=== PATIENT | male | born 1980 | race Two or more races ===

== ENCOUNTER 2016-09-28 08:40 | Inpatient (IN) | payer OTHER ==
[2016-09-28 10:42] VITALS: BMI 38.5
--- NOTE | 2016-09-28 11:55 | HP ---
COWS - Scale Resting Pulse: 2= [place] 101-120 Sweatin=Flushed/Facial Moisture Restless Observation: 3= Extraneous Movement Pupil Size: 2= Moderately Dilated Bone or Joint Aches: 2= Severe Diffuse Aches Runny Nose/ Eye Tearin= Runny Nose/Eyes GI Upset > 30mins: 3= Vomiting/Diarrhea Tremor Observation: 2= Slight Tremor Visible Yawning Observation: 2= >3x During Session Anxiety or Irritability: 2=Irritable/Anxious Goose Flesh Skin: 0=Smooth Skin COWS Score: 22 CIWA Score - CIWA Score Nausea/Vomitin Muscle Tremors: 3 Anxiety: 3 Agitation: 3 Paroxysmal Sweats: 2 Orientation: 0-Oriented Tacttile Disturbances: 2-Mild Itch/Numbness/Burn Auditory Disturbances: 2-Mild Harshness/Frighten Visual Disturbances: 2-Mild Sensitivity Headache: 2-Mild CIWA-Ar Total Score: 22 Admission ROS [facility]HS - HPI Chief Complaint: i need help to stop using heroin,alcohol,klonopin Allergies/Adverse Reactions: Allergies Allergy/AdvReac Type Severity Reaction Status Date / Time buspirone Allergy Severe Difficulty Verified 09/28/16 11:06 Breathing History of Present Illness: this 35 years old male with heroin,alcohol and klonopin dependence,seeking detox ,last detox 12/16/15 12/20/15 [facility] nicotine dependence adhd depression longest period of sobriety 9 months Exam Limitations: No Limitations - Ebola screening Have you traveled outside of the country in the last 21 days: No Have you been sick,other than usual withdrawal symptoms: No - Review of Systems Constitutional: Chills, Diaphoresis, Loss of Appetite, Malaise, Night Sweats, Changes in sleep, Other EENT: reports: Tearing, Nose Congestion Respiratory: reports: No Symptoms reported Cardiac: reports: Palpitations GI: reports: Diarrhea, Nausea, Vomiting, Abdominal cramping : reports: No Symptoms Reported Musculoskeletal: reports: Back Pain, Joint Pain, Muscle Pain, Joint Stiffness Integumentary: reports: Dryness Neuro: reports: Headache, Tremors Endocrine: reports: No Symptoms Reported Hematology: reports: No Symptoms Reported Psychiatric: reports: other (adhd,depresion) Patient History - Patient Medical History Hx Anemia: No Hx Asthma: No Hx Chronic Obstructive Pulmonary Disease (COPD): No Hx Cancer: No Hx Cardiac Disorders: No Hx Congestive Heart Failure: No Hx Hypertension: Yes (pt is on meds.) Hx Hypercholesterolemia: No Hx Pacemaker: No HX Cerebrovascular Accident: No Hx Seizures: No Hx Diabetes: No Hx Gastrointestinal Disorders: No Hx Liver Disease: No Hx Genitourinary Disorders: No Hx Sexually Transmitted Disorders: No Hx Renal Disease (ESRD): No Hx Thyroid Disease: No Hx Human Immunodeficiency Virus (HIV): No (last 2015 negative) Hx Hepatitis C: No Hx Depression: Yes Hx Suicide Attempt: No Hx Bipolar Disorder: No Hx Schizophrenia: No Other Medical History: adhd,no suicidal,no homicidal - Patient Surgical History Past Surgical History: No Hx Neurologic Surgery: No Hx Cataract Extraction: No Hx Cardiac Surgery: No Hx Lung Surgery: No Hx Breast Surgery: No Hx Breast Biopsy: No Hx Abdominal Surgery: No Hx Appendectomy: No Hx Cholecystectomy: No Hx Genitourinary Surgery: No Hx Section: No Hx Orthopedic Surgery: No Anesthesia Reaction: No - PPD History Previous Implant?: Yes Documented Results: Negative w/proof Implanted On Prior [facility] Admission?: Yes Date: 12/18/15 Results: 0 MM PPD to be Administered?: No - Smoking Cessation Smoking history: Current every day smoker Have you smoked in the past 12 months: Yes Aproximately how many cigarettes per day: 20 Hx Chewing Tobacco Use: No Initiated information on smoking cessation: Yes 'Breaking Loose' booklet given: 09/28/16 - Substance & Tx. History Hx Alcohol Use: Yes Hx Substance Use: Yes Substance Use Type: Alcohol, Heroin, Tranquilizers Hx Substance Use Treatment: Yes ([facility] 12/16/15 to 12/20/15) - Substances Abused Heroin Route: Injection Frequency: Daily Amount used: 6 BAGS Age of first use: 31 Date of Last Use: 09/28/16 Alcohol Route: Oral Frequency: Daily Amount used: 4 FOUR LOCO Age of first use: 33 Date of Last Use: 09/28/16 Benzodiazepine (Klonopin) Route: Oral Frequency: Daily Amount used: 3-5MG Age of first use: 30 Date of Last Use: 09/27/16 Marijuana/Hashish Route: Smoking Frequency: Daily Amount used: $40 Age of first use: 22 Date of Last Use: 09/28/16 Family Disease History - Family Disease History Family Disease History: Other: Father (KILLED) Admission Physical Exam [facility] - Vital Signs Vital Signs: Vital Signs - 24 hr 09/28/16 10:40 Temperature 97.1 F L Pulse Rate 110 H Respiratory 20 Rate Blood Pressure 139/89 - Physical General Appearance: Yes: Moderate Distress, Tremorous, Irritable, Sweating, Anxious HEENTM: Yes: Hearing grossly Normal, Normal ENT Inspection, ERNIE Respiratory: Yes: Lungs Clear, Normal Breath Sounds, No Respiratory Distress Neck: Yes: Within Normal Limits Breast: Yes: Within Normal Limits Cardiology: Yes: Tachycardia Abdominal: Yes: Within Normal Limits, Normal Bowel Sounds, Non Tender, Flat, Soft Genitourinary: Yes: Within Normal Limits Back: Yes: Normal Inspection, Muscle Spasm Musculoskeletal: Yes: full range of Motion, Back pain, Joint Stiffness, Muscle Pain Extremities: Yes: Normal Range of Motion, Tremors Neurological: Yes: infection control nurse II-XII NML intact, Fully Oriented, Alert, Motor Strength 5/5 Integumentary: Yes: Dry Lymphatic: Yes: Within Normal Limits - Diagnostic (1) Opioid dependence with withdrawal Current Visit: No Status: Acute (2) Alcohol dependence with uncomplicated withdrawal Current Visit: Yes Status: Acute (3) Uncomplicated sedative, hypnotic or anxiolytic withdrawal Current Visit: Yes Status: Acute (4) Marijuana dependence Current Visit: No Status: Acute (5) Nicotine dependence Current Visit: No Status: Acute Qualifiers: Nicotine product type: cigarettes Substance use status: uncomplicated Qualified Code(s): F17.210 - Nicotine dependence, cigarettes, uncomplicated (6) Depressive disorder Current Visit: No Status: Chronic (7) Hypertension Current Visit: No Status: Chronic Qualifiers: Hypertension type: essential hypertension Qualified Code(s): I10 - Essential (primary) hypertension Comment: PATIENT IS TAKING CLONIDIN 0.2 MG AT HOME FOR HYPERTENSION DUE TO DIETARY CONTROL LOW SALT WITH METHADONE DETOX REGIMEN BEGIN 0.1 MG BID Cleared for Admission [facility] - Detox or Rehab [facility] Level of Care: Medically Managed Detox Regimen/Protocol: Methadone/Valium [facility] Breath Alcohol Content Breath Alcohol Content: 0 Urine Drug Screen - Results Drug Screen Negative: No Urine Drug Screen Results: THC-Marijuana, OPI-Opiates, AMP-Amphetamines
[2016-09-28] MEDS ORDERED: MAGNESIUM HYDROX 2400MG/30ML ORAL SUSPENSION 30 ML CUP PO PRN (12:10)
[2016-09-28] MEDS ORDERED: hydrOXYzine PAMOATE 50 MG CAPSULE (FP) PO PRN (12:10)
[2016-09-28] MEDS ORDERED: guaiFENesin/D-METHORPHAN HB 10 ML UNIT-DOSE CUPS PO PRN (12:10)
[2016-09-28] MEDS ORDERED: MAGNESIUM CITRATE 300 ML BOTTLE PO PRN (12:10)
[2016-09-28] MEDS ORDERED: LOPERAMIDE HCL 2 MG CAPSULE PO PRN (12:10)
[2016-09-28] MEDS ORDERED: MENTHOL/PHENOL 1 EACH UD MM PRN (12:10)
[2016-09-28] MEDS ORDERED: diazePAM 5 MG TABLET PO ONE (12:10)
[2016-09-28] MEDS ORDERED: IBUPROFEN 400 MG TABLET (FP) PO PRN (12:10)
[2016-09-28] MEDS ORDERED: MAG HYDROX/AL HYDROX/SIMETH 30 ML UNIT-DOSE CUP PO PRN (12:10)
[2016-09-28] MEDS ORDERED: P-EPHED 60MG/TRIPROLIDI 2.5MG TABLET PO PRN (12:10)
[2016-09-28] MEDS ORDERED: ACETAMINOPHEN 325 MG TABLET (FP) PO PRN (12:10)
[2016-09-28] MEDS ORDERED: METHADONE HCL 10 MG TABLET (FOR DETOX USE ONLY) PO ONE ×2 (12:17→23:00)
[2016-09-28] MEDS: cloNIDine HCL 0.1 MG TABLET PO SCH ×2 (13:07→22:03)
[2016-09-28] MEDS: NICOTINE 21 MG/24 HOURS TOPICAL PATCH TD SCH (13:10)
[2016-09-28] MEDS: GABAPENTIN 300 MG CAPSULE (FP) PO SCH ×2 (13:17→22:04)
[2016-09-28] MEDS: diazePAM 5 MG TABLET PO SCH ×2 (14:22→22:04)
[2016-09-28 18:03] LABS: URINE APPEARANCE CLEAR; URINE BILIRUBIN NEGATIVE (NEGATIVE); URINE COLOR YELLOW; URINE GLUCOSE (UA) NEGATIVE (NEGATIVE); URINE KETONE NEGATIVE (NEGATIVE); URINE LEUK ESTERASE NEGATIVE (NEGATIVE); URINE NITRITE NEGATIVE (NEGATIVE); URINE PROTEIN NEGATIVE (NEGATIVE); URINE UROBILINOGEN NEGATIVE E.U./dl (0.2-1.0)
[2016-09-28] MEDS: diazePAM 5 MG TABLET PO PRN (18:04)
[2016-09-28 18:48] LABS: URINE BLOOD 1+ (NEGATIVE)
[2016-09-28 19:01] LABS: URINE MUCUS RARE; URINE RBC 1 /hpf (0-3); URINE WBC 2 /hpf (3-5)
[2016-09-28] MEDS: THIAMINE HCL 100 MG TABLET (FP) PO SCH (22:04)
[2016-09-29] MEDS: cloNIDine HCL 0.1 MG TABLET PO SCH ×3 (05:56→22:12)
[2016-09-29] MEDS: GABAPENTIN 300 MG CAPSULE (FP) PO SCH ×3 (06:58→22:12)
[2016-09-29] MEDS: diazePAM 5 MG TABLET PO SCH ×3 (06:58→22:13)
[2016-09-29 09:40] LABS: MCH 30.9 pg (25.7-33.7); MCHC 33.2 g/dl (32.0-35.9); MEAN CELL VOLUME 93.2 fl (80-96); MEAN PLT VOLUME 8.7 fl (7.5-11.1); PLATELET COUNT 212 K/MM3 (134-434); RDW 12.7 % (11.9-15.9); WHITE BLOOD COUNT 8.7 K/mm3 (4.0-10.0)
[2016-09-29] MEDS ORDERED: METHADONE HCL 10 MG TABLET (FOR DETOX USE ONLY) PO SCH (10:00)
[2016-09-29] MEDS: PRENATAL VITAMINS W/ FOLIC ACID TABLET (FP) PO SCH (10:20)
[2016-09-29] MEDS: diazePAM 5 MG TABLET PO PRN ×2 (10:20→18:11)
--- NOTE | 2016-09-29 10:42 | CONSULT ---
[facility] Psychiatric Consult - Data Date of interview: 09/29/16 Admission source: [facility] Identifying data: This is 35 years old male with no psychiatric hospitalization history ointoxicated with: Alcohol, Xanax, Heroin, Cannabis, Opioids and Nicotine Substance Abuse History: - Smoking Cessation. Smoking history: Current every day smoker. Have you smoked in the past 12 months: Yes. Aproximately how many cigarettes per day: 20. Hx Chewing Tobacco Use: No. Initiated information on smoking cessation: Yes. 'Breaking Loose' booklet given: 09/28/16. - Substance & Tx. History. Hx Alcohol Use: Yes. Hx Substance Use: Yes. Substance Use Type : Alcohol, Heroin, Tranquilizers. Hx Substance Use Treatment: Yes ([facility] to 12/20/15). - Substances Abused. Heroin. Route: Injection. Frequency : Daily. Amount used: 6 BAGS. Age of first use: 31. Date of Last Use: . Alcohol. Route: Oral. Frequency: Daily. Amount used: 4 FOUR LOCO. Age of first use: 33. Date of Last Use: 09/28/16. Benzodiazepine (Klonopin) . Route: Oral. Frequency: Daily. Amount used: 3-5MG. Age of first use: 30. Date of Last Use: 09/27/16. Marijuana/Hashish. Route: Smoking. Frequency: Daily. Amount used: $40. Age of first use: 22. Date of Last Use: 09/28/16 Medical History: HTN Psychiatric History: Patient reports ADHD history Physical/Sexual Abuse/Trauma History: Denies Additional Comment: Observation. Detox Unit Care protocol Mental Status Exam - Mental Status Exam Alert and Oriented to: Person Cognitive Function: Fair Patient Appearance: Unkempt Affect: Flat Patient Behavior: Sedated Speech Pattern: Delayed Voice Loudness: Mildly Soft/Quiet Thought Process: Circumstantial Thought Disorder: Being Controlled Hallucinations: Denies Suicidal Ideation: Denies Homicidal Ideation: Denies Insight/Judgement: Fair Sleep: Difficulty falling asleep Appetite: Weight loss Muscle strength/Tone: Moderate Hypotonicity Gait/Station: Normal Additional Comments: Observation. Detox Unit Care protocol Psychiatric Findings - Problem List ([place] 1, 2,3) (1) Alcohol dependence with uncomplicated withdrawal Current Visit: Yes Status: Acute (2) Uncomplicated sedative, hypnotic or anxiolytic withdrawal Current Visit: Yes Status: Acute (3) Heroin dependence Current Visit: No Status: Acute (4) Marijuana dependence Current Visit: No Status: Acute (5) Nicotine dependence Current Visit: No Status: Acute Qualifiers: Nicotine product type: cigarettes Substance use status: uncomplicated Qualified Code(s): F17.210 - Nicotine dependence, cigarettes, uncomplicated (6) Opioid dependence with withdrawal Current Visit: No Status: Acute (7) Substance induced mood disorder Current Visit: No Status: Acute (8) Substance-induced anxiety disorder Current Visit: No Status: Chronic (9) Drug-induced mood disorder Current Visit: Yes Status: Acute - Initial Treatment Plan Initial Treatment Plan: Observation. Detox Unit Care protocol
[2016-09-29 11:00] LABS: ALBUMIN 3.8 g/dl (3.4-5.0); ALK PHOS 103 U/L (45-117); ANION GAP 11 (8-16); BILIRUBIN,TOTAL 0.6 mg/dL (0.2-1.0); CO2 30 mmol/L (21-32); CREATININE 0.9 mg/dL (0.7-1.3); GLUCOSE,RANDOM 104 mg/dL (74-106); SGOT/AST 28 U/L (15-37); SGPT/ALT 30 U/L (12-78)
--- NOTE | 2016-09-29 11:04 | EKG ---
Test Reason : Blood Pressure : / mmHG Vent. Rate : 079 BPM Atrial Rate : 079 BPM P-R Int : 184 ms QRS Dur : 096 ms QT Int : 358 ms P-R-T Axes : 043 028 017 degrees QTc Int : 410 ms NORMAL SINUS RHYTHM NORMAL ECG NO PREVIOUS ECGS AVAILABLE Confirmed by HENRI FERRELL MD ([id number]) on 09/29/2016 11:04:39 AM Referred By: Nela Greene Confirmed By:HENRI FERRELL MD
--- NOTE | 2016-09-29 12:24 | PN ---
S CIWA - CIWA Score Nausea/Vomitin Muscle Tremors: 2 Anxiety: 3 Agitation: 2 Paroxysmal Sweats: 3 Orientation: 0-Oriented Tacttile Disturbances: 1-Very Mild Itch/Numbness Auditory Disturbances: 0-None Visual Disturbances: 0-None Headache: 0-None Present CIWA-Ar Total Score: 13 S COWS - Scale Resting Pulse: 0= [place] 80 or Below Sweatin=Flushed/Facial Moisture Restless Observation: 1= Difficult to Sit Still Pupil Size: 1= Pupils >than Normal Bone or Joint Aches: 1= Mild Discomfort Runny Nose/ Eye Tearin= Nasal Congestion GI Upset > 30mins: 1= Stomach Cramp Tremor Observation of Outstretched Hands: 1= Tremor [place], Not Seen Yawning Observation: 0= None Anxiety or Irritability: 2=Irritable/Anxious Goose Flesh Skin: 0=Smooth Skin COWS Score: 10 S Progress Note (SOAP) Subjective: interrupted sleep, sweats, anxious Objective: 09/29/16 12:22 Vital Signs Temperature 97.8 F 09/29/16 09:44 Pulse Rate 75 09/29/16 09:44 Respiratory Rate 16 09/29/16 09:44 Blood Pressure 129/69 09/29/16 09:44 O2 Sat by Pulse Oximetry (%) Laboratory Tests 09/28/16 09/29/16 09/29/16 15:00 06:00 06:00 WBC 8.7 RBC 5.08 Hgb 15.7 D Hct 47.3 D MCV 93.2 MCHC 33.2 RDW 12.7 Plt Count 212 D MPV 8.7 Sodium 142 Potassium 4.0 Chloride 101 Carbon Dioxide 30 Anion Gap 11 BUN 12 Creatinine 0.9 Creat Clearance w eGFR > 60 Random Glucose 104 Calcium 9.0 Total Bilirubin 0.6 D AST 28 D ALT 30 D Alkaline Phosphatase 103 D Total Protein 7.0 Albumin 3.8 Urine Color Yellow Urine Appearance Clear Urine pH 5.0 Ur Specific [place] 1.025 Urine Protein Negative Urine Glucose (UA) Negative Urine Ketones Negative Urine Blood 1+ H Urine Nitrite Negative Urine Bilirubin Negative Urine Urobilinogen Negative Ur Leukocyte Esterase Negative Urine RBC 1 Urine WBC 2 Ur Epithelial Cells Rare Urine Mucus Rare RPR Titer 09/29/16 06:00 WBC RBC Hgb Hct MCV MCHC RDW Plt Count MPV Sodium Potassium Chloride Carbon Dioxide Anion Gap BUN Creatinine Creat Clearance w eGFR Random Glucose Calcium Total Bilirubin AST ALT Alkaline Phosphatase Total Protein Albumin Urine Color Urine Appearance Urine pH Ur Specific [place] Urine Protein Urine Glucose (UA) Urine Ketones Urine Blood Urine Nitrite Urine Bilirubin Urine Urobilinogen Ur Leukocyte Esterase Urine RBC Urine WBC Ur Epithelial Cells Urine Mucus RPR Titer Nonreactive pt aox3 in nad ambulating 09/29/16 12:24 Assessment: 09/29/16 12:23 withdrawal sx's Plan: cont. detox increase fluids
[2016-09-29] MEDS: NICOTINE 21 MG/24 HOURS TOPICAL PATCH TD SCH (13:33)
[2016-09-29] MEDS: THIAMINE HCL 100 MG TABLET (FP) PO SCH (22:12)
[2016-09-29] MEDS: diphenhydrAMINE HCL 50 MG CAPSULE PO PRN (22:12)
[2016-09-30] MEDS: GABAPENTIN 300 MG CAPSULE (FP) PO SCH ×3 (05:37→22:07)
[2016-09-30] MEDS: cloNIDine HCL 0.1 MG TABLET PO SCH ×3 (05:38→22:08)
--- NOTE | 2016-09-30 08:55 | PN ---
[facility] CIWA - CIWA Score Nausea/Vomitin-Mild Nausea/No Vomiting Muscle Tremors: 2 Anxiety: 3 Agitation: 2 Paroxysmal Sweats: 3 Orientation: 0-Oriented Tacttile Disturbances: 1-Very Mild Itch/Numbness Auditory Disturbances: 0-None Visual Disturbances: 0-None Headache: 0-None Present CIWA-Ar Total Score: 12 BHS COWS - Scale Resting Pulse: 0= [place] 80 or Below Sweatin= Chills/Flushing Restless Observation: 1= Difficult to Sit Still Pupil Size: 1= Pupils >than Normal Bone or Joint Aches: 1= Mild Discomfort Runny Nose/ Eye Tearin= Nasal Congestion GI Upset > 30mins: 1= Stomach Cramp Tremor Observation of Outstretched Hands: 1= Tremor [place], Not Seen Yawning Observation: 0= None Anxiety or Irritability: 2=Irritable/Anxious Goose Flesh Skin: 0=Smooth Skin COWS Score: 9 [facility] Progress Note (SOAP) Subjective: feeling better wants to decrease dose of methadone Objective: 09/30/16 08:53 Vital Signs Temperature 98.1 F 09/30/16 06:00 Pulse Rate 74 09/30/16 06:00 Respiratory Rate 20 09/30/16 06:00 Blood Pressure 154/87 09/30/16 06:00 O2 Sat by Pulse Oximetry (%) Vital Signs Temperature 98.1 F 09/30/16 06:00 Pulse Rate 74 09/30/16 06:00 Respiratory Rate 20 09/30/16 06:00 Blood Pressure 154/87 09/30/16 06:00 O2 Sat by Pulse Oximetry (%) Laboratory Tests 09/28/16 09/29/16 09/29/16 15:00 06:00 06:00 WBC 8.7 RBC 5.08 Hgb 15.7 D Hct 47.3 D MCV 93.2 MCHC 33.2 RDW 12.7 Plt Count 212 D MPV 8.7 Sodium 142 Potassium 4.0 Chloride 101 Carbon Dioxide 30 Anion Gap 11 BUN 12 Creatinine 0.9 Creat Clearance w eGFR > 60 Random Glucose 104 Calcium 9.0 Total Bilirubin 0.6 D AST 28 D ALT 30 D Alkaline Phosphatase 103 D Total Protein 7.0 Albumin 3.8 Urine Color Yellow Urine Appearance Clear Urine pH 5.0 Ur Specific [place] 1.025 Urine Protein Negative Urine Glucose (UA) Negative Urine Ketones Negative Urine Blood 1+ H Urine Nitrite Negative Urine Bilirubin Negative Urine Urobilinogen Negative Ur Leukocyte Esterase Negative Urine RBC 1 Urine WBC 2 Ur Epithelial Cells Rare Urine Mucus Rare RPR Titer 09/29/16 06:00 WBC RBC Hgb Hct MCV MCHC RDW Plt Count MPV Sodium Potassium Chloride Carbon Dioxide Anion Gap BUN Creatinine Creat Clearance w eGFR Random Glucose Calcium Total Bilirubin AST ALT Alkaline Phosphatase Total Protein Albumin Urine Color Urine Appearance Urine pH Ur Specific [place] Urine Protein Urine Glucose (UA) Urine Ketones Urine Blood Urine Nitrite Urine Bilirubin Urine Urobilinogen Ur Leukocyte Esterase Urine RBC Urine WBC Ur Epithelial Cells Urine Mucus RPR Titer Nonreactive pt aox3 in nad ambulating Assessment: 09/30/16 08:53 withdrawal sx's Plan: cont detox increase fluids decrease methadone detox schedule
[2016-09-30] MEDS ORDERED: METHADONE HCL 5 MG TABLET (FOR DETOX USE ONLY) PO SCH (10:00)
[2016-09-30] MEDS ORDERED: METHADONE HCL 5 MG TABLET (FOR DETOX USE ONLY) PO ONE (10:00)
[2016-09-30] MEDS: PRENATAL VITAMINS W/ FOLIC ACID TABLET (FP) PO SCH (10:08)
[2016-09-30] MEDS: diazePAM 5 MG TABLET PO SCH ×2 (10:10→22:08)
[2016-09-30] MEDS: NICOTINE 21 MG/24 HOURS TOPICAL PATCH TD SCH (10:10)
[2016-09-30] MEDS: THIAMINE HCL 100 MG TABLET (FP) PO SCH (22:07)
[2016-09-30] MEDS: diphenhydrAMINE HCL 50 MG CAPSULE PO PRN (22:08)
[2016-10-01] MEDS: diazePAM 5 MG TABLET PO PRN ×2 (00:56→04:59)
[2016-10-01] MEDS: diphenhydrAMINE HCL 50 MG CAPSULE PO PRN (00:56)
[2016-10-01] MEDS: GABAPENTIN 300 MG CAPSULE (FP) PO SCH (05:25)
[2016-10-01] MEDS: cloNIDine HCL 0.1 MG TABLET PO SCH (07:49)
--- NOTE | 2016-10-01 09:43 | PN ---
BHS Progress Note (SOAP) Subjective: Sweating,interrupted sleep,restless Objective: 10/01/16 09:42 Vital Signs - 8 hr 10/01/16 06:00 Temperature 97.2 F L Pulse Rate 63 Respiratory 18 Rate Blood Pressure 125/69 Laboratory Tests 09/28/16 09/29/16 09/29/16 15:00 06:00 06:00 WBC 8.7 RBC 5.08 Hgb 15.7 D Hct 47.3 D MCV 93.2 MCHC 33.2 RDW 12.7 Plt Count 212 D MPV 8.7 Sodium 142 Potassium 4.0 Chloride 101 Carbon Dioxide 30 Anion Gap 11 BUN 12 Creatinine 0.9 Creat Clearance w eGFR > 60 Random Glucose 104 Calcium 9.0 Total Bilirubin 0.6 D AST 28 D ALT 30 D Alkaline Phosphatase 103 D Total Protein 7.0 Albumin 3.8 Urine Color Yellow Urine Appearance Clear Urine pH 5.0 Ur Specific [place] 1.025 Urine Protein Negative Urine Glucose (UA) Negative Urine Ketones Negative Urine Blood 1+ H Urine Nitrite Negative Urine Bilirubin Negative Urine Urobilinogen Negative Ur Leukocyte Esterase Negative Urine RBC 1 Urine WBC 2 Ur Epithelial Cells Rare Urine Mucus Rare RPR Titer 09/29/16 06:00 WBC RBC Hgb Hct MCV MCHC RDW Plt Count MPV Sodium Potassium Chloride Carbon Dioxide Anion Gap BUN Creatinine Creat Clearance w eGFR Random Glucose Calcium Total Bilirubin AST ALT Alkaline Phosphatase Total Protein Albumin Urine Color Urine Appearance Urine pH Ur Specific [place] Urine Protein Urine Glucose (UA) Urine Ketones Urine Blood Urine Nitrite Urine Bilirubin Urine Urobilinogen Ur Leukocyte Esterase Urine RBC Urine WBC Ur Epithelial Cells Urine Mucus RPR Titer Nonreactive labs noted Assessment: 10/01/16 09:42 Withdrawal sx. Plan: Continue detox
[2016-10-01] MEDS ORDERED: METHADONE HCL 10 MG TABLET (FOR DETOX USE ONLY) PO ONE (10:00)
[2016-10-01] MEDS ORDERED: METHADONE HCL 10 MG TABLET (FOR DETOX USE ONLY) PO SCH (10:00)
[2016-10-01] MEDS: PRENATAL VITAMINS W/ FOLIC ACID TABLET (FP) PO SCH (10:26)
[2016-10-01] MEDS: diazePAM 5 MG TABLET PO SCH (10:26)
[2016-10-01] MEDS: NICOTINE 21 MG/24 HOURS TOPICAL PATCH TD SCH (10:27)
[2016-10-01 14:40] VITALS: BP 152/81; PULSE 78; TEMP 97.2
[2016-10-02] MEDS ORDERED: METHADONE HCL 5 MG TABLET (FOR DETOX USE ONLY) PO ONE (10:00)
[2016-10-02] MEDS ORDERED: diazePAM 5 MG TABLET PO SCH (10:00)
[2016-10-02] MEDS ORDERED: METHADONE HCL 10 MG TABLET (FOR DETOX USE ONLY) PO SCH (10:00)
[2016-10-03] MEDS ORDERED: METHADONE HCL 5 MG TABLET (FOR DETOX USE ONLY) PO SCH (06:00)
== END 2016-10-01 14:04 | disposition left against medical advice (07) | DRG 770 ==
LOC: YASAS 08:40 → Y6N 11:32
PROVIDERS: ADMIT Internal Medicine; ATTEND Internal Medicine
PROC: HZ2ZZZZ Detoxification Services for Substance Abuse Treatment (ICD-10-PCS; principal; 2016-10-01)
DX: F11.23 Opioid dependence with withdrawal (principal); F13.230 Sedative, hypnotic or anxiolytic dependence with withdrawal, uncomplicated; F10.230 Alcohol dependence with withdrawal, uncomplicated; F12.20 Cannabis dependence, uncomplicated; F17.210 Nicotine dependence, cigarettes, uncomplicated; F19.24 Other psychoactive substance dependence with psychoactive substance-induced mood disorder; F19.280 Other psychoactive substance dependence with psychoactive substance-induced anxiety disorder; I10 Essential (primary) hypertension
CPT/HCPCS: 36415; 80053; 81003; 81015; 85027; 86593; 93005; 93010

== ENCOUNTER 2016-12-03 12:44 | Inpatient (IN) | payer OTHER ==
[2016-12-03 13:55] VITALS: BMI 29.5
--- NOTE | 2016-12-03 16:37 | HP ---
COWS - Scale Resting Pulse: 0= [place] 80 or Below Sweatin=Flushed/Facial Moisture Restless Observation: 1= Difficult to Sit Still Pupil Size: 0= Normal to Room Light Bone or Joint Aches: 2= Severe Diffuse Aches Runny Nose/ Eye Tearin= Constantly Teary/Runny GI Upset > 30mins: 3= Vomiting/Diarrhea Tremor Observation: 2= Slight Tremor Visible Yawning Observation: 2= >3x During Session Anxiety or Irritability: 2=Irritable/Anxious Goose Flesh Skin: 3=[place] COWS Score: 21 CIWA Score - CIWA Score Nausea/Vomitin-No Nausea/No Vomiting Muscle Tremors: 4-Moderate,w/Arms Extend Anxiety: 4-Mod. Anxious/Guarded Agitation: 4-Moderately Restless Paroxysmal Sweats: 3 Orientation: 1-Uncertain about Date Tacttile Disturbances: 0-None Auditory Disturbances: 0-None Visual Disturbances: 0-None Headache: 1-Very Mild CIWA-Ar Total Score: 17 Admission ROS BHS - HPI Chief Complaint: I am here for detox and need help. Allergies/Adverse Reactions: Allergies Allergy/AdvReac Type Severity Reaction Status Date / Time buspirone Allergy Severe Difficulty Verified 09/28/16 11:06 Breathing History of Present Illness: pt is a 36yr old male with a history of heroin, benzodiazapien and alcohol dependence seeking detox for treatment. Exam Limitations: No Limitations - Ebola screening Have you traveled outside of the country in the last 21 days: No Have you had contact with anyone from an Ebola affected area: No Have you been sick,other than usual withdrawal symptoms: No Do you have a fever: No - Review of Systems Constitutional: Diaphoresis, Changes in sleep, Unexplained wgt Loss EENT: reports: No Symptoms Reported, Nose Congestion Respiratory: reports: No Symptoms reported Cardiac: reports: Syncope GI: reports: Diarrhea, Poor Appetite, Poor Fluid Intake : reports: No Symptoms Reported Musculoskeletal: reports: Back Pain, Joint Pain Integumentary: reports: No Symptoms Reported Neuro: reports: Headache, Tingling, Tremors Endocrine: reports: Excessive Sweating, Flushing, Intolerance to Heat, Increased Hunger Hematology: reports: No Symptoms Reported Psychiatric: reports: Judgement Intact, Mood/Affect Appropiate, Orientated x3, Agitated, Anxious, Depressed Other Systems: Reviewed and Negative Patient History - Patient Medical History Hx Anemia: No Hx Asthma: No Hx Chronic Obstructive Pulmonary Disease (COPD): No Hx Cancer: No Hx Cardiac Disorders: No Hx Congestive Heart Failure: No Hx Hypertension: Yes Hx Hypercholesterolemia: No Hx Pacemaker: No HX Cerebrovascular Accident: No Hx Seizures: No Hx Diabetes: No Hx Gastrointestinal Disorders: No Hx Liver Disease: No Hx Genitourinary Disorders: No Hx Sexually Transmitted Disorders: No Hx Renal Disease (ESRD): No Hx Thyroid Disease: No Hx Human Immunodeficiency Virus (HIV): No (negative) Hx Hepatitis C: No Hx Depression: Yes Hx Suicide Attempt: No (denies) Hx Bipolar Disorder: No Hx Schizophrenia: No - Patient Surgical History Past Surgical History: No Hx Neurologic Surgery: No Hx Cataract Extraction: No Hx Cardiac Surgery: No Hx Lung Surgery: No Hx Breast Surgery: No Hx Breast Biopsy: No Hx Abdominal Surgery: No Hx Appendectomy: No Hx Cholecystectomy: No Hx Genitourinary Surgery: No Hx Section: No Hx Orthopedic Surgery: No Anesthesia Reaction: No - PPD History Previous Implant?: Yes Documented Results: Negative w/proof Date: 12/18/15 Results: 0 MM PPD to be Administered?: No - Reproductive History Patient is a Female of Child Bearing Age (11 -55 yrs old): No - Smoking Cessation Smoking history: Current every day smoker Have you smoked in the past 12 months: Yes Aproximately how many cigarettes per day: 20 Hx Chewing Tobacco Use: No Initiated information on smoking cessation: Yes 'Breaking Loose' booklet given: 12/03/16 - Substance & Tx. History Hx Alcohol Use: Yes Hx Substance Use: Yes Substance Use Type: Alcohol, Heroin, Marijuana Hx Substance Use Treatment: Yes (last detox 10/2016) - Substances Abused Alcohol Route: Oral Frequency: 3-6 times per week Amount used: 2 pints evleyn, 2pts vodka, 12bottles bro Age of first use: 29 Date of Last Use: 12/02/16 Heroin Route: Injection Frequency: Daily Amount used: 6-12bags Age of first use: 30 Date of Last Use: 12/03/16 Alprazolam (Xanax) Route: Inhalation Frequency: 3-6 times per week Amount used: 2-6 sticks Age of first use: 22 Date of Last Use: 12/02/16 Family Disease History - Family Disease History Family History: Denies Family Disease History: Heart Disease: Grandparent, Mother, Other: Father ( KILLED) Admission Physical Exam [facility] - Vital Signs Vital Signs: Vital Signs - 24 hr 12/03/16 13:52 Temperature 96.3 F L Pulse Rate 77 Respiratory 16 Rate Blood Pressure 110/60 - Physical General Appearance: Yes: Appropriately Dressed, Obese, Tremorous, Irritable, Sweating HEENTM: Yes: Hearing grossly Normal Respiratory: Yes: Lungs Clear, Normal Breath Sounds, No Respiratory Distress Neck: Yes: No masses,lesions,Nodules Breast: Yes: Within Normal Limits Cardiology: Yes: Regular Rhythm, Regular Rate, S1, S2 Abdominal: Yes: Normal Bowel Sounds, Non Tender Genitourinary: Yes: Within Normal Limits Back: Yes: Normal Inspection Musculoskeletal: Yes: full range of Motion Extremities: Yes: Within Normal Limits, Normal Inspection Neurological: Yes: Fully Oriented, Normal Response Integumentary: Yes: Normal Color, Diaphoresis, Track Cotton Lymphatic: Yes: Within Normal Limits - Diagnostic (1) Alcohol dependence with uncomplicated withdrawal Current Visit: Yes Status: Chronic (2) Marijuana dependence Current Visit: Yes Status: Chronic (3) Nicotine dependence Current Visit: Yes Status: Chronic Qualifiers: Nicotine product type: cigarettes Substance use status: uncomplicated Qualified Code(s): F17.210 - Nicotine dependence, cigarettes, uncomplicated (4) Opioid dependence with withdrawal Current Visit: Yes Status: Chronic (5) Uncomplicated sedative, hypnotic or anxiolytic withdrawal Current Visit: Yes Status: Chronic (6) Hypertension Current Visit: Yes Status: Chronic Qualifiers: Hypertension type: essential hypertension (7) Anxiety Current Visit: No Status: Suspected Cleared for Admission [facility] - Detox or Rehab [facility] Level of Care: Medically Managed Detox Regimen/Protocol: Methadone/Librium [facility] Breath Alcohol Content Breath Alcohol Content: 0 Urine Drug Screen - Results Drug Screen Negative: No Urine Drug Screen Results: THC-Marijuana, OPI-Opiates, BZO-Benzodiazepines
[2016-12-03] MEDS ORDERED: MAG HYDROX/AL HYDROX/SIMETH 30 ML UNIT-DOSE CUP PO PRN (16:46)
[2016-12-03] MEDS ORDERED: IBUPROFEN 400 MG TABLET (FP) PO PRN (16:46)
[2016-12-03] MEDS ORDERED: chlordiazePOXIDE HCL 25 MG CAPSULE PO ONE (16:46)
[2016-12-03] MEDS ORDERED: LOPERAMIDE HCL 2 MG CAPSULE PO PRN (16:46)
[2016-12-03] MEDS ORDERED: diphenhydrAMINE HCL 50 MG CAPSULE PO PRN (16:46)
[2016-12-03] MEDS ORDERED: MAGNESIUM CITRATE 300 ML BOTTLE PO PRN (16:46)
[2016-12-03] MEDS ORDERED: ACETAMINOPHEN 325 MG TABLET (FP) PO PRN (16:46)
[2016-12-03] MEDS ORDERED: guaiFENesin/D-METHORPHAN HB 10 ML UNIT-DOSE CUPS PO PRN (16:46)
[2016-12-03] MEDS ORDERED: P-EPHED 60MG/TRIPROLIDI 2.5MG TABLET PO PRN (16:46)
[2016-12-03] MEDS ORDERED: NICOTINE POLACRILEX 4 MG GUM BC PRN (16:46)
[2016-12-03] MEDS ORDERED: METHADONE HCL 10 MG TABLET (FOR DETOX USE ONLY) PO ONE ×2 (16:46→23:00)
[2016-12-03] MEDS ORDERED: MENTHOL/PHENOL 1 EACH UD MM PRN (16:46)
[2016-12-03] MEDS ORDERED: hydrOXYzine PAMOATE 50 MG CAPSULE (FP) PO PRN (16:46)
[2016-12-03] MEDS ORDERED: MAGNESIUM HYDROX 2400MG/30ML ORAL SUSPENSION 30 ML CUP PO PRN (16:46)
[2016-12-03] MEDS ORDERED: cloNIDine HCL 0.1 MG TABLET PO PRN (16:56)
[2016-12-03] MEDS: chlordiazePOXIDE HCL 25 MG CAPSULE PO SCH ×2 (18:36→22:21)
--- NOTE | 2016-12-03 19:35 | CONSULT ---
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 Substance Abuse History: Confirmed by patient in this interview. Smoking Cessation. Smoking history: Current every day smoker. Have you smoked in the past 12 months: Yes. Aproximately how many cigarettes per day: 20. Hx Chewing Tobacco Use: No. Initiated information on smoking cessation: Yes. 'Breaking Loose' booklet given: 12/03/16. - Substance & Tx. History. Hx Alcohol Use: Yes. Hx Substance Use: Yes. Substance Use Type: Alcohol, Heroin, Marijuana. Hx Substance Use Treatment: Yes (last detox 10/2016). - Substances Abused. Alcohol. Route: Oral. Frequency: 3-6 times per week. Amount used: 2 pints evelyn, 2pts vodka, 12bottles bro. Age of first use: 29. Date of Last Use : 12/02/16. Heroin. Route: Injection. Frequency: Daily. Amount used: 6- 12bags. Age of first use: 30. Date of Last Use: 12/03/16. Alprazolam ( Xanax). Route: Inhalation. Frequency: 3-6 times per week. Amount used: 2-6 sticks. Age of first use: 22. Date of Last Use: 12/02/16 Medical History: Hypertension. Psychiatric History: Mr Bellamy denies history of psychiatric hospitalizations.He used to see a psychiatrist,at [facility],for medication management.Diagnosed with MDD and ADHD.Currently prescribed adderall, clonidine,gabapentin and trazodone.No history of suicide attempts.Pharmacy claims are revisited : noted evidence of previous scripts for trazodone 150 mg/ hs. Physical/Sexual Abuse/Trauma History: Patient denies. Additional Comment: THC-Marijuana, OPI-Opiates, BZO-Benzodiazepines.Noted. Mental Status Exam - Mental Status Exam Alert and Oriented to: Time, Place, Person Cognitive Function: Good Patient Appearance: Well Groomed (overweight) Mood: Nervous, Anxious, Hopeful Affect: Mood Congruent Patient Behavior: Fatigued, Appropriate, Cooperative Speech Pattern: Clear, Appropriate Voice Loudness: Normal Thought Process: Intact, Goal Oriented Thought Disorder: Not Present Hallucinations: Denies Suicidal Ideation: Denies Homicidal Ideation: Denies Insight/Judgement: Poor Sleep: Poorly, Difficulty falling asleep Appetite: Good Muscle strength/Tone: Normal Gait/Station: Normal Psychiatric Findings - Problem List (Zachary 1, 2,3) (1) Alcohol dependence with uncomplicated withdrawal Current Visit: Yes Status: Acute (2) Opioid dependence with withdrawal Current Visit: Yes Status: Acute (3) Nicotine dependence Current Visit: Yes Status: Acute Qualifiers: Nicotine product type: cigarettes Substance use status: uncomplicated Qualified Code(s): F17.210 - Nicotine dependence, cigarettes, uncomplicated (4) Drug-induced mood disorder Current Visit: Yes Status: Acute (5) ADHD (attention deficit hyperactivity disorder) Current Visit: Yes Status: Chronic Comment: Self-report. (6) Hypertension Current Visit: Yes Status: Chronic Qualifiers: Hypertension type: essential hypertension Qualified Code(s): I10 - Essential (primary) hypertension (7) Insomnia Current Visit: Yes Status: Acute (8) Marijuana dependence Current Visit: Yes Status: Acute (9) Uncomplicated sedative, hypnotic or anxiolytic withdrawal Current Visit: Yes Status: Acute - Initial Treatment Plan Initial Treatment Plan: Psychoeducation.Detoxification.Trazodone 100 mg po hs.Patient is made aware of risk for priapism and he is advised to stop taking that medication / seek immediate medical attention in the yazidism of erectile abnormalities (prolonged/painful erection).Mr Bellamy consents to follow this careplan.Observation.
[2016-12-03 21:32] LABS: URINE APPEARANCE CLEAR; URINE BILIRUBIN NEGATIVE (NEGATIVE); URINE BLOOD NEGATIVE (NEGATIVE); URINE COLOR YELLOW; URINE GLUCOSE (UA) NEGATIVE (NEGATIVE); URINE KETONE NEGATIVE (NEGATIVE); URINE LEUK ESTERASE NEGATIVE (NEGATIVE); URINE NITRITE NEGATIVE (NEGATIVE); URINE PROTEIN NEGATIVE (NEGATIVE); URINE UROBILINOGEN NEGATIVE mg/dL (0.2-1.0)
[2016-12-03] MEDS ORDERED: traZODone HCL 50 MG TABLET (FP) PO SCH (22:00)
[2016-12-03] MEDS ORDERED: hydrALAZINE HCL 50 MG TABLET (FP) PO SCH (22:00)
[2016-12-03] MEDS: THIAMINE HCL 100 MG TABLET (FP) PO SCH (22:19)
[2016-12-03] MEDS: GABAPENTIN 100 MG CAPSULE (FP) PO SCH (22:20)
[2016-12-03] MEDS: cloNIDine HCL 0.1 MG TABLET PO SCH (22:22)
[2016-12-04] MEDS: GABAPENTIN 100 MG CAPSULE (FP) PO SCH (05:39)
[2016-12-04] MEDS: chlordiazePOXIDE HCL 25 MG CAPSULE PO SCH ×4 (05:39→22:43)
[2016-12-04] MEDS ORDERED: METHADONE HCL 10 MG TABLET (FOR DETOX USE ONLY) PO SCH (10:00)
[2016-12-04] MEDS: cloNIDine HCL 0.1 MG TABLET PO SCH ×2 (10:24→22:42)
[2016-12-04] MEDS: PRENATAL VITAMINS W/ FOLIC ACID TABLET (FP) PO SCH (10:24)
[2016-12-04] MEDS: NICOTINE 21 MG/24 HOURS TOPICAL PATCH TD SCH (10:25)
[2016-12-04 10:36] LABS: MCH 31.2 pg (25.7-33.7); MCHC 33.5 g/dl (32.0-35.9); MEAN CELL VOLUME 93.1 fl (80-96); MEAN PLT VOLUME 8.5 fl (7.5-11.1); PLATELET COUNT 207 K/MM3 (134-434); RDW 13.7 % (11.9-15.9); WHITE BLOOD COUNT 6.4 K/mm3 (4.0-10.0)
[2016-12-04 11:01] LABS: ALBUMIN 3.2 g/dl (3.4-5.0); ALK PHOS 67 U/L (45-117); ANION GAP 6 (8-16); BILIRUBIN,TOTAL 0.4 mg/dL (0.2-1.0); CALCIUM 8.1 mg/dL (8.5-10.1); CO2 32 mmol/L (21-32); GLUCOSE,RANDOM 94 mg/dL (74-106); SGOT/AST 11 U/L (15-37); SGPT/ALT 18 U/L (12-78); TOT PROT 5.9 g/dl (6.4-8.2)
[2016-12-04] MEDS: chlordiazePOXIDE HCL 25 MG CAPSULE PO PRN (14:45)
--- NOTE | 2016-12-04 15:13 | PN ---
S CIWA - CIWA Score Nausea/Vomitin Muscle Tremors: 4-Moderate,w/Arms Extend Anxiety: 5 Agitation: 4-Moderately Restless Paroxysmal Sweats: 2 Orientation: 0-Oriented Tacttile Disturbances: 3-Moderate Itch/Numb/Burn Auditory Disturbances: 0-None Visual Disturbances: 0-None Headache: 0-None Present CIWA-Ar Total Score: 20 BHS COWS - Scale Resting Pulse: 0= NE 80 or Below Sweatin=Flushed/Facial Moisture Restless Observation: 1= Difficult to Sit Still Pupil Size: 0= Normal to Room Light Bone or Joint Aches: 4=Acute Joint/Muscle Pain Runny Nose/ Eye Tearin= Runny Nose/Eyes GI Upset > 30mins: 1= Stomach Cramp Tremor Observation of Outstretched Hands: 2= Slight Tremor Visible Yawning Observation: 1= 1-2x During Session Anxiety or Irritability: 4=Extreme Anxiety Goose Flesh Skin: 0=Smooth Skin COWS Score: 17 S Progress Note (SOAP) Subjective: Tremors, Body Aches, Anxious. Objective: PT. A & O X 3, OBSERVED AMBULATING ON UNIT. NO ACUTE DISTRESS. PT. DENIES CHEST PAIN. 12/04/16 15:11 Vital Signs Temperature 96.7 F L 12/04/16 10:10 Pulse Rate 64 12/04/16 10:10 Respiratory Rate 18 12/04/16 10:10 Blood Pressure 129/65 12/04/16 10:10 O2 Sat by Pulse Oximetry (%) Laboratory Tests 12/03/16 12/04/16 12/04/16 21:00 07:50 07:50 WBC 6.4 RBC 4.54 Hgb 14.2 Hct 42.2 MCV 93.1 MCH 31.2 MCHC 33.5 RDW 13.7 Plt Count 207 MPV 8.5 Sodium 143 Potassium 3.9 Chloride 105 Carbon Dioxide 32 Anion Gap 6 L BUN 18 D Creatinine 1.0 Creat Clearance w eGFR > 60 Random Glucose 94 Calcium 8.1 L Total Bilirubin 0.4 D AST 11 L D ALT 18 D Alkaline Phosphatase 67 D Total Protein 5.9 L Albumin 3.2 L Urine Color Yellow Urine Appearance Clear Urine pH 8.0 D Ur Specific [place] 1.020 Urine Protein Negative Urine Glucose (UA) Negative Urine Ketones Negative Urine Blood Negative Urine Nitrite Negative Urine Bilirubin Negative Urine Urobilinogen Negative Ur Leukocyte Esterase Negative RPR Titer 12/04/16 07:50 WBC RBC Hgb Hct MCV MCH MCHC RDW Plt Count MPV Sodium Potassium Chloride Carbon Dioxide Anion Gap BUN Creatinine Creat Clearance w eGFR Random Glucose Calcium Total Bilirubin AST ALT Alkaline Phosphatase Total Protein Albumin Urine Color Urine Appearance Urine pH Ur Specific [place] Urine Protein Urine Glucose (UA) Urine Ketones Urine Blood Urine Nitrite Urine Bilirubin Urine Urobilinogen Ur Leukocyte Esterase RPR Titer Nonreactive LABS NOTED. Assessment: 12/04/16 15:12 WITHDRAWAL SYMPTOMS. Plan: CONTINUE DETOX.
[2016-12-04] MEDS: GABAPENTIN 300 MG CAPSULE (FP) PO SCH ×2 (15:23→22:43)
[2016-12-04] MEDS ORDERED: traZODone HCL 150 MG TABLET PO SCH (22:00)
[2016-12-04] MEDS: traZODone HCL 100 MG TABLET (FP) PO SCH (22:42)
[2016-12-04] MEDS: THIAMINE HCL 100 MG TABLET (FP) PO SCH (22:43)
[2016-12-05] MEDS: GABAPENTIN 300 MG CAPSULE (FP) PO SCH ×3 (05:34→22:22)
[2016-12-05] MEDS: chlordiazePOXIDE HCL 25 MG CAPSULE PO SCH ×2 (05:34→10:23)
[2016-12-05] MEDS: METHADONE HCL 5 MG TABLET (FOR DETOX USE ONLY) PO SCH (10:23)
[2016-12-05] MEDS: cloNIDine HCL 0.1 MG TABLET PO SCH ×2 (10:23→22:21)
[2016-12-05] MEDS: NICOTINE 21 MG/24 HOURS TOPICAL PATCH TD SCH (10:24)
[2016-12-05] MEDS: PRENATAL VITAMINS W/ FOLIC ACID TABLET (FP) PO SCH (10:25)
[2016-12-05] MEDS ORDERED: CYCLOBENZAPRINE HCL 10 MG TABLET (FP) PO PRN (15:11)
--- NOTE | 2016-12-05 16:31 | PN ---
S CIWA - CIWA Score Nausea/Vomitin-Mild Nausea/No Vomiting Muscle Tremors: 4-Moderate,w/Arms Extend Anxiety: 4-Mod. Anxious/Guarded Agitation: 4-Moderately Restless Paroxysmal Sweats: 3 Orientation: 0-Oriented Tacttile Disturbances: 1-Very Mild Itch/Numbness Auditory Disturbances: 0-None Visual Disturbances: 0-None Headache: 2-Mild CIWA-Ar Total Score: 19 BHS COWS - Scale Resting Pulse: 0= [place] 80 or Below Sweatin= Chills/Flushing Restless Observation: 3= Extraneous Movement Pupil Size: 0= Normal to Room Light Bone or Joint Aches: 2= Severe Diffuse Aches Runny Nose/ Eye Tearin= Runny Nose/Eyes GI Upset > 30mins: 1= Stomach Cramp Tremor Observation of Outstretched Hands: 2= Slight Tremor Visible Yawning Observation: 1= 1-2x During Session Anxiety or Irritability: 2=Irritable/Anxious Goose Flesh Skin: 0=Smooth Skin COWS Score: 14 S Progress Note (SOAP) Subjective: Interrupted sleep, back pain, constipation (last bm 4-5 days ago, requesting citroma), anxious, restless Objective: 12/05/16 16:30 Last Vital Signs Temp Pulse Resp BP Pulse Ox 96.5 F L 74 18 129/87 12/05/16 13:13 12/05/16 13:13 12/05/16 13:13 12/05/16 13:13 Laboratory Tests 12/03/16 12/04/16 12/04/16 21:00 07:50 07:50 WBC 6.4 RBC 4.54 Hgb 14.2 Hct 42.2 MCV 93.1 MCH 31.2 MCHC 33.5 RDW 13.7 Plt Count 207 MPV 8.5 Sodium 143 Potassium 3.9 Chloride 105 Carbon Dioxide 32 Anion Gap 6 L BUN 18 D Creatinine 1.0 Creat Clearance w eGFR > 60 Random Glucose 94 Calcium 8.1 L Total Bilirubin 0.4 D AST 11 L D ALT 18 D Alkaline Phosphatase 67 D Total Protein 5.9 L Albumin 3.2 L Urine Color Yellow Urine Appearance Clear Urine pH 8.0 D Ur Specific [place] 1.020 Urine Protein Negative Urine Glucose (UA) Negative Urine Ketones Negative Urine Blood Negative Urine Nitrite Negative Urine Bilirubin Negative Urine Urobilinogen Negative Ur Leukocyte Esterase Negative RPR Titer 12/04/16 07:50 WBC RBC Hgb Hct MCV MCH MCHC RDW Plt Count MPV Sodium Potassium Chloride Carbon Dioxide Anion Gap BUN Creatinine Creat Clearance w eGFR Random Glucose Calcium Total Bilirubin AST ALT Alkaline Phosphatase Total Protein Albumin Urine Color Urine Appearance Urine pH Ur Specific [place] Urine Protein Urine Glucose (UA) Urine Ketones Urine Blood Urine Nitrite Urine Bilirubin Urine Urobilinogen Ur Leukocyte Esterase RPR Titer Nonreactive Labs noted Assessment: 12/05/16 16:30 Withdrawal symptoms Plan: Continue detox Encouraged to drink lots of water, monitor constipation
[2016-12-05] MEDS: chlordiazePOXIDE 5 MG CAPSULE PO SCH ×2 (17:09→22:23)
[2016-12-05] MEDS: chlordiazePOXIDE HCL 25 MG CAPSULE PO PRN (19:58)
[2016-12-05] MEDS: THIAMINE HCL 100 MG TABLET (FP) PO SCH (22:20)
[2016-12-05] MEDS: traZODone HCL 100 MG TABLET (FP) PO SCH (22:21)
--- NOTE | 2016-12-05 22:30 | EKG ---
Test Reason : Blood Pressure : / mmHG Vent. Rate : 056 BPM Atrial Rate : 056 BPM P-R Int : 208 ms QRS Dur : 094 ms QT Int : 394 ms P-R-T Axes : 024 026 009 degrees QTc Int : 380 ms SINUS BRADYCARDIA WITH 1ST DEGREE A-V BLOCK WHEN COMPARED WITH ECG OF 28-SEP-2016 12:00, [place] INTERVAL HAS INCREASED Confirmed by AB TEIXEIRA MD ([id number]) on 12/05/2016 10:30:08 PM Referred By: Confirmed By:AB TEIXEIRA MD
[2016-12-06] MEDS: GABAPENTIN 300 MG CAPSULE (FP) PO SCH ×2 (05:38→13:36)
[2016-12-06] MEDS: chlordiazePOXIDE 5 MG CAPSULE PO SCH ×2 (05:38→11:33)
[2016-12-06] MEDS: PRENATAL VITAMINS W/ FOLIC ACID TABLET (FP) PO SCH (11:29)
[2016-12-06] MEDS: cloNIDine HCL 0.1 MG TABLET PO SCH (11:32)
[2016-12-06] MEDS: NICOTINE 21 MG/24 HOURS TOPICAL PATCH TD SCH (11:33)
[2016-12-06] MEDS: METHADONE HCL 5 MG TABLET (FOR DETOX USE ONLY) PO SCH (11:33)
--- NOTE | 2016-12-06 12:44 | PN ---
[facility] Progress Note (SOAP) Subjective: Tremors. Objective: PT. A & O X 3, OBSERVED AMBULATING ON UNIT. NO ACUTE DISTRESS. 12/06/16 12:40 Vital Signs Temperature 96.3 F L 12/06/16 09:09 Pulse Rate 75 12/06/16 09:09 Respiratory Rate 20 12/06/16 09:09 Blood Pressure 117/75 12/06/16 09:09 O2 Sat by Pulse Oximetry (%) Laboratory Tests 12/03/16 12/04/16 12/04/16 21:00 07:50 07:50 WBC 6.4 RBC 4.54 Hgb 14.2 Hct 42.2 MCV 93.1 MCH 31.2 MCHC 33.5 RDW 13.7 Plt Count 207 MPV 8.5 Sodium 143 Potassium 3.9 Chloride 105 Carbon Dioxide 32 Anion Gap 6 L BUN 18 D Creatinine 1.0 Creat Clearance w eGFR > 60 Random Glucose 94 Calcium 8.1 L Total Bilirubin 0.4 D AST 11 L D ALT 18 D Alkaline Phosphatase 67 D Total Protein 5.9 L Albumin 3.2 L Urine Color Yellow Urine Appearance Clear Urine pH 8.0 D Ur Specific [place] 1.020 Urine Protein Negative Urine Glucose (UA) Negative Urine Ketones Negative Urine Blood Negative Urine Nitrite Negative Urine Bilirubin Negative Urine Urobilinogen Negative Ur Leukocyte Esterase Negative RPR Titer 12/04/16 07:50 WBC RBC Hgb Hct MCV MCH MCHC RDW Plt Count MPV Sodium Potassium Chloride Carbon Dioxide Anion Gap BUN Creatinine Creat Clearance w eGFR Random Glucose Calcium Total Bilirubin AST ALT Alkaline Phosphatase Total Protein Albumin Urine Color Urine Appearance Urine pH Ur Specific [place] Urine Protein Urine Glucose (UA) Urine Ketones Urine Blood Urine Nitrite Urine Bilirubin Urine Urobilinogen Ur Leukocyte Esterase RPR Titer Nonreactive LABS NOTED. Assessment: 12/06/16 12:41 WITHDRAWAL SYMPTOMS. Plan: CONTINUE DETOX. PATIENT CURRENTLY REPORTS THAT DETOX SYMPTOMS ARE MINIMAL AND THAT HE FEELS WELL OVERALL. AT PATIENT'S REQUEST, DETOX MEDICATION REGIMEN (METHADONE, LIBRIUM ) CHANGED SO THAT PATIENT MAY BE DISCHARGED ON 12/07/2016 PENDING EVALUATION BY MEDICAL PROVIDER ON THAT MORNING.
[2016-12-06] MEDS ORDERED: cloNIDine HCL 0.1 MG TABLET PO SCH (12:45)
[2016-12-06 13:12] VITALS: TEMP 97.2
[2016-12-06 13:37] VITALS: BP 104/69; PULSE 78
--- NOTE | 2016-12-06 14:37 | DS ---
[facility] Detox Discharge Summary Admission Date: 12/03/16 Discharge Date: 12/06/16 - History Present History: Alcohol Dependence, Cannabis Dependence, Opioid Dependence, Sedative Dependence Additional Comments: PATIENT DOES NOT WISH TO STAY TO COMPLETE DETOX REGIMEN. PATIENT ADVISED TO IMMEDIATELY TO NEAREST ER SHOULD ANY INTOLERABLE DETOX SYMPTOMS DEVELOP AT ANY TIME. PATIENT LEFT UNIT IN STABLE MEDICAL CONDITION. Pertinent Past History: HTN, Anxiety, ADHD. - Physical Exam Results Vital Signs: Vital Signs Temperature 97.2 F L 12/06/16 13:12 Pulse Rate 78 12/06/16 13:36 Respiratory Rate 18 12/06/16 13:36 Blood Pressure 104/69 12/06/16 13:36 O2 Sat by Pulse Oximetry (%) Pertinent Admission Physical Exam Findings: WITHDRAWAL SYMPTOMS. Laboratory Tests 12/03/16 12/04/16 12/04/16 21:00 07:50 07:50 WBC 6.4 RBC 4.54 Hgb 14.2 Hct 42.2 MCV 93.1 MCH 31.2 MCHC 33.5 RDW 13.7 Plt Count 207 MPV 8.5 Sodium 143 Potassium 3.9 Chloride 105 Carbon Dioxide 32 Anion Gap 6 L BUN 18 D Creatinine 1.0 Creat Clearance w eGFR > 60 Random Glucose 94 Calcium 8.1 L Total Bilirubin 0.4 D AST 11 L D ALT 18 D Alkaline Phosphatase 67 D Total Protein 5.9 L Albumin 3.2 L Urine Color Yellow Urine Appearance Clear Urine pH 8.0 D Ur Specific [place] 1.020 Urine Protein Negative Urine Glucose (UA) Negative Urine Ketones Negative Urine Blood Negative Urine Nitrite Negative Urine Bilirubin Negative Urine Urobilinogen Negative Ur Leukocyte Esterase Negative RPR Titer 12/04/16 07:50 WBC RBC Hgb Hct MCV MCH MCHC RDW Plt Count MPV Sodium Potassium Chloride Carbon Dioxide Anion Gap BUN Creatinine Creat Clearance w eGFR Random Glucose Calcium Total Bilirubin AST ALT Alkaline Phosphatase Total Protein Albumin Urine Color Urine Appearance Urine pH Ur Specific [place] Urine Protein Urine Glucose (UA) Urine Ketones Urine Blood Urine Nitrite Urine Bilirubin Urine Urobilinogen Ur Leukocyte Esterase RPR Titer Nonreactive LABS NOTED. - Treatment Hospital Course: Detoxed Safely - Medication Discharge Medications: Ambulatory Orders Hydralazine HCl [Apresoline -] 50 mg PO BID 12/03/16 Trazodone HCl [Desyrel -] 150 mg PO HS 12/03/16 Trazodone HCl [Desyrel -] 150 mg PO HS #30 tablet 12/06/16 - Diagnosis (1) Alcohol dependence with uncomplicated withdrawal Status: Acute (2) Drug-induced mood disorder Status: Acute (3) Insomnia Status: Acute Qualifiers: Insomnia type: unspecified Qualified Code(s): G47.00 - Insomnia, unspecified (4) Marijuana dependence Status: Acute (5) Nicotine dependence Status: Chronic Qualifiers: Nicotine product type: cigarettes Substance use status: uncomplicated Qualified Code(s): F17.210 - Nicotine dependence, cigarettes, uncomplicated (6) Opioid dependence with withdrawal Status: Acute (7) Uncomplicated sedative, hypnotic or anxiolytic withdrawal Status: Acute (8) ADHD (attention deficit hyperactivity disorder) Status: Chronic Qualifiers: Attention deficit-hyperactivity disorder type: unspecified Qualified Code(s): F90.9 - Attention-deficit hyperactivity disorder, unspecified type (9) Hypertension Status: Chronic Qualifiers: Hypertension type: essential hypertension Qualified Code(s): I10 - Essential (primary) hypertension (10) Heroin dependence Status: Acute (11) Substance induced mood disorder Status: Acute (12) Depressive disorder Status: Chronic (13) Substance-induced anxiety disorder Status: Chronic (14) Anxiety Status: Suspected - AMA Did Patient Leave Against Medical Advice: Yes (PATIENT DID NOT WISH TO STAY TO COMPLETE DETOX REGIMEN.)
[2016-12-06] MEDS ORDERED: chlordiazePOXIDE HCL 10 MG CAPSULE PO SCH (17:00)
[2016-12-07] MEDS ORDERED: METHADONE HCL 10 MG TABLET (FOR DETOX USE ONLY) PO SCH (10:00)
[2016-12-08] MEDS ORDERED: METHADONE HCL 5 MG TABLET (FOR DETOX USE ONLY) PO SCH (06:00)
== END 2016-12-06 14:37 | disposition left against medical advice (07) | DRG 770 ==
LOC: YASAS 12:44 → Y3N 16:39
PROVIDERS: ADMIT Internal Medicine Addiction Medicine; ATTEND Internal Medicine Addiction Medicine
PROC: HZ2ZZZZ Detoxification Services for Substance Abuse Treatment (ICD-10-PCS; principal; 2016-12-03)
DX: F11.23 Opioid dependence with withdrawal (principal); F13.230 Sedative, hypnotic or anxiolytic dependence with withdrawal, uncomplicated; F10.230 Alcohol dependence with withdrawal, uncomplicated; F12.20 Cannabis dependence, uncomplicated; F17.210 Nicotine dependence, cigarettes, uncomplicated; F19.24 Other psychoactive substance dependence with psychoactive substance-induced mood disorder; F19.280 Other psychoactive substance dependence with psychoactive substance-induced anxiety disorder; F90.9 Attention-deficit hyperactivity disorder, unspecified type; F32.9 Major depressive disorder, single episode, unspecified; F41.9 Anxiety disorder, unspecified; G47.00 Insomnia, unspecified; Z88.8 Allergy status to other drugs, medicaments and biological substances
CPT/HCPCS: 36415; 80053; 81003; 85027; 86593; 93005; 93010

== ENCOUNTER 2017-04-04 14:24 | Inpatient (IN) | payer OTHER ==
[2017-04-04 14:36] VITALS: BMI 35.3
--- NOTE | 2017-04-04 15:44 | HP ---
COWS - Scale Resting Pulse: 1= [place] 81-100 Sweatin=Flushed/Facial Moisture Restless Observation: 1= Difficult to Sit Still Pupil Size: 1= Pupils >than Normal Bone or Joint Aches: 2= Severe Diffuse Aches Runny Nose/ Eye Tearin= Nasal Congestion GI Upset > 30mins: 1= Stomach Cramp Tremor Observation: 2= Slight Tremor Visible Yawning Observation: 0= None Anxiety or Irritability: 2=Irritable/Anxious Goose Flesh Skin: 0=Smooth Skin COWS Score: 13 CIWA Score - CIWA Score Nausea/Vomitin Muscle Tremors: 3 Anxiety: 3 Agitation: 2 Paroxysmal Sweats: 3 Orientation: 0-Oriented Tacttile Disturbances: 2-Mild Itch/Numbness/Burn Auditory Disturbances: 0-None Visual Disturbances: 0-None Headache: 0-None Present CIWA-Ar Total Score: 15 Admission ROS S - HPI Chief Complaint: I came seeking detox , I need to stop drugs and alcohol use. Allergies/Adverse Reactions: Allergies Allergy/AdvReac Type Severity Reaction Status Date / Time buspirone Allergy Severe Difficulty Verified 04/04/17 15:15 Breathing History of Present Illness: Pt started using oxycontin at age 29 then advanced to heroin IV . Exam Limitations: No Limitations - Ebola screening Have you traveled outside of the country in the last 21 days: No (N) Have you had contact with anyone from an Ebola affected area: No Have you been sick,other than usual withdrawal symptoms: No Do you have a fever: No - Review of Systems Constitutional: Malaise, Night Sweats, Changes in sleep EENT: reports: Tearing, Nose Congestion Respiratory: reports: No Symptoms reported Cardiac: reports: No Symptoms Reported GI: reports: Constipated, Nausea, Abdominal cramping : reports: No Symptoms Reported Musculoskeletal: reports: Back Pain, Muscle Pain (legs) Integumentary: reports: No Symptoms Reported Neuro: reports: Tremors, Weakness Endocrine: reports: No Symptoms Reported Hematology: reports: No Symptoms Reported Psychiatric: reports: Anxious, Depressed Other Systems: Reviewed and Negative Patient History - Patient Medical History Hx Anemia: No Hx Asthma: No Hx Chronic Obstructive Pulmonary Disease (COPD): No Hx Cancer: No Hx Cardiac Disorders: No Hx Congestive Heart Failure: No Hx Hypertension: Yes Hx Hypercholesterolemia: No Hx Pacemaker: No HX Cerebrovascular Accident: No Hx Seizures: No Hx Diabetes: No Hx Gastrointestinal Disorders: No Hx Liver Disease: No Hx Genitourinary Disorders: No Hx Sexually Transmitted Disorders: No Hx Renal Disease (ESRD): No Hx Thyroid Disease: No Hx Human Immunodeficiency Virus (HIV): No (negative) Hx Hepatitis C: No Hx Depression: Yes Hx Suicide Attempt: No Hx Bipolar Disorder: No Hx Schizophrenia: No - Patient Surgical History Past Surgical History: No Hx Neurologic Surgery: No Hx Cataract Extraction: No Hx Cardiac Surgery: No Hx Lung Surgery: No Hx Breast Surgery: No Hx Breast Biopsy: No Hx Abdominal Surgery: No Hx Appendectomy: No Hx Cholecystectomy: No Hx Genitourinary Surgery: No Hx Section: No Hx Orthopedic Surgery: No Anesthesia Reaction: No - PPD History Previous Implant?: Yes Documented Results: Negative w/o proof Date: 12/18/15 Results: 0 MM - Reproductive History Patient is a Female of Child Bearing Age (11 -55 yrs old): No - Smoking Cessation Smoking history: Current every day smoker Have you smoked in the past 12 months: Yes Aproximately how many cigarettes per day: 30 Cigars Per Day: 4 Hx Chewing Tobacco Use: No Initiated information on smoking cessation: Yes 'Breaking Loose' booklet given: 04/04/17 - Substance & Tx. History Hx Alcohol Use: Yes Hx Substance Use: Yes Substance Use Type: Alcohol, Heroin, Marijuana, Tranquilizers Hx Substance Use Treatment: Yes ([facility]) - Substances Abused Heroin Route: Injection Frequency: Daily Amount used: 6-12 BAGS Age of first use: 29 Date of Last Use: 04/04/17 Alprazolam (Xanax) Route: Oral Frequency: Daily Amount used: 4-6MG Age of first use: 29 Date of Last Use: 04/04/17 Marijuana/Hashish Route: Smoking Frequency: Daily Amount used: $50 Age of first use: 26 Date of Last Use: 04/04/17 Alcohol Route: Oral Frequency: Daily Amount used: 1 PINT Xavier Age of first use: 32 Date of Last Use: 04/03/17 Family Disease History - Family Disease History Family Disease History: Heart Disease: Grandparent, Mother, Other: Father ( KILLED) Admission Physical Exam [facility] - Vital Signs Vital Signs: Vital Signs - 24 hr 12/25/17 14:33 Temperature 97.7 F Pulse Rate 85 Respiratory 18 Rate Blood Pressure 177/78 36 y/o obese m pt aox3 , anxious , ambulating well and cooperative with exam, - Physical General Appearance: Yes: Obese, Anxious HEENTM: Yes: EOMI, Hearing grossly Normal, Normal Voice, ERNIE, Nasal Congestion Respiratory: Yes: Chest Non-Tender, Lungs Clear, Normal Breath Sounds, No Respiratory Distress Neck: Yes: Supple, Trachea in good position Breast: Yes: Breast Exam Deferred Cardiology: Yes: Regular Rhythm, Regular Rate, S1, S2 Abdominal: Yes: Non Tender, Soft, Increased Bowel Sounds Genitourinary: Yes: Within Normal Limits Back: Yes: Decreased Range of Motion Musculoskeletal: Yes: Muscle Pain (jorgito legs) Extremities: Yes: Tremors Neurological: Yes: travel accommodations rater II-XII NML intact, Fully Oriented, Alert, Motor Strength 5/5, Depressed Affect Integumentary: Yes: Moist, Track Cotton (arms jorgito) - Diagnostic (1) Alcohol dependence with uncomplicated withdrawal Current Visit: No Status: Chronic (2) Marijuana dependence Current Visit: No Status: Chronic (3) Opioid dependence with withdrawal Current Visit: No Status: Chronic (4) Uncomplicated sedative, hypnotic or anxiolytic withdrawal Current Visit: No Status: Chronic (5) Depressive disorder Current Visit: No Status: Chronic (6) Hypertension Current Visit: No Status: Suspected Qualifiers: Hypertension type: unspecified Qualified Code(s): I10 - Essential (primary ) hypertension (7) Nicotine dependence Current Visit: No Status: Chronic Qualifiers: Nicotine product type: cigarettes Substance use status: uncomplicated Qualified Code(s): F17.210 - Nicotine dependence, cigarettes, uncomplicated Cleared for Admission [facility] - Detox or Rehab [facility] Level of Care: Medically Managed Detox Regimen/Protocol: Methadone/Valium [facility] Breath Alcohol Content Breath Alcohol Content: 0 Urine Drug Screen - Results Drug Screen Negative: No Urine Drug Screen Results: THC-Marijuana, OPI-Opiates, BZO-Benzodiazepines, MTD- Methadone
[2017-04-04] MEDS ORDERED: MAG HYDROX/AL HYDROX/SIMETH 30 ML UNIT-DOSE CUP PO PRN (15:59)
[2017-04-04] MEDS ORDERED: diazePAM 5 MG TABLET PO ONE (15:59)
[2017-04-04] MEDS ORDERED: NICOTINE POLACRILEX 4 MG GUM BC PRN (15:59)
[2017-04-04] MEDS ORDERED: MENTHOL/PHENOL 1 EACH UD MM PRN (15:59)
[2017-04-04] MEDS ORDERED: hydrOXYzine PAMOATE 25 MG CAPSULE (FP) PO PRN (15:59)
[2017-04-04] MEDS ORDERED: LOPERAMIDE HCL 2 MG CAPSULE PO PRN (15:59)
[2017-04-04] MEDS ORDERED: MAGNESIUM HYDROX 2400MG/30ML ORAL SUSPENSION 30 ML CUP PO PRN (15:59)
[2017-04-04] MEDS ORDERED: guaiFENesin/D-METHORPHAN HB 10 ML UNIT-DOSE CUPS PO PRN (15:59)
[2017-04-04] MEDS ORDERED: MAGNESIUM CITRATE 300 ML BOTTLE PO PRN (15:59)
[2017-04-04] MEDS ORDERED: ACETAMINOPHEN 325 MG TABLET (FP) PO PRN (15:59)
[2017-04-04] MEDS ORDERED: IBUPROFEN 400 MG TABLET (FP) PO PRN (15:59)
[2017-04-04] MEDS ORDERED: P-EPHED 60MG/TRIPROLIDI 2.5MG TABLET PO PRN (15:59)
[2017-04-04] MEDS ORDERED: METHADONE HCL 10 MG TABLET (FOR DETOX USE ONLY) PO ONE ×2 (15:59→23:00)
[2017-04-04 19:39] LABS: URINE APPEARANCE CLEAR; URINE BILIRUBIN NEGATIVE (NEGATIVE); URINE BLOOD NEGATIVE (NEGATIVE); URINE COLOR YELLOW; URINE GLUCOSE (UA) NEGATIVE (NEGATIVE); URINE KETONE NEGATIVE (NEGATIVE); URINE LEUK ESTERASE NEGATIVE (NEGATIVE); URINE NITRITE NEGATIVE (NEGATIVE); URINE PROTEIN NEGATIVE (NEGATIVE); URINE UROBILINOGEN NEGATIVE mg/dL (0.2-1.0)
[2017-04-04] MEDS: THIAMINE HCL 100 MG TABLET (FP) PO SCH (22:04)
[2017-04-04] MEDS: cloNIDine HCL 0.1 MG TABLET PO SCH (22:05)
[2017-04-04] MEDS: diazePAM 5 MG TABLET PO SCH (22:05)
[2017-04-04] MEDS: GABAPENTIN 300 MG CAPSULE (FP) PO SCH (22:05)
[2017-04-05] MEDS: GABAPENTIN 300 MG CAPSULE (FP) PO SCH ×3 (05:46→22:03)
[2017-04-05] MEDS: diazePAM 5 MG TABLET PO SCH ×3 (05:47→22:02)
[2017-04-05 09:47] LABS: HEMATOCRIT 42.9 % (35.4-49); MCH 29.8 pg (25.7-33.7); MCHC 32.8 g/dl (32.0-35.9); MEAN CELL VOLUME 91.1 fl (80-96); MEAN PLT VOLUME 8.1 fl (7.5-11.1); PLATELET COUNT 189 K/MM3 (134-434); RBC 4.71 M/mm3 (4.00-5.60); RDW 13.3 % (11.9-15.9); WHITE BLOOD COUNT 6.3 K/mm3 (4.0-10.0)
[2017-04-05 09:59] LABS: CHLORIDE 105 mmol/L (98-107); POTASSIUM 4.1 mmol/L (3.5-5.1); SODIUM 141 mmol/L (136-145)
[2017-04-05] MEDS ORDERED: METHADONE HCL 10 MG TABLET (FOR DETOX USE ONLY) PO SCH (10:00)
[2017-04-05 10:06] LABS: ALBUMIN 3.3 g/dl (3.4-5.0); ALK PHOS 65 U/L (45-117); ANION GAP 5 (8-16); BILIRUBIN,TOTAL 0.5 mg/dL (0.2-1.0); BLOOD UREA NITROGEN 9 mg/dL (7-18); CALCIUM 8.1 mg/dL (8.5-10.1); CO2 31 mmol/L (21-32); CREATININE 0.8 mg/dL (0.7-1.3); GLUCOSE,RANDOM 105 mg/dL (74-106); SGOT/AST 16 U/L (15-37); SGPT/ALT 24 U/L (12-78); TOT PROT 6.3 g/dl (6.4-8.2)
[2017-04-05] MEDS: diazePAM 5 MG TABLET PO PRN ×2 (10:08→16:59)
[2017-04-05] MEDS: cloNIDine HCL 0.1 MG TABLET PO SCH ×2 (10:08→22:03)
[2017-04-05] MEDS: PRENATAL VITAMINS W/ FOLIC ACID TABLET (FP) PO SCH (10:08)
[2017-04-05] MEDS: NICOTINE 21 MG/24 HOURS TOPICAL PATCH TD SCH (10:09)
--- NOTE | 2017-04-05 10:13 | CONSULT ---
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 Substance Abuse History: Discussed in this session.See current [facility] report for details : Smoking history: Current every day smoker. Have you smoked in the past 12 months: Yes. Aproximately how many cigarettes per day: 30. Cigars Per Day: 4. Hx Chewing Tobacco Use: No. Initiated information on smoking cessation : Yes. 'Breaking Loose' booklet given: 04/04/17. - Substance & Tx. History. Hx Alcohol Use: Yes. Hx Substance Use: Yes. Substance Use Type: Alcohol, Heroin, Marijuana, Tranquilizers. Hx Substance Use Treatment: Yes ([facility] detox). - Substances Abused. Heroin. Route: Injection. Frequency: Daily. Amount used: 6-12 BAGS. Age of first use: 29. Date of Last Use: 04/04/17. Alprazolam (Xanax). Route: Oral. Frequency: Daily. Amount used: 4-6MG. Age of first use: 29. Date of Last Use: 04/04/17. Marijuana/ Hashish. Route: Smoking. Frequency: Daily. Amount used: $50. Age of first use: 26. Date of Last Use: 04/04/17. Alcohol. Route: Oral. Frequency: Daily. Amount used: 1 PINT [place]. Age of first use: 32. Date of Last Use: 04/03/17 Medical History: Hypertension. Psychiatric History: No reported history of psychiatric hospitalizations.Mr Josesito indicates that he is no longer followed at [facility] for medication management.Patient dropped out of [facility]PD care several months ago as per self-report.Diagnosed with MDD and ADHD.Currently off medications but amenable to the idea of resuming trazodone 100 mg at bedtime (insomnia).No history of suicide attempts.Pharmacy claims of 03/28/17 yield evidence of refills for trazodone 100 mg/hs (prescribed but not taken,according to patient). Physical/Sexual Abuse/Trauma History: Patient denies history of abuse. Additional Comment: Urine Drug Screen Results: THC-Marijuana, OPI-Opiates, BZO- Benzodiazepines, MTD-Methadone.Noted. Mental Status Exam - Mental Status Exam Alert and Oriented to: Time, Place, Person Cognitive Function: Good Patient Appearance: Well Groomed (overweight,tattoos on forearms) Mood: Nervous, Anxious, Hopeful Affect: Appropriate, Normal Range Patient Behavior: Fatigued, Appropriate, Cooperative Speech Pattern: Clear, Appropriate Voice Loudness: Normal Thought Process: Goal Oriented Thought Disorder: Not Present Hallucinations: Denies Suicidal Ideation: Denies Homicidal Ideation: Denies Insight/Judgement: Poor Sleep: Poorly, Difficulty falling asleep Appetite: Good Muscle strength/Tone: Normal Gait/Station: Normal Psychiatric Findings - Problem List (Trout 1, 2,3) (1) Alcohol dependence with uncomplicated withdrawal Current Visit: Yes Status: Acute (2) Marijuana dependence Current Visit: Yes Status: Acute (3) Opioid dependence with withdrawal Current Visit: Yes Status: Acute (4) Uncomplicated sedative, hypnotic or anxiolytic withdrawal Current Visit: Yes Status: Acute (5) Nicotine dependence Current Visit: Yes Status: Acute Qualifiers: Nicotine product type: cigarettes Substance use status: in withdrawal Qualified Code(s): F17.213 - Nicotine dependence, cigarettes, with withdrawal (6) Substance induced mood disorder Current Visit: Yes Status: Acute (7) Insomnia Current Visit: Yes Status: Acute Qualifiers: Insomnia type: unspecified Qualified Code(s): G47.00 - Insomnia, unspecified - Initial Treatment Plan Initial Treatment Plan: Psychoeducation.Detoxification in progress.Sleep hygiene.Trazodone 100 mg po hs.Patient is made aware of risk of priapism.Mr Bellamy expressed his agreement with this careplan.Observation.
--- NOTE | 2017-04-05 11:19 | PN ---
[facility] CIWA - CIWA Score Nausea/Vomitin-No Nausea/No Vomiting Muscle Tremors: 4-Moderate,w/Arms Extend Anxiety: 4-Mod. Anxious/Guarded Agitation: 4-Moderately Restless Paroxysmal Sweats: 1-Minimal Palms Moist Orientation: 0-Oriented Tacttile Disturbances: 3-Moderate Itch/Numb/Burn Auditory Disturbances: 0-None Visual Disturbances: 0-None Headache: 0-None Present CIWA-Ar Total Score: 16 S COWS - Scale Resting Pulse: 0= [place] 80 or Below Sweatin= Chills/Flushing Restless Observation: 3= Extraneous Movement Pupil Size: 2= Moderately Dilated Bone or Joint Aches: 4=Acute Joint/Muscle Pain Runny Nose/ Eye Tearin= Nasal Congestion GI Upset > 30mins: 1= Stomach Cramp Tremor Observation of Outstretched Hands: 1= Tremor [place], Not Seen Yawning Observation: 1= 1-2x During Session Anxiety or Irritability: 1=Feels Anxious/Irritable Goose Flesh Skin: 0=Smooth Skin COWS Score: 15 [facility] Progress Note (SOAP) Subjective: ANXIETY,IRRITABILITY,SWEATS,FATIGUE,INTERMITTENT SLEEP. Objective: 04/05/17 11:19 Vital Signs Temperature 97.0 F L 04/05/17 08:58 Pulse Rate 76 04/05/17 08:58 Respiratory Rate 18 04/05/17 08:58 Blood Pressure 133/82 04/05/17 08:58 O2 Sat by Pulse Oximetry (%) Laboratory Tests 04/04/17 04/05/17 04/05/17 19:00 06:00 06:00 WBC 6.3 RBC 4.71 Hgb 14.0 Hct 42.9 MCV 91.1 MCH 29.8 MCHC 32.8 RDW 13.3 Plt Count 189 MPV 8.1 Sodium 141 Potassium 4.1 Chloride 105 Carbon Dioxide 31 Anion Gap 5 L BUN 9 D Creatinine 0.8 Creat Clearance w eGFR > 60 Random Glucose 105 Calcium 8.1 L Total Bilirubin 0.5 D AST 16 D ALT 24 D Alkaline Phosphatase 65 Total Protein 6.3 L Albumin 3.3 L Urine Color Yellow Urine Appearance Clear Urine pH 6.0 D Ur Specific [place] 1.019 Urine Protein Negative Urine Glucose (UA) Negative Urine Ketones Negative Urine Blood Negative Urine Nitrite Negative Urine Bilirubin Negative Urine Urobilinogen Negative Ur Leukocyte Esterase Negative RPR Titer 04/05/17 06:00 WBC RBC Hgb Hct MCV MCH MCHC RDW Plt Count MPV Sodium Potassium Chloride Carbon Dioxide Anion Gap BUN Creatinine Creat Clearance w eGFR Random Glucose Calcium Total Bilirubin AST ALT Alkaline Phosphatase Total Protein Albumin Urine Color Urine Appearance Urine pH Ur Specific [place] Urine Protein Urine Glucose (UA) Urine Ketones Urine Blood Urine Nitrite Urine Bilirubin Urine Urobilinogen Ur Leukocyte Esterase RPR Titer Nonreactive Assessment: 04/05/17 11:19 WITHDRAWAL SX Plan: CONTINUE DETOX
--- NOTE | 2017-04-05 13:20 | EKG ---
Test Reason : Blood Pressure : / mmHG Vent. Rate : 064 BPM Atrial Rate : 064 BPM P-R Int : 182 ms QRS Dur : 098 ms QT Int : 390 ms P-R-T Axes : 031 034 020 degrees QTc Int : 402 ms NORMAL SINUS RHYTHM NORMAL ECG WHEN COMPARED WITH ECG OF 03-DEC-2016 17:44, NO SIGNIFICANT CHANGE WAS FOUND Confirmed by MD Mendiola Daniel ([id number]) on 04/05/2017 1:20:33 PM Referred By: Tommie Steiner Confirmed By:Reza Mendiola MD
[2017-04-05] MEDS: THIAMINE HCL 100 MG TABLET (FP) PO SCH (22:02)
[2017-04-05] MEDS: traZODone HCL 100 MG TABLET (FP) PO SCH (22:03)
[2017-04-06] MEDS: diazePAM 5 MG TABLET PO PRN ×2 (04:56→13:46)
[2017-04-06] MEDS: GABAPENTIN 300 MG CAPSULE (FP) PO SCH ×3 (05:03→22:03)
--- NOTE | 2017-04-06 09:58 | PN ---
[facility] CIWA - CIWA Score Nausea/Vomitin-No Nausea/No Vomiting Muscle Tremors: 4-Moderate,w/Arms Extend Anxiety: 4-Mod. Anxious/Guarded Agitation: 4-Moderately Restless Paroxysmal Sweats: 1-Minimal Palms Moist Orientation: 0-Oriented Tacttile Disturbances: 3-Moderate Itch/Numb/Burn Auditory Disturbances: 0-None Visual Disturbances: 0-None Headache: 0-None Present CIWA-Ar Total Score: 16 S COWS - Scale Resting Pulse: 0= [place] 80 or Below Sweatin= Chills/Flushing Restless Observation: 3= Extraneous Movement Pupil Size: 0= Normal to Room Light Bone or Joint Aches: 4=Acute Joint/Muscle Pain Runny Nose/ Eye Tearin= Nasal Congestion GI Upset > 30mins: 0= None Tremor Observation of Outstretched Hands: 1= Tremor [place], Not Seen Yawning Observation: 2= >3x During Session Anxiety or Irritability: 2=Irritable/Anxious Goose Flesh Skin: 0=Smooth Skin COWS Score: 14 [facility] Progress Note (SOAP) Subjective: ANXIETY,TREMORS,SWEATS,FATIGUE,INTERMITTENT SLEEP. Objective: 04/06/17 09:57 Vital Signs Temperature 97.2 F L 04/06/17 09:05 Pulse Rate 66 04/06/17 09:05 Respiratory Rate 19 04/06/17 09:05 Blood Pressure 125/69 04/06/17 09:05 O2 Sat by Pulse Oximetry (%) Laboratory Last Values WBC 6.3 K/mm3 (4.0-10.0) 04/05/17 06:00 RBC 4.71 M/mm3 (4.00-5.60) 04/05/17 06:00 Hgb 14.0 GM/dL (11.7-16.9) 04/05/17 06:00 Hct 42.9 % (35.4-49) 04/05/17 06:00 MCV 91.1 fl (80-96) 04/05/17 06:00 MCH 29.8 pg (25.7-33.7) 04/05/17 06:00 MCHC 32.8 g/dl (32.0-35.9) 04/05/17 06:00 RDW 13.3 % (11.9-15.9) 04/05/17 06:00 Plt Count 189 K/MM3 (134-434) 04/05/17 06:00 MPV 8.1 fl (7.5-11.1) 04/05/17 06:00 Sodium 141 mmol/L (136-145) 04/05/17 06:00 Potassium 4.1 mmol/L (3.5-5.1) 04/05/17 06:00 Chloride 105 mmol/L (98-107) 04/05/17 06:00 Carbon Dioxide 31 mmol/L (21-32) 04/05/17 06:00 Anion Gap 5 (8-16) L 04/05/17 06:00 BUN 9 mg/dL (7-18) D 04/05/17 06:00 Creatinine 0.8 mg/dL (0.7-1.3) 04/05/17 06:00 Creat Clearance w eGFR > 60 (>60) 04/05/17 06:00 Random Glucose 105 mg/dL (74-106) 04/05/17 06:00 Calcium 8.1 mg/dL (8.5-10.1) L 04/05/17 06:00 Total Bilirubin 0.5 mg/dL (0.2-1.0) D 04/05/17 06:00 AST 16 U/L (15-37) D 04/05/17 06:00 ALT 24 U/L (12-78) D 04/05/17 06:00 Alkaline Phosphatase 65 U/L (45-117) 04/05/17 06:00 Total Protein 6.3 g/dl (6.4-8.2) L 04/05/17 06:00 Albumin 3.3 g/dl (3.4-5.0) L 04/05/17 06:00 Urine Color Yellow 04/04/17 19:00 Urine Appearance Clear 04/04/17 19:00 Urine pH 6.0 (5.0-8.0) D 04/04/17 19:00 Ur Specific [place] 1.019 (1.001-1.035) 04/04/17 19:00 Urine Protein Negative (NEGATIVE) 04/04/17 19:00 Urine Glucose (UA) Negative (NEGATIVE) 04/04/17 19:00 Urine Ketones Negative (NEGATIVE) 04/04/17 19:00 Urine Blood Negative (NEGATIVE) 04/04/17 19:00 Urine Nitrite Negative (NEGATIVE) 04/04/17 19:00 Urine Bilirubin Negative (NEGATIVE) 04/04/17 19:00 Urine Urobilinogen Negative mg/dL (0.2-1.0) 04/04/17 19:00 Ur Leukocyte Esterase Negative (NEGATIVE) 04/04/17 19:00 RPR Titer Nonreactive (NONREACTIVE) 04/05/17 06:00 Assessment: 04/06/17 09:57 WITHDRAWAL SX Plan: CONTINUE DETOX
[2017-04-06] MEDS ORDERED: METHADONE HCL 5 MG TABLET (FOR DETOX USE ONLY) PO SCH (10:00)
[2017-04-06] MEDS: cloNIDine HCL 0.1 MG TABLET PO SCH ×2 (10:06→22:03)
[2017-04-06] MEDS: PRENATAL VITAMINS W/ FOLIC ACID TABLET (FP) PO SCH (10:06)
[2017-04-06] MEDS: diazePAM 5 MG TABLET PO SCH ×2 (10:07→22:03)
[2017-04-06] MEDS: NICOTINE 21 MG/24 HOURS TOPICAL PATCH TD SCH (10:07)
[2017-04-06] MEDS ORDERED: ASPIRIN 81 MG CHEWABLE TABLETS PO ONE (21:42)
--- NOTE | 2017-04-06 21:45 | PN ---
S Progress Note (SOAP) Subjective: Patient was seen and examined with complaint of chest pain radiating to his right arm and right leg. Objective: 04/06/17 21:45 Vital Signs Temperature 97.6 F 04/06/17 17:36 Pulse Rate 69 04/06/17 17:36 Respiratory Rate 18 04/06/17 17:36 Blood Pressure 135/89 04/06/17 17:36 O2 Sat by Pulse Oximetry (%) Vitals Now: Temp. 97.8 Pulse 77 Resp. 18 B/P 148/95 Assessment: 04/06/17 21:48 Patient with H/O HTN was seen and examined at bedside Denies lightheadedness, numbness, blurred vision, slurred speech, muscle weakness and fatigue Stat EKG done with result of normal sinus rhythm Aspirin 81 mg tablet oral Plan: Continue detox Monitor patient
[2017-04-06] MEDS: THIAMINE HCL 100 MG TABLET (FP) PO SCH (22:03)
[2017-04-06] MEDS: traZODone HCL 100 MG TABLET (FP) PO SCH (22:03)
[2017-04-07] MEDS: diazePAM 5 MG TABLET PO PRN (06:12)
[2017-04-07] MEDS: GABAPENTIN 300 MG CAPSULE (FP) PO SCH ×3 (06:12→22:02)
[2017-04-07] MEDS ORDERED: METHADONE HCL 10 MG TABLET (FOR DETOX USE ONLY) PO SCH (10:00)
[2017-04-07] MEDS: cloNIDine HCL 0.1 MG TABLET PO SCH ×2 (10:04→22:03)
[2017-04-07] MEDS: PRENATAL VITAMINS W/ FOLIC ACID TABLET (FP) PO SCH (10:04)
[2017-04-07] MEDS: NICOTINE 21 MG/24 HOURS TOPICAL PATCH TD SCH (10:04)
[2017-04-07] MEDS: diazePAM 5 MG TABLET PO SCH ×2 (10:04→22:02)
--- NOTE | 2017-04-07 10:50 | PN ---
S Progress Note (SOAP) Subjective: ALERT O X 3. NAD. PT ANTICIPATING TO GO TO REHAB UPON DISCHARGE. Objective: 04/07/17 10:50 Vital Signs Temperature 96.5 F L 04/07/17 09:04 Pulse Rate 87 04/07/17 09:04 Respiratory Rate 18 04/07/17 09:04 Blood Pressure 123/89 04/07/17 09:04 O2 Sat by Pulse Oximetry (%) Laboratory Last Values WBC 6.3 K/mm3 (4.0-10.0) 04/05/17 06:00 RBC 4.71 M/mm3 (4.00-5.60) 04/05/17 06:00 Hgb 14.0 GM/dL (11.7-16.9) 04/05/17 06:00 Hct 42.9 % (35.4-49) 04/05/17 06:00 MCV 91.1 fl (80-96) 04/05/17 06:00 MCH 29.8 pg (25.7-33.7) 04/05/17 06:00 MCHC 32.8 g/dl (32.0-35.9) 04/05/17 06:00 RDW 13.3 % (11.9-15.9) 04/05/17 06:00 Plt Count 189 K/MM3 (134-434) 04/05/17 06:00 MPV 8.1 fl (7.5-11.1) 04/05/17 06:00 Sodium 141 mmol/L (136-145) 04/05/17 06:00 Potassium 4.1 mmol/L (3.5-5.1) 04/05/17 06:00 Chloride 105 mmol/L (98-107) 04/05/17 06:00 Carbon Dioxide 31 mmol/L (21-32) 04/05/17 06:00 Anion Gap 5 (8-16) L 04/05/17 06:00 BUN 9 mg/dL (7-18) D 04/05/17 06:00 Creatinine 0.8 mg/dL (0.7-1.3) 04/05/17 06:00 Creat Clearance w eGFR > 60 (>60) 04/05/17 06:00 Random Glucose 105 mg/dL (74-106) 04/05/17 06:00 Calcium 8.1 mg/dL (8.5-10.1) L 04/05/17 06:00 Total Bilirubin 0.5 mg/dL (0.2-1.0) D 04/05/17 06:00 AST 16 U/L (15-37) D 04/05/17 06:00 ALT 24 U/L (12-78) D 04/05/17 06:00 Alkaline Phosphatase 65 U/L (45-117) 04/05/17 06:00 Total Protein 6.3 g/dl (6.4-8.2) L 04/05/17 06:00 Albumin 3.3 g/dl (3.4-5.0) L 04/05/17 06:00 Urine Color Yellow 04/04/17 19:00 Urine Appearance Clear 04/04/17 19:00 Urine pH 6.0 (5.0-8.0) D 04/04/17 19:00 Ur Specific [place] 1.019 (1.001-1.035) 04/04/17 19:00 Urine Protein Negative (NEGATIVE) 04/04/17 19:00 Urine Glucose (UA) Negative (NEGATIVE) 04/04/17 19:00 Urine Ketones Negative (NEGATIVE) 04/04/17 19:00 Urine Blood Negative (NEGATIVE) 04/04/17 19:00 Urine Nitrite Negative (NEGATIVE) 04/04/17 19:00 Urine Bilirubin Negative (NEGATIVE) 04/04/17 19:00 Urine Urobilinogen Negative mg/dL (0.2-1.0) 04/04/17 19:00 Ur Leukocyte Esterase Negative (NEGATIVE) 04/04/17 19:00 RPR Titer Nonreactive (NONREACTIVE) 04/05/17 06:00 Assessment: 04/07/17 10:50 WITHDRAWAL SX Plan: CONTINUE DETOX
[2017-04-07] MEDS: traZODone HCL 100 MG TABLET (FP) PO SCH (22:02)
[2017-04-07] MEDS: THIAMINE HCL 100 MG TABLET (FP) PO SCH (22:02)
[2017-04-08] MEDS: GABAPENTIN 300 MG CAPSULE (FP) PO SCH (05:07)
[2017-04-08] MEDS ORDERED: METHADONE HCL 5 MG TABLET (FOR DETOX USE ONLY) PO SCH (06:00)
[2017-04-08] MEDS: PRENATAL VITAMINS W/ FOLIC ACID TABLET (FP) PO SCH (09:12)
[2017-04-08 09:13] VITALS: BP 132/79; PULSE 86; TEMP 97
[2017-04-08] MEDS: cloNIDine HCL 0.1 MG TABLET PO SCH (09:13)
--- NOTE | 2017-04-08 09:39 | DS ---
[facility] Detox Discharge Summary Admission Date: 04/04/17 Discharge Date: 04/08/17 - History Present History: Alcohol Dependence, Cannabis Dependence, Opioid Dependence, Sedative Dependence Additional Comments: DETOX COMPLETED. ALERT O X 3.PT HAS A PMD DR BARAHONA AT [facility] [place]. REFERRED TO REHAB FOR AFTER CARE. Pertinent Past History: HTN - Physical Exam Results Vital Signs: Vital Signs Temperature 97.0 F L 04/08/17 09:12 Pulse Rate 86 04/08/17 09:12 Respiratory Rate 18 04/08/17 09:12 Blood Pressure 132/79 04/08/17 09:12 O2 Sat by Pulse Oximetry (%) Pertinent Admission Physical Exam Findings: withdrawal sx Laboratory Last Values WBC 6.3 K/mm3 (4.0-10.0) 04/05/17 06:00 RBC 4.71 M/mm3 (4.00-5.60) 04/05/17 06:00 Hgb 14.0 GM/dL (11.7-16.9) 04/05/17 06:00 Hct 42.9 % (35.4-49) 04/05/17 06:00 MCV 91.1 fl (80-96) 04/05/17 06:00 MCH 29.8 pg (25.7-33.7) 04/05/17 06:00 MCHC 32.8 g/dl (32.0-35.9) 04/05/17 06:00 RDW 13.3 % (11.9-15.9) 04/05/17 06:00 Plt Count 189 K/MM3 (134-434) 04/05/17 06:00 MPV 8.1 fl (7.5-11.1) 04/05/17 06:00 Sodium 141 mmol/L (136-145) 04/05/17 06:00 Potassium 4.1 mmol/L (3.5-5.1) 04/05/17 06:00 Chloride 105 mmol/L (98-107) 04/05/17 06:00 Carbon Dioxide 31 mmol/L (21-32) 04/05/17 06:00 Anion Gap 5 (8-16) L 04/05/17 06:00 BUN 9 mg/dL (7-18) D 04/05/17 06:00 Creatinine 0.8 mg/dL (0.7-1.3) 04/05/17 06:00 Creat Clearance w eGFR > 60 (>60) 04/05/17 06:00 Random Glucose 105 mg/dL (74-106) 04/05/17 06:00 Calcium 8.1 mg/dL (8.5-10.1) L 04/05/17 06:00 Total Bilirubin 0.5 mg/dL (0.2-1.0) D 04/05/17 06:00 AST 16 U/L (15-37) D 04/05/17 06:00 ALT 24 U/L (12-78) D 04/05/17 06:00 Alkaline Phosphatase 65 U/L (45-117) 04/05/17 06:00 Total Protein 6.3 g/dl (6.4-8.2) L 04/05/17 06:00 Albumin 3.3 g/dl (3.4-5.0) L 04/05/17 06:00 Urine Color Yellow 04/04/17 19:00 Urine Appearance Clear 04/04/17 19:00 Urine pH 6.0 (5.0-8.0) D 04/04/17 19:00 Ur Specific [place] 1.019 (1.001-1.035) 04/04/17 19:00 Urine Protein Negative (NEGATIVE) 04/04/17 19:00 Urine Glucose (UA) Negative (NEGATIVE) 04/04/17 19:00 Urine Ketones Negative (NEGATIVE) 04/04/17 19:00 Urine Blood Negative (NEGATIVE) 04/04/17 19:00 Urine Nitrite Negative (NEGATIVE) 04/04/17 19:00 Urine Bilirubin Negative (NEGATIVE) 04/04/17 19:00 Urine Urobilinogen Negative mg/dL (0.2-1.0) 04/04/17 19:00 Ur Leukocyte Esterase Negative (NEGATIVE) 04/04/17 19:00 RPR Titer Nonreactive (NONREACTIVE) 04/05/17 06:00 - Treatment Hospital Course: Detox Protocol Followed, Detoxed Safely, Responded well, Discharged Condition Good, Rehab Referral Accepted Patient has Accepted a Rehab Referral to: [facility] - Medication Discharge Medications: Ambulatory Orders Trazodone HCl [Desyrel -] 150 mg PO HS 12/03/16 Clonidine HCl [Catapres -] 0.3 mg PO TID 04/04/17 Gabapentin [Neurontin] 600 mg PO TID 04/04/17 - Diagnosis (1) Alcohol dependence with uncomplicated withdrawal Status: Acute (2) Nicotine dependence Status: Acute Qualifiers: Nicotine product type: cigarettes Substance use status: in withdrawal Qualified Code(s): F17.213 - Nicotine dependence, cigarettes, with withdrawal (3) Opioid dependence with withdrawal Status: Acute (4) Hypertension Status: Chronic Qualifiers: Hypertension type: unspecified Qualified Code(s): I10 - Essential (primary ) hypertension (5) Marijuana dependence Status: Chronic (6) Uncomplicated sedative, hypnotic or anxiolytic withdrawal Status: Acute - AMA Did Patient Leave Against Medical Advice: No
[2017-04-08] MEDS ORDERED: diazePAM 5 MG TABLET PO SCH (10:00)
[2017-04-08] MEDS ORDERED: METHADONE HCL 10 MG TABLET (FOR DETOX USE ONLY) PO SCH (10:00)
[2017-04-09] MEDS ORDERED: METHADONE HCL 5 MG TABLET (FOR DETOX USE ONLY) PO SCH (06:00)
--- NOTE | 2017-04-13 13:34 | EKG ---
Test Reason : Blood Pressure : / mmHG Vent. Rate : 068 BPM Atrial Rate : 068 BPM P-R Int : 200 ms QRS Dur : 102 ms QT Int : 390 ms P-R-T Axes : 039 034 033 degrees QTc Int : 414 ms NORMAL SINUS RHYTHM NORMAL ECG WHEN COMPARED WITH ECG OF 04-APR-2017 18:17, NO SIGNIFICANT CHANGE WAS FOUND Confirmed by VIKI GASTON MD ([id number]) on 04/13/2017 1:33:31 PM Referred By: Tommie Steiner Confirmed By:VIKI GASTON MD
== END 2017-04-08 09:53 | disposition home or self-care (01) | DRG 773 ==
LOC: YASAS 14:24 → Y3N 15:24
PROVIDERS: ADMIT Internal Medicine; ATTEND Internal Medicine
PROC: HZ2ZZZZ Detoxification Services for Substance Abuse Treatment (ICD-10-PCS; principal; 2017-04-04)
DX: F11.23 Opioid dependence with withdrawal (principal); F13.230 Sedative, hypnotic or anxiolytic dependence with withdrawal, uncomplicated; F10.230 Alcohol dependence with withdrawal, uncomplicated; F12.20 Cannabis dependence, uncomplicated; F17.213 Nicotine dependence, cigarettes, with withdrawal; F41.9 Anxiety disorder, unspecified; F32.9 Major depressive disorder, single episode, unspecified; F19.24 Other psychoactive substance dependence with psychoactive substance-induced mood disorder; I10 Essential (primary) hypertension; G47.00 Insomnia, unspecified; E66.9 Obesity, unspecified; Z68.35 Body mass index [BMI] 35.0-35.9, adult; Z88.8 Allergy status to other drugs, medicaments and biological substances
CPT/HCPCS: 36415; 80053; 81003; 85027; 86593; 93005; 93010

== ENCOUNTER 2018-01-08 10:47 | Inpatient (IN) | payer OTHER ==
[2018-01-08 12:02] VITALS: BMI 35.6
--- NOTE | 2018-01-08 12:14 | HP ---
COWS - Scale Resting Pulse: 1= [place] 81-100 Sweatin= Chills/Flushing Restless Observation: 3= Extraneous Movement Pupil Size: 1= Pupils >than Normal Bone or Joint Aches: 2= Severe Diffuse Aches Runny Nose/ Eye Tearin= Runny Nose/Eyes GI Upset > 30mins: 3= Vomiting/Diarrhea Tremor Observation: 2= Slight Tremor Visible Yawning Observation: 2= >3x During Session Anxiety or Irritability: 2=Irritable/Anxious Goose Flesh Skin: 0=Smooth Skin COWS Score: 19 CIWA Score - CIWA Score Nausea/Vomitin Muscle Tremors: 3 Anxiety: 2 Agitation: 2 Paroxysmal Sweats: 1-Minimal Palms Moist Orientation: 1-Uncertain about Date Tacttile Disturbances: 1-Very Mild Itch/Numbness Auditory Disturbances: 1-Very Mild Visual Disturbances: 0-None Headache: 2-Mild CIWA-Ar Total Score: 16 Admission ROS BHS - HPI Chief Complaint: i need help to using heroin,alcohol,xanax and marijuana Allergies/Adverse Reactions: Allergies Allergy/AdvReac Type Severity Reaction Status Date / Time buspirone Allergy Severe Difficulty Verified 12/05/17 16:32 Breathing History of Present Illness: this 37 years old male with heroin,alcohol,xanax and marijuana dependence seeking detox,withdrawal symptom,last detox [facility] 12/05/17 to 12/08/17 history of hypertension nicotine dependence restless leg syndrome anxiety and depression longest period of sobriety multiple admissions for detox, Exam Limitations: No Limitations - Ebola screening Have you traveled outside of the country in the last 21 days: No Have you been sick,other than usual withdrawal symptoms: No - Review of Systems Constitutional: Chills, Loss of Appetite, Malaise, Night Sweats, Changes in sleep, Weakness EENT: reports: Tearing, Nose Congestion Respiratory: reports: No Symptoms reported Cardiac: reports: Palpitations GI: reports: Diarrhea, Nausea, Vomiting, Abdominal cramping : reports: No Symptoms Reported Musculoskeletal: reports: Back Pain, Muscle Pain Integumentary: reports: Dryness Neuro: reports: Headache, Tremors Endocrine: reports: No Symptoms Reported Hematology: reports: No Symptoms Reported Psychiatric: reports: No Sypmtoms Reported, Judgement Intact, Mood/Affect Appropiate, Orientated x3, Anxious, Depressed Patient History - Patient Medical History Hx Anemia: No Hx Asthma: No Hx Chronic Obstructive Pulmonary Disease (COPD): No Hx Cancer: No Hx Cardiac Disorders: No Hx Congestive Heart Failure: No Hx Hypertension: Yes (on med) Hx Hypercholesterolemia: No Hx Pacemaker: No HX Cerebrovascular Accident: No Hx Seizures: No Hx Diabetes: No Hx Gastrointestinal Disorders: No Hx Liver Disease: No Hx Genitourinary Disorders: No Hx Sexually Transmitted Disorders: No Hx Renal Disease (ESRD): No Hx Thyroid Disease: No Hx Human Immunodeficiency Virus (HIV): No (negative 2017 last negative) Hx Hepatitis C: No Hx Depression: Yes Hx Suicide Attempt: No Hx Bipolar Disorder: No Hx Schizophrenia: No Other Medical History: anxiety,depression - Patient Surgical History Past Surgical History: No Hx Neurologic Surgery: No Hx Cataract Extraction: No Hx Cardiac Surgery: No Hx Lung Surgery: No Hx Breast Surgery: No Hx Breast Biopsy: No Hx Abdominal Surgery: No Hx Appendectomy: No Hx Cholecystectomy: No Hx Genitourinary Surgery: No Hx Section: No Hx Orthopedic Surgery: No Anesthesia Reaction: No - PPD History Previous Implant?: Yes Documented Results: Negative w/proof Date: 04/06/17 Results: 0 mm PPD to be Administered?: No - Smoking Cessation Smoking history: Current every day smoker Have you smoked in the past 12 months: Yes Aproximately how many cigarettes per day: 40 Cigars Per Day: 4 Hx Chewing Tobacco Use: No Initiated information on smoking cessation: Yes 'Breaking Loose' booklet given: 01/08/18 - Substance & Tx. History Hx Alcohol Use: Yes Hx Substance Use: Yes Substance Use Type: Alcohol, Heroin, Tranquilizers Hx Substance Use Treatment: Yes ([facility] 12/05/17 to 12/08/17) - Substances Abused Alprazolam (Xanax) Route: Oral Frequency: Daily Amount used: 2-6 MG DAILY Age of first use: 29 Date of Last Use: 01/08/18 Heroin Route: Injection Frequency: Daily Amount used: 5-7 BAGS Age of first use: 29 Date of Last Use: 01/08/18 Marijuana/Hashish Route: Smoking Frequency: Daily Amount used: 1/8TH Age of first use: 26 Date of Last Use: 01/08/18 Alcohol Route: Oral Frequency: 3-6 times per week Amount used: 1 PINT OF HENBRIGIDOEY Age of first use: 32 Date of Last Use: 01/06/18 Family Disease History - Family Disease History Family Disease History: Heart Disease: Grandparent, Mother, Other: Father ( KILLED) Admission Physical Exam [facility] - Vital Signs Vital Signs: Vital Signs - 24 hr 01/08/18 11:59 Temperature 97.6 F Pulse Rate 92 H Respiratory 19 Rate Blood Pressure 143/83 - Physical General Appearance: Yes: Moderate Distress, Tremorous, Irritable, Sweating, Anxious HEENTM: Yes: Normal ENT Inspection, ERNIE, Pharynx Normal Respiratory: Yes: Within Normal Limits, Lungs Clear, Normal Breath Sounds Neck: Yes: Within Normal Limits, Supple, Trachea in good position Breast: Yes: Within Normal Limits Cardiology: Yes: Within Normal Limits, Regular Rhythm, Regular Rate, S1, S2 Abdominal: Yes: Within Normal Limits, Normal Bowel Sounds, Non Tender, Flat, Soft Genitourinary: Yes: Within Normal Limits Back: Yes: Normal Inspection, Muscle Spasm Musculoskeletal: Yes: Back pain, Joint Stiffness, Muscle Pain Extremities: Yes: Within Normal Limits, Tremors Neurological: Yes: wire coiler II-XII NML intact, Fully Oriented, Alert, Motor Strength 5/5 Integumentary: Yes: Dry, Track Cotton Lymphatic: Yes: Within Normal Limits - Diagnostic (1) Opioid dependence with withdrawal Current Visit: No Status: Acute (2) Alcohol dependence with uncomplicated withdrawal Current Visit: No Status: Acute (3) Uncomplicated sedative, hypnotic or anxiolytic withdrawal Current Visit: No Status: Chronic (4) Marijuana dependence Current Visit: No Status: Acute (5) Insomnia Current Visit: No Status: Acute Qualifiers: Insomnia type: unspecified Qualified Code(s): G47.00 - Insomnia, unspecified (6) Hypertension Current Visit: No Status: Chronic Qualifiers: Hypertension type: unspecified Qualified Code(s): I10 - Essential (primary ) hypertension (7) Insomnia secondary to depression with anxiety Current Visit: Yes Status: Acute Cleared for Admission [facility] - Detox or Rehab [facility] Level of Care: Medically Managed Detox Regimen/Protocol: Methadone/Valium [facility] Breath Alcohol Content Breath Alcohol Content: 0 Urine Drug Screen - Results Drug Screen Negative: No Urine Drug Screen Results: THC-Marijuana, OPI-Opiates, BZO-Benzodiazepines, MTD- Methadone, FEN-Fentanyl
[2018-01-08] MEDS ORDERED: P-EPHED 60MG/TRIPROLIDI 2.5MG TABLET PO PRN (12:26)
[2018-01-08] MEDS ORDERED: NICOTINE POLACRILEX 4 MG GUM BUC PRN (12:26)
[2018-01-08] MEDS ORDERED: diazePAM 5 MG TABLET PO ONE (12:26)
[2018-01-08] MEDS ORDERED: MAGNESIUM CITRATE 300 ML BOTTLE PO PRN (12:26)
[2018-01-08] MEDS ORDERED: METHADONE HCL 10 MG TABLET (FOR DETOX USE ONLY) PO ONE ×2 (12:26→23:00)
[2018-01-08] MEDS ORDERED: guaiFENesin/D-METHORPHAN HB 10 ML UNIT-DOSE CUPS PO PRN (12:26)
[2018-01-08] MEDS ORDERED: MAG HYDROX/AL HYDROX/SIMETH 30 ML UNIT-DOSE CUP PO PRN (12:26)
[2018-01-08] MEDS ORDERED: hydrOXYzine PAMOATE 50 MG CAPSULE (FP) PO PRN (12:26)
[2018-01-08] MEDS ORDERED: LOPERAMIDE HCL 2 MG CAPSULE PO PRN (12:26)
[2018-01-08] MEDS ORDERED: MENTHOL/PHENOL 1 EACH UD MM PRN (12:26)
[2018-01-08] MEDS ORDERED: ACETAMINOPHEN 325 MG TABLET (FP) PO PRN (12:26)
[2018-01-08] MEDS: NICOTINE 21 MG/24 HOURS TOPICAL PATCH TD SCH (13:47)
[2018-01-08] MEDS: cloNIDine HCL 0.1 MG TABLET PO SCH ×2 (13:47→22:04)
[2018-01-08] MEDS: GABAPENTIN 300 MG CAPSULE (FP) PO SCH ×2 (13:56→22:03)
[2018-01-08] MEDS: diazePAM 5 MG TABLET PO SCH ×2 (13:57→22:04)
[2018-01-08] MEDS: MAGNESIUM HYDROX 2400MG/30ML ORAL SUSPENSION 30 ML CUP PO PRN (17:20)
[2018-01-08 17:40] LABS: URINE APPEARANCE CLEAR; URINE BILIRUBIN NEGATIVE (<2.0 mg/dL); URINE COLOR YELLOW; URINE GLUCOSE (UA) NEGATIVE (NEGATIVE); URINE KETONE NEGATIVE (NEGATIVE); URINE LEUK ESTERASE NEGATIVE (NEGATIVE); URINE NITRITE NEGATIVE (NEGATIVE); URINE PROTEIN NEGATIVE (NEGATIVE); URINE UROBILINOGEN NEGATIVE mg/dL (0.2-1.0)
[2018-01-08] MEDS: IBUPROFEN 400 MG TABLET (FP) PO PRN (18:22)
[2018-01-08] MEDS ORDERED: MELATONIN 5 MG TABLETS PO PRN (22:00)
[2018-01-08] MEDS: THIAMINE HCL 100 MG TABLET (FP) PO SCH (22:04)
[2018-01-09] MEDS: GABAPENTIN 300 MG CAPSULE (FP) PO SCH ×3 (05:35→22:10)
[2018-01-09] MEDS: cloNIDine HCL 0.1 MG TABLET PO SCH ×3 (05:36→22:09)
[2018-01-09] MEDS: diazePAM 5 MG TABLET PO SCH ×3 (05:37→22:08)
--- NOTE | 2018-01-09 06:10 | EKG ---
Test Reason : Blood Pressure : / mmHG Vent. Rate : 074 BPM Atrial Rate : 074 BPM P-R Int : 194 ms QRS Dur : 096 ms QT Int : 366 ms P-R-T Axes : 039 022 012 degrees QTc Int : 406 ms NORMAL SINUS RHYTHM NORMAL ECG WHEN COMPARED WITH ECG OF 05-DEC-2017 19:33, NONSPECIFIC T WAVE ABNORMALITY, WORSE IN ANTERIOR LEADS Confirmed by VIKI GASTON MD ([id number]) on 01/09/2018 6:09:29 AM Referred By: Roxanna Flores Confirmed By:VIKI GASTON MD
[2018-01-09] MEDS ORDERED: METHADONE HCL 10 MG TABLET (FOR DETOX USE ONLY) PO SCH (10:00)
[2018-01-09] MEDS: PRENATAL VITAMINS W/ FOLIC ACID TABLET (FP) PO SCH (10:05)
[2018-01-09] MEDS: NICOTINE 21 MG/24 HOURS TOPICAL PATCH TD SCH (10:06)
[2018-01-09] MEDS: diazePAM 5 MG TABLET PO PRN ×2 (10:06→18:04)
[2018-01-09 10:25] LABS: HEMATOCRIT 43.3 % (35.4-49); HEMOGLOBIN 14.2 GM/dL (11.7-16.9); MCH 30.2 pg (25.7-33.7); MCHC 32.8 g/dl (32.0-35.9); MEAN PLT VOLUME 8.3 fl (7.5-11.1); PLATELET COUNT 197 K/MM3 (134-434); RDW 13.6 % (11.9-15.9); WHITE BLOOD COUNT 5.4 K/mm3 (4.0-10.0)
[2018-01-09 10:34] LABS: ALBUMIN 3.5 g/dl (3.4-5.0); ALK PHOS 75 U/L (45-117); ANION GAP 5 MMOL/L (8-16); BILIRUBIN,TOTAL 0.3 mg/dL (0.2-1); BLOOD UREA NITROGEN 14 mg/dL (7-18); CALCIUM 8.9 mg/dL (8.5-10.1); CHLORIDE 103 mmol/L (98-107); CO2 31 mmol/L (21-32); CREATININE 0.8 mg/dL (0.55-1.3); GLUCOSE,RANDOM 81 mg/dL (74-106); POTASSIUM 4.9 mmol/L (3.5-5.1); SGOT/AST 17 U/L (15-37); SGPT/ALT 24 U/L (13-61); SODIUM 140 mmol/L (136-145); TOT PROT 6.7 g/dl (6.4-8.2)
--- NOTE | 2018-01-09 15:50 | CONSULT ---
[facility] Psychiatric Consult - Data Date of interview: 01/09/18 Admission source: [facility] Identifying data: Another admission to [facility] for this 37 y/o male from [place] ancestry self-referred for detoxification treatment (alcohol, heroin,xanax,marijuana).Admitted to [address] [place] [address].Patient is single without children, domiciled,unemployed and supported by relatives. Substance Abuse History: Confirmed by the patient in this interview.Details in current [facility] report : Smoking history: Current every day smoker. Have you smoked in the past 12 months: Yes. Aproximately how many cigarettes per day: 40. Cigars Per Day: 4. Hx Chewing Tobacco Use: No. Initiated information on smoking cessation: Yes. 'Breaking Loose' booklet given: 01/08/18. - Substance & Tx. History. Hx Alcohol Use: Yes. Hx Substance Use: Yes. Substance Use Type : Alcohol, Heroin, Tranquilizers. Hx Substance Use Treatment: Yes ([facility] to 12/08/17). - Substances Abused. Alprazolam (Xanax). Route: Oral. Frequency: Daily. Amount used: 2-6 MG DAILY. Age of first use: 29. Date of Last Use: 01/08/18. Heroin. Route: Injection. Frequency: Daily. Amount used: 5-7 BAGS. Age of first use: 29. Date of Last Use: 01/08/18. Marijuana/Hashish. Route: Smoking. Frequency: Daily. Amount used: /8TH. Age of first use: 26. Date of Last Use: 01/08/18. Alcohol. Route: Oral. Frequency: 3-6 times per week. Amount used: 1 [place]. Age of first use: 32. Date of Last Use: 01/06/18 Medical History: Hypertension and a history of arthritis (knees). Psychiatric History: No history of psychiatric hospitalizations.Mr Bellamy reports that he is currently prescribed adderall,trazodone,clonidine and neurontin by his primary care physician (verified by pharmacy claims of 01/02/18 at [facility] [address] [place] [address]).Patient was diagnosed in the past with MDD and ADHD. Chronically non-adherent to medications + follow-up psychiatric care." I don't trust psychiatrists and I don't believe in mental illness." No reported history of suicide attempts. Physical/Sexual Abuse/Trauma History: Patient denies. Additional Comment: Urine Drug Screen Results: THC-Marijuana, OPI-Opiates, BZO- Benzodiazepines, MTD-Methadone, FEN-Fentanyl.Noted. Mental Status Exam - Mental Status Exam Alert and Oriented to: Time, Place, Person Cognitive Function: Good Patient Appearance: Well Groomed Mood: Nervous, Anxious, Hopeful Affect: Appropriate, Normal Range Patient Behavior: Fatigued, Cooperative Speech Pattern: Clear, Appropriate Voice Loudness: Normal Thought Process: Intact, Goal Oriented Thought Disorder: Not Present Hallucinations: Denies Suicidal Ideation: Denies Homicidal Ideation: Denies Insight/Judgement: Poor Sleep: Poorly, Difficulty falling asleep Appetite: Good Muscle strength/Tone: Normal Gait/Station: Normal Psychiatric Findings - Problem List ([place] 1, 2,3) (1) Opioid dependence with withdrawal Current Visit: Yes Status: Acute (2) Alcohol dependence with uncomplicated withdrawal Current Visit: Yes Status: Acute (3) Uncomplicated sedative, hypnotic or anxiolytic withdrawal Current Visit: Yes Status: Acute (4) Marijuana dependence Current Visit: No Status: Acute (5) Nicotine dependence Current Visit: Yes Status: Acute Qualifiers: Nicotine product type: cigarettes Substance use status: in withdrawal Qualified Code(s): F17.213 - Nicotine dependence, cigarettes, with withdrawal (6) Drug-induced mood disorder Current Visit: Yes Status: Acute (7) Insomnia Current Visit: Yes Status: Acute Qualifiers: Insomnia type: unspecified Qualified Code(s): G47.00 - Insomnia, unspecified - Initial Treatment Plan Initial Treatment Plan: Psychiatric evaluation conducted with medical students in attendance (with patient's verbal consent).Psychoeducation.Sleep hygiene.Detoxification in progress.Trazodone 150 mg po hs.Patient is made aware of the risk of parasomnias (nocturnal excursions).Mr Bellamy indicates that the medication has always been well tolerated.Agrees to this careplan.Observation.
--- NOTE | 2018-01-09 16:21 | PN ---
S CIWA - CIWA Score Nausea/Vomitin Muscle Tremors: 3 Anxiety: 3 Agitation: 3 Paroxysmal Sweats: 3 Orientation: 0-Oriented Tacttile Disturbances: 0-None Auditory Disturbances: 0-None Visual Disturbances: 0-None Headache: 0-None Present CIWA-Ar Total Score: 15 S COWS - Scale Resting Pulse: 0= [place] 80 or Below Sweatin=Flushed/Facial Moisture Restless Observation: 1= Difficult to Sit Still Pupil Size: 0= Normal to Room Light Bone or Joint Aches: 1= Mild Discomfort Runny Nose/ Eye Tearin= Nasal Congestion GI Upset > 30mins: 1= Stomach Cramp Tremor Observation of Outstretched Hands: 2= Slight Tremor Visible Yawning Observation: 1= 1-2x During Session Anxiety or Irritability: 2=Irritable/Anxious Goose Flesh Skin: 0=Smooth Skin COWS Score: 11 [facility] Progress Note (SOAP) Subjective: CONSTIPATION SLEEP DISTURBANCE SHAKES Objective: 01/09/18 16:16 A & O X 3 Vital Signs Temperature 97.8 F 01/09/18 13:40 Pulse Rate 78 01/09/18 13:40 Respiratory Rate 18 01/09/18 13:40 Blood Pressure 121/75 01/09/18 13:40 O2 Sat by Pulse Oximetry (%) Laboratory Last Values WBC 5.4 K/mm3 (4.0-10.0) 01/09/18 07:00 RBC 4.70 M/mm3 (4.00-5.60) 01/09/18 07:00 Hgb 14.2 GM/dL (11.7-16.9) 01/09/18 07:00 Hct 43.3 % (35.4-49) 01/09/18 07:00 MCV 92.0 fl (80-96) 01/09/18 07:00 MCH 30.2 pg (25.7-33.7) 01/09/18 07:00 MCHC 32.8 g/dl (32.0-35.9) 01/09/18 07:00 RDW 13.6 % (11.9-15.9) 01/09/18 07:00 Plt Count 197 K/MM3 (134-434) 01/09/18 07:00 MPV 8.3 fl (7.5-11.1) 01/09/18 07:00 Sodium 140 mmol/L (136-145) 01/09/18 07:00 Potassium 4.9 mmol/L (3.5-5.1) 01/09/18 07:00 Chloride 103 mmol/L (98-107) 01/09/18 07:00 Carbon Dioxide 31 mmol/L (21-32) 01/09/18 07:00 Anion Gap 5 MMOL/L (8-16) L 01/09/18 07:00 BUN 14 mg/dL (7-18) 01/09/18 07:00 Creatinine 0.8 mg/dL (0.55-1.3) 01/09/18 07:00 Creat Clearance w eGFR > 60 (>60) 01/09/18 07:00 Random Glucose 81 mg/dL (74-106) 01/09/18 07:00 Calcium 8.9 mg/dL (8.5-10.1) 01/09/18 07:00 Total Bilirubin 0.3 mg/dL (0.2-1) 01/09/18 07:00 AST 17 U/L (15-37) 01/09/18 07:00 ALT 24 U/L (13-61) 01/09/18 07:00 Alkaline Phosphatase 75 U/L (45-117) 01/09/18 07:00 Total Protein 6.7 g/dl (6.4-8.2) 01/09/18 07:00 Albumin 3.5 g/dl (3.4-5.0) 01/09/18 07:00 Urine Color Yellow 01/08/18 12:57 Urine Appearance Clear 01/08/18 12:57 Urine pH 5.0 (5.0-8.0) 01/08/18 12:57 Ur Specific [place] 1.023 (1.001-1.035) 01/08/18 12:57 Urine Protein Negative (NEGATIVE) 01/08/18 12:57 Urine Glucose (UA) Negative (NEGATIVE) 01/08/18 12:57 Urine Ketones Negative (NEGATIVE) 01/08/18 12:57 Urine Blood Negative (NEGATIVE) 01/08/18 12:57 Urine Nitrite Negative (NEGATIVE) 01/08/18 12:57 Urine Bilirubin Negative (<2.0 mg/dL) 01/08/18 12:57 Urine Urobilinogen Negative mg/dL (0.2-1.0) 01/08/18 12:57 Ur Leukocyte Esterase Negative (NEGATIVE) 01/08/18 12:57 RPR Titer Nonreactive (NONREACTIVE) 01/09/18 07:00 LABS NOTED Assessment: 01/09/18 16:20 WITHDRAWAL SX Plan: CONTINUE DETOX
--- NOTE | 2018-01-09 18:43 | PN ---
[facility] Progress Note Note: Vital Signs Temperature 97.2 F L 01/09/18 18:05 Pulse Rate 80 01/09/18 18:05 Respiratory Rate 18 01/09/18 18:05 Blood Pressure 136/95 01/09/18 18:05 O2 Sat by Pulse Oximetry (%) Patient very anxious and tearful, requested Prep and HIV testing. Reports he was exposed to possible HIV containing needle after sharing needles with someone this past Tuesday01/07/18. [place] and [place]ent[place] ordered post exposure prophylaxis x 28 days Medication side effects, need for compliance and follow up with PCP discussed with patient HIV testing ordered continue to monitor
[2018-01-09] MEDS: THIAMINE HCL 100 MG TABLET (FP) PO SCH (22:08)
[2018-01-09] MEDS: RALTEGRAVIR POTASSIUM 400 MG TAB PO SCH (22:09)
[2018-01-09] MEDS: traZODone HCL 50 MG TABLET (FP) PO SCH (22:09)
[2018-01-09] MEDS: IBUPROFEN 400 MG TABLET (FP) PO PRN (22:11)
[2018-01-10] MEDS: cloNIDine HCL 0.1 MG TABLET PO SCH ×3 (05:04→22:04)
[2018-01-10] MEDS: GABAPENTIN 300 MG CAPSULE (FP) PO SCH ×3 (05:04→22:04)
[2018-01-10] MEDS: PRENATAL VITAMINS W/ FOLIC ACID TABLET (FP) PO SCH (10:10)
[2018-01-10] MEDS: diazePAM 5 MG TABLET PO SCH ×2 (10:10→22:03)
[2018-01-10] MEDS: EMTRICITABINE 200MG/TENOFOVIR 300MG PO SCH (10:10)
[2018-01-10] MEDS: RALTEGRAVIR POTASSIUM 400 MG TAB PO SCH ×2 (10:10→22:04)
[2018-01-10] MEDS: NICOTINE 21 MG/24 HOURS TOPICAL PATCH TD SCH (10:10)
[2018-01-10] MEDS: METHADONE HCL 5 MG TABLET (FOR DETOX USE ONLY) PO SCH (10:10)
--- NOTE | 2018-01-10 11:06 | PN ---
S CIWA - CIWA Score Nausea/Vomitin-Mild Nausea/No Vomiting Muscle Tremors: None Anxiety: 3 Agitation: 2 Paroxysmal Sweats: No Perspiration Orientation: 0-Oriented Tacttile Disturbances: 0-None Auditory Disturbances: 0-None Visual Disturbances: 0-None Headache: 2-Mild CIWA-Ar Total Score: 8 [facility] COWS - Scale Resting Pulse: 0= [place] 80 or Below Sweatin= No chills or Flushing Restless Observation: 1= Difficult to Sit Still Pupil Size: 2= Moderately Dilated Bone or Joint Aches: 2= Severe Diffuse Aches Runny Nose/ Eye Tearin= None GI Upset > 30mins: 2= Nausea/Diarrhea Tremor Observation of Outstretched Hands: 1= Tremor [place], Not Seen Yawning Observation: 0= None Anxiety or Irritability: 0= None Goose Flesh Skin: 0=Smooth Skin COWS Score: 8 S Progress Note (SOAP) Subjective: Patient anxious, pacing in hallway. Complains of intermittent nausea/diarrhea. Objective: 01/10/18 11:04 Vital Signs Temperature 97.3 F L 01/10/18 09:19 Pulse Rate 78 01/10/18 09:19 Respiratory Rate 18 01/10/18 09:19 Blood Pressure 125/84 01/10/18 09:19 O2 Sat by Pulse Oximetry (%) Vital Signs Temperature 97.3 F L 01/10/18 09:19 Pulse Rate 78 01/10/18 09:19 Respiratory Rate 18 01/10/18 09:19 Blood Pressure 125/84 01/10/18 09:19 O2 Sat by Pulse Oximetry (%) Laboratory Tests 01/08/18 01/09/18 01/09/18 12:57 07:00 07:00 WBC 5.4 RBC 4.70 Hgb 14.2 Hct 43.3 MCV 92.0 MCH 30.2 MCHC 32.8 RDW 13.6 Plt Count 197 MPV 8.3 Sodium 140 Potassium 4.9 Chloride 103 Carbon Dioxide 31 Anion Gap 5 L BUN 14 Creatinine 0.8 Creat Clearance w eGFR > 60 Random Glucose 81 Calcium 8.9 Total Bilirubin 0.3 AST 17 ALT 24 Alkaline Phosphatase 75 Total Protein 6.7 Albumin 3.5 Urine Color Yellow Urine Appearance Clear Urine pH 5.0 Ur Specific [place] 1.023 Urine Protein Negative Urine Glucose (UA) Negative Urine Ketones Negative Urine Blood Negative Urine Nitrite Negative Urine Bilirubin Negative Urine Urobilinogen Negative Ur Leukocyte Esterase Negative RPR Titer HIV 1&2 Antibody Screen HIV P24 Antigen 01/09/18 01/10/18 07:00 08:30 WBC RBC Hgb Hct MCV MCH MCHC RDW Plt Count MPV Sodium Potassium Chloride Carbon Dioxide Anion Gap BUN Creatinine Creat Clearance w eGFR Random Glucose Calcium Total Bilirubin AST ALT Alkaline Phosphatase Total Protein Albumin Urine Color Urine Appearance Urine pH Ur Specific [place] Urine Protein Urine Glucose (UA) Urine Ketones Urine Blood Urine Nitrite Urine Bilirubin Urine Urobilinogen Ur Leukocyte Esterase RPR Titer Nonreactive HIV 1&2 Antibody Screen Negative HIV P24 Antigen Negative alert and oriented skin warm and dry ambulatory ad anu anxious, pacing in hallway Assessment: 01/10/18 11:05 withdrawal syndrome Plan: encourage oral fluids continue detox continue to monitor clinically
[2018-01-10] MEDS: diazePAM 5 MG TABLET PO PRN (17:25)
[2018-01-10] MEDS: MAGNESIUM HYDROX 2400MG/30ML ORAL SUSPENSION 30 ML CUP PO PRN (18:50)
[2018-01-10] MEDS: THIAMINE HCL 100 MG TABLET (FP) PO SCH (22:03)
[2018-01-10] MEDS: IBUPROFEN 400 MG TABLET (FP) PO PRN (22:03)
[2018-01-10] MEDS: traZODone HCL 50 MG TABLET (FP) PO SCH (22:04)
[2018-01-11] MEDS: GABAPENTIN 300 MG CAPSULE (FP) PO SCH (05:09)
[2018-01-11] MEDS: cloNIDine HCL 0.1 MG TABLET PO SCH (05:09)
[2018-01-11 09:42] VITALS: BP 132/84; PULSE 77; TEMP 96.6
[2018-01-11] MEDS: diazePAM 5 MG TABLET PO SCH (10:03)
[2018-01-11] MEDS: PRENATAL VITAMINS W/ FOLIC ACID TABLET (FP) PO SCH (10:03)
[2018-01-11] MEDS: EMTRICITABINE 200MG/TENOFOVIR 300MG PO SCH (10:03)
[2018-01-11] MEDS: RALTEGRAVIR POTASSIUM 400 MG TAB PO SCH (10:03)
[2018-01-11] MEDS: METHADONE HCL 5 MG TABLET (FOR DETOX USE ONLY) PO SCH (10:03)
[2018-01-11] MEDS: NICOTINE 21 MG/24 HOURS TOPICAL PATCH TD SCH (10:03)
[2018-01-11] MEDS ORDERED: METHADONE HCL 10 MG TABLET PO ONE (10:30)
[2018-01-11] MEDS ORDERED: METHADONE HCL 10 MG TABLET (FOR DETOX USE ONLY) PO ONE (12:00)
--- NOTE | 2018-01-11 12:30 | PN ---
[facility] Progress Note Note: PATIENT CONTINUES WITH DETOX TREATMENT. STATES HE FEEL WELL. DENIES N/V/D. HEADACHE, TREMORS AND SWEATING. Vital Signs Temperature 96.6 F L 01/11/18 09:41 Pulse Rate 77 01/11/18 09:41 Respiratory Rate 18 01/11/18 09:41 Blood Pressure 132/84 01/11/18 09:41 O2 Sat by Pulse Oximetry (%) Laboratory Tests 01/08/18 01/09/18 01/09/18 12:57 07:00 07:00 WBC 5.4 RBC 4.70 Hgb 14.2 Hct 43.3 MCV 92.0 MCH 30.2 MCHC 32.8 RDW 13.6 Plt Count 197 MPV 8.3 Sodium 140 Potassium 4.9 Chloride 103 Carbon Dioxide 31 Anion Gap 5 L BUN 14 Creatinine 0.8 Creat Clearance w eGFR > 60 Random Glucose 81 Calcium 8.9 Total Bilirubin 0.3 AST 17 ALT 24 Alkaline Phosphatase 75 Total Protein 6.7 Albumin 3.5 Urine Color Yellow Urine Appearance Clear Urine pH 5.0 Ur Specific [place] 1.023 Urine Protein Negative Urine Glucose (UA) Negative Urine Ketones Negative Urine Blood Negative Urine Nitrite Negative Urine Bilirubin Negative Urine Urobilinogen Negative Ur Leukocyte Esterase Negative RPR Titer HIV 1&2 Antibody Screen HIV P24 Antigen 01/09/18 01/10/18 07:00 08:30 WBC RBC Hgb Hct MCV MCH MCHC RDW Plt Count MPV Sodium Potassium Chloride Carbon Dioxide Anion Gap BUN Creatinine Creat Clearance w eGFR Random Glucose Calcium Total Bilirubin AST ALT Alkaline Phosphatase Total Protein Albumin Urine Color Urine Appearance Urine pH Ur Specific [place] Urine Protein Urine Glucose (UA) Urine Ketones Urine Blood Urine Nitrite Urine Bilirubin Urine Urobilinogen Ur Leukocyte Esterase RPR Titer Nonreactive HIV 1&2 Antibody Screen Negative HIV P24 Antigen Negative PE; PATIENT ALERT AND ORIENTED X 3 SKIN WARM AND DRY AMB AD ABBY EXT FULL ROM, NO EDEMA A/P: WITHDRAWAL SYNDROME CONTINUE DETOX ORDERED ENCOURAGE ORAL FLUIDS CONTINUE TO MONITOR CLINICALLY
--- NOTE | 2018-01-11 12:58 | PN ---
[facility] Progress Note Note: NOTIFIED BY NURSING STAFF THAT PATIENT REQUESTED TO SIGN OUT AMA. PATIENT MEDICALLY STABLE. DENIES SI/HI. PATIENT STATES HE WILL FOLLOW UP WITH [facility] ON HIS OWN FOR ONGOING REHAB SERVICES. PATIENT ENCOURAGED TO ATTEND GROUP MEETINGS TO PREVENT RELAPSE AND GO TO ER/SEEK MEDICAL ATTENTION FOR WITHDRAWAL SYMPTOMS.
--- NOTE | 2018-01-11 13:04 | DS ---
[facility] Detox Discharge Summary Admission Date: 01/08/18 - History Present History: Alcohol Dependence, Opioid Dependence - Physical Exam Results Vital Signs: Vital Signs Temperature 96.6 F L 01/11/18 09:41 Pulse Rate 77 01/11/18 09:41 Respiratory Rate 18 01/11/18 09:41 Blood Pressure 132/84 01/11/18 09:41 O2 Sat by Pulse Oximetry (%) - Medication Discharge Medications: Ambulatory Orders traZODone HCL [Desyrel -] 150 mg PO HS #30 tablet 06/23/17 Gabapentin [Neurontin] 600 mg PO TID #90 capsule 06/26/17 Clonidine HCl [Catapres] 0.1 mg PO TID 01/08/18 - Diagnosis (1) Withdrawal syndrome Status: Acute Qualifiers: Substance type: opioid Qualified Code(s): F11.23 - Opioid dependence with withdrawal - AMA Did Patient Leave Against Medical Advice: Yes
[2018-01-12] MEDS ORDERED: diazePAM 5 MG TABLET PO SCH (10:00)
[2018-01-12] MEDS ORDERED: METHADONE HCL 10 MG TABLET (FOR DETOX USE ONLY) PO SCH (10:00)
[2018-01-13] MEDS ORDERED: METHADONE HCL 5 MG TABLET (FOR DETOX USE ONLY) PO SCH (06:00)
== END 2018-01-11 12:45 | disposition left against medical advice (07) | DRG 770 ==
LOC: YASAS 10:47 → Y3N 12:16
PROC: HZ2ZZZZ Detoxification Services for Substance Abuse Treatment (ICD-10-PCS; principal; 2018-01-08)
DX: F11.23 Opioid dependence with withdrawal (principal); F10.230 Alcohol dependence with withdrawal, uncomplicated; F13.230 Sedative, hypnotic or anxiolytic dependence with withdrawal, uncomplicated; F17.210 Nicotine dependence, cigarettes, uncomplicated; F19.24 Other psychoactive substance dependence with psychoactive substance-induced mood disorder; F32.9 Major depressive disorder, single episode, unspecified; F51.05 Insomnia due to other mental disorder; I10 Essential (primary) hypertension; G25.81 Restless legs syndrome; G47.00 Insomnia, unspecified; Z20.6 Contact with and (suspected) exposure to human immunodeficiency virus [HIV]
CPT/HCPCS: 36415; 80053; 81003; 85027; 86593; 87389; 93005; 93010; J0735

== ENCOUNTER 2018-02-11 10:32 | Inpatient (IN) | payer OTHER ==
[2018-02-11 11:20] VITALS: BMI 34.7
--- NOTE | 2018-02-11 11:59 | HP ---
COWS - Scale Resting Pulse: 2= [place] 101-120 Sweatin= Chills/Flushing Restless Observation: 1= Difficult to Sit Still Pupil Size: 0= Normal to Room Light Bone or Joint Aches: 2= Severe Diffuse Aches Runny Nose/ Eye Tearin= Runny Nose/Eyes GI Upset > 30mins: 2= Nausea/Diarrhea Tremor Observation: 2= Slight Tremor Visible Yawning Observation: 2= >3x During Session Anxiety or Irritability: 1=Feels Anxious/Irritable Goose Flesh Skin: 0=Smooth Skin COWS Score: 15 CIWA Score - CIWA Score Nausea/Vomitin Muscle Tremors: 4-Moderate,w/Arms Extend Anxiety: 4-Mod. Anxious/Guarded Agitation: 0-Normal Activity Paroxysmal Sweats: 1-Minimal Palms Moist Orientation: 0-Oriented Tacttile Disturbances: 0-None Auditory Disturbances: 1-Very Mild Visual Disturbances: 0-None Headache: 3-Moderate CIWA-Ar Total Score: 16 Admission ROS BHS - HPI Chief Complaint: I'm desperate, it's come to this, financial, family everything is bad because of what I do Allergies/Adverse Reactions: Allergies Allergy/AdvReac Type Severity Reaction Status Date / Time buspirone Allergy Severe Difficulty Verified 02/11/18 11:29 Breathing History of Present Illness: 37 yo gentleman here for detox from alcohol, opiates - also using marijuana and xanax. Patient also prescribed clonopin which he admits he abuses (per [facility] Rx 7 tabs clonopin 0.5mg on 02/02/18). No seizures but does have black outs and has had several overdoses. THis is one of several admissions for treatment. Exam Limitations: Clinical Condition - Ebola screening Have you traveled outside of the country in the last 21 days: No (N) Have you had contact with anyone from an Ebola affected area: No Have you been sick,other than usual withdrawal symptoms: No Do you have a fever: No - Review of Systems Constitutional: Chills, Loss of Appetite, Changes in sleep, Weakness EENT: reports: Blurred Vision, Nose Congestion Respiratory: reports: No Symptoms reported Cardiac: reports: No Symptoms Reported GI: reports: Constipated, Nausea, Poor Appetite, Indigestion, Abdominal cramping : reports: Dysuria Musculoskeletal: reports: Back Pain, Muscle Pain Integumentary: reports: No Symptoms Reported Neuro: reports: Headache, Tremors Endocrine: reports: No Symptoms Reported Hematology: reports: No Symptoms Reported Psychiatric: reports: Judgement Intact, Mood/Affect Appropiate, Orientated x3, Anxious Other Systems: Reviewed and Negative Patient History - Patient Medical History Hx Anemia: No Hx Asthma: No Hx Chronic Obstructive Pulmonary Disease (COPD): No Hx Cancer: No Hx Cardiac Disorders: No Hx Congestive Heart Failure: No Hx Hypertension: Yes (on med) Hx Hypercholesterolemia: No Hx Pacemaker: No HX Cerebrovascular Accident: No Hx Seizures: No Hx Diabetes: No Hx Gastrointestinal Disorders: No Hx Liver Disease: No Hx Genitourinary Disorders: No Hx Sexually Transmitted Disorders: No Hx Renal Disease (ESRD): No Hx Thyroid Disease: No Hx Human Immunodeficiency Virus (HIV): No (negative 2017 last negative) Hx Hepatitis C: No Hx Depression: Yes (on meds from primary) Hx Suicide Attempt: No Hx Bipolar Disorder: No Hx Schizophrenia: No - Patient Surgical History Past Surgical History: No Hx Neurologic Surgery: No Hx Cataract Extraction: No Hx Cardiac Surgery: No Hx Lung Surgery: No Hx Breast Surgery: No Hx Breast Biopsy: No Hx Abdominal Surgery: No Hx Appendectomy: No Hx Cholecystectomy: No Hx Genitourinary Surgery: No Hx Section: No Hx Orthopedic Surgery: No Anesthesia Reaction: No - PPD History Previous Implant?: Yes Documented Results: Negative w/proof Implanted On Prior R Admission?: Yes Date: 04/06/17 Results: 0 mm PPD to be Administered?: No - Reproductive History Patient is a Female of Child Bearing Age (11 -55 yrs old): No (male) - Smoking Cessation Smoking history: Current every day smoker Have you smoked in the past 12 months: Yes Aproximately how many cigarettes per day: 30 Cigars Per Day: 4 Hx Chewing Tobacco Use: No Initiated information on smoking cessation: Yes 'Breaking Loose' booklet given: 02/11/18 (give on floor) - Substance & Tx. History Hx Alcohol Use: Yes Hx Substance Use: Yes Substance Use Type: Alcohol, Heroin, Marijuana, Opiates, Tranquilizers Hx Substance Use Treatment: Yes (detox, rehab, tried methadone program) - Substances Abused Alcohol Route: Oral Frequency: 3-6 times per week Amount used: 1-1.5 PINTS DIANE OR DAHLIA HOLLIDAY Age of first use: 26 Date of Last Use: 02/10/18 Heroin Route: Injection Frequency: Daily Amount used: 6-9 BAGS Age of first use: 29 Date of Last Use: 02/10/18 Alprazolam (Xanax) Route: Oral Frequency: Daily Amount used: 6-8 MG Age of first use: 30 Date of Last Use: 02/11/18 Marijuana/Hashish Route: Smoking Frequency: Daily Amount used: $40 Age of first use: 27 Date of Last Use: 02/11/18 suboxone Route: Oral Frequency: 1-2 times per week Amount used: 4mg (both prescribed and bought on street) Age of first use: 32 Date of Last Use: 02/08/18 Family Disease History - Family Disease History Family Disease History: Heart Disease: Grandparent, Mother (living, ), Other: Father (KILLED, hx drug use), Mother, Brother (two - living - drug use), Sister (one - living - drug use) Admission Physical Exam [facility] - Vital Signs Vital Signs: Vital Signs - 24 hr 02/11/18 11:18 Temperature 98.3 F Pulse Rate 101 H Respiratory 20 Rate Blood Pressure 149/99 - Physical General Appearance: Yes: Nourished, Appropriately Dressed, Moderate Distress, Obese, Tremorous, Anxious HEENTM: Yes: EOMI, Hearing grossly Normal, Normocephalic, Normal Voice, Pharynx Normal, Nasal Congestion Respiratory: Yes: No Respiratory Distress, Rhonchi Neck: Yes: No masses,lesions,Nodules, Supple Breast: Yes: Breast Exam Deferred Cardiology: Yes: Regular Rhythm, Tachycardia Abdominal: Yes: Soft Genitourinary: Yes: Dysuria Back: Yes: Normal Inspection Musculoskeletal: Yes: full range of Motion, Gait Steady, Back pain, Muscle Pain Extremities: Yes: Normal Inspection, Normal Range of Motion, Non-Tender Neurological: Yes: Fully Oriented, Alert, Motor Strength 5/5, Normal Mood/Affect , Normal Response Integumentary: Yes: Normal Color, Warm, Track Cotton (no abscess noted) Lymphatic: Yes: Within Normal Limits - Diagnostic (1) Alcohol dependence with uncomplicated withdrawal Current Visit: Yes Status: Chronic (2) Opioid dependence with withdrawal Current Visit: Yes Status: Chronic (3) Uncomplicated sedative, hypnotic or anxiolytic withdrawal Current Visit: Yes Status: Chronic (4) Marijuana dependence Current Visit: Yes Status: Chronic (5) Nicotine dependence Current Visit: Yes Status: Acute Qualifiers: Nicotine product type: cigarettes Substance use status: in withdrawal Qualified Code(s): F17.213 - Nicotine dependence, cigarettes, with withdrawal (6) Hypertension Current Visit: Yes Status: Chronic Qualifiers: Hypertension type: essential hypertension Qualified Code(s): I10 - Essential (primary) hypertension Cleared for Admission [facility] - Detox or Rehab [facility] Level of Care: Medically Managed Detox Regimen/Protocol: Methadone/Valium [facility] Breath Alcohol Content Breath Alcohol Content: 0 Urine Drug Screen - Results Drug Screen Negative: No Urine Drug Screen Results: THC-Marijuana, OPI-Opiates, BZO-Benzodiazepines, OXY- Oxycodone, FEN-Fentanyl, BUP-Suboxone
[2018-02-11] MEDS ORDERED: LOPERAMIDE HCL 2 MG CAPSULE PO PRN (12:09)
[2018-02-11] MEDS ORDERED: MAGNESIUM HYDROX 2400MG/30ML ORAL SUSPENSION 30 ML CUP PO PRN (12:09)
[2018-02-11] MEDS ORDERED: MAG HYDROX/AL HYDROX/SIMETH 30 ML UNIT-DOSE CUP PO PRN (12:09)
[2018-02-11] MEDS ORDERED: MAGNESIUM CITRATE 300 ML BOTTLE PO PRN (12:09)
[2018-02-11] MEDS ORDERED: IBUPROFEN 400 MG TABLET (FP) PO PRN (12:09)
[2018-02-11] MEDS ORDERED: P-EPHED 60MG/TRIPROLIDI 2.5MG TABLET PO PRN (12:09)
[2018-02-11] MEDS ORDERED: MENTHOL/PHENOL 1 EACH UD MM PRN (12:09)
[2018-02-11] MEDS ORDERED: NICOTINE POLACRILEX 4 MG GUM BUC PRN (12:09)
[2018-02-11] MEDS ORDERED: guaiFENesin/D-METHORPHAN HB 10 ML UNIT-DOSE CUPS PO PRN (12:09)
[2018-02-11] MEDS ORDERED: ACETAMINOPHEN 325 MG TABLET (FP) PO PRN (12:09)
[2018-02-11] MEDS ORDERED: METHADONE HCL 10 MG TABLET (FOR DETOX USE ONLY) PO ONE ×2 (12:30→23:00)
[2018-02-11] MEDS ORDERED: diazePAM 5 MG TABLET PO ONE (12:30)
[2018-02-11] MEDS ORDERED: DOCUSATE SODIUM 100 MG CAPSULE (FP) PO PRN (13:01)
[2018-02-11] MEDS: cloNIDine HCL 0.1 MG TABLET PO SCH ×2 (13:02→22:27)
[2018-02-11] MEDS: NICOTINE 21 MG/24 HOURS TOPICAL PATCH TD SCH (13:02)
[2018-02-11] MEDS: diazePAM 5 MG TABLET PO SCH ×2 (14:25→22:27)
[2018-02-11 19:23] LABS: URINE APPEARANCE TURBID; URINE BILIRUBIN NEGATIVE (<2.0 mg/dL); URINE COLOR AMBER; URINE GLUCOSE (UA) NEGATIVE (NEGATIVE); URINE KETONE NEGATIVE (NEGATIVE); URINE LEUK ESTERASE NEGATIVE (NEGATIVE); URINE NITRITE NEGATIVE (NEGATIVE); URINE PROTEIN NEGATIVE (NEGATIVE); URINE UROBILINOGEN NEGATIVE mg/dL (0.2-1.0)
[2018-02-11 19:43] LABS: URINE HYALINE CAST 4 /lpf; URINE MUCUS RARE
[2018-02-11] MEDS ORDERED: MELATONIN 5 MG TABLETS PO PRN (22:00)
[2018-02-11] MEDS: traZODone HCL 50 MG TABLET (FP) PO SCH (22:27)
[2018-02-11] MEDS: THIAMINE HCL 100 MG TABLET (FP) PO SCH (22:27)
[2018-02-12] MEDS: diazePAM 5 MG TABLET PO SCH ×3 (05:35→22:14)
[2018-02-12] MEDS: cloNIDine HCL 0.1 MG TABLET PO SCH ×3 (05:35→22:14)
--- NOTE | 2018-02-12 06:45 | CONSULT ---
[facility] Psychiatric Consult - Data Date of interview: 02/12/18 Admission source: Self-referred Identifying data: Mr Bellamy is a 37 years old single male of [place] descent, unemployed, domiciled seeking detox treatment for opioid, benzodiazepine and cannabis Substance Abuse History: Reports history of heroin, suboxone, xanax and marijuana use. Refer to addiction counselor's summary for further in information Medical History: Significant for hypertension and arthritis (knees). Smokes cigarettes 1.5 ppd Psychiatric History: Reports being diagnosed with ADHD and MDD aproximately 3 years ago and he was started on psychotrpic medications. Reports that up to 10 months ago he was receiving psychiatric services at [facility] and he was prescribed Adderall, Trazadone, Gabapetin. Now he has his medications prescribed by his primary care physician. Reports that he is currently on Trazadone 150 mg po HS, Gabapentin 600 mg po TID and no longer taking Adderall. Pharmacy claims shows sripts for Trazadone 150 #30, Adderall 20 mg #30 filled on 01/25/18 & Gabapentin 300 mg #90 filled on 01/26/18 at [facility]. Denies history of previous psychiaric hospitalization or suicidal attempt. At present, reports feing depressed and sleeping poorly. Physical/Sexual Abuse/Trauma History: Denies emotional, physical or sexual abuse as well as DV relationship. No service Additional Comment: Reports history of multiple previous arrests including more than one felony conviction. Mental Status Exam - Mental Status Exam Alert and Oriented to: Time, Place, Person Cognitive Function: Fair Patient Appearance: Well Groomed Mood: Depressed, Hopeful Affect: Appropriate Patient Behavior: Cooperative Speech Pattern: Clear Voice Loudness: Normal Thought Process: Intact, Goal Oriented Hallucinations: Denies Suicidal Ideation: Denies Insight/Judgement: Fair Sleep: Poorly Appetite: Good Muscle strength/Tone: Normal Gait/Station: Normal Psychiatric Findings - Problem List ([place] 1, 2,3) (1) ADHD (attention deficit hyperactivity disorder) Current Visit: Yes Status: Acute (2) Substance induced mood disorder Current Visit: Yes Status: Acute (3) MDD (major depressive disorder) Current Visit: Yes Status: Ruled-out (4) Substance-induced sleep disorder Current Visit: Yes Status: Acute (5) Alcohol dependence with uncomplicated withdrawal Current Visit: Yes Status: Acute (6) Opioid dependence with withdrawal Current Visit: Yes Status: Acute (7) Sedative, hypnotic or anxiolytic dependence with withdrawal, uncomplicated Current Visit: Yes Status: Acute (8) Cannabis dependence Current Visit: Yes Status: Acute (9) Nicotine dependence Current Visit: Yes Status: Chronic Qualifiers: Nicotine product type: cigarettes Substance use status: in withdrawal Qualified Code(s): F17.213 - Nicotine dependence, cigarettes, with withdrawal (10) Hypertension Current Visit: Yes Status: Chronic Qualifiers: Hypertension type: essential hypertension Qualified Code(s): I10 - Essential (primary) hypertension - Initial Treatment Plan Initial Treatment Plan: 1) Continue Trazadone 150 mg o HS and Gabapentin 300 mg po TID. 2) Continue inpatient detoxification
[2018-02-12] MEDS: diazePAM 5 MG TABLET PO PRN (09:17)
[2018-02-12] MEDS ORDERED: METHADONE HCL 10 MG TABLET (FOR DETOX USE ONLY) PO SCH (10:00)
[2018-02-12] MEDS: PRENATAL VITAMINS W/ FOLIC ACID TABLET (FP) PO SCH (10:16)
[2018-02-12] MEDS: NICOTINE 21 MG/24 HOURS TOPICAL PATCH TD SCH (10:19)
[2018-02-12 10:42] LABS: HEMATOCRIT 43.2 % (35.4-49); HEMOGLOBIN 15.4 GM/dL (11.7-16.9); MCH 32.7 pg (25.7-33.7); MCHC 35.6 g/dl (32.0-35.9); MEAN CELL VOLUME 91.9 fl (80-96); MEAN PLT VOLUME 8.2 fl (7.5-11.1); PLATELET COUNT 216 K/MM3 (134-434); RDW 13.2 % (11.9-15.9)
[2018-02-12 11:00] LABS: ALBUMIN 3.6 g/dl (3.4-5.0); ALK PHOS 71 U/L (45-117); ANION GAP 7 MMOL/L (8-16); BILIRUBIN,TOTAL 0.3 mg/dL (0.2-1); BLOOD UREA NITROGEN 13 mg/dL (7-18); CALCIUM 8.3 mg/dL (8.5-10.1); CHLORIDE 104 mmol/L (98-107); CO2 29 mmol/L (21-32); CREATININE 0.8 mg/dL (0.55-1.3); GLUCOSE,RANDOM 83 mg/dL (74-106); POTASSIUM 4.3 mmol/L (3.5-5.1); SGOT/AST 20 U/L (15-37); SGPT/ALT 25 U/L (13-61); SODIUM 140 mmol/L (136-145); TOT PROT 6.9 g/dl (6.4-8.2)
--- NOTE | 2018-02-12 11:36 | EKG ---
Test Reason : Blood Pressure : / mmHG Vent. Rate : 090 BPM Atrial Rate : 090 BPM P-R Int : 174 ms QRS Dur : 090 ms QT Int : 340 ms P-R-T Axes : 049 028 027 degrees QTc Int : 415 ms NORMAL SINUS RHYTHM NORMAL ECG WHEN COMPARED WITH ECG OF 08-JAN-2018 12:50, NONSPECIFIC T WAVE ABNORMALITY NO LONGER EVIDENT IN ANTERIOR LEADS Confirmed by KAMAR PRAJAPATI MD ([id number]) on 02/12/2018 11:36:04 AM Referred By: Confirmed By:KAMAR PRAJAPATI MD
[2018-02-12] MEDS ORDERED: GABAPENTIN 300 MG CAPSULE (FP) ONE (13:25)
[2018-02-12] MEDS: GABAPENTIN 300 MG CAPSULE (FP) PO SCH ×2 (13:29→22:14)
--- NOTE | 2018-02-12 14:37 | PN ---
[facility] CIWA - CIWA Score Nausea/Vomitin Muscle Tremors: 3 Anxiety: 3 Agitation: 3 Paroxysmal Sweats: 3 Orientation: 0-Oriented Tacttile Disturbances: 1-Very Mild Itch/Numbness Auditory Disturbances: 0-None Visual Disturbances: 0-None Headache: 0-None Present CIWA-Ar Total Score: 15 BHS COWS - Scale Resting Pulse: 0= [place] 80 or Below Sweatin= Chills/Flushing Restless Observation: 3= Extraneous Movement Pupil Size: 0= Normal to Room Light Bone or Joint Aches: 1= Mild Discomfort Runny Nose/ Eye Tearin= Runny Nose/Eyes GI Upset > 30mins: 2= Nausea/Diarrhea Tremor Observation of Outstretched Hands: 2= Slight Tremor Visible Yawning Observation: 1= 1-2x During Session Anxiety or Irritability: 2=Irritable/Anxious Goose Flesh Skin: 0=Smooth Skin COWS Score: 14 S Progress Note (SOAP) Subjective: Fatigue, nausea, interrupted sleep Objective: 02/12/18 14:34 Last Vital Signs Temp Pulse Resp BP Pulse Ox 96.7 F L 57 L 18 131/89 02/12/18 13:55 02/12/18 13:55 02/12/18 13:55 02/12/18 13:55 Laboratory Tests 02/11/18 02/12/18 02/12/18 15:35 07:44 07:44 WBC 6.0 RBC 4.70 Hgb 15.4 Hct 43.2 MCV 91.9 MCH 32.7 MCHC 35.6 RDW 13.2 Plt Count 216 MPV 8.2 Sodium 140 Potassium 4.3 Chloride 104 Carbon Dioxide 29 Anion Gap 7 L BUN 13 Creatinine 0.8 Creat Clearance w eGFR > 60 Random Glucose 83 Calcium 8.3 L Total Bilirubin 0.3 AST 20 ALT 25 Alkaline Phosphatase 71 Total Protein 6.9 Albumin 3.6 Urine Color Krista Urine Appearance Turbid Urine pH 5.0 Ur Specific [place] 1.023 Urine Protein Negative Urine Glucose (UA) Negative Urine Ketones Negative Urine Blood 1+ H Urine Nitrite Negative Urine Bilirubin Negative Urine Urobilinogen Negative Ur Leukocyte Esterase Negative Urine WBC (Auto) 7 Urine RBC (Auto) 1 Hyaline Casts 4 Urine Mucus Rare RPR Titer 02/12/18 07:44 WBC RBC Hgb Hct MCV MCH MCHC RDW Plt Count MPV Sodium Potassium Chloride Carbon Dioxide Anion Gap BUN Creatinine Creat Clearance w eGFR Random Glucose Calcium Total Bilirubin AST ALT Alkaline Phosphatase Total Protein Albumin Urine Color Urine Appearance Urine pH Ur Specific [place] Urine Protein Urine Glucose (UA) Urine Ketones Urine Blood Urine Nitrite Urine Bilirubin Urine Urobilinogen Ur Leukocyte Esterase Urine WBC (Auto) Urine RBC (Auto) Hyaline Casts Urine Mucus RPR Titer Nonreactive Labs reviewed: UA shows 1+ blood Assessment: 02/12/18 14:35 Withdrawal symptoms Noted with microscopic hematuria Plan: Continue detox Microscopic hematuria: encouraged PO water intake, repeat UA
[2018-02-12] MEDS: THIAMINE HCL 100 MG TABLET (FP) PO SCH (22:13)
[2018-02-12] MEDS: traZODone HCL 50 MG TABLET (FP) PO SCH (22:14)
[2018-02-13] MEDS: cloNIDine HCL 0.1 MG TABLET PO SCH ×3 (05:17→22:14)
[2018-02-13] MEDS: GABAPENTIN 300 MG CAPSULE (FP) PO SCH ×3 (05:17→22:14)
[2018-02-13] MEDS: PRENATAL VITAMINS W/ FOLIC ACID TABLET (FP) PO SCH (10:08)
[2018-02-13] MEDS: METHADONE HCL 5 MG TABLET (FOR DETOX USE ONLY) PO SCH (10:08)
[2018-02-13] MEDS: diazePAM 5 MG TABLET PO SCH ×2 (10:09→22:15)
[2018-02-13] MEDS: NICOTINE 21 MG/24 HOURS TOPICAL PATCH TD SCH (10:09)
--- NOTE | 2018-02-13 14:27 | PN ---
[facility] CIWA - CIWA Score Nausea/Vomitin-Mild Nausea/No Vomiting Muscle Tremors: 3 Anxiety: 3 Agitation: 2 Paroxysmal Sweats: 3 Orientation: 0-Oriented Tacttile Disturbances: 0-None Auditory Disturbances: 0-None Visual Disturbances: 0-None Headache: 0-None Present CIWA-Ar Total Score: 12 S COWS - Scale Resting Pulse: 0= [place] 80 or Below Sweatin=Flushed/Facial Moisture Restless Observation: 1= Difficult to Sit Still Pupil Size: 0= Normal to Room Light Bone or Joint Aches: 1= Mild Discomfort Runny Nose/ Eye Tearin= Nasal Congestion GI Upset > 30mins: 0= None Tremor Observation of Outstretched Hands: 1= Tremor [place], Not Seen Yawning Observation: 1= 1-2x During Session Anxiety or Irritability: 1=Feels Anxious/Irritable Goose Flesh Skin: 0=Smooth Skin COWS Score: 8 S Progress Note (SOAP) Subjective: Tooth caries slight tremors Objective: 02/13/18 14:31 Chipped R upper molar slight tremors ambulating freely on unit Vital Signs Temperature 97.6 F 02/13/18 13:13 Pulse Rate 77 02/13/18 13:13 Respiratory Rate 18 02/13/18 13:13 Blood Pressure 140/91 02/13/18 13:13 O2 Sat by Pulse Oximetry (%) Laboratory Last Values WBC 6.0 K/mm3 (4.0-10.0) 02/12/18 07:44 RBC 4.70 M/mm3 (4.00-5.60) 02/12/18 07:44 Hgb 15.4 GM/dL (11.7-16.9) 02/12/18 07:44 Hct 43.2 % (35.4-49) 02/12/18 07:44 MCV 91.9 fl (80-96) 02/12/18 07:44 MCH 32.7 pg (25.7-33.7) 02/12/18 07:44 MCHC 35.6 g/dl (32.0-35.9) 02/12/18 07:44 RDW 13.2 % (11.9-15.9) 02/12/18 07:44 Plt Count 216 K/MM3 (134-434) 02/12/18 07:44 MPV 8.2 fl (7.5-11.1) 02/12/18 07:44 Sodium 140 mmol/L (136-145) 02/12/18 07:44 Potassium 4.3 mmol/L (3.5-5.1) 02/12/18 07:44 Chloride 104 mmol/L (98-107) 02/12/18 07:44 Carbon Dioxide 29 mmol/L (21-32) 02/12/18 07:44 Anion Gap 7 MMOL/L (8-16) L 02/12/18 07:44 BUN 13 mg/dL (7-18) 02/12/18 07:44 Creatinine 0.8 mg/dL (0.55-1.3) 02/12/18 07:44 Creat Clearance w eGFR > 60 (>60) 02/12/18 07:44 Random Glucose 83 mg/dL (74-106) 02/12/18 07:44 Calcium 8.3 mg/dL (8.5-10.1) L 02/12/18 07:44 Total Bilirubin 0.3 mg/dL (0.2-1) 02/12/18 07:44 AST 20 U/L (15-37) 02/12/18 07:44 ALT 25 U/L (13-61) 02/12/18 07:44 Alkaline Phosphatase 71 U/L (45-117) 02/12/18 07:44 Total Protein 6.9 g/dl (6.4-8.2) 02/12/18 07:44 Albumin 3.6 g/dl (3.4-5.0) 02/12/18 07:44 Urine Color Krista 02/11/18 15:35 Urine Appearance Turbid 02/11/18 15:35 Urine pH 5.0 (5.0-8.0) 02/11/18 15:35 Ur Specific [place] 1.023 (1.010-1.035) 02/11/18 15:35 Urine Protein Negative (NEGATIVE) 02/11/18 15:35 Urine Glucose (UA) Negative (NEGATIVE) 02/11/18 15:35 Urine Ketones Negative (NEGATIVE) 02/11/18 15:35 Urine Blood 1+ (NEGATIVE) H 02/11/18 15:35 Urine Nitrite Negative (NEGATIVE) 02/11/18 15:35 Urine Bilirubin Negative (<2.0 mg/dL) 02/11/18 15:35 Urine Urobilinogen Negative mg/dL (0.2-1.0) 02/11/18 15:35 Ur Leukocyte Esterase Negative (NEGATIVE) 02/11/18 15:35 Urine WBC (Auto) 7 /hpf (3-5) 02/11/18 15:35 Urine RBC (Auto) 1 /hpf (0-3) 02/11/18 15:35 Hyaline Casts 4 /lpf 02/11/18 15:35 Urine Mucus Rare 02/11/18 15:35 RPR Titer Nonreactive (NONREACTIVE) 02/12/18 07:44 still pending repeat UA Assessment: 02/13/18 14:35 withdrawal sx pending repeat UA Plan: continue detox UA
[2018-02-13] MEDS: diazePAM 5 MG TABLET PO PRN (17:51)
[2018-02-13] MEDS: traZODone HCL 50 MG TABLET (FP) PO SCH (22:14)
[2018-02-13] MEDS: THIAMINE HCL 100 MG TABLET (FP) PO SCH (22:14)
[2018-02-14] MEDS: cloNIDine HCL 0.1 MG TABLET PO SCH (05:26)
[2018-02-14] MEDS: GABAPENTIN 300 MG CAPSULE (FP) PO SCH (05:26)
[2018-02-14] MEDS: diazePAM 5 MG TABLET PO PRN (05:29)
[2018-02-14 09:25] VITALS: BP 130/84; PULSE 80; TEMP 96.8
[2018-02-14] MEDS ORDERED: METHADONE HCL 10 MG TABLET (FOR DETOX USE ONLY) PO SCH (10:00)
[2018-02-14] MEDS: PRENATAL VITAMINS W/ FOLIC ACID TABLET (FP) PO SCH (10:13)
[2018-02-14] MEDS: NICOTINE 21 MG/24 HOURS TOPICAL PATCH TD SCH (10:13)
[2018-02-14] MEDS: diazePAM 5 MG TABLET PO SCH (10:13)
[2018-02-14] MEDS: METHADONE HCL 5 MG TABLET (FOR DETOX USE ONLY) PO SCH (10:13)
--- NOTE | 2018-02-14 11:14 | PN ---
[facility] Progress Note Note: NOTIFIED BY RN PATIENT REQUESTED TO SIGN OUT AMA. PATIENT STATED HE WOULD ONLY STAY UNTIL TOMORROW IF HE COULD GO STRAIGHT TO [facility]. [facility] CALLED BY COUNSELOR AND BED AVAILABLE NEXT WEEK. PATIENT ENCOURAGED TO COMPLETE DETOX BUT PATIENT REFUSED. PATIENT STATED HE WILL ARRANGE TO GO TO [facility] ON HIS OWN. RISK FACTORS OF AND RELAPSE EXPLAINED TO PATIENT WITH NO POSITIVE EFFECT. PATIENT ENCOURAGED TO ATTEND GROUP MEETINGS TO PREVENT RELAPSE AND TO SEEK MEDICAL ATTENTION IF WITHDRAWAL SX OCCUR. PATIENT DENIES SI/HI AND IS MEDICALLY STABLE.
--- NOTE | 2018-02-14 11:14 | DS ---
[facility] Detox Discharge Summary Admission Date: 02/11/18 Discharge Date: 02/14/18 - History Present History: Alcohol Dependence, Opioid Dependence - Physical Exam Results Vital Signs: Vital Signs Temperature 96.8 F L 02/14/18 09:24 Pulse Rate 80 02/14/18 09:24 Respiratory Rate 18 02/14/18 09:24 Blood Pressure 130/84 02/14/18 09:24 O2 Sat by Pulse Oximetry (%) - Medication Discharge Medications: Ambulatory Orders traZODone HCL [Desyrel -] 150 mg PO HS #30 tablet 06/23/17 Gabapentin [Neurontin] 600 mg PO TID #90 capsule 06/26/17 Clonidine HCl [Catapres] 0.1 mg PO TID 01/08/18 Docusate Sodium [Colace] 100 mg PO TID PRN 02/11/18 Ibuprofen 800 mg PO QID PRN 02/11/18 - AMA Did Patient Leave Against Medical Advice: Yes
[2018-02-15] MEDS ORDERED: METHADONE HCL 5 MG TABLET (FOR DETOX USE ONLY) PO SCH (06:00)
[2018-02-15] MEDS ORDERED: diazePAM 5 MG TABLET PO SCH (10:00)
[2018-02-15] MEDS ORDERED: METHADONE HCL 10 MG TABLET (FOR DETOX USE ONLY) PO SCH (10:00)
[2018-02-16] MEDS ORDERED: METHADONE HCL 5 MG TABLET (FOR DETOX USE ONLY) PO SCH (06:00)
== END 2018-02-14 11:16 | disposition left against medical advice (07) | DRG 770 ==
LOC: YASAS 10:32 → Y3N 11:51
PROC: HZ2ZZZZ Detoxification Services for Substance Abuse Treatment (ICD-10-PCS; principal; 2018-02-11)
DX: F11.23 Opioid dependence with withdrawal (principal); F10.230 Alcohol dependence with withdrawal, uncomplicated; F13.230 Sedative, hypnotic or anxiolytic dependence with withdrawal, uncomplicated; F12.20 Cannabis dependence, uncomplicated; F17.213 Nicotine dependence, cigarettes, with withdrawal; F19.280 Other psychoactive substance dependence with psychoactive substance-induced anxiety disorder; F19.24 Other psychoactive substance dependence with psychoactive substance-induced mood disorder; F19.282 Other psychoactive substance dependence with psychoactive substance-induced sleep disorder; F32.9 Major depressive disorder, single episode, unspecified; F90.9 Attention-deficit hyperactivity disorder, unspecified type; I10 Essential (primary) hypertension; R31.29 Other microscopic hematuria
CPT/HCPCS: 36415; 80053; 81003; 81015; 85027; 86593; 93005; 93010; J0735

== ENCOUNTER 2018-07-24 16:32 | Inpatient (IN) | payer OTHER ==
[2018-07-24 16:57] VITALS: BMI 35.9
--- NOTE | 2018-07-24 17:03 | PDOC ---
Attending Attestation - Resident Resident Name: ChrissieJosé Miguel - ED Attending Attestation I have performed the following: I have examined & evaluated the patient, The case was reviewed & discussed with the resident, I agree w/resident's findings & plan, Exceptions are as noted - HPI HPI: 37 yo M history heroin abuse, [place] 1 week ago presents with chest pain upon receiving narcan. He used two bags of heroin earlier today, was given narcan by EMS, woke up complaining of chest pain. Denies SOB, leg swelling. - Physicial Exam PE: GENERAL: Awake, alert, and fully oriented, in no acute distress HEAD: No signs of trauma EYES: PERRLA, EOMI, sclera anicteric, conjunctiva clear ENT: Auricles normal inspection, hearing grossly normal, nares patent, oropharynx clear without exudates. Moist mucosa NECK: Normal ROM, supple, no lymphadenopathy, JVD, or masses LUNGS: Breath sounds equal, clear to auscultation bilaterally. No wheezes, and no crackles HEART: Regular rate and rhythm, normal S1 and S2, no murmurs, rubs or gallops ABDOMEN: Soft, nontender, normoactive bowel sounds. No guarding, no rebound. No masses EXTREMITIES: Normal range of motion, no edema. No clubbing or cyanosis. No cords, erythema, or tenderness NEUROLOGICAL: Cranial nerves II through XII grossly intact. Sluggish speech. Motor and sensation intact SKIN: Warm, Dry, normal turgor, no rashes or lesions noted. - Medical Decision Making 07/24/18 17:35 Case d/w [facility], as initial EKG was concerning for STEMI. They stated that this is improved from last EKG and the findings are expected. Will await labs, admit patient to a monitored bed. Will continue to monitor in case he needs additional narcan.
[2018-07-24] MEDS ORDERED: ASPIRIN 81 MG CHEWABLE TABLETS PO ONE (17:10)
[2018-07-24 17:22] LABS: BASO % 0.6 % (0-2.0); EOS % 1.9 % (0-4.5); HEMATOCRIT 39.6 % (35.4-49); LYMPH % 31.4 % (8-40); MCH 32.8 pg (25.7-33.7); MCHC 35.3 g/dl (32.0-35.9); MEAN CELL VOLUME 92.9 fl (80-96); MEAN PLT VOLUME 8.1 fl (7.5-11.1); MONO % 6.8 % (3.8-10.2); NEUT % 59.3 % (42.8-82.8); PLATELET COUNT 173 K/MM3 (134-434); RBC 4.26 M/mm3 (4.00-5.60); RDW 12.2 % (11.9-15.9); WHITE BLOOD COUNT 7.2 K/mm3 (4.0-10.0)
[2018-07-24] MEDS ORDERED: ASPIRIN 81 MG CHEWABLE TABLETS ONE (17:25)
--- NOTE | 2018-07-24 17:30 | PDOC ---
History of Present Illness - General Chief Complaint: Overdose Stated Complaint: OVERDOSE Time Seen by Provider: 07/24/18 16:54 - History of Present Illness Initial Comments: 07/24/18 18:08 37M with pmh of [place] on 05/29/18, opioid and benzo dependance sent from [facility] for altered mental status. He presented himself to [facility] today with altered mental status, constricted pupils ,bp 90/57,p74,r18,t99.2, with the intention of getting admitted for rehab. Patient given 4mg of intranasal narcan, Became more alert and responsive. Patient admits to a daily regimen of 6 bags of heroin and benzos, today he had only 2 bags of heroin + various benzos. Past History - Past Medical History Allergies/Adverse Reactions: Allergies Allergy/AdvReac Type Severity Reaction Status Date / Time buspirone Allergy Severe Difficulty Verified 07/24/18 16:57 Breathing Home Medications: Ambulatory Orders traZODone HCL [Desyrel -] 150 mg PO HS #30 tablet 06/23/17 Atorvastatin Ca [Lipitor] 0 mg PO HS 07/24/18 Carvedilol 0 mg PO BID 07/24/18 Lisinopril 0 mg PO DAILY 07/24/18 Spironolactone 0 mg PO DAILY 07/24/18 Anemia: No Asthma: No Cancer: No Cardiac Disorders: Yes (stent placed 05/2018) CVA: No COPD: No CHF: No Diabetes: No GI Disorders: No Disorders: No HTN: Yes (on med) Hypercholesterolemia: No Kidney Stones: No Liver Disease: No Psychiatric Problems: Yes (depression (MDD)) Seizures: No Thyroid Disease: No - Surgical History Abdominal Surgery: No Appendectomy: No Cardiac Surgery: No Cholecystectomy: No Lung Surgery: No Neurologic Surgery: No Orthopedic Surgery: No - Reproductive History Testicular Surgery: No - Suicide/Smoking/Psychosocial Hx Smoking History: Current every day smoker Have you smoked in the past 12 months: Yes Number of Cigarettes Smoked Daily: 20 Cigars Per Day: 4 Information on smoking cessation initiated: No 'Breaking Loose' booklet given: 02/11/18 (give on floor) Hx Alcohol Use: No Drug/Substance Use Hx: Yes (heroin, cannabis,xanax) Substance Use Type: Alcohol, Heroin, Marijuana, Opiates, Tranquilizers Hx Substance Use Treatment: Yes (detox, rehab, tried methadone program) Review of Systems - Review of Systems Able to Perform ROS?: No (obtunded. ) *Physical Exam - Vital Signs Last Vital Signs Temp Pulse Resp BP Pulse Ox 98 F 78 16 114/57 L 100 07/24/18 16:35 07/24/18 16:35 07/24/18 16:35 07/24/18 16:35 07/24/18 16:35 - Physical Exam General Appearance: Yes: Nourished, Appropriately Dressed. No: Apparent Distress HEENT: positive: EOMI, ERNIE, Normal ENT Inspection Respiratory/Chest: positive: Lungs Clear, Normal Breath Sounds. negative: Chest Tender, Respiratory Distress Cardiovascular: positive: Regular Rhythm, Regular Rate, S1, S2 Gastrointestinal/Abdominal: positive: Normal Bowel Sounds, Flat, Soft. negative : Tender Musculoskeletal: positive: Normal Inspection. negative: CVA Tenderness Extremity: positive: Normal Capillary Refill, Normal Inspection, Normal Range of Motion Neurologic: positive: Fully Oriented, Normal Mood/Affect, Normal Response, Depressed Affect, Other (obtunded but easily arousable) ED Treatment Course - LABORATORY CBC & Chemistry Diagram: 07/24/18 17:04 07/24/18 17:00 - RADIOLOGY Radiology Studies Ordered: Category Date Time Status CHEST X-RAY PORTABLE* [RAD] Stat Radiology 07/24/18 17:06 Ordered Medical Decision Making - Medical Decision Making 07/24/18 18:24 37 m presenting to the ED for ams following heroin use. ST Elevation on EKG on leads V2, V3, V4. Starting the patient on aspirin (only 162mg as we do not know if he got any today), drawing labs including trops. Calling [facility] for transfer. Spoke to combat control manager at [facility]. Patient had STEMI there on May 29, 2018. EKG records from May 31 and June [address] elevations as the days went by. In case of aneurysm, ST elevation can be persistent on EKG. IC reassured that this wasn't acute and didn't need transfer. We are observing the patient now with serial trops and making sure he doens't decrease his respiratory rate and O2% 07/24/18 18:35 07/24/18 18:54 Patient signed out to Dr. Desai *DC/Admit/Observation/Transfer Diagnosis at time of Disposition: Overdose - Referrals - Patient Instructions - Post Discharge Activity
[2018-07-24 17:37] LABS: INR 0.99 (0.83-1.09); PROTHROMBIN TIME (PATIENT) 11.7 SEC (9.7-13.0)
[2018-07-24 17:40] LABS: ACTIVATED PTT 29.4 SECONDS (25.2-36.5)
[2018-07-24 17:55] LABS: ALBUMIN 3.6 g/dl (3.4-5.0); ALK PHOS 73 U/L (45-117); ANION GAP 3 MMOL/L (8-16); BILIRUBIN,TOTAL 0.3 mg/dL (0.2-1); BLOOD UREA NITROGEN 14 mg/dL (7-18); CALCIUM 8.4 mg/dL (8.5-10.1); CHLORIDE 104 mmol/L (98-107); CO2 33 mmol/L (21-32); GLUCOSE,RANDOM 93 mg/dL (74-106); POTASSIUM 4.2 mmol/L (3.5-5.1); SGOT/AST 45 U/L (15-37); SGPT/ALT 85 U/L (13-61); SODIUM 140 mmol/L (136-145); TOT PROT 6.3 g/dl (6.4-8.2)
[2018-07-24 18:58] LABS: PH,URINE 6.5 (5.0-8.0); URINE APPEARANCE CLEAR; URINE BILIRUBIN NEGATIVE (NEGATIVE); URINE COLOR YELLOW; URINE GLUCOSE (UA) NEGATIVE (NEGATIVE); URINE KETONE NEGATIVE (NEGATIVE); URINE LEUK ESTERASE NEGATIVE (NEGATIVE); URINE NITRITE NEGATIVE (NEGATIVE); URINE PROTEIN NEGATIVE (NEGATIVE); URINE UROBILINOGEN 0.2 mg/dL (0.2-1.0)
--- NOTE | 2018-07-24 19:45 | HP ---
Admitting History and Physical - Primary Care Physician PCP: Oliver Kelly - Admission Chief Complaint: chest pain History of Present Illness: 37 yo M history heroin abuse, [place] 1 week ago presents with chest pain upon receiving narcan. He used two bags of heroin earlier today, was given narcan by EMS, woke up complaining of chest pain. Denies SOB, leg swelling. - Smoking History Smoking history: Current every day smoker Have you smoked in the past 12 months: Yes Aproximately how many cigarettes per day: 20 - Alcohol/Substance Use Hx Alcohol Use: No Home Medications - Allergies Allergies/Adverse Reactions: Allergies Allergy/AdvReac Type Severity Reaction Status Date / Time buspirone Allergy Severe Difficulty Verified 07/24/18 16:57 Breathing - Home Medications Home Medications: Ambulatory Orders traZODone HCL [Desyrel -] 150 mg PO HS #30 tablet 06/23/17 Atorvastatin Ca [Lipitor] 0 mg PO HS 07/24/18 Carvedilol 0 mg PO BID 07/24/18 Lisinopril 0 mg PO DAILY 07/24/18 Spironolactone 0 mg PO DAILY 07/24/18 Family Disease History - Family Disease History Family Disease History: Heart Disease: Grandparent, Mother (living, ), Other: Father (KILLED, hx drug use), Mother, Brother (two - living - drug use), Sister (one - living - drug use) Physical Examination Vital Signs: Vital Signs Temperature 98 F 07/24/18 16:35 Pulse Rate 65 07/24/18 18:42 Respiratory Rate 20 07/24/18 18:42 Blood Pressure 119/58 L 07/24/18 18:42 O2 Sat by Pulse Oximetry (%) 100 07/24/18 18:42 Constitutional: Yes: No Distress HENT: Yes: Atraumatic Neck: Yes: Supple Cardiovascular: Yes: Regular Rate and Rhythm Respiratory: Yes: Rhonchi Gastrointestinal: Yes: Normal Bowel Sounds Extremities: Yes: WNL Labs: CBC, BMP 07/24/18 17:04 07/24/18 17:00 Imaging - Results X-ray: Report Reviewed Problem List - Problems (1) Overdose Code(s): T50.901A - POISONING BY UNSP DRUG/MEDS/BIOL SUBST, ACCIDENTAL, INIT (2) Alcohol dependence with uncomplicated withdrawal Code(s): F10.230 - ALCOHOL DEPENDENCE WITH WITHDRAWAL, UNCOMPLICATED (3) Cannabis dependence Code(s): F12.20 - CANNABIS DEPENDENCE, UNCOMPLICATED (4) Chest pain Assessment/Plan: tele monitoring fu cardiac profile cardiology consult Code(s): R07.9 - CHEST PAIN, UNSPECIFIED Assessment/Plan Laboratory Tests 07/24/18 07/24/18 07/24/18 17:00 17:04 17:04 WBC 7.2 RBC 4.26 Hgb 14.0 Hct 39.6 MCV 92.9 MCH 32.8 MCHC 35.3 RDW 12.2 Plt Count 173 MPV 8.1 Absolute Neuts (auto) 4.3 Neutrophils % 59.3 Lymphocytes % 31.4 Monocytes % 6.8 Eosinophils % 1.9 Basophils % 0.6 Nucleated RBC % 0 PT with INR 11.70 INR 0.99 PTT (Actin FS) 29.4 Sodium 140 Potassium 4.2 Chloride 104 Carbon Dioxide 33 H Anion Gap 3 L BUN 14 Creatinine 1.0 Creat Clearance w eGFR 85.03 Random Glucose 93 Calcium 8.4 L Total Bilirubin 0.3 AST 45 H ALT 85 H Alkaline Phosphatase 73 Troponin I 0.05 Total Protein 6.3 L Albumin 3.6 Urine Color Urine Appearance Urine pH Ur Specific [place] Urine Protein Urine Glucose (UA) Urine Ketones Urine Blood Urine Nitrite Urine Bilirubin Urine Urobilinogen Ur Leukocyte Esterase Blood Type Antibody Screen 07/24/18 07/24/18 17:04 18:45 WBC RBC Hgb Hct MCV MCH MCHC RDW Plt Count MPV Absolute Neuts (auto) Neutrophils % Lymphocytes % Monocytes % Eosinophils % Basophils % Nucleated RBC % PT with INR INR PTT (Actin FS) Sodium Potassium Chloride Carbon Dioxide Anion Gap BUN Creatinine Creat Clearance w eGFR Random Glucose Calcium Total Bilirubin AST ALT Alkaline Phosphatase Troponin I Total Protein Albumin Urine Color Yellow Urine Appearance Clear Urine pH 6.5 D Ur Specific [place] 1.016 Urine Protein Negative Urine Glucose (UA) Negative Urine Ketones Negative Urine Blood Negative Urine Nitrite Negative Urine Bilirubin Negative Urine Urobilinogen 0.2 Ur Leukocyte Esterase Negative Blood Type O POSITIVE Antibody Screen Negative Active Medications Generic Name Dose Route Start Last Admin Trade Name Freq PRN Reason Stop Dose Admin Acetaminophen 650 mg 07/24/18 19:46 Tylenol - PO Q6H PRN FEVER Aspirin 81 mg 07/25/18 10:00 07/25/18 10:40 Ecotrin - PO 81 mg DAILY RIYA Administration Atorvastatin Calcium 40 mg 07/25/18 22:00 Lipitor - PO HS RIYA Carvedilol 3.125 mg 07/25/18 10:00 07/25/18 10:40 Coreg - PO 3.125 mg BID RIYA Administration Clopidogrel Bisulfate 75 mg 07/25/18 10:00 07/25/18 10:40 Plavix - PO 75 mg DAILY RIYA Administration Heparin Sodium (Porcine) 5,000 unit 07/24/18 22:00 07/25/18 10:40 Heparin - SQ 5,000 unit BID [facility] Administration Lisinopril 5 mg 07/25/18 10:00 07/25/18 10:40 Prinivil PO Not Given DAILY [facility] Lorazepam 1 mg 07/25/18 17:50 Ativan Injection - IVPUSH Q6H PRN ANXIETY Spironolactone 25 mg 07/25/18 10:00 07/25/18 10:40 Aldactone - PO 25 mg DAILY RIYA Administration
[2018-07-24] MEDS ORDERED: ACETAMINOPHEN 325 MG TABLET (FP) PO PRN (19:46)
[2018-07-24 19:56] LABS: COCAINE, UR NEGATIVE ng/ml (CUTOFF=300); PHENCYCLIDINE,URINE NEGATIVE ng/ml (CUTOFF=25); URINE AMPHETAMINES NEGATIVE ng/ml (CUTOFF=500); URINE BARBITURATES NEGATIVE ng/ml (CUTOFF=200); URINE BENZODIAZEPINES NEGATIVE ng/ml (CUTOFF=200)
[2018-07-24 20:08] LABS: METHADONE, UR POSITIVE ng/ml (CUTOFF=300); OPIATES, URI POSITIVE ng/ml (CUTOFF=300)
[2018-07-24] MEDS ORDERED: HEPARIN NA (PORCINE) 5,000 UNITS/ML 1ML VIAL ONE (22:20)
[2018-07-24] MEDS: HEPARIN NA (PORCINE) 5,000 UNITS/ML 1ML VIAL SQ SCH (22:48)
[2018-07-25 06:26] LABS: BASO % 0.8 % (0-2.0); EOS % 2.6 % (0-4.5); HEMATOCRIT 39.5 % (35.4-49); HEMOGLOBIN 14.1 GM/dL (11.7-16.9); LYMPH % 34.5 % (8-40); MCH 32.7 pg (25.7-33.7); MCHC 35.8 g/dl (32.0-35.9); MEAN CELL VOLUME 91.3 fl (80-96); MEAN PLT VOLUME 8.3 fl (7.5-11.1); MONO % 8.6 % (3.8-10.2); NEUT % 53.5 % (42.8-82.8); PLATELET COUNT 174 K/MM3 (134-434); RBC 4.32 M/mm3 (4.00-5.60); RDW 12.5 % (11.9-15.9)
[2018-07-25 06:52] LABS: ALBUMIN 3.2 g/dl (3.4-5.0); ALK PHOS 62 U/L (45-117); ANION GAP 4 MMOL/L (8-16); BILIRUBIN,TOTAL 0.2 mg/dL (0.2-1); BLOOD UREA NITROGEN 14 mg/dL (7-18); CALCIUM 8.1 mg/dL (8.5-10.1); CHLORIDE 106 mmol/L (98-107); CO2 28 mmol/L (21-32); CREATININE 0.6 mg/dL (0.55-1.3); GLUCOSE,RANDOM 79 mg/dL (74-106); POTASSIUM 4.1 mmol/L (3.5-5.1); SGOT/AST 31 U/L (15-37); SGPT/ALT 67 U/L (13-61); SODIUM 138 mmol/L (136-145); TOT PROT 6.2 g/dl (6.4-8.2)
--- NOTE | 2018-07-25 08:37 | CON.CARD ---
Consult Consult Specialty:: Cardiology Referred by:: Dr. Kelly Reason for Consultation:: Cardiac evaluation - History of Present Illness Chief Complaint: Chest pain History of Present Illness: Patient is a 37 year old male with underlying history of CAD s/p UT 2 months ago and was admitted to [facility] s/p PCI/stent and HTN who presents from [facility] after consuming Heroine again. He complained of chest discomfort. Currently, he is asymptomatic. He denies chest pain, SOB or palpitations. He denies paroxysmal nocturnal dyspnea or orthopnea. He denies fever or chills. He denies nausea, vomiting, diarrhea or abdominal pain. He denies headache or lightheadedness. He had used Cocaine 2 months ago prior to UT. 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 - History Source History Provided By: Patient, Medical Record Limitations to Obtaining History: No Limitations - Past Medical History Cardio/Vascular: Yes: CAD, HTN - Past Surgical History Past Surgical History: Yes: Stent - Alcohol/Substance Use Hx Alcohol Use: No History of Substance Use: reports: Cocaine, Heroin - Smoking History Smoking history: Current every day smoker Have you smoked in the past 12 months: Yes Aproximately how many cigarettes per day: 20 Home Medications - Allergies Allergies/Adverse Reactions: Allergies Allergy/AdvReac Type Severity Reaction Status Date / Time buspirone Allergy Severe Difficulty Verified 07/24/18 16:57 Breathing - Home Medications Home Medications: Ambulatory Orders traZODone HCL [Desyrel -] 150 mg PO HS #30 tablet 06/23/17 Atorvastatin Ca [Lipitor] 0 mg PO HS 07/24/18 Carvedilol 0 mg PO BID 07/24/18 Lisinopril 0 mg PO DAILY 07/24/18 Spironolactone 0 mg PO DAILY 07/24/18 Family Disease History - Family Disease History Family Disease History: Heart Disease: Grandparent, Mother (living, ), Other: Father (KILLED, hx drug use), Mother, Brother (two - living - drug use), Sister (one - living - drug use) Review of Systems - Review of Systems Constitutional: denies: Chills, Fever Cardiovascular: reports: Chest Pain. denies: Palpitations, Shortness of Breath Respiratory: denies: Cough, Hemoptysis, Orthopnea, PND Gastrointestinal: denies: Abdominal Pain, Constipation, Diarrhea, Melena, Nausea , Rectal Bleeding, Vomiting Genitourinary: denies: Dysuria, Hematuria Musculoskeletal: denies: Joint Pain Neurological: denies: Dizziness, Headache, Seizure, Syncope Vital Signs: Vital Signs Temperature 97.9 F 07/25/18 06:41 Pulse Rate 71 07/25/18 06:41 Respiratory Rate 18 07/25/18 06:41 Blood Pressure 114/74 07/25/18 06:41 O2 Sat by Pulse Oximetry (%) 97 07/25/18 06:41 Eyes: Yes: PERRL HENT: Yes: Atraumatic Neck: Yes: Supple Respiratory: Yes: CTA Bilaterally Gastrointestinal: Yes: Normal Bowel Sounds, Soft. No: Tenderness Cardiovascular: Yes: Regular Rate and Rhythm JVD: No Carotid Bruit: No PMI: Non-Displaced Heart Sounds: Yes: S1, S2. No: Gallop Murmur: No: Systolic Murmur, Diastolic Murmur Edema: No - Other Data Labs, Other Data: CBC, BMP 07/25/18 05:30 07/25/18 05:30 INR, PTT INR 0.99 (0.83-1.09) 07/24/18 17:04 Troponin, BNP 07/24/18 07/24/18 07/25/18 17:00 20:06 05:30 Troponin I 0.05 0.05 0.05 Laboratory Results - last 24 hr 07/24/18 07/24/18 07/24/18 17:00 17:04 17:04 WBC 7.2 RBC 4.26 Hgb 14.0 Hct 39.6 MCV 92.9 MCH 32.8 MCHC 35.3 RDW 12.2 Plt Count 173 MPV 8.1 Absolute Neuts (auto) 4.3 Neutrophils % 59.3 Lymphocytes % 31.4 Monocytes % 6.8 Eosinophils % 1.9 Basophils % 0.6 Nucleated RBC % 0 PT with INR 11.70 INR 0.99 PTT (Actin FS) 29.4 Sodium 140 Potassium 4.2 Chloride 104 Carbon Dioxide 33 H Anion Gap 3 L BUN 14 Creatinine 1.0 Creat Clearance w eGFR 85.03 Random Glucose 93 Calcium 8.4 L Total Bilirubin 0.3 AST 45 H ALT 85 H Alkaline Phosphatase 73 Creatine Kinase Troponin I 0.05 Total Protein 6.3 L Albumin 3.6 Urine Color Urine Appearance Urine pH Ur Specific [place] Urine Protein Urine Glucose (UA) Urine Ketones Urine Blood Urine Nitrite Urine Bilirubin Urine Urobilinogen Ur Leukocyte Esterase Opiates Screen Methadone Screen Barbiturate Screen Phencyclidine Screen Ur Amphetamines Screen MDMA (Ecstasy) Screen Benzodiazepines Screen Cocaine Screen U Marijuana (THC) Screen Blood Type Antibody Screen 07/24/18 07/24/18 07/24/18 17:04 18:45 18:45 WBC RBC Hgb Hct MCV MCH MCHC RDW Plt Count MPV Absolute Neuts (auto) Neutrophils % Lymphocytes % Monocytes % Eosinophils % Basophils % Nucleated RBC % PT with INR INR PTT (Actin FS) Sodium Potassium Chloride Carbon Dioxide Anion Gap BUN Creatinine Creat Clearance w eGFR Random Glucose Calcium Total Bilirubin AST ALT Alkaline Phosphatase Creatine Kinase Troponin I Total Protein Albumin Urine Color Yellow Urine Appearance Clear Urine pH 6.5 D Ur Specific [place] 1.016 Urine Protein Negative Urine Glucose (UA) Negative Urine Ketones Negative Urine Blood Negative Urine Nitrite Negative Urine Bilirubin Negative Urine Urobilinogen 0.2 Ur Leukocyte Esterase Negative Opiates Screen Positive A* Methadone Screen Positive A* Barbiturate Screen Negative Phencyclidine Screen Negative Ur Amphetamines Screen Negative MDMA (Ecstasy) Screen Negative Benzodiazepines Screen Negative Cocaine Screen Negative U Marijuana (THC) Screen Positive A* Blood Type O POSITIVE Antibody Screen Negative 07/24/18 07/25/18 07/25/18 20:06 05:30 05:30 WBC 7.0 RBC 4.32 Hgb 14.1 Hct 39.5 MCV 91.3 MCH 32.7 MCHC 35.8 RDW 12.5 Plt Count 174 MPV 8.3 Absolute Neuts (auto) 3.7 Neutrophils % 53.5 Lymphocytes % 34.5 Monocytes % 8.6 Eosinophils % 2.6 Basophils % 0.8 Nucleated RBC % 0 PT with INR INR PTT (Actin FS) Sodium 138 Potassium 4.1 Chloride 106 Carbon Dioxide 28 Anion Gap 4 L BUN 14 Creatinine 0.6 Creat Clearance w eGFR 153.32 Random Glucose 79 Calcium 8.1 L Total Bilirubin 0.2 AST 31 ALT 67 H Alkaline Phosphatase 62 Creatine Kinase 127 112 Troponin I 0.05 0.05 Total Protein 6.2 L Albumin 3.2 L Urine Color Urine Appearance Urine pH Ur Specific [place] Urine Protein Urine Glucose (UA) Urine Ketones Urine Blood Urine Nitrite Urine Bilirubin Urine Urobilinogen Ur Leukocyte Esterase Opiates Screen Methadone Screen Barbiturate Screen Phencyclidine Screen Ur Amphetamines Screen MDMA (Ecstasy) Screen Benzodiazepines Screen Cocaine Screen U Marijuana (THC) Screen Blood Type Antibody Screen Sinus rhythm with anterior infarct with poor R progression and ST-T abnormality Echo: Pending Imaging - Results Chest X-ray: Report Reviewed (Unremarkable) EKG: Report Reviewed Problem List - Problems (1) Substance abuse Code(s): F19.10 - OTHER PSYCHOACTIVE SUBSTANCE ABUSE, UNCOMPLICATED (2) CAD (coronary artery disease) Code(s): I25.10 - ATHSCL HEART DISEASE OF [place] CORONARY ARTERY W/O ANG PCTRS (3) History of percutaneous coronary intervention Code(s): Z98.61 - CORONARY ANGIOPLASTY STATUS (4) Myocardial infarction Code(s): I21.9 - ACUTE MYOCARDIAL INFARCTION, UNSPECIFIED (5) Chest pain Code(s): R07.9 - CHEST PAIN, UNSPECIFIED (6) Hypertension Code(s): I10 - ESSENTIAL (PRIMARY) HYPERTENSION Qualifiers: Hypertension type: essential hypertension Qualified Code(s): I10 - Essential (primary) hypertension Assessment/Plan 1. Chest pain syndrome with underlying CAD s/p UT s/p PCI/stent 2. Underlying substance abuse with Heroine. Prior use of Cocaine 3. HTN 4. Hypercholesterolemia 5. Probable LV systolic dysfunction 6. Non-compliance PLAN: 1. Trend troponin 2. Need to obtain medical records from [facility] and to identify type of stent and treatments 3. Patient does not appear to be on DAPT at this time and need to address wether he has been noncompliant with medications or whether it was a BMS instead of LEIF 4. Echocardiography to assess LV/RV and valvular function 5. Continue Carvedilol and Lisinopril 6. Aldactone and follow renal function and electrolytes 7. Statin therapy 8. Eventual detox Further plans are to follow Victorino Pruitt MD
[2018-07-25] MEDS ORDERED: CARVEDILOL 3.125 MG TABLET (FP) ONE (10:21)
[2018-07-25] MEDS ORDERED: ASPIRIN COATED 81 MG TABLET.EC ONE (10:21)
[2018-07-25] MEDS ORDERED: SPIRONOLACTONE 25 MG TABLET (FP) ONE (10:22)
[2018-07-25] MEDS ORDERED: CLOPIDOGREL BISULFATE 75 MG TABLET (FP) ONE (10:22)
[2018-07-25] MEDS ORDERED: HEPARIN NA (PORCINE) 5,000 UNITS/ML 1ML VIAL ONE (10:22)
[2018-07-25] MEDS: HEPARIN NA (PORCINE) 5,000 UNITS/ML 1ML VIAL SQ SCH ×2 (10:40→21:40)
[2018-07-25] MEDS: ASPIRIN COATED 81 MG TABLET.EC PO SCH (10:40)
[2018-07-25] MEDS: CARVEDILOL 3.125 MG TABLET (FP) PO SCH ×2 (10:40→21:40)
[2018-07-25] MEDS: CLOPIDOGREL BISULFATE 75 MG TABLET (FP) PO SCH (10:40)
[2018-07-25] MEDS: SPIRONOLACTONE 25 MG TABLET (FP) PO SCH (10:40)
[2018-07-25] MEDS: LISINOPRIL 5 MG TABLET (FP) PO SCH (10:40)
--- NOTE | 2018-07-25 11:05 | EKG ---
Test Reason : Blood Pressure : / mmHG Vent. Rate : 073 BPM Atrial Rate : 073 BPM P-R Int : 172 ms QRS Dur : 108 ms QT Int : 378 ms P-R-T Axes : 036 019 103 degrees QTc Int : 416 ms NORMAL SINUS RHYTHM INDETERMINATE AXIS ANTEROLATERAL INFARCT , AGE UNDETERMINED Anterolateral ischemic ST changes ABNORMAL ECG WHEN COMPARED WITH ECG OF 11-FEB-2018 12:42, QUESTIONABLE CHANGE IN QRS DURATION ANTERIOR INFARCT IS NOW PRESENT ANTEROLATERAL INFARCT IS NOW PRESENT Confirmed by MD Philip, Selvin ([id number]) on 07/25/2018 11:04:46 AM Referred By: Confirmed By:Selvin Palacios MD
--- NOTE | 2018-07-25 11:36 | ECHO ---
Name: LIVE NAVARRO Exam:Adult Echocardiogram Study Date: 07/25/2018 10:34 AM Age: 37 yrs Reason For Study: CAD CO PCI LV SYSTOLIC DYSFUNCTION Height: 74 in Weight: 280 lb BSA: 2.5 m2 MMode/2D Measurements & Calculations IVSd: 1.3 cm Ao root diam: 3.4 cm LVIDd: 5.8 cm LA dimension: 4.8 cm LVIDs: 3.5 cm LVPWd: 1.1 cm EDV(Teich): 169.3 ml LVOT diam: 2.2 cm ESV(Teich): 51.2 ml Doppler Measurements & Calculations MV E max ian: 76.5 cm/sec Ao V2 max: 122.2 cm/sec MV A max ian: 43.4 cm/sec Ao max P.0 mmHg MV E/A: 1.8 Ao V2 mean: 100.8 cm/sec MV dec time: 0.17 sec Ao mean P.4 mmHg Ao V2 VTI: 30.2 cm MANNY(I,D): 3.4 cm2 MANNY(V,D): 3.7 cm2 LV V1 max P.3 mmHg MR max ian: 237.5 cm/sec LV V1 mean P.5 mmHg MR max P.6 mmHg LV V1 max: 115.5 cm/sec LV V1 mean: 90.0 cm/sec LV V1 VTI: 25.7 cm SV(LVOT): 101.2 ml Med Peak E' Ian: 7.3 cm/sec Med E/e': 10.4 Lat Peak E' Ian: 10.7 cm/sec Lat E/e': 7.1 Left Ventricle There is mild concentric left ventricular hypertrophy. Ejection Fraction = 55%. Diastolic dysfunction , Grade II (pseudonormalization pattern). There is apical akinesis. Right Ventricle The right ventricle is normal in size and function. Atria The left atrium is moderately dilated. Right atrial size is normal. Mitral Valve The mitral valve is normal in structure and function. Tricuspid Valve The tricuspid valve is normal in structure and function. There is trace tricuspid regurgitation. Ther e was insufficient TR detected to calculate RV systolic pressure. Aortic Valve The aortic valve is normal in structure and function. Pulmonic Valve The pulmonic valve is normal in structure and function. Great Vessels The aortic root is normal size. Pericardium/Pleura There is a mild pericardial effusion. There are no echocardiographic indications of cardiac tamponade . Interpretation Summary There is apical akinesis. Overall preserved LV systolic function. There is mild concentric left ventricular hypertrophy. The right ventricle is normal in size and function. Martin Almonte 07/25/2018 11:35 AM
[2018-07-25] MEDS ORDERED: LORazepam 2 MG/ML SDV VIAL IVPUSH PRN (17:50)
--- NOTE | 2018-07-25 17:52 | PN ---
Progress Note, Physician History of Present Illness: agitated - Current Medication List Current Medications: Active Medications Acetaminophen (Tylenol -) 650 mg PO Q6H PRN PRN Reason: FEVER Aspirin (Ecotrin -) 81 mg PO DAILY [facility] Last Admin: 07/25/18 10:40 Dose: 81 mg Atorvastatin Calcium (Lipitor -) 40 mg PO [facility] Carvedilol (Coreg -) 3.125 mg PO BID [facility] Last Admin: 07/25/18 10:40 Dose: 3.125 mg Clopidogrel Bisulfate (Plavix -) 75 mg PO DAILY [facility] Last Admin: 07/25/18 10:40 Dose: 75 mg Heparin Sodium (Porcine) (Heparin -) 5,000 unit SQ BID [facility] Last Admin: 07/25/18 10:40 Dose: 5,000 unit Lisinopril (Prinivil) 5 mg PO DAILY [facility] Last Admin: 07/25/18 10:40 Dose: Not Given Spironolactone (Aldactone -) 25 mg PO DAILY [facility] Last Admin: 07/25/18 10:40 Dose: 25 mg - Objective Vital Signs: Vital Signs Temperature 98.1 F 07/25/18 14:00 Pulse Rate 72 07/25/18 14:00 Respiratory Rate 20 07/25/18 14:00 Blood Pressure 104/57 L 07/25/18 14:00 O2 Sat by Pulse Oximetry (%) 98 07/25/18 12:15 HENT: Yes: Atraumatic Neck: Yes: Supple Cardiovascular: Yes: Regular Rate and Rhythm Respiratory: Yes: CTA Bilaterally Gastrointestinal: Yes: Normal Bowel Sounds Extremities: Yes: WNL Neurological: Yes: Alert, Oriented Labs: CBC, BMP 07/25/18 05:30 07/25/18 05:30 INR, PTT INR 0.99 (0.83-1.09) 07/24/18 17:04 Problem List - Problems (1) Overdose Code(s): T50.901A - POISONING BY UNSP DRUG/MEDS/BIOL SUBST, ACCIDENTAL, INIT (2) Alcohol dependence with uncomplicated withdrawal Code(s): F10.230 - ALCOHOL DEPENDENCE WITH WITHDRAWAL, UNCOMPLICATED (3) Cannabis dependence Code(s): F12.20 - CANNABIS DEPENDENCE, UNCOMPLICATED (4) Chest pain Assessment/Plan: tele monitoring fu cardiac profile...negative Code(s): R07.9 - CHEST PAIN, UNSPECIFIED
[2018-07-25] MEDS ORDERED: LORazepam 2 MG/ML SDV VIAL ONE (17:54)
[2018-07-25] MEDS ORDERED: cloNIDine HCL 0.1 MG TABLET PO PRN (19:20)
[2018-07-25] MEDS ORDERED: METHADONE 10 MG, METHADONE 5 MG PO ONE (19:30)
[2018-07-25] MEDS ORDERED: METHADONE HCL 10 MG TABLET ONE (19:40)
[2018-07-25] MEDS ORDERED: METHADONE HCL 5 MG TABLET ONE (19:40)
[2018-07-25] MEDS ORDERED: traZODone HCL 50 MG TABLET (FP) PO ONE ×2 (21:15→21:45)
[2018-07-25] MEDS ORDERED: ATORVASTATIN CA 40 MG TABLET (FP) PO SCH (22:00)
[2018-07-26 09:44] VITALS: BP 95/60; TEMP 98
[2018-07-26] MEDS: HEPARIN NA (PORCINE) 5,000 UNITS/ML 1ML VIAL SQ SCH (10:00)
[2018-07-26] MEDS: LISINOPRIL 5 MG TABLET (FP) PO SCH ×2 (10:00→11:58)
[2018-07-26] MEDS: SPIRONOLACTONE 25 MG TABLET (FP) PO SCH ×2 (10:00→11:58)
[2018-07-26] MEDS: CLOPIDOGREL BISULFATE 75 MG TABLET (FP) PO SCH (10:07)
[2018-07-26] MEDS: ASPIRIN COATED 81 MG TABLET.EC PO SCH (10:07)
[2018-07-26] MEDS: CARVEDILOL 3.125 MG TABLET (FP) PO SCH (10:07)
--- NOTE | 2018-07-26 10:08 | CONSULT ---
Consult Detox [facility] Reason for Current Admission/Consult: heroin use- detox, transfer to [facility] - History History of Present Illness: 37 yo with h/o MD and stent placement likely due to cocaine use, with relapsing/ recurring heroin use. Relapsed again a few weeks ago. Pt was in the process of being admitted to [facility] for detox 2 days ago- when he was noted to be increasingly Laboratory Tests 07/24/18 07/24/18 07/24/18 12:22 17:00 17:04 WBC 7.2 RBC 4.26 Hgb 14.0 Hct 39.6 MCV 92.9 MCH 32.8 MCHC 35.3 RDW 12.2 Plt Count 173 MPV 8.1 Absolute Neuts (auto) 4.3 Neutrophils % 59.3 Lymphocytes % 31.4 Monocytes % 6.8 Eosinophils % 1.9 Basophils % 0.6 Nucleated RBC % 0 PT with INR INR PTT (Actin FS) Sodium 140 Potassium 4.2 Chloride 104 Carbon Dioxide 33 H Anion Gap 3 L BUN 14 Creatinine 1.0 Creat Clearance w eGFR 85.03 Random Glucose 93 Calcium 8.4 L Total Bilirubin 0.3 AST 45 H ALT 85 H Alkaline Phosphatase 73 Creatine Kinase Troponin I 0.05 Total Protein 6.3 L Albumin 3.6 Urine Color Urine Appearance Urine pH Ur Specific [place] Urine Protein Urine Glucose (UA) Urine Ketones Urine Blood Urine Nitrite Urine Bilirubin Urine Urobilinogen Ur Leukocyte Esterase Opiates Screen Methadone Screen Barbiturate Screen Phencyclidine Screen Ur Amphetamines Screen MDMA (Ecstasy) Screen Benzodiazepines Screen Cocaine Screen U Marijuana (THC) Screen Blood Type O POSITIVE Antibody Screen 07/24/18 07/24/18 07/24/18 17:04 17:04 18:45 WBC RBC Hgb Hct MCV MCH MCHC RDW Plt Count MPV Absolute Neuts (auto) Neutrophils % Lymphocytes % Monocytes % Eosinophils % Basophils % Nucleated RBC % PT with INR 11.70 INR 0.99 PTT (Actin FS) 29.4 Sodium Potassium Chloride Carbon Dioxide Anion Gap BUN Creatinine Creat Clearance w eGFR Random Glucose Calcium Total Bilirubin AST ALT Alkaline Phosphatase Creatine Kinase Troponin I Total Protein Albumin Urine Color Yellow Urine Appearance Clear Urine pH 6.5 D Ur Specific [place] 1.016 Urine Protein Negative Urine Glucose (UA) Negative Urine Ketones Negative Urine Blood Negative Urine Nitrite Negative Urine Bilirubin Negative Urine Urobilinogen 0.2 Ur Leukocyte Esterase Negative Opiates Screen Methadone Screen Barbiturate Screen Phencyclidine Screen Ur Amphetamines Screen MDMA (Ecstasy) Screen Benzodiazepines Screen Cocaine Screen U Marijuana (THC) Screen Blood Type O POSITIVE Antibody Screen Negative 07/24/18 07/24/18 07/25/18 18:45 20:06 05:30 WBC 7.0 RBC 4.32 Hgb 14.1 Hct 39.5 MCV 91.3 MCH 32.7 MCHC 35.8 RDW 12.5 Plt Count 174 MPV 8.3 Absolute Neuts (auto) 3.7 Neutrophils % 53.5 Lymphocytes % 34.5 Monocytes % 8.6 Eosinophils % 2.6 Basophils % 0.8 Nucleated RBC % 0 PT with INR INR PTT (Actin FS) Sodium Potassium Chloride Carbon Dioxide Anion Gap BUN Creatinine Creat Clearance w eGFR Random Glucose Calcium Total Bilirubin AST ALT Alkaline Phosphatase Creatine Kinase 127 Troponin I 0.05 Total Protein Albumin Urine Color Urine Appearance Urine pH Ur Specific [place] Urine Protein Urine Glucose (UA) Urine Ketones Urine Blood Urine Nitrite Urine Bilirubin Urine Urobilinogen Ur Leukocyte Esterase Opiates Screen Positive A* Methadone Screen Positive A* Barbiturate Screen Negative Phencyclidine Screen Negative Ur Amphetamines Screen Negative MDMA (Ecstasy) Screen Negative Benzodiazepines Screen Negative Cocaine Screen Negative U Marijuana (THC) Screen Positive A* Blood Type Antibody Screen 07/25/18 07/25/18 05:30 19:45 WBC RBC Hgb Hct MCV MCH MCHC RDW Plt Count MPV Absolute Neuts (auto) Neutrophils % Lymphocytes % Monocytes % Eosinophils % Basophils % Nucleated RBC % PT with INR INR PTT (Actin FS) Sodium 138 Potassium 4.1 Chloride 106 Carbon Dioxide 28 Anion Gap 4 L BUN 14 Creatinine 0.6 Creat Clearance w eGFR 153.32 Random Glucose 79 Calcium 8.1 L Total Bilirubin 0.2 AST 31 ALT 67 H Alkaline Phosphatase 62 Creatine Kinase 112 116 Troponin I 0.05 0.04 Total Protein 6.2 L Albumin 3.2 L Urine Color Urine Appearance Urine pH Ur Specific [place] Urine Protein Urine Glucose (UA) Urine Ketones Urine Blood Urine Nitrite Urine Bilirubin Urine Urobilinogen Ur Leukocyte Esterase Opiates Screen Methadone Screen Barbiturate Screen Phencyclidine Screen Ur Amphetamines Screen MDMA (Ecstasy) Screen Benzodiazepines Screen Cocaine Screen U Marijuana (THC) Screen Blood Type Antibody Screen somnolent. Was given Narcan- got better but again became somnolent. Pt rec'd second dose of narcan. Pt complained of chest pain and so transferred here to [facility]. Pt now feels fine- ruled out for MD. Rec'd one dose of 15 mg methadone yesterday justino. Pt would like to continue with detox and go to rehab afterwards. Pt can be transferred to [facility] today. Vital Signs - 24 hr 07/25/18 07/25/18 07/25/18 11:39 12:09 12:15 Temperature 98 F 98.2 F Pulse Rate 77 Pulse Rate [ 73 Right Radial] Respiratory 17 20 20 Rate Blood Pressure 117/67 Blood Pressure 110/57 L [Left Arm] O2 Sat by Pulse 98 98 Oximetry (%) 07/25/18 07/25/18 07/25/18 14:00 18:00 19:45 Temperature 98.1 F 98.0 F 97.8 F Pulse Rate 72 64 74 Pulse Rate [ Right Radial] Respiratory 20 18 18 Rate Blood Pressure 104/57 L 125/76 147/92 Blood Pressure [Left Arm] O2 Sat by Pulse Oximetry (%) 07/25/18 07/26/18 07/26/18 20:42 02:00 06:00 Temperature 97.4 F L 97.9 F Pulse Rate 64 65 Pulse Rate [ Right Radial] Respiratory 20 20 Rate Blood Pressure 104/61 102/69 Blood Pressure [Left Arm] O2 Sat by Pulse 98 Oximetry (%) 07/26/18 09:42 Temperature 98.0 F Pulse Rate 68 Pulse Rate [ Right Radial] Respiratory 18 Rate Blood Pressure 95/60 Blood Pressure [Left Arm] O2 Sat by Pulse Oximetry (%) a/p: Opioid use disorder- low albumin noted on chemistry. d/w pt transfer to [facility] to complete detox and rehab d/w pt the importance of a good diet in preventing relapse- low albumin Pt will have bed in [facility] and can be d/c'd from [facility] today- called them and did the needful - History Source History Provided By: Patient - Alcohol/Substance Use Hx Alcohol Use: No Hx Substance Use: Yes - Past Medical History Cardio/Vascular: Yes: CAD, HTN - Past Surgical History Past Surgical History: Yes: Stent COWS - Scale Resting Pulse: 1= DE 81-100 Sweatin= Chills/Flushing Restless Observation: 3= Extraneous Movement Pupil Size: 1= Pupils >than Normal Bone or Joint Aches: 1= Mild Discomfort Runny Nose/ Eye Tearin= Nasal Congestion GI Upset > 30mins: 1= Stomach Cramp Tremor Observation: 1= Tremor [place], Not Seen Yawning Observation: 0= None Anxiety or Irritability: 2=Irritable/Anxious Goose Flesh Skin: 0=Smooth Skin COWS Score: 12 Assessment Plan - Diagnosis (1) Opioid use disorder Status: Acute - Plan Plan: to [facility] today. Methadone 20mg now and continue detox protocol at [facility]. d/w pt
[2018-07-26] MEDS ORDERED: METHADONE HCL 10 MG TABLET PO ONE (10:45)
--- NOTE | 2018-07-26 11:10 | DS ---
Physical Examination Vital Signs: Vital Signs Temperature 98.0 F 07/26/18 09:42 Pulse Rate 68 07/26/18 09:42 Respiratory Rate 18 07/26/18 09:42 Blood Pressure 95/60 07/26/18 09:42 O2 Sat by Pulse Oximetry (%) 98 07/25/18 20:42 Constitutional: Yes: No Distress HENT: Yes: Atraumatic Neck: Yes: Supple Cardiovascular: Yes: Regular Rate and Rhythm Respiratory: Yes: CTA Bilaterally Gastrointestinal: Yes: Normal Bowel Sounds Extremities: Yes: WNL Edema: No Neurological: Yes: Alert, Oriented Labs: CBC, BMP 07/25/18 05:30 07/25/18 05:30 Discharge Summary Reason For Visit: DRUG WITHDRAWAL/DRUG OVERDOSE Current Active Problems CAD (coronary artery disease) (Acute) Chest pain (Acute) History of percutaneous coronary intervention (Acute) Myocardial infarction (Acute) Opioid use disorder (Acute) Overdose (Acute) Substance abuse (Acute) - Instructions Disposition: STILL A PATIENT - Home Medications Comprehensive Discharge Medication List: Ambulatory Orders traZODone HCL [Desyrel -] 150 mg PO HS #30 tablet 06/23/17 Atorvastatin Ca [Lipitor] 0 mg PO HS 07/24/18 Carvedilol 0 mg PO BID 07/24/18 Lisinopril 0 mg PO DAILY 07/24/18 Spironolactone 0 mg PO DAILY 07/24/18 Citalopram Hydrobromide [Celexa -] 10 mg PO DAILY 07/25/18 dc to park car as per detox doctor
[2018-07-26 11:59] VITALS: PULSE 65
== END 2018-07-26 12:51 | disposition hospice, inpatient (51) | DRG 816 ==
LOC: JER 16:32 → JERBED 19:06 → J4W 07-25 11:35 → OBSVTOIN 07-25 17:49
PROVIDERS: ADMIT Internal Medicine; ATTEND Internal Medicine
DX: T40.1X1A Poisoning by heroin, accidental (unintentional), initial encounter (principal); R07.89 Other chest pain; I25.10 Atherosclerotic heart disease of native coronary artery without angina pectoris; R41.82 Altered mental status, unspecified; F11.20 Opioid dependence, uncomplicated; I10 Essential (primary) hypertension; F19.10 Other psychoactive substance abuse, uncomplicated; F32.9 Major depressive disorder, single episode, unspecified; F17.210 Nicotine dependence, cigarettes, uncomplicated; E78.00 Pure hypercholesterolemia, unspecified; F10.230 Alcohol dependence with withdrawal, uncomplicated; F12.20 Cannabis dependence, uncomplicated; Y92.89 Other specified places as the place of occurrence of the external cause; Z95.5 Presence of coronary angioplasty implant and graft; Z91.14 Patient's other noncompliance with medication regimen
CPT/HCPCS: 36415; 71045-TC-FY; 80053; 80307; 81003; 82550; 84484; 85025; 85610; 85730; 86850; 86900; 86901; 93005; 93010; 93306-TC; 99285-25; G0378; J0735; J1644

== ENCOUNTER 2018-07-26 13:24 | Inpatient (IN) | payer OTHER ==
[2018-07-26 15:40] VITALS: BMI 36.1
--- NOTE | 2018-07-26 16:46 | HP ---
COWS - Scale Resting Pulse: 2= [place] 101-120 Sweatin= No chills or Flushing Restless Observation: 1= Difficult to Sit Still Pupil Size: 0= Normal to Room Light Bone or Joint Aches: 1= Mild Discomfort Runny Nose/ Eye Tearin= None GI Upset > 30mins: 2= Nausea/Diarrhea Tremor Observation: 0= None Yawning Observation: 0= None Anxiety or Irritability: 2=Irritable/Anxious Goose Flesh Skin: 0=Smooth Skin COWS Score: 8 CIWA Score Nausea/Vomitin Muscle Tremors: None Anxiety: 4-Mod. Anxious/Guarded Agitation: 0-Normal Activity Paroxysmal Sweats: 1-Minimal Palms Moist Orientation: 1-Uncertain about Date Tacttile Disturbances: 0-None Auditory Disturbances: 1-Very Mild Visual Disturbances: 0-None Headache: 0-None Present CIWA-Ar Total Score: 9 - Admission Criteria OASAS Guidelines: Admission for Medically Managed Detox: Requires at least one of the followin. CIWA greater than 12 2. Seizures within the past 24 hours 3. Delirium tremens within the past 24 hours 4. Hallucinations within the past 24 hours 5. Acute intervention needed for co occurring medical disorder 6. Acute intervention needed for co occurring psychiatric disorder 7. Severe withdrawal that cannot be handled at a lower level of care (continued vomiting, continued diarrhea, abnormal vital signs) requiring intravenous medication and/or fluids 8. Patient presents the following: CIWA greater than 12 Admission Criteria Met: Admission criteria met Admission ROS S - [facility] Chief Complaint: opioid and benzo detox , I am happy when sober Allergies/Adverse Reactions: Allergies Allergy/AdvReac Type Severity Reaction Status Date / Time buspirone Allergy Severe Difficulty Verified 07/26/18 15:16 Breathing History of Present Illness: 37 yo male with of heroin (IV), xanax, nicotine and xanax dependence is here seeking detox. Patient returns from [facility] after he was treated for overdose 07/24 and was medically cleared. Prior to this admission managed to maintain sobriety for 1.5 months reports relapse approximately two weeks ago. PMHX: HTN, Cardiac STENT, [place] (two months ago). Psych: anxiety, insomnia and depression . Overdose unintentional x 9, last episode 07/24/18. Denies hx of seizures. Longest period of sobriety 8 month, two years ago. Reports prior treatment about three years ago with methadone and suboxone but did not like being on treatment Exam Limitations: No Limitations - Ebola screening Have you traveled outside of the country in the last 21 days: No Have you had contact with anyone from an Ebola affected area: No Do you have a fever: No - Review of Systems Constitutional: Changes in sleep EENT: reports: No Symptoms Reported Respiratory: reports: No Symptoms reported Cardiac: reports: No Symptoms Reported GI: reports: Nausea, Poor Fluid Intake : reports: No Symptoms Reported Musculoskeletal: reports: Joint Pain Integumentary: reports: No Symptoms Reported Neuro: reports: Dizziness Endocrine: reports: No Symptoms Reported Hematology: reports: No Symptoms Reported Psychiatric: reports: Orientated x3, Anxious Other Systems: Reviewed and Negative Patient History - Patient Medical History Hx Anemia: No Hx Asthma: No Hx Chronic Obstructive Pulmonary Disease (COPD): No Hx Cancer: No Hx Cardiac Disorders: Yes (stent placed 05/2018, [place] (05/2018)) Hx Congestive Heart Failure: No Hx Hypertension: Yes (on med) Hx Hypercholesterolemia: No Hx Pacemaker: No HX Cerebrovascular Accident: No Hx Seizures: No Hx Diabetes: No Hx Gastrointestinal Disorders: No Hx Liver Disease: No Hx Genitourinary Disorders: No Hx Sexually Transmitted Disorders: No Hx Renal Disease (ESRD): No Hx Thyroid Disease: No Hx Human Immunodeficiency Virus (HIV): No (negative 2017 last negative) Hx Hepatitis C: No Hx Depression: Yes Hx Suicide Attempt: No Hx Bipolar Disorder: No Hx Schizophrenia: No - Patient Surgical History Past Surgical History: No Hx Neurologic Surgery: No Hx Cataract Extraction: No Hx Cardiac Surgery: No Hx Lung Surgery: No Hx Breast Surgery: No Hx Breast Biopsy: No Hx Abdominal Surgery: No Hx Appendectomy: No Hx Cholecystectomy: No Hx Genitourinary Surgery: No Hx Section: No Hx Orthopedic Surgery: No Anesthesia Reaction: No - PPD History Previous Implant?: No Date: 04/06/17 Results: 0 mm PPD to be Administered?: Yes - Smoking Cessation Smoking history: Current every day smoker Have you smoked in the past 12 months: Yes Aproximately how many cigarettes per day: 20 Cigars Per Day: 4 Hx Chewing Tobacco Use: No Initiated information on smoking cessation: Yes 'Breaking Loose' booklet given: 07/26/18 - Substance & Tx. History Hx Alcohol Use: No Hx Substance Use: Yes Substance Use Type: Heroin, Opiates, Tranquilizers Hx Substance Use Treatment: Yes ([facility] detox 02/11/18 -02/14/18) - Substances abused Heroin Substance route: Injection Frequency: 3-6 times per week Amount used: 4 bags Age of first use: 29 Date of last use: 07/24/18 Alprazolam (Xanax) Substance route: Oral Frequency: 1-2 times per week Amount used: 2 x 2 mg Age of first use: 37 Date of last use: 07/24/18 Marijuana/Hashish Substance route: Oral Frequency: Daily Amount used: 40 dollars Age of first use: 24 Date of last use: 07/24/18 Family Disease History - Family Disease History Family Disease History: Heart Disease: Grandparent, Mother (living, ), Other: Father (KILLED, hx drug use), Mother, Brother (two - living - drug use), Sister (one - living - drug use) Admission Physical Exam [facility] - Vital Signs Vital Signs: Vital Signs - 24 hr 07/26/18 15:16 Temperature 99 F Pulse Rate 101 H Respiratory 20 Rate Blood Pressure 121/86 - Physical General Appearance: Yes: Appropriately Dressed, Obese, Anxious HEENTM: Yes: EOMI, Hearing grossly Normal, Normal ENT Inspection, Normocephalic , Normal Voice, ERNIE, Pharynx Normal, Tm's normal Respiratory: Yes: Chest Non-Tender, Lungs Clear, Normal Breath Sounds, No Respiratory Distress, No Accessory Muscle Use Neck: Yes: Within Normal Limits Breast: Yes: Breast Exam Deferred Cardiology: Yes: Regular Rhythm, Tachycardia Abdominal: Yes: Normal Bowel Sounds, Non Tender, Flat, Soft Genitourinary: Yes: Within Normal Limits Back: Yes: Normal Inspection Musculoskeletal: Yes: full range of Motion, Gait Steady, Pelvis Stable Extremities: Yes: Within Normal Limits Neurological: Yes: enrollment management director II-XII NML intact, Fully Oriented, Alert, Motor Strength 5/5, Depressed Affect Integumentary: Yes: Normal Color, Warm, Diaphoresis Lymphatic: Yes: Within Normal Limits - Diagnostic (1) Alcohol dependence with uncomplicated withdrawal Current Visit: Yes Status: Acute (2) CAD (coronary artery disease) Current Visit: Yes Status: Chronic Comment: reports hx of stent placement (3) Cannabis dependence Current Visit: Yes Status: Acute (4) History of percutaneous coronary intervention Current Visit: Yes Status: Chronic (5) Opioid dependence with withdrawal Current Visit: Yes Status: Acute (6) Sedative, hypnotic or anxiolytic dependence with withdrawal, uncomplicated Current Visit: Yes Status: Acute (7) Hypertension Current Visit: No Status: Chronic Qualifiers: Hypertension type: essential hypertension Qualified Code(s): I10 - Essential (primary) hypertension (8) Marijuana dependence Current Visit: Yes Status: Chronic (9) Nicotine dependence Current Visit: Yes Status: Chronic Qualifiers: Nicotine product type: cigarettes Substance use status: in withdrawal Qualified Code(s): F17.213 - Nicotine dependence, cigarettes, with withdrawal Cleared for Admission S - Detox or Rehab [facility] Level of Care: Medically Managed Detox Regimen/Protocol: Methadone/Valium Breathalyzer - Breathalyzer Breathalyzer: 0 Urine Drug Screen - Test Device Lot number: [id number] Expiration date: 03/10/20 - Control Is test valid?: Yes - Results Drug screen NEGATIVE: No Urine drug screen results: THC-Marijuana, FEN-Fentanyl, MOP-Opiates, MTD- Methadone, BZO-Benzodiazepines Inpatient Rehab Admission - Rehab Decision to Admit Inpatient rehab admission?: No
[2018-07-26] MEDS ORDERED: MAG HYDROX/AL HYDROX/SIMETH 30 ML UNIT-DOSE CUP PO PRN (16:53)
[2018-07-26] MEDS ORDERED: MENTHOL/PHENOL 1 EACH UD MM PRN (16:53)
[2018-07-26] MEDS ORDERED: BISMUTH SUBSALICYLATE 524 MG/30 ML UD PO PRN (16:53)
[2018-07-26] MEDS ORDERED: MAGNESIUM HYDROX 2400MG/30ML ORAL SUSPENSION 30 ML CUP PO PRN (16:53)
[2018-07-26] MEDS ORDERED: ACETAMINOPHEN 325 MG TABLET (FP) PO PRN ×2 (16:53)
[2018-07-26] MEDS ORDERED: MAGNESIUM CITRATE 300 ML BOTTLE PO PRN (16:53)
[2018-07-26] MEDS ORDERED: NICOTINE POLACRILEX 2 MG GUM BUC PRN (16:53)
[2018-07-26] MEDS ORDERED: MELATONIN 5 MG TABLETS PO PRN (16:53)
[2018-07-26] MEDS ORDERED: METHOCARBAMOL 500 MG TABLET PO PRN (16:53)
[2018-07-26] MEDS ORDERED: NITROGLYCERIN SUBLINGUAL 1/150 0.4 MG TAB SL PRN (17:00)
--- NOTE | 2018-07-26 17:20 | PN ---
[facility] Progress Note Note: Patient reports taking lisinopril, plavix, coreg, spirolactone and lipitor, nitroglycerin prn at home for his "heart problem." Reports taking all meds on prior to arriving at [facility], except the nitroglycerin.
[2018-07-26] MEDS: diazePAM 5 MG TABLET PO PRN ×2 (18:48→22:47)
[2018-07-26] MEDS ORDERED: AMOX TR/POT CLAV 875MG/125MG TABLETS (FP) PO ONE (21:45)
[2018-07-26] MEDS: CARVEDILOL 6.25 MG TABLET (FP) PO SCH (22:23)
[2018-07-26] MEDS: ATORVASTATIN CA 80 MG TABLET (FP) PO SCH (22:23)
[2018-07-26] MEDS: THIAMINE HCL 100 MG TABLET (FP) PO SCH (22:23)
[2018-07-27 01:47] LABS: PH,URINE 5.5 (5.0-8.0); URINE APPEARANCE Slightly Cloudy; URINE BILIRUBIN Negative (NEGATIVE); URINE COLOR Yellow; URINE GLUCOSE (UA) Negative (NEGATIVE); URINE KETONE Negative (NEGATIVE); URINE LEUK ESTERASE Negative (NEGATIVE); URINE NITRITE Negative (NEGATIVE); URINE PROTEIN Negative (NEGATIVE); URINE UROBILINOGEN 0.2 mg/dL (0.2-1.0)
[2018-07-27] MEDS ORDERED: METHADONE HCL 5 MG TABLET (FOR DETOX USE ONLY) PO ONE (10:00)
[2018-07-27] MEDS: SPIRONOLACTONE 25 MG TABLET (FP) PO SCH (10:01)
[2018-07-27] MEDS: ASPIRIN 81 MG CHEWABLE TABLETS PO SCH (10:02)
[2018-07-27] MEDS: CLOPIDOGREL BISULFATE 75 MG TABLET (FP) PO SCH (10:02)
[2018-07-27] MEDS: LISINOPRIL 5 MG TABLET (FP) PO SCH (10:02)
[2018-07-27] MEDS: CARVEDILOL 6.25 MG TABLET (FP) PO SCH ×2 (10:02→21:48)
[2018-07-27] MEDS: PRENATAL VITAMINS W/ FOLIC ACID TABLET (FP) PO SCH (10:02)
[2018-07-27] MEDS: diazePAM 5 MG TABLET PO PRN ×2 (10:05→20:12)
[2018-07-27 10:56] LABS: ALBUMIN 3.4 g/dl (3.4-5.0); ALK PHOS 67 U/L (45-117); ANION GAP 5 MMOL/L (8-16); BILIRUBIN,TOTAL 0.2 mg/dL (0.2-1); BLOOD UREA NITROGEN 18 mg/dL (7-18); CALCIUM 8.2 mg/dL (8.5-10.1); CHLORIDE 108 mmol/L (98-107); CO2 31 mmol/L (21-32); CREATININE 0.9 mg/dL (0.55-1.3); GLUCOSE,RANDOM 93 mg/dL (74-106); POTASSIUM 4.3 mmol/L (3.5-5.1); SGOT/AST 28 U/L (15-37); SGPT/ALT 61 U/L (13-61); SODIUM 143 mmol/L (136-145); TOT PROT 6.1 g/dl (6.4-8.2)
--- NOTE | 2018-07-27 11:03 | PN ---
[facility] CIWA - CIWA Score Nausea/Vomitin-Mild Nausea/No Vomiting Muscle Tremors: 2 Anxiety: 2 Agitation: 2 Paroxysmal Sweats: 1-Minimal Palms Moist Orientation: 0-Oriented Tacttile Disturbances: 0-None Auditory Disturbances: 0-None Visual Disturbances: 0-None Headache: 0-None Present CIWA-Ar Total Score: 8 BHS COWS - Scale Resting Pulse: 0= [place] 80 or Below Sweatin= Chills/Flushing Restless Observation: 0= Sits Still Pupil Size: 0= Normal to Room Light Bone or Joint Aches: 1= Mild Discomfort Runny Nose/ Eye Tearin= Nasal Congestion GI Upset > 30mins: 1= Stomach Cramp Tremor Observation of Outstretched Hands: 1= Tremor [place], Not Seen Yawning Observation: 1= 1-2x During Session Anxiety or Irritability: 1=Feels Anxious/Irritable Goose Flesh Skin: 0=Smooth Skin COWS Score: 7 S Progress Note (SOAP) Subjective: patient had heart attack May 2018 "months" ago treated at [facility] with one cardiac stent patient does not take nitro since the stent feeling ok Objective: 07/27/18 11:01 Vital Signs Temperature 97.7 F 07/27/18 09:23 Pulse Rate 74 07/27/18 09:23 Respiratory Rate 18 07/27/18 09:23 Blood Pressure 106/63 07/27/18 09:23 O2 Sat by Pulse Oximetry (%) Laboratory Last Values Sodium 143 mmol/L (136-145) 07/27/18 07:00 Potassium 4.3 mmol/L (3.5-5.1) 07/27/18 07:00 Chloride 108 mmol/L (98-107) H 07/27/18 07:00 Carbon Dioxide 31 mmol/L (21-32) 07/27/18 07:00 Anion Gap 5 MMOL/L (8-16) L 07/27/18 07:00 BUN 18 mg/dL (7-18) 07/27/18 07:00 Creatinine 0.9 mg/dL (0.55-1.3) 07/27/18 07:00 Creat Clearance w eGFR 96.03 (>60) 07/27/18 07:00 Random Glucose 93 mg/dL (74-106) 07/27/18 07:00 Calcium 8.2 mg/dL (8.5-10.1) L 07/27/18 07:00 Total Bilirubin 0.2 mg/dL (0.2-1) 07/27/18 07:00 AST 28 U/L (15-37) 07/27/18 07:00 ALT 61 U/L (13-61) 07/27/18 07:00 Alkaline Phosphatase 67 U/L (45-117) 07/27/18 07:00 Total Protein 6.1 g/dl (6.4-8.2) L 07/27/18 07:00 Albumin 3.4 g/dl (3.4-5.0) 07/27/18 07:00 Urine Color Yellow 07/26/18 17:31 Urine Appearance Slightly cloudy 07/26/18 17:31 Urine pH 5.5 (5.0-8.0) 07/26/18 17:31 Ur Specific [place] >= 1.030 (1.010-1.035) 07/26/18 17:31 Urine Protein Negative (NEGATIVE) 07/26/18 17:31 Urine Glucose (UA) Negative (NEGATIVE) 07/26/18 17:31 Urine Ketones Negative (NEGATIVE) 07/26/18 17:31 Urine Blood Negative (NEGATIVE) 07/26/18 17:31 Urine Nitrite Negative (NEGATIVE) 07/26/18 17:31 Urine Bilirubin Negative (NEGATIVE) 07/26/18 17:31 Urine Urobilinogen 0.2 mg/dL (0.2-1.0) 07/26/18 17:31 Ur Leukocyte Esterase Negative (NEGATIVE) 07/26/18 17:31 lab noted Assessment: 07/27/18 11:02 mild withdrawal sx Plan: continue detox
[2018-07-27 11:04] LABS: HEMATOCRIT 41.6 % (35.4-49); HEMOGLOBIN 14.3 GM/dL (11.7-16.9); MCH 32.6 pg (25.7-33.7); MCHC 34.4 g/dl (32.0-35.9); MEAN CELL VOLUME 94.6 fl (80-96); MEAN PLT VOLUME 8.9 fl (7.5-11.1); PLATELET COUNT 173 K/MM3 (134-434); RBC 4.39 M/mm3 (4.00-5.60); RDW 12.6 % (11.9-15.9); WHITE BLOOD COUNT 5.6 K/mm3 (4.0-10.0)
[2018-07-27] MEDS: PATIENT'S OWN MEDICATION (NON-FORMULARY) (Amoxicillin/Potassium Clav [Amox-Clav 875-125 Mg PO SCH ×3 (12:12→21:47)
--- NOTE | 2018-07-27 12:17 | EKG ---
Test Reason : Blood Pressure : / mmHG Vent. Rate : 061 BPM Atrial Rate : 061 BPM P-R Int : 186 ms QRS Dur : 104 ms QT Int : 410 ms P-R-T Axes : 028 090 122 degrees QTc Int : 412 ms NORMAL SINUS RHYTHM SEPTAL INFARCT (CITED ON OR BEFORE 24-JUL-2018) LATERAL INFARCT (CITED ON OR BEFORE 24-JUL-2018) T WAVE ABNORMALITY, CONSIDER ANTERIOR ISCHEMIA ABNORMAL ECG WHEN COMPARED WITH ECG OF 24-JUL-2018 16:39, NO SIGNIFICANT CHANGE WAS FOUND Confirmed by SHAILA SANDOVAL MD ([id number]) on 07/27/2018 12:17:03 PM Referred By: Confirmed By:SHAILA SANDOVAL MD
--- NOTE | 2018-07-27 13:21 | CONSULT ---
[facility] Psychiatric Consult - Data Date of interview: 07/27/18 Admission source: [facility] Identifying data: Patient is a 37 year old single male, without children, unemployed, domiciled and is supported by family. This is one of multiple admissions for patient. Patient admitted to for opiate and benzodiazepine dependence. Substance Abuse History: Smoking Cessation. Smoking history: Current every day smoker. Have you smoked in the past 12 months: Yes. Aproximately how many cigarettes per day: 20. Cigars Per Day: 4. Hx Chewing Tobacco Use: No. Initiated information on smoking cessation: Yes. 'Breaking Loose' booklet given : 07/26/18. - Substance & Tx. History. Hx Alcohol Use: No. Hx Substance Use: Yes. Substance Use Type: Heroin, Opiates, Tranquilizers. Hx Substance Use Treatment: Yes ([facility] detox 02/11/18 -02/14/18). - Substances abused. Heroin. Substance route: Injection. Frequency: 3-6 times per week. Amount used: 4 bags. Age of first use: 29. Date of last use: 07/24/18. Alprazolam (Xanax) . Substance route: Oral. Frequency: 1-2 times per week. Amount used: 2 x 2 mg. Age of first use: 37. Date of last use: 07/24/18. Marijuana/Hashish. Substance route: Oral. Frequency: Daily. Amount used: 40 dollars. Age of first use: 24. Date of last use: 07/24/18 Medical History: Significant for HTN, Cardiac STENT, [place] (two months ago) Psychiatric History: Patient denies h/o psychiatric hospitalizations. Patient's most recent outpatient psychiatric care was at [facility] approximately two years ago and was on the medication regiman of, Wellbutrin 150mg XL+ Trazodone 150mg+ Gabapentin 300mg TID + adderall 20mg BID + Clonodine 0.3mg BID. Patient was admitted to [facility] on 05/2018 after he accidentally overdosed and suffered heart attack. While at [facility] he saw a psychiatrist who diagnosed him with depression and anxiety and prescribed him celexa 10mg + trazodone 150mg with a one month refill. He reports medication compliance. Patient denies h/o suicide attempt. At present he reports feeling fine but is experiencing difficulty sleeping. Physical/Sexual Abuse/Trauma History: denies. Mental Status Exam - Mental Status Exam Alert and Oriented to: Time, Place, Person Cognitive Function: Good Patient Appearance: Well Groomed Mood: Sad Affect: Appropriate Patient Behavior: Appropriate, Cooperative Speech Pattern: Appropriate Voice Loudness: Normal Thought Process: Intact, Goal Oriented Thought Disorder: Not Present Hallucinations: Denies Suicidal Ideation: Denies Homicidal Ideation: Denies Insight/Judgement: Poor Sleep: Poorly Appetite: Fair Muscle strength/Tone: Normal Gait/Station: Normal Psychiatric Findings - Problem List ([place] 1, 2,3) (1) Alcohol dependence with uncomplicated withdrawal Current Visit: Yes Status: Acute (2) Cannabis dependence Current Visit: Yes Status: Acute (3) Opioid dependence with withdrawal Current Visit: Yes Status: Acute (4) Sedative, hypnotic or anxiolytic dependence with withdrawal, uncomplicated Current Visit: Yes Status: Acute (5) ADHD (attention deficit hyperactivity disorder) Current Visit: No Status: Chronic (6) Substance induced mood disorder Current Visit: Yes Status: Acute (7) Substance-induced sleep disorder Current Visit: Yes Status: Acute - Initial Treatment Plan Initial Treatment Plan: Psychoeducation provided. Detoxification in progress. Will order Celexa 10mg + Trazodone 150mg HS. Benefits and side effects discussed. Patient made aware of the risk of priapism when accepting trazodone. Verbal consent given.
[2018-07-27] MEDS: THIAMINE HCL 100 MG TABLET (FP) PO SCH (21:47)
[2018-07-27] MEDS: ATORVASTATIN CA 80 MG TABLET (FP) PO SCH (21:47)
[2018-07-27] MEDS ORDERED: traZODone HCL 50 MG TABLET (FP) PO SCH (22:00)
[2018-07-28 09:19] VITALS: BP 115/74; PULSE 67; TEMP 97
[2018-07-28] MEDS ORDERED: CITALOPRAM HYDROBROMIDE 10 MG TABLET (FP) PO SCH (10:00)
[2018-07-28] MEDS ORDERED: METHADONE HCL 10 MG TABLET (FOR DETOX USE ONLY) PO ONE (10:00)
[2018-07-28] MEDS: PRENATAL VITAMINS W/ FOLIC ACID TABLET (FP) PO SCH (10:22)
[2018-07-28] MEDS: ASPIRIN 81 MG CHEWABLE TABLETS PO SCH (10:22)
[2018-07-28] MEDS: CARVEDILOL 6.25 MG TABLET (FP) PO SCH (10:23)
[2018-07-28] MEDS: CLOPIDOGREL BISULFATE 75 MG TABLET (FP) PO SCH (10:23)
[2018-07-28] MEDS: SPIRONOLACTONE 25 MG TABLET (FP) PO SCH (10:23)
[2018-07-28] MEDS: PATIENT'S OWN MEDICATION (NON-FORMULARY) (Amoxicillin/Potassium Clav [Amox-Clav 875-125 Mg PO SCH (10:23)
[2018-07-28] MEDS: LISINOPRIL 5 MG TABLET (FP) PO SCH (10:23)
--- NOTE | 2018-07-28 13:59 | PN ---
S CIWA - CIWA Score Nausea/Vomitin-No Nausea/No Vomiting Muscle Tremors: 2 Anxiety: 1-Mildly Anxious Agitation: 0-Normal Activity Paroxysmal Sweats: 3 Orientation: 0-Oriented Tacttile Disturbances: 1-Very Mild Itch/Numbness Auditory Disturbances: 0-None Visual Disturbances: 0-None Headache: 0-None Present CIWA-Ar Total Score: 7 S COWS - Scale Resting Pulse: 0= [place] 80 or Below Sweatin= Chills/Flushing Restless Observation: 1= Difficult to Sit Still Pupil Size: 0= Normal to Room Light Bone or Joint Aches: 0= None Runny Nose/ Eye Tearin= None GI Upset > 30mins: 0= None Tremor Observation of Outstretched Hands: 2= Slight Tremor Visible Yawning Observation: 1= 1-2x During Session Anxiety or Irritability: 0= None Goose Flesh Skin: 0=Smooth Skin COWS Score: 5 BHS Progress Note (SOAP) Subjective: Sweating, Tremors. Patient Reports That Both Withdrawal / Detox Symptoms are mild in degree at this time. Objective: PATIENT A & O X 3, OBSERVED AMBULATING ON UNIT. IN NO ACUTE DISTRESS. 07/28/18 13:56 Vital Signs Temperature 97.0 F L 07/28/18 09:18 Pulse Rate 67 07/28/18 09:18 Respiratory Rate 18 07/28/18 09:18 Blood Pressure 115/74 07/28/18 09:18 O2 Sat by Pulse Oximetry (%) Laboratory Tests 07/26/18 07/27/18 07/27/18 17:31 07:00 07:00 WBC 5.6 RBC 4.39 Hgb 14.3 Hct 41.6 MCV 94.6 MCH 32.6 MCHC 34.4 RDW 12.6 Plt Count 173 MPV 8.9 Sodium 143 Potassium 4.3 Chloride 108 H Carbon Dioxide 31 Anion Gap 5 L BUN 18 Creatinine 0.9 Creat Clearance w eGFR 96.03 Random Glucose 93 Calcium 8.2 L Total Bilirubin 0.2 AST 28 ALT 61 Alkaline Phosphatase 67 Total Protein 6.1 L Albumin 3.4 Urine Color Yellow Urine Appearance Slightly cloudy Urine pH 5.5 Ur Specific [place] >= 1.030 Urine Protein Negative Urine Glucose (UA) Negative Urine Ketones Negative Urine Blood Negative Urine Nitrite Negative Urine Bilirubin Negative Urine Urobilinogen 0.2 Ur Leukocyte Esterase Negative RPR Titer 07/27/18 07:00 WBC RBC Hgb Hct MCV MCH MCHC RDW Plt Count MPV Sodium Potassium Chloride Carbon Dioxide Anion Gap BUN Creatinine Creat Clearance w eGFR Random Glucose Calcium Total Bilirubin AST ALT Alkaline Phosphatase Total Protein Albumin Urine Color Urine Appearance Urine pH Ur Specific [place] Urine Protein Urine Glucose (UA) Urine Ketones Urine Blood Urine Nitrite Urine Bilirubin Urine Urobilinogen Ur Leukocyte Esterase RPR Titer Nonreactive LABS NOTED. Assessment: 07/28/18 13:56 COMPLETION OF DETOX REGIMEN. 07/28/18 13:59 Plan: SINCE PATIENT REPORTS THAT CURRENT WITHDRAWAL / DETOX SYMPTOMS ARE MINIMAL IN DEGREE AND THAT HE FEELS WELL OVERALL, AT PATIENTS REQUEST, HE WAS GRANTED AN EARLY DISCHARGE FROM DETOX UNIT TODAY.
--- NOTE | 2018-07-28 14:08 | DS ---
[facility] Detox Discharge Summary Admission Date: 07/26/18 Discharge Date: 07/28/18 - History Present History: Alcohol Dependence, Cannabis Dependence Additional Comments: PATIENT REPORTS THAT HE FEELS WELL OVERALL AT TIME OF DISCHARGE FROM DETOX UNIT. PATIENT GOING HOME FOR THE NEXT COUPLE OF DAYS TO ATTEND TO SOME PERSONAL MATTERS AND HE WILL THEN APPLY FOR ADMISSION TO [facility] [place] ON 07/31/2018. PATIENT DECLINED OFFER OF MEDICATION PRESCRIPTION FOR HOME MEDICATION AT TIME OF DISCHARGE FROM DETOX, NOTING THAT HE CURRENTLY HAS ADEQUATE SUPPLIES OF ALL PRESCRIBED HOME MEDICATIONS AT HOME. PATIENT WAS DISCHARGED FROM DETOX UNIT IN STABLE MEDICAL CONDITION. Pertinent Past History: HTN, History Of Cardiac Stent Placement, History Of CT, Anxiety, Depression, Insomnia, History Of Coronary Artery Disease (CAD), History Of Percutaneous Coronary Intervention, Nicotine Dependence, History Of Attention-Deficit Hyperactivity Disorder (A.D.H.D.). - Physical Exam Results Vital Signs: Vital Signs Temperature 97.0 F L 07/28/18 09:18 Pulse Rate 67 07/28/18 09:18 Respiratory Rate 18 07/28/18 09:18 Blood Pressure 115/74 07/28/18 09:18 O2 Sat by Pulse Oximetry (%) Pertinent Admission Physical Exam Findings: WITHDRAWAL SYMPTOMS. Laboratory Tests 07/26/18 07/27/18 07/27/18 17:31 07:00 07:00 WBC 5.6 RBC 4.39 Hgb 14.3 Hct 41.6 MCV 94.6 MCH 32.6 MCHC 34.4 RDW 12.6 Plt Count 173 MPV 8.9 Sodium 143 Potassium 4.3 Chloride 108 H Carbon Dioxide 31 Anion Gap 5 L BUN 18 Creatinine 0.9 Creat Clearance w eGFR 96.03 Random Glucose 93 Calcium 8.2 L Total Bilirubin 0.2 AST 28 ALT 61 Alkaline Phosphatase 67 Total Protein 6.1 L Albumin 3.4 Urine Color Yellow Urine Appearance Slightly cloudy Urine pH 5.5 Ur Specific [place] >= 1.030 Urine Protein Negative Urine Glucose (UA) Negative Urine Ketones Negative Urine Blood Negative Urine Nitrite Negative Urine Bilirubin Negative Urine Urobilinogen 0.2 Ur Leukocyte Esterase Negative RPR Titer 07/27/18 07:00 WBC RBC Hgb Hct MCV MCH MCHC RDW Plt Count MPV Sodium Potassium Chloride Carbon Dioxide Anion Gap BUN Creatinine Creat Clearance w eGFR Random Glucose Calcium Total Bilirubin AST ALT Alkaline Phosphatase Total Protein Albumin Urine Color Urine Appearance Urine pH Ur Specific [place] Urine Protein Urine Glucose (UA) Urine Ketones Urine Blood Urine Nitrite Urine Bilirubin Urine Urobilinogen Ur Leukocyte Esterase RPR Titer Nonreactive LABS NOTED. - Treatment Hospital Course: Detox Protocol Followed, Detoxed Safely, Responded well, Discharged Condition Good, Rehab Referral Accepted Patient has Accepted a Rehab Referral to: [facility] ([place] [place]). - Medication Discharge Medications: Ambulatory Orders traZODone HCL [Desyrel -] 150 mg PO HS #30 tablet 06/23/17 Atorvastatin Ca [Lipitor] 80 mg PO HS 07/24/18 Carvedilol 6.25 mg PO BID 07/24/18 Lisinopril 5 mg PO DAILY 07/24/18 Spironolactone 25 mg PO DAILY 07/24/18 Citalopram Hydrobromide [Celexa -] 10 mg PO DAILY 07/25/18 Amoxicillin/Potassium Clav [Amox-Clav 875-125 mg Tablet] 875 mg PO BID 07/26/18 Aspirin [ASA -] 81 mg PO DAILY 07/26/18 Clopidogrel Bisulfate [Clopidogrel] 75 mg PO DAILY 07/26/18 Nitroglycerin 0.4 mg SL PRN 07/26/18 Paroxetine HCl [Paxil -] 07/26/18 - Diagnosis (1) Alcohol dependence with uncomplicated withdrawal Status: Acute (2) Cannabis dependence Status: Acute (3) Opioid dependence with withdrawal Status: Acute (4) Sedative, hypnotic or anxiolytic dependence with withdrawal, uncomplicated Status: Acute (5) CAD (coronary artery disease) Status: Chronic Qualifiers: Coronary Disease-Associated Artery/Lesion type: unspecified vessel or lesion type [place] vs. transplanted heart: unspecified whether [place] or transplanted heart Associated angina: angina presence unspecified Qualified Code(s): I25.10 - Atherosclerotic heart disease of [place] coronary artery without angina pectoris (6) History of percutaneous coronary intervention Status: Chronic (7) Hypertension Status: Chronic Qualifiers: Hypertension type: essential hypertension Qualified Code(s): I10 - Essential (primary) hypertension (8) Marijuana dependence Status: Chronic (9) Nicotine dependence Status: Chronic Qualifiers: Nicotine product type: cigarettes Substance use status: in withdrawal Qualified Code(s): F17.213 - Nicotine dependence, cigarettes, with withdrawal (10) Substance induced mood disorder Status: Acute (11) Substance-induced sleep disorder Status: Acute (12) ADHD (attention deficit hyperactivity disorder) Status: Chronic Qualifiers: Attention deficit-hyperactivity disorder type: unspecified Qualified Code(s ): F90.9 - Attention-deficit hyperactivity disorder, unspecified type - AMA Did Patient Leave Against Medical Advice: No
[2018-07-29] MEDS ORDERED: METHADONE HCL 5 MG TABLET (FOR DETOX USE ONLY) PO ONE (06:00)
[2018-07-29] MEDS ORDERED: diazePAM 5 MG TABLET PO SCH (06:00)
== END 2018-07-28 10:41 | disposition home or self-care (01) | DRG 773 ==
LOC: YASAS 13:24 → Y3N 17:20
PROVIDERS: ADMIT Surgery; ATTEND Surgery
PROC: HZ2ZZZZ Detoxification Services for Substance Abuse Treatment (ICD-10-PCS; principal; 2018-07-26)
DX: F11.23 Opioid dependence with withdrawal (principal); F10.230 Alcohol dependence with withdrawal, uncomplicated; F13.230 Sedative, hypnotic or anxiolytic dependence with withdrawal, uncomplicated; F12.20 Cannabis dependence, uncomplicated; F17.213 Nicotine dependence, cigarettes, with withdrawal; F19.24 Other psychoactive substance dependence with psychoactive substance-induced mood disorder; F19.282 Other psychoactive substance dependence with psychoactive substance-induced sleep disorder; F90.9 Attention-deficit hyperactivity disorder, unspecified type; I10 Essential (primary) hypertension; I25.10 Atherosclerotic heart disease of native coronary artery without angina pectoris; I25.2 Old myocardial infarction; R00.0 Tachycardia, unspecified; E66.9 Obesity, unspecified; Z68.36 Body mass index [BMI] 36.0-36.9, adult; Z95.5 Presence of coronary angioplasty implant and graft
CPT/HCPCS: 36415; 80053; 81003; 85027; 86593; 93005; 93010

== ENCOUNTER 2018-09-02 12:06 | Inpatient (IN) | payer OTHER | END 2018-09-04 12:44 | disposition home or self-care (01) | LOC: YASAS 12:06 → Y3N 14:40 ==

== ENCOUNTER 2018-09-28 21:35 | Emergency (ER) | payer OTHER ==
[2018-09-28 22:09] VITALS: BMI 35.9
[2018-09-28] MEDS ORDERED: chlordiazePOXIDE HCL 25 MG CAPSULE PO ONE ×2 (22:35→23:31)
--- NOTE | 2018-09-28 22:35 | PDOC ---
History of Present Illness - General Chief Complaint: Substance Abuse Stated Complaint: HEROIN ABUSE Time Seen by Provider: 09/28/18 22:05 History Source: Patient Exam Limitations: No Limitations - History of Present Illness Initial Comments: 37 yo M w a hx of [place] s/p Stent and heroin abuse presents to the ER stating he is in heroin withdrawal and wants to goto detox. He states he last used heroin this morning at 2 am. He reports using 12 bags of heroin. He also reports to have taken a significant amount of xanax. he also endorses a strong alohol abuse history and states he drinks around a pint of alcohol daily. Here in the ER he has severe abdominal and leg pain and reports to be extremely anxious. He feels like he wants to pull out every hair from his body. He feels extremely nauseous but denies emesis. He states he wants to goto [facility] and was told by [facility] that if he comes to the ER and gets medically cleared they will have a bed for him tomorrow morning. Social Hx: Endorses Heroin, benzo, alcohol, marijuana and cigarette usage. PCP: Oliver Kelly PSH: Stent Allergies: Buspirone Past History - Past Medical History Allergies/Adverse Reactions: Allergies Allergy/AdvReac Type Severity Reaction Status Date / Time buspirone Allergy Severe Difficulty Verified 09/28/18 18:33 Breathing Home Medications: Ambulatory Orders traZODone HCL [Desyrel -] 150 mg PO HS #30 tablet 06/23/17 Citalopram Hydrobromide [Celexa -] 10 mg PO DAILY 07/25/18 Aspirin [Aspirin EC] 81 mg PO DAILY 09/02/18 Dextroamphetamine Sulfate [Zenzedi] 20 mg PO BID 09/02/18 Atorvastatin Ca [Lipitor] 80 mg PO HS #30 tablet 09/04/18 Carvedilol [Coreg -] 3.125 mg PO BID #60 tablet 09/04/18 Clopidogrel Bisulfate [Clopidogrel] 75 mg PO DAILY #30 tablet 09/04/18 Isosorbide Mononitrate [Isosorbide Mononitrate ER] 30 mg PO DAILY #30 tab.er.24h 09/04/18 Lisinopril 5 mg PO DAILY #30 tablet 09/04/18 Nitroglycerin [Nitrostat] 0.4 mg SL PRN PRN #10 tab.subl 09/04/18 Spironolactone 25 mg PO DAILY #30 tablet 09/04/18 Anemia: No Asthma: No Cancer: No Cardiac Disorders: Yes CVA: No COPD: No CHF: No Diabetes: No GI Disorders: No Disorders: No HTN: Yes Hypercholesterolemia: No Kidney Stones: No Liver Disease: No Psychiatric Problems: Yes (depression (MDD)) Seizures: No Thyroid Disease: No - Surgical History Abdominal Surgery: No Appendectomy: No Cardiac Surgery: Yes (cardiac stent) Cholecystectomy: No Lung Surgery: No Neurologic Surgery: No Orthopedic Surgery: No - Reproductive History Testicular Surgery: No - Immunization History Immunization Up to Date: Yes - Suicide/Smoking/Psychosocial Hx Smoking History: Never smoked Have you smoked in the past 12 months: Yes Number of Cigarettes Smoked Daily: 20 If you are a former smoker, when did you quit?: N/A Cigars Per Day: 4 Information on smoking cessation initiated: No 'Breaking Loose' booklet given: 09/28/18 Hx Alcohol Use: Yes Drug/Substance Use Hx: Yes (IVDA, HEROIN) Substance Use Type: Alcohol, Heroin, Tranquilizers Hx Substance Use Treatment: Yes Review of Systems - Review of Systems Able to Perform ROS?: Yes Comments:: CONSTITUTIONAL: Present: Chills Absent: fever, no fatigue EYES: Absent: visual changes ENT: Absent: ear pain, no sore throat CARDIOVASCULAR: Absent: chest pain, no palpitations RESPIRATORY: Absent: cough, no SOB GI: Present: Abdominal pain, nausea Absent: no vomiting, no constipation, no diarrhea GENITOURINARY: Absent: dysuria, no frequency, no hematuria MUSKULOSKELETAL: Present: Back pain, arthralgia Absent: no myalgia SKIN: Absent: rash NEURO: Absent: headache *Physical Exam - Vital Signs Last Vital Signs Temp Pulse Resp BP Pulse Ox 16 135/86 100 09/28/18 21:49 09/28/18 21:49 09/28/18 21:49 - Physical Exam Comments: GENERAL: Extremely anxious. Withdrawing from Heroin. Moderate distress. HEENT: Normocephalic, atraumatic. PERRL, EOM intact. CARDIOVASCULAR: Normal S1, S2. Regular rate and rhythm. PULMONARY: No evidence of respiratory distress. Lungs clear to auscultation bilaterally. No wheezing, rales or rhonchi. ABDOMEN: Soft, non-distended, non-tender. EXTREMITIES: Track boykin on both AC's. Normal ROM in all four extremities. No gross deformities. SKIN: Warm, dry. No rash NEUROLOGICAL: No focal neurological deficits. ED Treatment Course - LABORATORY CBC & Chemistry Diagram: 09/28/18 23:58 09/28/18 23:58 Medical Decision Making - Medical Decision Making 37 yo M w a hx of heroin abuse presents to the ER stating he is in heroin withdrawal and wants to goto detox. He states he last used heroin this morning at 2 am. He reports using 12 bags of heroin. He also reports to have taken a significant amount of xanax. he also endorses a strong alohol abuse history and states he drinks around a pint of alcohol daily. Here in the ER he has severe abdominal and leg pain and reports to be extremely anxious. He feels like he wants to pull out every hair from his body. He feels extremely nauseous but denies emesis. He states he wants to goto [facility] and was told by [facility] that if he comes to the ER and gets medically cleared they will have a bed for him tomorrow morning. Vital Signs Temp Pulse Resp BP Pulse Ox 16 135/86 100 09/28/18 21:49 09/28/18 21:49 09/28/18 21:49 MDM: Patient is likely withdrawing from Heroin Plan: Labs, EKG, Urine tox, Librium, bentyl, clonidine - transfer to [facility] in the AM Patient's symptoms well controlled with Clonidine, motrin, and librium Signing patient out to Dr. Meredith to monitor patient until transferred to [facility] at 8 am - Librium 25 mg Q3 - 0.2 mg Clonidine Q3 PRN *DC/Admit/Observation/Transfer Diagnosis at time of Disposition: Heroin withdrawal - Discharge Dispostion Disposition: HOME Condition at time of disposition: Stable Decision to Admit order: No - Referrals Referrals: ON STAFF,NOT [Primary Care Provider] - - Patient Instructions Printed Discharge Instructions: Chemical Dependency (Narcotic) (Alternative Therapy) Additional Instructions: You came into the ER in withdrawal from heroin. We looked at your blood and found no abnormalities. It is extremely important for you to stop using illegal drugs. We are sending you to [facility] so you can Detox. Come back to the ER if you feel like using drugs again, have chest pain, or any other new or worsening concerns. Thank you for coming to the [facility] ER. We hope you feel better soon! Print Language: KENYAN - Post Discharge Activity
[2018-09-28] MEDS ORDERED: DICYCLOMINE HCL 20 MG/2 ML AMPUL IM ONE (22:36)
[2018-09-28] MEDS ORDERED: chlordiazePOXIDE HCL 25 MG CAPSULE ONE (22:50)
--- NOTE | 2018-09-28 23:23 | PDOC ---
Documentation entered by Leonora Bowman SCRIBE, acting as scribe for Mahi Garcia DO. Mahi Garcia DO: This documentation has been prepared by the jonibe, Leonora Bowman SCRIBE, under my direction and personally reviewed by me in its entirety. I confirm that the documentation accurately reflects all work, treatment, procedures, and medical decision making performed by me. Attending Attestation - Resident Resident Name: Kaden Naranjo - ED Attending Attestation I have performed the following: I have examined & evaluated the patient, The case was reviewed & discussed with the resident, I agree w/resident's findings & plan, Exceptions are as noted - HPI HPI: 09/28/18 23:26 The patient is a 37-year-old male with a past medical history significant for heroin abuse, Xanax, HTN, cardiac stent, IA presents to the emergency department complaining of heroin withdrawal and wants to go to detox. The patient reports his last drug use was at 2:00 am, reports having marijuana, Xanax, and heroin. The patient reports his last alcohol intake was 2 days ago. Currently, the patient is complaining of abdominal cramping, nausea, and feeling cold. The patient reports he wants to go to detox to get clean. Denies chest pain or vomiting. The patient was seen at [facility], was sent to the ER for medical clearance. - Physicial Exam PE: 09/28/18 23:45 GENERAL: +agitated, verbally aggressive. Awake, alert, and fully oriented, in no acute distress HEAD: No signs of trauma EYES: PERRLA, EOMI, sclera anicteric, conjunctiva clear ENT: +tongue fasciculation. Auricles normal inspection, hearing grossly normal, nares patent, oropharynx clear without exudates. Moist mucosa NECK: Normal ROM, supple, no lymphadenopathy, JVD, or masses LUNGS: Breath sounds equal, clear to auscultation bilaterally. No wheezes, and no crackles HEART: +mild tachycardia. Regular rate and rhythm, normal S1 and S2, no murmurs , rubs or gallops ABDOMEN: Soft, nontender. No guarding, no rebound. No masses EXTREMITIES: +little tremulous Normal range of motion, no edema. No clubbing or cyanosis. No cords, erythema, or tenderness NEUROLOGICAL: Cranial nerves II through XII grossly intact. Normal speech, normal gait SKIN: No piloerection. Warm, Dry, normal turgor, no rashes or lesions noted. - Medical Decision Making 09/28/18 23:18 I, Dr. Mahi Garcia, DO, attest that this document has been prepared under my direction and personally reviewed by me in its entirety. I further attest, that it accurately reflects all work, treatment, procedures and medical decision -making performed by me. 09/28/18 23:18 a/p: 37yo male with heroin, marijuana, and xanax use at 2am -last etoh was 2 days ago -pt denies si/hi -pt arrives agitated -c/o abd cramping -pt was at [facility] - no beds available, no bed available until 8am -pt denies cp/sob -pt requesting to go to detox -will send labs -will medicate with librium, bentyl -will monitor and reassess 09/28/18 23:23 call placed to [facility]- no beds until 8am 09/28/18 23:30 will treat for alcohol and heroin withdrawal in the ED 09/29/18 01:21 pt with abnl ekg- re eval: no cp will add trop hx of IA treated at [facility] pt with abnl ekg in july that is unchanged compared to today ekg 09/29/18 01:22 trop is negative 09/29/18 02:03 pt pending transfer to [facility] in the AM labs reviewed Drug screen reviewed Heart Score/ECG Review - ECG Intrepretation Comment:: 09/29/18 01:18 ekg: sinus dax at 59, 1st degree av block, q waves anteriolateral with t wave inversions/st changes - unchanged from July EKGS
[2018-09-28] MEDS ORDERED: cloNIDine HCL 0.1 MG TABLET PO ONE (23:32)
[2018-09-28] MEDS ORDERED: IBUPROFEN 600 MG TABLET (FP) PO ONE (23:33)
[2018-09-29 00:05] LABS: BASO % 0.7 % (0-2.0); EOS % 1.4 % (0-4.5); HEMOGLOBIN 14.1 GM/dL (11.7-16.9); LYMPH % 23.7 % (8-40); MCH 31.7 pg (25.7-33.7); MCHC 34.3 g/dl (32.0-35.9); MEAN CELL VOLUME 92.4 fl (80-96); MEAN PLT VOLUME 7.9 fl (7.5-11.1); MONO % 6.7 % (3.8-10.2); NEUT % 67.5 % (42.8-82.8); PLATELET COUNT 215 K/MM3 (134-434); RBC 4.44 M/mm3 (4.00-5.60); RDW 13.2 % (11.9-15.9); WHITE BLOOD COUNT 8.6 K/mm3 (4.0-10.0)
[2018-09-29] MEDS ORDERED: chlordiazePOXIDE HCL 25 MG CAPSULE ONE (00:11)
[2018-09-29] MEDS ORDERED: cloNIDine HCL 0.1 MG TABLET ONE (00:11)
[2018-09-29] MEDS ORDERED: IBUPROFEN 600 MG TABLET (FP) PO ONE (00:12)
[2018-09-29 00:16] LABS: URINE APPEARANCE CLEAR; URINE BILIRUBIN NEGATIVE (NEGATIVE); URINE COLOR YELLOW; URINE GLUCOSE (UA) NEGATIVE (NEGATIVE); URINE KETONE NEGATIVE (NEGATIVE); URINE LEUK ESTERASE NEGATIVE (NEGATIVE); URINE NITRITE NEGATIVE (NEGATIVE); URINE PROTEIN NEGATIVE (NEGATIVE)
[2018-09-29 00:17] LABS: INR 1.08 (0.83-1.09); PROTHROMBIN TIME (PATIENT) 12.7 SEC (9.7-13.0)
[2018-09-29 00:22] VITALS: PULSE 64
[2018-09-29 00:28] LABS: ALBUMIN 4.1 g/dl (3.4-5.0); BILIRUBIN,TOTAL 0.5 mg/dL (0.2-1); BLOOD UREA NITROGEN 14.2 mg/dL (7-18); CALCIUM 8.7 mg/dL (8.5-10.1); CREATININE 0.9 mg/dL (0.55-1.3); POTASSIUM 3.9 mmol/L (3.5-5.1); TOT PROT 7.1 g/dl (6.4-8.2)
[2018-09-29 00:40] LABS: COCAINE, UR NEGATIVE ng/ml (CUTOFF=300); PHENCYCLIDINE,URINE NEGATIVE ng/ml (CUTOFF=25); URINE AMPHETAMINES NEGATIVE ng/ml (CUTOFF=500); URINE BARBITURATES NEGATIVE ng/ml (CUTOFF=200)
[2018-09-29 00:41] LABS: URINE BENZODIAZEPINES POSITIVE ng/ml (CUTOFF=200)
[2018-09-29 00:42] LABS: METHADONE, UR POSITIVE ng/ml (CUTOFF=300); OPIATES, URI POSITIVE ng/ml (CUTOFF=300)
--- NOTE | 2018-09-29 02:04 | PDOC ---
*Physical Exam - Vital Signs Last Vital Signs Temp Pulse Resp BP Pulse Ox 64 18 129/94 97 09/29/18 00:20 09/29/18 00:20 09/29/18 00:20 09/29/18 00:20 ED Treatment Course - LABORATORY CBC & Chemistry Diagram: 09/28/18 23:58 09/28/18 23:58 - ADDITIONAL ORDERS Additional order review: Laboratory Results 09/29/18 09/28/18 09/28/18 00:45 23:59 23:59 PT with INR INR Sodium Potassium Chloride Carbon Dioxide Anion Gap BUN Creatinine Est GFR (CKD-EPI)AfAm Est GFR (CKD-EPI)NonAf Random Glucose Calcium Total Bilirubin AST ALT Alkaline Phosphatase Troponin I 0.02 Total Protein Albumin Urine Color Yellow Urine Appearance Clear Urine pH 5.0 Ur Specific [place] 1.026 Urine Protein Negative Urine Glucose (UA) Negative Urine Ketones Negative Urine Blood Negative Urine Nitrite Negative Urine Bilirubin Negative Urine Urobilinogen 1.0 Ur Leukocyte Esterase Negative Opiates Screen Positive A* Methadone Screen Positive A* Acetaminophen Barbiturate Screen Negative Phencyclidine Screen Negative Ur Amphetamines Screen Negative MDMA (Ecstasy) Screen Positive A* Benzodiazepines Screen Positive A* Cocaine Screen Negative U Marijuana (THC) Screen Positive A* Alcohol, Quantitative 09/28/18 09/28/18 09/28/18 23:58 23:58 23:58 PT with INR 12.70 INR 1.08 Sodium 137 Potassium 3.9 Chloride 102 Carbon Dioxide 30 Anion Gap 5 L BUN 14.2 Creatinine 0.9 Est GFR (CKD-EPI)AfAm 127.80 Est GFR (CKD-EPI)NonAf 110.27 Random Glucose 103 Calcium 8.7 Total Bilirubin 0.5 AST 32 ALT 52 Alkaline Phosphatase 66 Troponin I Total Protein 7.1 Albumin 4.1 Urine Color Urine Appearance Urine pH Ur Specific [place] Urine Protein Urine Glucose (UA) Urine Ketones Urine Blood Urine Nitrite Urine Bilirubin Urine Urobilinogen Ur Leukocyte Esterase Opiates Screen Methadone Screen Acetaminophen < 2.0 L Barbiturate Screen Phencyclidine Screen Ur Amphetamines Screen MDMA (Ecstasy) Screen Benzodiazepines Screen Cocaine Screen U Marijuana (THC) Screen Alcohol, Quantitative < 3.0 09/28/18 23:58 RBC 4.44 MCV 92.4 MCHC 34.3 RDW 13.2 MPV 7.9 Neutrophils % 67.5 D Lymphocytes % 23.7 D Monocytes % 6.7 Eosinophils % 1.4 Basophils % 0.7 - Medications Given in the ED: ED Medications Discontinued Medications Generic Name Dose Route Start Last Admin Trade Name John Paul PRN Reason Stop Dose Admin Chlordiazepoxide HCl 25 mg 09/28/18 22:35 09/28/18 22:54 Librium - PO 09/28/18 22:36 25 mg ONCE ONE Administration Chlordiazepoxide HCl 50 mg 09/28/18 23:31 09/29/18 00:12 Librium - PO 09/28/18 23:32 50 mg ONCE ONE Administration Clonidine 0.3 mg 09/28/18 23:32 09/29/18 00:12 Catapres - PO 09/28/18 23:33 0.3 mg ONCE ONE Administration Dicyclomine HCl 20 mg 09/28/18 22:36 09/28/18 23:13 Bentyl Injection - IM 09/28/18 22:37 20 mg ONCE ONE Administration Ibuprofen 600 mg 09/28/18 23:33 09/29/18 00:12 Motrin - PO 09/28/18 23:34 600 mg ONCE ONE Administration Medical Decision Making - Medical Decision Making 09/29/18 02:01 Received sign out from resident Dr. Chowdary. In short, pt is a 37 y/o male with h/o of polysubstance abuse. Expect to be transferred to [facility] at 8 am for detox. Pt slept comfortably. No acute events. Continuing to await transfer to [facility]. Pt signed out to resident Dr. Asif after he was verbally appraised of the pts HPI, current ED course, and plan of management. Will f/u on pending transfer. *DC/Admit/Observation/Transfer Diagnosis at time of Disposition: Heroin withdrawal - Discharge Dispostion Disposition: HOME Condition at time of disposition: Good - Referrals Referrals: ON STAFF,NOT [Primary Care Provider] - - Patient Instructions Printed Discharge Instructions: Chemical Dependency (Narcotic) (Alternative Therapy) Additional Instructions: You were seen today for evaluation for medical clearance for detox after using Heroin. Your labs and EKG were normal today. You are safe to be discharged to [facility] for detox. We wish you the best of luck with your journey to sobriety! Go to the nearest emergency department if your condition worsens or you feel like you need additional emergency evaluation. If you are not able to stay with [facility], below are several other options for detox: [facility] [address], [place] [address] 24 Hour Facility [phone] Directions Located on the corner of [address] [employer]ops [address] Stops Subway Train Lines A, C, B, D, 1 at [facility] N, R, Q at [address] Bus Lines M57, M31, M11 [facility] [address] [address] Hours of Operation 9 a.m. - 8 p.m. [facility] is a Substance Abuse Rehab Services in [place], [place] Address: [address] [place] [address], [address] Intake Line: [phone] Website: [email or web address] Primary Focus: Substance Abuse Rehab Services Treatment Type: Hospital inpatient, Hospital inpatient detoxification, General Hospital(including [place] hospital) Treatment Approaches: No information available, please contact the facility directly. [facility] located in [place], [place]. Address: [address] [place] [address] [place] [address] , [address] Print Language: ROMANIAN - Post Discharge Activity
[2018-09-29 05:59] VITALS: BP 94/52
--- NOTE | 2018-09-29 13:36 | EKG ---
Test Reason : Blood Pressure : / mmHG Vent. Rate : 059 BPM Atrial Rate : 059 BPM P-R Int : 208 ms QRS Dur : 110 ms QT Int : 440 ms P-R-T Axes : 036 062 061 degrees QTc Int : 435 ms SINUS BRADYCARDIA ANTEROLATERAL INFARCT (CITED ON OR BEFORE 24-JUL-2018) ABNORMAL ECG WHEN COMPARED WITH ECG OF 26-JUL-2018 16:34, NO SIGNIFICANT CHANGE WAS FOUND Confirmed by KAMAR PRAJAPATI MD ([id number]) on 09/29/2018 1:35:35 PM Referred By: Confirmed By:KAMAR PRAJAPATI MD
== END 2018-09-29 08:35 | disposition home or self-care (01) ==
LOC: JER 21:35
PROC: 3E023GC Introduction of Other Therapeutic Substance into Muscle, Percutaneous Approach (ICD-10-PCS; principal; 2018-09-28)
DX: F11.23 Opioid dependence with withdrawal (principal); F10.20 Alcohol dependence, uncomplicated; F13.10 Sedative, hypnotic or anxiolytic abuse, uncomplicated; I25.10 Atherosclerotic heart disease of native coronary artery without angina pectoris; I10 Essential (primary) hypertension; Z95.5 Presence of coronary angioplasty implant and graft; I25.2 Old myocardial infarction; F33.9 Major depressive disorder, recurrent, unspecified
CPT/HCPCS: 36415; 80053; 80307; 81003; 84484; 85025; 85610; 93005; 93010; 99281-25; J0735

== ENCOUNTER 2018-09-29 08:56 | Inpatient (IN) | payer OTHER ==
[2018-09-29 09:22] VITALS: BMI 35.9
--- NOTE | 2018-09-29 09:44 | HP ---
"COWS - Scale Resting Pulse: 0= CA 80 or Below Sweatin=Flushed/Facial Moisture Restless Observation: 3= Extraneous Movement Pupil Size: 1= Pupils >than Normal Bone or Joint Aches: 4=Acute Joint/Muscle Pain Runny Nose/ Eye Tearin= Nasal Congestion GI Upset > 30mins: 2= Nausea/Diarrhea Tremor Observation: 0= None Yawning Observation: 0= None Anxiety or Irritability: 2=Irritable/Anxious Goose Flesh Skin: 0=Smooth Skin COWS Score: 15 CIWA Score Nausea/Vomitin Muscle Tremors: None Anxiety: 4-Mod. Anxious/Guarded Agitation: 4-Moderately Restless Paroxysmal Sweats: 2 Orientation: 0-Oriented Tacttile Disturbances: 0-None Auditory Disturbances: 2-Mild Harshness/Frighten Visual Disturbances: 0-None Headache: 0-None Present CIWA-Ar Total Score: 15 - Admission Criteria OASAS Guidelines: Admission for Medically Managed Detox: Requires at least one of the followin. CIWA greater than 12 2. Seizures within the past 24 hours 3. Delirium tremens within the past 24 hours 4. Hallucinations within the past 24 hours 5. Acute intervention needed for co occurring medical disorder 6. Acute intervention needed for co occurring psychiatric disorder 7. Severe withdrawal that cannot be handled at a lower level of care (continued vomiting, continued diarrhea, abnormal vital signs) requiring intravenous medication and/or fluids 8. Admission ROS [facility] Allergies/Adverse Reactions: Allergies Allergy/AdvReac Type Severity Reaction Status Date / Time buspirone Allergy Severe Difficulty Verified 09/29/18 09:18 Breathing History of Present Illness: Search Terms: angelique liulucien, 1980 Search Date: 09/29/2018 09:43:57 AM The Drug Utilization Report below displays all of the controlled substance prescriptions, if any, that your patient has filled in the last twelve months. The information displayed on this report is compiled from pharmacy submissions to the Department, and accurately reflects the information as submitted by the pharmacies. This report was requested by: Blanca Galvin | Reference #: [id number] There are no results for the search terms that you entered. Search Terms: angelique marilynn, 1980 Search Date: 09/29/2018 09:43:57 AM The Drug Utilization Report below displays all of the controlled substance prescriptions, if any, that your patient has filled in the last twelve months. The information displayed on this report is compiled from pharmacy submissions to the Department, and accurately reflects the information as submitted by the pharmacies. This report was requested by: Blanca Galvin | Reference #: [id number] There are no results for the search terms that you entered. H& P reviewed 09/28/18 . no use since yesterday morning , current symptoms as above . Exam Limitations: Clinical Condition - Ebola screening Have you traveled outside of the country in the last 21 days: No Have you had contact with anyone from an Ebola affected area: No Do you have a fever: No - Review of Systems Constitutional: See HPI EENT: reports: See HPI Respiratory: reports: No Symptoms reported Cardiac: reports: No Symptoms Reported GI: reports: See HPI : reports: No Symptoms Reported Musculoskeletal: reports: See HPI Integumentary: reports: See HPI Neuro: reports: See HPI Endocrine: reports: No Symptoms Reported Psychiatric: reports: Orientated x3, Agitated, Anxious Patient History - Patient Medical History Hx Anemia: No Hx Asthma: No Hx Chronic Obstructive Pulmonary Disease (COPD): No Hx Cancer: No Hx Cardiac Disorders: Yes Hx Congestive Heart Failure: No Hx Hypertension: Yes Hx Hypercholesterolemia: No Hx Pacemaker: No HX Cerebrovascular Accident: No Hx Seizures: No Hx Diabetes: No Hx Gastrointestinal Disorders: No Hx Liver Disease: No Hx Genitourinary Disorders: No Hx Sexually Transmitted Disorders: No Hx Renal Disease (ESRD): No Hx Thyroid Disease: No Hx Human Immunodeficiency Virus (HIV): No (negative 2017 last negative) Hx Hepatitis C: No Hx Depression: Yes Hx Suicide Attempt: No Hx Bipolar Disorder: No Hx Schizophrenia: No - Patient Surgical History Past Surgical History: No Hx Neurologic Surgery: No Hx Cataract Extraction: No Hx Cardiac Surgery: Yes (cardiac stent) Hx Lung Surgery: No Hx Breast Surgery: No Hx Breast Biopsy: No Hx Abdominal Surgery: No Hx Appendectomy: No Hx Cholecystectomy: No Hx Genitourinary Surgery: No Hx Section: No Hx Orthopedic Surgery: No Anesthesia Reaction: No - PPD History Date: 07/28/18 Results: 0 mm - Smoking Cessation Smoking history: Never smoked Have you smoked in the past 12 months: Yes Aproximately how many cigarettes per day: 20 If you are a former smoker, when did you quit?: N/A Cigars Per Day: 4 Hx Chewing Tobacco Use: No (N/A) - Substances abused Heroin Substance route: Injection Frequency: Daily Amount used: 10bags Age of first use: 29 Date of last use: 09/28/18 Alprazolam (Xanax) Substance route: Oral Frequency: Daily Amount used: 4-8mg Age of first use: 37 Date of last use: 09/28/18 Marijuana/Hashish Substance route: Smoking Frequency: Daily Amount used: $30 Age of first use: 24 Date of last use: 09/28/18 Alcohol Substance route: Oral Frequency: 3-6 times per week Amount used: two shots vodka Age of first use: 16 Date of last use: 09/27/18 Family Disease History - Family Disease History Family Disease History: Heart Disease: Grandparent, Father (KILLED, hx drug use) , Mother (living, ), Other: Father, Mother, Brother (two - living - drug use), Sister (one - living - drug use) Admission Physical Exam [facility] - Vital Signs Vital Signs: Vital Signs - 24 hr 09/29/18 09:19 Temperature 97.4 F L Pulse Rate 70 Respiratory 18 Rate Blood Pressure 101/62 - Physical General Appearance: Yes: Moderate Distress, Severe Distress, Anxious HEENTM: Yes: EOMI, Normocephalic, Normal Voice Respiratory: Yes: No Respiratory Distress, No Accessory Muscle Use, Wheezing ( scattered) Neck: Yes: No masses,lesions,Nodules, Trachea in good position Cardiology: Yes: Regular Rhythm, Regular Rate, S1, S2 Abdominal: Yes: Soft Back: Yes: Normal Inspection Musculoskeletal: Yes: Gait Steady Extremities: Yes: Normal Range of Motion Neurological: Yes: Fully Oriented, Alert, Motor Strength 5/5 Integumentary: Yes: Warm, Track Cotton - Diagnostic (1) Opioid dependence with withdrawal Current Visit: Yes Status: Acute (2) Sedative, hypnotic or anxiolytic dependence with withdrawal, uncomplicated Current Visit: Yes Status: Acute (3) Cannabis dependence Current Visit: Yes Status: Chronic (4) Nicotine dependence Current Visit: Yes Status: Chronic Qualifiers: Nicotine product type: cigarettes Breathalyzer - Breathalyzer Breathalyzer: 0 Urine Drug Screen - Test Device Lot number: [id number] Expiration date: 06/08/20 - Control Is test valid?: Yes - Results Drug screen NEGATIVE: No Urine drug screen results: THC-Marijuana, MOP-Opiates, BZO-Benzodiazepines, BUP- Suboxone Inpatient Rehab Admission - Rehab Decision to Admit Inpatient rehab admission?: No"
[2018-09-29] MEDS ORDERED: BISMUTH SUBSALICYLATE 262 MG/15 ML BTL PO PRN (10:04)
[2018-09-29] MEDS ORDERED: MELATONIN 5 MG TABLETS PO PRN (10:04)
[2018-09-29] MEDS ORDERED: MAGNESIUM HYDROX 2400MG/30ML ORAL SUSPENSION 30 ML CUP PO PRN (10:04)
[2018-09-29] MEDS ORDERED: ACETAMINOPHEN 325 MG TABLET (FP) PO PRN ×2 (10:04)
[2018-09-29] MEDS ORDERED: chlordiazePOXIDE HCL 25 MG CAPSULE PO PRN (10:04)
[2018-09-29] MEDS ORDERED: hydrOXYzine PAMOATE 25 MG CAPSULE (FP) PO PRN (10:04)
[2018-09-29] MEDS ORDERED: MAG HYDROX/AL HYDROX/SIMETH 30 ML UNIT-DOSE CUP PO PRN (10:04)
[2018-09-29] MEDS ORDERED: MENTHOL/PHENOL 1 EACH UD MM PRN (10:04)
[2018-09-29] MEDS ORDERED: MAGNESIUM CITRATE 300 ML BOTTLE PO PRN (10:04)
[2018-09-29] MEDS ORDERED: NITROGLYCERIN SUBLINGUAL 1/150 0.4 MG TAB SL PRN (10:07)
[2018-09-29] MEDS ORDERED: ALBUTEROL SO4 0.083% IH SOL 2.5 MG/3 ML VIAL.NEB. NEB PRN (10:23)
[2018-09-29] MEDS ORDERED: METHADONE HCL 10 MG TABLET (FOR DETOX USE ONLY) PO ONE (10:45)
[2018-09-29] MEDS: CLOPIDOGREL BISULFATE 75 MG TABLET (FP) PO SCH (10:54)
[2018-09-29] MEDS: NICOTINE 14 MG/24 HOURS TOPICAL PATCH TD SCH (10:54)
[2018-09-29] MEDS: chlordiazePOXIDE HCL 25 MG CAPSULE PO SCH ×3 (10:54→22:22)
[2018-09-29] MEDS: LISINOPRIL 5 MG TABLET (FP) PO SCH (10:54)
--- NOTE | 2018-09-29 11:41 | CONSULT ---
[facility] Psychiatric Consult - Data Date of interview: 09/29/18 Admission source: [facility] Identifying data: Patient is a 37 year old single male, without children, unemployed, domiciled, and is supported by family. This is one of multiple admissions for patient. Patient admitted to for for opiate, benzodiazepine, and cannabis dependence. Substance Abuse History: Smoking Cessation. Smoking history: Never smoked. Have you smoked in the past 12 months: Yes. Aproximately how many cigarettes per day: 20. If you are a former smoker, when did you quit?: N/A. Cigars Per Day: 4. Hx Chewing Tobacco Use: No (N/A). - Substances abused. Heroin. Substance route: Injection. Frequency: Daily. Amount used: 10bags. Age of first use: 29. Date of last use: 09/28/18. Alprazolam (Xanax). Substance route: Oral. Frequency: Daily. Amount used: 4-8mg. Age of first use: 37. Date of last use: 09/28/18. Marijuana/Hashish. Substance route: Smoking. Frequency: Daily. Amount used: $30. Age of first use: 24. Date of last use: 09/28/18. Alcohol. Substance route: Oral. Frequency: 3-6 times per week. Amount used: two shots vodka. Age of first use: 16. Date of last use: 09/27/18 Medical History: Significant for HTN, Cardiac STENT, [place] (five months ago) Psychiatric History: Patient denies h/o psychiatric hospitalizations. Patient's most recent outpatient psychiatric care was at [facility] approximately two years ago. He was prescribed Wellbutrin 150mg XL+ Trazodone 150mg+ Gabapentin 300mg TID + adderall 20mg BID + Clonodine 0.3mg BID. Patient was admitted to [facility] on 05/2018 after he accidentally overdosed and suffered a heart attack. While at [facility] he saw a psychiatrist who diagnosed him with depression and anxiety and prescribed him celexa 10mg + trazodone 150mg . He reports medication compliance. Mr. Bellamy receives refills of his medication from his PCP. Patient denies h/o suicide attempt. Medications to be resumed in detox. Physical/Sexual Abuse/Trauma History: denies. Mental Status Exam - Mental Status Exam Alert and Oriented to: Time, Place, Person Cognitive Function: Good Patient Appearance: Well Groomed Mood: Euthymic Affect: Appropriate Patient Behavior: Cooperative Speech Pattern: Appropriate Voice Loudness: Normal Thought Process: Goal Oriented Thought Disorder: Not Present Hallucinations: Denies Suicidal Ideation: Denies Homicidal Ideation: Denies Insight/Judgement: Poor Sleep: Poorly Appetite: Fair Muscle strength/Tone: Normal Gait/Station: Normal Psychiatric Findings - Problem List ([place] 1, 2,3) (1) Opioid dependence with withdrawal Status: Acute (2) Sedative, hypnotic or anxiolytic dependence with withdrawal, uncomplicated Status: Acute (3) Cannabis dependence Status: Chronic (4) Nicotine dependence Status: Chronic Qualifiers: Nicotine product type: cigarettes (5) Substance-induced sleep disorder Status: Acute (6) ADHD (attention deficit hyperactivity disorder) Status: Chronic Qualifiers: Attention deficit-hyperactivity disorder type: unspecified Qualified Code(s ): F90.9 - Attention-deficit hyperactivity disorder, unspecified type Comment: Self-report. (7) Depressive disorder Status: Chronic (8) Substance induced mood disorder Status: Acute - Initial Treatment Plan Initial Treatment Plan: Psychoeducation provided. Detoxification in progress. Will order Celexa 10mg + Trazodone 150mg HS. Benefits and side effects discussed. Verbal consent given.
[2018-09-29] MEDS: SPIRONOLACTONE 25 MG TABLET (FP) PO SCH (11:46)
[2018-09-29] MEDS: ISOSORBIDE MONONITRATE 30 MG TAB.SR.24H (FP) PO SCH (11:46)
[2018-09-29] MEDS: CARVEDILOL 3.125 MG TABLET (FP) PO SCH ×2 (11:46→22:22)
[2018-09-29] MEDS: traZODone HCL 50 MG TABLET (FP) PO SCH (22:21)
[2018-09-29] MEDS: ATORVASTATIN CA 80 MG TABLET (FP) PO SCH (22:22)
[2018-09-29] MEDS: THIAMINE HCL 100 MG TABLET (FP) PO SCH (22:23)
[2018-09-30] MEDS: chlordiazePOXIDE HCL 25 MG CAPSULE PO SCH ×4 (06:48→22:12)
[2018-09-30] MEDS ORDERED: METHADONE HCL 10 MG TABLET (FOR DETOX USE ONLY) PO ONE (10:00)
[2018-09-30] MEDS: SPIRONOLACTONE 25 MG TABLET (FP) PO SCH (10:48)
[2018-09-30] MEDS: ISOSORBIDE MONONITRATE 30 MG TAB.SR.24H (FP) PO SCH (10:49)
[2018-09-30] MEDS: CARVEDILOL 3.125 MG TABLET (FP) PO SCH ×2 (10:49→22:11)
[2018-09-30] MEDS: CLOPIDOGREL BISULFATE 75 MG TABLET (FP) PO SCH (10:49)
[2018-09-30] MEDS: ASPIRIN COATED 81 MG TABLET.EC PO SCH (10:49)
[2018-09-30] MEDS: PRENATAL VITAMINS W/ FOLIC ACID TABLET (FP) PO SCH (10:49)
[2018-09-30] MEDS: LISINOPRIL 5 MG TABLET (FP) PO SCH (10:50)
[2018-09-30] MEDS: NICOTINE 14 MG/24 HOURS TOPICAL PATCH TD SCH (11:36)
[2018-09-30] MEDS: CITALOPRAM HYDROBROMIDE 10 MG TABLET (FP) PO SCH (11:37)
--- NOTE | 2018-09-30 12:28 | PN ---
S CIWA - CIWA Score Nausea/Vomitin-No Nausea/No Vomiting Muscle Tremors: None Anxiety: 3 Agitation: 4-Moderately Restless Paroxysmal Sweats: No Perspiration Orientation: 0-Oriented Tacttile Disturbances: 0-None Auditory Disturbances: 0-None Visual Disturbances: 0-None Headache: 0-None Present CIWA-Ar Total Score: 7 S COWS - Scale Resting Pulse: 0= [place] 80 or Below Sweatin= No chills or Flushing Restless Observation: 1= Difficult to Sit Still Pupil Size: 2= Moderately Dilated Bone or Joint Aches: 2= Severe Diffuse Aches Runny Nose/ Eye Tearin= None GI Upset > 30mins: 0= None Tremor Observation of Outstretched Hands: 0= None Yawning Observation: 0= None Anxiety or Irritability: 2=Irritable/Anxious Goose Flesh Skin: 0=Smooth Skin COWS Score: 7 S Progress Note (SOAP) Subjective: PATIENT C/O FEELING ANXIOUS AND RESTLESS. Objective: 09/30/18 12:27 Vital Signs (72 hours) 09/29/18 09/29/18 09/29/18 09:19 14:00 17:35 Temperature 97.4 F L 98.1 F 98.1 F Pulse Rate 70 82 73 Respiratory 18 16 18 Rate Blood Pressure 101/62 122/62 104/63 09/29/18 09/30/18 09/30/18 21:42 00:30 03:30 Temperature 98.6 F Pulse Rate 65 Respiratory 17 20 20 Rate Blood Pressure 108/60 09/30/18 09/30/18 08:27 09:53 Temperature 97.2 F L 97.0 F L Pulse Rate 65 66 Respiratory 18 18 Rate Blood Pressure 93/50 L 134/70 Vital Signs Temperature 97.0 F L 09/30/18 09:53 Pulse Rate 66 09/30/18 09:53 Respiratory Rate 18 09/30/18 09:53 Blood Pressure 134/70 09/30/18 09:53 O2 Sat by Pulse Oximetry (%) PE: ALERT AND ORIENTED X 3 SKIN WARM AND DRY +PERRLA EOMS INTACT BL EXT FULL ROM, AMB AD ABBY ANXIOUS/RESTLESS/PACING IN HALLWAY Assessment: 09/30/18 12:28 WITHDRAWAL SX Plan: CONTINUE DETOX LABS PENDING MONITOR
[2018-09-30] MEDS: traZODone HCL 50 MG TABLET (FP) PO SCH (22:11)
[2018-09-30] MEDS: ATORVASTATIN CA 80 MG TABLET (FP) PO SCH (22:11)
[2018-09-30] MEDS: THIAMINE HCL 100 MG TABLET (FP) PO SCH (22:12)
[2018-10-01] MEDS: chlordiazePOXIDE HCL 25 MG CAPSULE PO SCH (06:24)
[2018-10-01] MEDS ORDERED: METHADONE HCL 10 MG TABLET (FOR DETOX USE ONLY) PO ONE (10:00)
[2018-10-01] MEDS: CITALOPRAM HYDROBROMIDE 10 MG TABLET (FP) PO SCH (10:22)
[2018-10-01] MEDS: CLOPIDOGREL BISULFATE 75 MG TABLET (FP) PO SCH (10:22)
[2018-10-01] MEDS: ASPIRIN COATED 81 MG TABLET.EC PO SCH (10:23)
[2018-10-01] MEDS: PRENATAL VITAMINS W/ FOLIC ACID TABLET (FP) PO SCH (10:23)
[2018-10-01] MEDS: chlordiazePOXIDE HCL 10 MG CAPSULE PO SCH ×2 (10:27→18:08)
[2018-10-01] MEDS: SPIRONOLACTONE 25 MG TABLET (FP) PO SCH (10:29)
[2018-10-01] MEDS: CARVEDILOL 3.125 MG TABLET (FP) PO SCH (10:29)
[2018-10-01] MEDS: ISOSORBIDE MONONITRATE 30 MG TAB.SR.24H (FP) PO SCH (10:30)
[2018-10-01] MEDS: NICOTINE 14 MG/24 HOURS TOPICAL PATCH TD SCH (10:30)
[2018-10-01] MEDS: LISINOPRIL 5 MG TABLET (FP) PO SCH (10:30)
[2018-10-01] MEDS ORDERED: chlordiazePOXIDE HCL 10 MG CAPSULE PO PRN (11:00)
[2018-10-01 14:15] VITALS: TEMP 97.7
--- NOTE | 2018-10-01 15:53 | PN ---
S CIWA - CIWA Score Nausea/Vomitin-Mild Nausea/No Vomiting Muscle Tremors: 3 Anxiety: 3 Agitation: 3 Paroxysmal Sweats: 3 Orientation: 0-Oriented Tacttile Disturbances: 0-None Auditory Disturbances: 0-None Visual Disturbances: 0-None Headache: 0-None Present CIWA-Ar Total Score: 13 S COWS - Scale Resting Pulse: 0= [place] 80 or Below Sweatin= Chills/Flushing Restless Observation: 3= Extraneous Movement Pupil Size: 0= Normal to Room Light Bone or Joint Aches: 2= Severe Diffuse Aches Runny Nose/ Eye Tearin= None GI Upset > 30mins: 2= Nausea/Diarrhea Tremor Observation of Outstretched Hands: 2= Slight Tremor Visible Yawning Observation: 0= None Anxiety or Irritability: 2=Irritable/Anxious Goose Flesh Skin: 0=Smooth Skin COWS Score: 12 BHS Progress Note (SOAP) Subjective: Feels ok, symptoms alleviated with medication. Patient refused to elaborate. Objective: 10/01/18 15:49 Last Vital Signs Temp Pulse Resp BP Pulse Ox 97.7 F 70 17 125/75 10/01/18 14:14 10/01/18 14:14 10/01/18 14:14 10/01/18 14:14 Admission labs on 09/28/18 reviewed Assessment: 10/01/18 15:53 Withdrawal symptoms Plan: Continue detox Encouraged PO water hydration
--- NOTE | 2018-10-01 17:30 | PN ---
[facility] Progress Note Note: informed by nurse,patient did not want to complete treatment,stated he is feeling well,would like to leave now to go to see maintenance service technician tomorrow,the risk of relapsing is high,patient understood,patient has all medication,signed release ama, patient signed release ama,advice Vital Signs Temperature 97.7 F 10/01/18 14:14 Pulse Rate 70 10/01/18 14:14 Respiratory Rate 17 10/01/18 14:14 Blood Pressure 125/75 10/01/18 14:14 O2 Sat by Pulse Oximetry (%) fo call 911 if not feeling well, left unit in stable condition
--- NOTE | 2018-10-01 17:59 | DS ---
[facility] Detox Discharge Summary Admission Date: 09/29/18 Discharge Date: 10/01/18 - History Present History: Alcohol Dependence, Cannabis Dependence, Opioid Dependence, Sedative Dependence Additional Comments: patient signed release ama,has all medications at home Pertinent Past History: history of mi nicotine dependence - Physical Exam Results Vital Signs: Vital Signs Temperature 97.7 F 10/01/18 14:14 Pulse Rate 70 10/01/18 14:14 Respiratory Rate 17 10/01/18 14:14 Blood Pressure 125/75 10/01/18 14:14 O2 Sat by Pulse Oximetry (%) Pertinent Admission Physical Exam Findings: withdrawal sign and symptom - Medication Discharge Medications: Ambulatory Orders traZODone HCL [Desyrel -] 150 mg PO HS #30 tablet 06/23/17 Citalopram Hydrobromide [Celexa -] 10 mg PO DAILY 07/25/18 Aspirin [Aspirin EC] 81 mg PO DAILY 09/02/18 Atorvastatin Ca [Lipitor] 80 mg PO HS #30 tablet 09/04/18 Carvedilol [Coreg -] 3.125 mg PO BID #60 tablet 09/04/18 Clopidogrel Bisulfate [Clopidogrel] 75 mg PO DAILY #30 tablet 09/04/18 Isosorbide Mononitrate [Isosorbide Mononitrate ER] 30 mg PO DAILY #30 tab.er.24h 09/04/18 Lisinopril 5 mg PO DAILY #30 tablet 09/04/18 Nitroglycerin [Nitrostat] 0.4 mg SL PRN PRN #10 tab.subl 09/04/18 Spironolactone 25 mg PO DAILY #30 tablet 09/04/18 - AMA Did Patient Leave Against Medical Advice: Yes
[2018-10-01 18:07] VITALS: BP 106/62; PULSE 64
[2018-10-02] MEDS ORDERED: METHADONE HCL 10 MG TABLET (FOR DETOX USE ONLY) PO ONE (10:00)
[2018-10-02] MEDS ORDERED: chlordiazePOXIDE HCL 10 MG CAPSULE PO SCH (11:00)
[2018-10-03] MEDS ORDERED: METHADONE HCL 5 MG TABLET (FOR DETOX USE ONLY) PO ONE (06:00)
== END 2018-10-01 17:45 | disposition left against medical advice (07) | DRG 770 ==
LOC: YASAS 08:56 → Y6N 10:15
PROVIDERS: ADMIT Surgery; ATTEND Surgery
PROC: HZ2ZZZZ Detoxification Services for Substance Abuse Treatment (ICD-10-PCS; principal; 2018-09-29)
DX: F11.23 Opioid dependence with withdrawal (principal); F10.230 Alcohol dependence with withdrawal, uncomplicated; F13.230 Sedative, hypnotic or anxiolytic dependence with withdrawal, uncomplicated; F12.20 Cannabis dependence, uncomplicated; F17.210 Nicotine dependence, cigarettes, uncomplicated; F19.282 Other psychoactive substance dependence with psychoactive substance-induced sleep disorder; F19.24 Other psychoactive substance dependence with psychoactive substance-induced mood disorder; F90.9 Attention-deficit hyperactivity disorder, unspecified type; F32.9 Major depressive disorder, single episode, unspecified; I25.10 Atherosclerotic heart disease of native coronary artery without angina pectoris; I10 Essential (primary) hypertension; Z95.5 Presence of coronary angioplasty implant and graft
CPT/HCPCS: 36415; 80053; 80307; 81003; 84484; 85025; 85610; 93005; 93010; 99281-25; J0735

== ENCOUNTER 2018-11-17 09:13 | Inpatient (IN) | payer OTHER | END 2018-11-21 06:30 | disposition home or self-care (01) | LOC: YASAS 09:13 → Y3N 10:35 ==

== ENCOUNTER 2018-12-21 09:52 | Inpatient (IN) | payer OTHER ==
[2018-12-21 10:28] VITALS: BMI 34.2
--- NOTE | 2018-12-21 16:06 | HP ---
COWS - Scale Resting Pulse: 2= [place] 101-120 Sweatin=Flushed/Facial Moisture Restless Observation: 1= Difficult to Sit Still Pupil Size: 0= Normal to Room Light Bone or Joint Aches: 2= Severe Diffuse Aches Runny Nose/ Eye Tearin= Runny Nose/Eyes GI Upset > 30mins: 1= Stomach Cramp Tremor Observation: 1= Tremor [place], Not Seen Yawning Observation: 2= >3x During Session Anxiety or Irritability: 1=Feels Anxious/Irritable Goose Flesh Skin: 0=Smooth Skin COWS Score: 14 CIWA Score - Admission Criteria [facility]ASAS Guidelines: Admission for Medically Managed Detox: Requires at least one of the followin. CIWA greater than 12 2. Seizures within the past 24 hours 3. Delirium tremens within the past 24 hours 4. Hallucinations within the past 24 hours 5. Acute intervention needed for co occurring medical disorder 6. Acute intervention needed for co occurring psychiatric disorder 7. Severe withdrawal that cannot be handled at a lower level of care (continued vomiting, continued diarrhea, abnormal vital signs) requiring intravenous medication and/or fluids 8. Admission [facility] Chief Complaint: heroin and xanax detox Allergies/Adverse Reactions: Allergies Allergy/AdvReac Type Severity Reaction Status Date / Time buspirone Allergy Severe Difficulty Verified 12/21/18 10:14 Breathing History of Present Illness: Patient is a 38 yo M with a PMHx of [place] s/p 1 stent (05/30), on ASA and Plavix, HTN, anxiety, depression, presenting here for heroin and benzo detox. Has been doing heroin for 12 years via IV. Uses 6-12 bags a day. Last use this morning. was on a methadone program [place] [id number]. Highest dose was 80mg 13 overdoses, last one being 3 weeks ago. Does not carry a narcan pen with you. Uses 3 sticks (6mg) of ativan daily. Last use this morning. Has been doing xanax since . Currently unemployed. Lives with family at a home. Smokes 1.5 ppd. Exam Limitations: No Limitations - Ebola screening Have you traveled outside of the country in the last 21 days: No Have you had contact with anyone from an Ebola affected area: No Do you have a fever: No - Review of Systems Constitutional: Loss of Appetite, Unintentional Wgt. Loss Respiratory: denies: Shortness of Breath Cardiac: denies: Chest Pain, Palpitations Patient History - Patient Medical History Hx Anemia: No Hx Asthma: No Hx Chronic Obstructive Pulmonary Disease (COPD): No Hx Cancer: No Hx Cardiac Disorders: Yes (old mi 05/30/18 s/p angioplasty with stent one vessel ) Hx Congestive Heart Failure: No Hx Hypertension: Yes Hx Hypercholesterolemia: No Hx Pacemaker: No HX Cerebrovascular Accident: No Hx Seizures: No Hx Diabetes: No Hx Gastrointestinal Disorders: No Hx Liver Disease: No Hx Genitourinary Disorders: No Hx Sexually Transmitted Disorders: No Hx Renal Disease (ESRD): No Hx Thyroid Disease: No Hx Human Immunodeficiency Virus (HIV): No (negative 2017 last ) Hx Hepatitis C: No Hx Depression: Yes (anxiety) Hx Suicide Attempt: No Hx Bipolar Disorder: No Hx Schizophrenia: No - Patient Surgical History Past Surgical History: No Hx Neurologic Surgery: No Hx Cataract Extraction: No Hx Cardiac Surgery: Yes (cardiac stent one vessel on 05/30/18) Hx Lung Surgery: No Hx Breast Surgery: No Hx Breast Biopsy: No Hx Abdominal Surgery: No Hx Appendectomy: No Hx Cholecystectomy: No Hx Genitourinary Surgery: No Hx Section: No Hx Orthopedic Surgery: No Anesthesia Reaction: No - PPD History Date: 07/28/18 Results: 0 mm - Smoking Cessation Smoking history: Current every day smoker Have you smoked in the past 12 months: Yes Aproximately how many cigarettes per day: 40 If you are a former smoker, when did you quit?: N/A Cigars Per Day: 4 Hx Chewing Tobacco Use: No (N/A) Initiated information on smoking cessation: Yes 'Breaking Loose' booklet given: 12/21/18 - Substances abused Heroin Substance route: Injection Frequency: Daily Amount used: 12 bags Age of first use: 29 Date of last use: 12/21/18 Alprazolam (Xanax) Substance route: Oral Frequency: Daily Amount used: 8mg Age of first use: 28 Date of last use: 12/21/18 Marijuana/Hashish Substance route: Smoking Frequency: Daily Amount used: $50 Age of first use: 24 Date of last use: 12/20/18 Alcohol Substance route: Oral Frequency: 3-6 times per week Amount used: 1 pint evelyn Age of first use: 16 Date of last use: 12/18/18 Family Disease History - Family Disease History Family Disease History: Heart Disease: Grandparent, Father (KILLED, hx drug use) , Mother (living, ), Other: Father, Mother, Brother (two - living - drug use), Sister (one - living - drug use) Admission Physical Exam BHS - Vital Signs Vital Signs: Vital Signs - 24 hr 12/21/18 12/21/18 10:12 13:44 Temperature 98.2 F 98.2 F Pulse Rate 105 H 105 H Respiratory 20 20 Rate Blood Pressure 114/77 114/77 - Physical General Appearance: Yes: Other (Emotional. Sedated) Respiratory: Yes: No Respiratory Distress, No Accessory Muscle Use Cardiology: Yes: Tachycardia Abdominal: Yes: Non Tender, Soft Integumentary: Yes: Track Cotton - Diagnostic (1) Alcohol dependence with uncomplicated withdrawal Current Visit: No Status: Acute (2) Anxiety and depression Current Visit: No Status: Acute (3) Heroin withdrawal Current Visit: No Status: Acute (4) Nicotine dependence Current Visit: No Status: Acute Qualifiers: Qualified Code(s): F17.213 - Nicotine dependence, cigarettes, with withdrawal (5) Overdose Current Visit: No Status: Acute (6) ADHD (attention deficit hyperactivity disorder) Current Visit: No Status: Chronic Qualifiers: Qualified Code(s): F90.9 - Attention-deficit hyperactivity disorder, unspecified type Comment: Self-report. (7) Anxiety Current Visit: No Status: Chronic (8) CAD (coronary artery disease) Current Visit: No Status: Chronic Qualifiers: Qualified Code(s): I25.10 - Atherosclerotic heart disease of [place] coronary artery without angina pectoris Comment: reports hx of stent placement (9) Cannabis dependence Current Visit: No Status: Chronic (10) History of [place] (myocardial infarction) Current Visit: No Status: Chronic (11) Hypertension Current Visit: No Status: Chronic Qualifiers: Qualified Code(s): I10 - Essential (primary) hypertension Breathalyzer - Breathalyzer Breathalyzer: 0 Urine Drug Screen - Test Device Lot number: [id number] Expiration date: 09/08/20 - Control Is test valid?: Yes - Results Drug screen NEGATIVE: No Urine drug screen results: FEN-Fentanyl, MOP-Opiates, OXY-Oxycodone, MTD- Methadone, BZO-Benzodiazepines Inpatient Rehab Admission - Rehab Decision to Admit Inpatient rehab admission?: No
[2018-12-21] MEDS ORDERED: MENTHOL/PHENOL 1 EACH UD MM PRN (16:35)
[2018-12-21] MEDS ORDERED: MAGNESIUM CITRATE 300 ML BOTTLE PO PRN (16:35)
[2018-12-21] MEDS ORDERED: cloNIDine HCL 0.1 MG TABLET PO PRN (16:35)
[2018-12-21] MEDS ORDERED: NICOTINE POLACRILEX 4 MG GUM BUC PRN (16:35)
[2018-12-21] MEDS ORDERED: METHADONE HCL 10 MG TABLET (FOR DETOX USE ONLY) PO ONE (16:35)
[2018-12-21] MEDS ORDERED: MAG HYDROX/AL HYDROX/SIMETH 30 ML UNIT-DOSE CUP PO PRN (16:35)
[2018-12-21] MEDS ORDERED: chlordiazePOXIDE HCL 25 MG CAPSULE PO PRN (16:35)
[2018-12-21] MEDS ORDERED: ACETAMINOPHEN 325 MG TABLET (FP) PO PRN ×2 (16:35)
[2018-12-21] MEDS ORDERED: MELATONIN 5 MG TABLETS PO PRN (16:35)
[2018-12-21] MEDS ORDERED: BISMUTH SUBSALICYLATE 524 MG/30 ML UD PO PRN (16:35)
--- NOTE | 2018-12-21 16:41 | PN ---
Teaching Attending Note Name of Resident: Cassandra Fabian ATTENDING PHYSICIAN STATEMENT I saw and evaluated the patient. I reviewed the resident's note and discussed the case with the resident. I agree with the resident's findings and plan as documented. SUBJECTIVE: 38 y.o. male w/ heroin use 6-12 bags x 12 years IVDU in [place] , denies sharing or re-using needles, denies abscess , + OD x 13 xanax 6 mg/day denies blackouts / seizures , latest use today in the bathroom of this facility , etoh 1-2 pints/day + tremors if not drinking , current symptoms as above . prior MMTP [id number] , MDD 80 mg . tobacco : 1 / ppd. PMHx : [place] s/p 1 stent (05/30), on ASA and Plavix, HTN, anxiety, depression, presenting here for heroin and benzo detox. SHx : lives w/ family , denies legal issues. OBJECTIVE: wnwd , anxious agitated . QTc 435 ms 09/28/18 . Vital Signs - 24 hr 12/21/18 12/21/18 10:12 13:44 Temperature 98.2 F 98.2 F Pulse Rate 105 H 105 H Respiratory 20 20 Rate Blood Pressure 114/77 114/77 ASSESSMENT AND PLAN: opioid dependence - Methadone detox alcohol dependence - Librium detox Sedative dependence - Librium detox smoking cessation counselling d/w pt , agreeable w/ POC .
[2018-12-21] MEDS: ASPIRIN COATED 81 MG TABLET.EC PO SCH (17:58)
[2018-12-21] MEDS: chlordiazePOXIDE HCL 25 MG CAPSULE PO SCH ×2 (17:58→22:30)
[2018-12-21] MEDS: ISOSORBIDE MONONITRATE 30 MG TAB.SR.24H (FP) PO SCH (17:58)
[2018-12-21] MEDS: LISINOPRIL 5 MG TABLET (FP) PO SCH (17:58)
[2018-12-21] MEDS: CLOPIDOGREL BISULFATE 75 MG TABLET (FP) PO SCH (17:59)
[2018-12-21] MEDS: SPIRONOLACTONE 25 MG TABLET (FP) PO SCH (17:59)
[2018-12-21] MEDS ORDERED: ATORVASTATIN CA 10 MG TABLET (FP) PO SCH (22:00)
[2018-12-21] MEDS: THIAMINE HCL 100 MG TABLET (FP) PO SCH (22:31)
[2018-12-21] MEDS: CARVEDILOL 3.125 MG TABLET (FP) PO SCH (22:31)
[2018-12-22] MEDS: chlordiazePOXIDE HCL 25 MG CAPSULE PO SCH ×4 (04:56→22:12)
[2018-12-22] MEDS: IBUPROFEN 400 MG TABLET (FP) PO PRN ×2 (05:01→19:20)
[2018-12-22] MEDS: METHOCARBAMOL 500 MG TABLET PO PRN (05:02)
[2018-12-22] MEDS ORDERED: METHADONE HCL 5 MG TABLET (FOR DETOX USE ONLY) ONE (09:22)
[2018-12-22] MEDS ORDERED: METHADONE HCL 10 MG TABLET (FOR DETOX USE ONLY) ONE (09:22)
[2018-12-22 09:56] LABS: ALBUMIN 3.5 g/dl (3.4-5.0); BILIRUBIN,TOTAL 0.4 mg/dL (0.2-1); BLOOD UREA NITROGEN 12.7 mg/dL (7-18); CALCIUM 8.7 mg/dL (8.5-10.1); CREATININE 0.8 mg/dL (0.55-1.3); POTASSIUM 4.1 mmol/L (3.5-5.1); TOT PROT 6.1 g/dl (6.4-8.2)
[2018-12-22 09:57] LABS: HEMATOCRIT 37.4 % (35.4-49); HEMOGLOBIN 12.8 GM/dL (11.7-16.9); MCH 32.3 pg (25.7-33.7); MCHC 34.3 g/dl (32.0-35.9); MEAN CELL VOLUME 94.1 fl (80-96); PLATELET COUNT 189 K/MM3 (134-434); RBC 3.98 M/mm3 (4.00-5.60); RDW 13.4 % (11.9-15.9); WHITE BLOOD COUNT 6.8 K/mm3 (4.0-10.0)
[2018-12-22] MEDS ORDERED: METHADONE (DETOX) 20 MG, METHADONE (DETOX) 5 MG PO ONE (10:00)
[2018-12-22] MEDS: MAGNESIUM HYDROX 2400MG/30ML ORAL SUSPENSION 30 ML CUP PO PRN (10:23)
[2018-12-22] MEDS: CARVEDILOL 3.125 MG TABLET (FP) PO SCH ×2 (10:24→22:12)
[2018-12-22] MEDS: ASPIRIN COATED 81 MG TABLET.EC PO SCH (10:24)
[2018-12-22] MEDS: LISINOPRIL 5 MG TABLET (FP) PO SCH (10:24)
[2018-12-22] MEDS: SPIRONOLACTONE 25 MG TABLET (FP) PO SCH (10:24)
[2018-12-22] MEDS: PRENATAL VITAMINS W/ FOLIC ACID TABLET (FP) PO SCH (10:24)
[2018-12-22] MEDS: CLOPIDOGREL BISULFATE 75 MG TABLET (FP) PO SCH (10:24)
[2018-12-22] MEDS: ISOSORBIDE MONONITRATE 30 MG TAB.SR.24H (FP) PO SCH (10:24)
--- NOTE | 2018-12-22 13:36 | CONSULT ---
[facility] Psychiatric Consult - Data Date of interview: 12/22/18 Admission source: Self-referred Identifying data: Mr Bellamy is a 38 years old single [place] male, unemployed, domiciled living with his family seeking detox treatment for alcohol , opioid, benzodiazepine and cannabis Substance Abuse History: Reports history of alcohol, heroin, xanax and marijuana use. Refer to addiction counselor's summary for further information Medical History: Significant for hypertension, coronary artery disease, myocardial infarction with angioplasty (stent placement in 05/2018). Smkes cigarettes 2 ppd Psychiatric History: Patient is well known for multiple admissions to this facility. Historical narrative remains consistent. He reports being diagnosed with ADHD and MDD in 2011. Reportedly he is known for chronic non-adherence to aftercare treatment and medication. He is known to [facility], in the [place], where he was seeing a psychiatrist for medication management and he was prescribed Wellbutrin XL 150 mg/day, Trazodone 150 mg/hs, Gabapentin 300 mg/tid and Adderall 20 mg/bid. 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 During his recent admission to this facility, he saw Dr Angeles on 11/17 and he was prescribed Trazadone 50 mg/hs. After his discharge from this facility, he was referred to [facility] for inpatient rehab. There he was prescribed Wellbutrin 100 mg/bid and Trazadone 150 mg/hs. This confirmed by external medication history from [facility] where scripts for 30 days supply of these medications were filled on 12/15/18. Denies previous suicide attempt. at present, denies experiencing psychotic, manic or depressice symptoms, S/H ideations. [place], reports feeling anxious and sleeping poorly Physical/Sexual Abuse/Trauma History: Denies history of emotional, physical or sexual abuse as wll as DV relationship. No service Additional Comment: Reports multiple previous arrests including one felony conviction Mental Status Exam - Mental Status Exam Alert and Oriented to: Time, Place, Person Cognitive Function: Fair Patient Appearance: Disheveled Mood: Anxious Affect: Appropriate Patient Behavior: Cooperative Speech Pattern: Clear Voice Loudness: Normal Thought Process: Intact, Goal Oriented Thought Disorder: Not Present Hallucinations: Denies Suicidal Ideation: Denies Homicidal Ideation: Denies Insight/Judgement: Poor Sleep: Poorly Appetite: Good Muscle strength/Tone: Normal Gait/Station: Normal Psychiatric Findings - Problem List ([place] 1, 2,3) (1) ADHD (attention deficit hyperactivity disorder) Current Visit: No Status: Chronic Comment: By history. (2) MDD (major depressive disorder) Current Visit: No Status: Chronic (3) Substance-induced anxiety disorder Current Visit: Yes Status: Acute (4) Substance-induced sleep disorder Current Visit: No Status: Acute (5) Alcohol dependence with uncomplicated withdrawal Current Visit: No Status: Acute (6) Opioid dependence with withdrawal Current Visit: No Status: Acute (7) Sedative, hypnotic or anxiolytic dependence with withdrawal, uncomplicated Current Visit: No Status: Acute (8) Cannabis dependence Current Visit: No Status: Acute (9) Nicotine dependence Current Visit: No Status: Chronic Qualifiers: Nicotine product type: cigarettes Substance use status: in withdrawal Qualified Code(s): F17.213 - Nicotine dependence, cigarettes, with withdrawal (10) Hypertension Current Visit: No Status: Chronic Qualifiers: Hypertension type: essential hypertension Qualified Code(s): I10 - Essential (primary) hypertension (11) CAD (coronary artery disease) Current Visit: No Status: Chronic Qualifiers: Coronary Disease-Associated Artery/Lesion type: unspecified vessel or lesion type [place] vs. transplanted heart: unspecified whether [place] or transplanted heart Associated angina: angina presence unspecified Qualified Code(s): I25.10 - Atherosclerotic heart disease of [place] coronary artery without angina pectoris Comment: reports hx of stent placement (12) History of [place] (myocardial infarction) Current Visit: No Status: Resolved - Initial Treatment Plan Initial Treatment Plan: 1) Continue Wellbutrin 100 mg po BID and Trazadone 150 mg po HS. 2) Continue inpatient detoxification
[2018-12-22] MEDS ORDERED: buPROPion HCL 100 MG TABLET PO SCH ×2 (13:45)
--- NOTE | 2018-12-22 14:02 | PN ---
[facility] CIWA - CIWA Score Nausea/Vomitin-No Nausea/No Vomiting Muscle Tremors: 3 Anxiety: 2 Agitation: 3 Paroxysmal Sweats: 3 Orientation: 0-Oriented Tacttile Disturbances: 0-None Auditory Disturbances: 0-None Visual Disturbances: 0-None Headache: 0-None Present CIWA-Ar Total Score: 11 BHS COWS - Scale Resting Pulse: 1= [place] 81-100 Sweatin= Chills/Flushing Restless Observation: 1= Difficult to Sit Still Pupil Size: 0= Normal to Room Light Bone or Joint Aches: 1= Mild Discomfort Runny Nose/ Eye Tearin= Nasal Congestion GI Upset > 30mins: 0= None Tremor Observation of Outstretched Hands: 1= Tremor [place], Not Seen Yawning Observation: 2= >3x During Session Anxiety or Irritability: 2=Irritable/Anxious Goose Flesh Skin: 0=Smooth Skin COWS Score: 10 S Progress Note (SOAP) Subjective: sweats shakes interrupted sleep body aches restless anxiety Objective: 12/22/18 14:02 Vital Signs Temperature 98.2 F 12/22/18 09:44 Pulse Rate 81 12/22/18 09:44 Respiratory Rate 18 12/22/18 09:44 Blood Pressure 111/62 12/22/18 09:44 O2 Sat by Pulse Oximetry (%) Laboratory Tests 12/22/18 12/22/18 12/22/18 08:00 08:00 08:00 WBC 6.8 RBC 3.98 L Hgb 12.8 Hct 37.4 MCV 94.1 MCH 32.3 MCHC 34.3 RDW 13.4 Plt Count 189 MPV 8.0 Sodium 139 Potassium 4.1 Chloride 103 Carbon Dioxide 31 Anion Gap 5 L BUN 12.7 Creatinine 0.8 Est GFR (CKD-EPI)AfAm 133.20 Est GFR (CKD-EPI)NonAf 114.93 Random Glucose 141 H Calcium 8.7 Total Bilirubin 0.4 AST 22 ALT 31 Alkaline Phosphatase 72 Total Protein 6.1 L Albumin 3.5 RPR Titer Nonreactive labs noted aaox3 ambulating no acute distress Assessment: 12/22/18 14:02 withdrawals Plan: continue detox increase fluids
[2018-12-22] MEDS ORDERED: buPROPion HCL 100 MG TABLET PO ONE (14:06)
[2018-12-22] MEDS: buPROPion HCL 100 MG TABLET PO SCH (17:16)
[2018-12-22] MEDS: hydrOXYzine PAMOATE 25 MG CAPSULE (FP) PO PRN (19:20)
[2018-12-22] MEDS: traZODone HCL 50 MG TABLET (FP) PO SCH (22:11)
[2018-12-22] MEDS: ATORVASTATIN CA 80 MG TABLET (FP) PO SCH (22:11)
[2018-12-22] MEDS: THIAMINE HCL 100 MG TABLET (FP) PO SCH (22:12)
[2018-12-23] MEDS: chlordiazePOXIDE HCL 25 MG CAPSULE PO SCH ×4 (06:29→22:37)
[2018-12-23] MEDS: IBUPROFEN 400 MG TABLET (FP) PO PRN ×2 (06:55→19:57)
[2018-12-23] MEDS ORDERED: METHADONE HCL 10 MG TABLET (FOR DETOX USE ONLY) PO ONE (10:00)
[2018-12-23] MEDS: METHOCARBAMOL 500 MG TABLET PO PRN (10:51)
[2018-12-23] MEDS: SPIRONOLACTONE 25 MG TABLET (FP) PO SCH (10:51)
[2018-12-23] MEDS: ISOSORBIDE MONONITRATE 30 MG TAB.SR.24H (FP) PO SCH (10:52)
[2018-12-23] MEDS: ASPIRIN COATED 81 MG TABLET.EC PO SCH (10:52)
[2018-12-23] MEDS: CARVEDILOL 3.125 MG TABLET (FP) PO SCH ×2 (10:52→22:37)
[2018-12-23] MEDS: LISINOPRIL 5 MG TABLET (FP) PO SCH (10:52)
[2018-12-23] MEDS: CLOPIDOGREL BISULFATE 75 MG TABLET (FP) PO SCH (10:52)
[2018-12-23] MEDS: PRENATAL VITAMINS W/ FOLIC ACID TABLET (FP) PO SCH (10:52)
[2018-12-23] MEDS: buPROPion HCL 100 MG TABLET PO SCH ×2 (10:53→17:19)
--- NOTE | 2018-12-23 11:47 | PN ---
S CIWA - CIWA Score Nausea/Vomitin-No Nausea/No Vomiting Muscle Tremors: None Anxiety: 3 Agitation: 0-Normal Activity Paroxysmal Sweats: 3 Orientation: 0-Oriented Tacttile Disturbances: 0-None Auditory Disturbances: 0-None Visual Disturbances: 0-None Headache: 2-Mild CIWA-Ar Total Score: 8 S COWS - Scale Resting Pulse: 1= [place] 81-100 Sweatin= Beads of Sweat on Face Restless Observation: 1= Difficult to Sit Still Pupil Size: 0= Normal to Room Light Bone or Joint Aches: 2= Severe Diffuse Aches Runny Nose/ Eye Tearin= None GI Upset > 30mins: 0= None Tremor Observation of Outstretched Hands: 0= None Yawning Observation: 1= 1-2x During Session Anxiety or Irritability: 2=Irritable/Anxious Goose Flesh Skin: 0=Smooth Skin COWS Score: 10 S Progress Note (SOAP) Subjective: c/o sweats, headache, anxiety, irritability, toothache, and gum swelling. Objective: 12/23/18 11:41 Vital Signs 12/23/18 12/23/18 07:40 09:29 Temperature 97 F L 97.7 F Pulse Rate 94 H 90 Respiratory 18 18 Rate Blood Pressure 109/67 112/69 Lab Results WBC 6.8 K/mm3 (4.0-10.0) 12/22/18 08:00 RBC 3.98 M/mm3 (4.00-5.60) L 12/22/18 08:00 Hgb 12.8 GM/dL (11.7-16.9) 12/22/18 08:00 Hct 37.4 % (35.4-49) 12/22/18 08:00 MCV 94.1 fl (80-96) 12/22/18 08:00 MCHC 34.3 g/dl (32.0-35.9) 12/22/18 08:00 RDW 13.4 % (11.9-15.9) 12/22/18 08:00 Plt Count 189 K/MM3 (134-434) 12/22/18 08:00 Sodium 139 mmol/L (136-145) 12/22/18 08:00 Potassium 4.1 mmol/L (3.5-5.1) 12/22/18 08:00 Chloride 103 mmol/L (98-107) 12/22/18 08:00 Carbon Dioxide 31 mmol/L (21-32) 12/22/18 08:00 Anion Gap 5 MMOL/L (8-16) L 12/22/18 08:00 BUN 12.7 mg/dL (7-18) 12/22/18 08:00 Creatinine 0.8 mg/dL (0.55-1.3) 12/22/18 08:00 Random Glucose 141 mg/dL (74-106) H 12/22/18 08:00 Calcium 8.7 mg/dL (8.5-10.1) 12/22/18 08:00 Labs noted. Assessment: 12/23/18 11:42 AOX3, in no acute respiratory distress. Full ROM, ambulating in the unit. Withdrawal symptoms. swollen gums. Plan: continue detox. Peridex mouth rinse 15ml bid.
[2018-12-23] MEDS: CHLORHEXIDINE GLUCONATE 0.12% 15ML CUP MM SCH ×2 (15:00→22:37)
[2018-12-23] MEDS: MAGNESIUM HYDROX 2400MG/30ML ORAL SUSPENSION 30 ML CUP PO PRN (17:20)
[2018-12-23] MEDS: hydrOXYzine PAMOATE 25 MG CAPSULE (FP) PO PRN (19:58)
[2018-12-23] MEDS: traZODone HCL 50 MG TABLET (FP) PO SCH (22:36)
[2018-12-23] MEDS: THIAMINE HCL 100 MG TABLET (FP) PO SCH (22:36)
[2018-12-23] MEDS: ATORVASTATIN CA 80 MG TABLET (FP) PO SCH (22:37)
[2018-12-24] MEDS ORDERED: chlordiazePOXIDE HCL 10 MG CAPSULE PO PRN
[2018-12-24] MEDS: chlordiazePOXIDE HCL 10 MG CAPSULE PO SCH ×2 (06:29→10:50)
[2018-12-24 09:46] VITALS: BP 125/59; PULSE 86; TEMP 98.4
[2018-12-24] MEDS ORDERED: BENZOCAINE 20 % GEL TUBE MM PRN (09:50)
[2018-12-24] MEDS ORDERED: METHADONE HCL 10 MG TABLET (FOR DETOX USE ONLY) ONE (09:59)
[2018-12-24] MEDS ORDERED: METHADONE (DETOX) 10 MG, METHADONE (DETOX) 5 MG PO ONE (10:00)
[2018-12-24] MEDS ORDERED: METHADONE HCL 5 MG TABLET (FOR DETOX USE ONLY) ONE (10:00)
[2018-12-24] MEDS: ISOSORBIDE MONONITRATE 30 MG TAB.SR.24H (FP) PO SCH (10:50)
[2018-12-24] MEDS: CHLORHEXIDINE GLUCONATE 0.12% 15ML CUP MM SCH (10:50)
[2018-12-24] MEDS: CLOPIDOGREL BISULFATE 75 MG TABLET (FP) PO SCH (10:50)
[2018-12-24] MEDS: CARVEDILOL 3.125 MG TABLET (FP) PO SCH (10:51)
[2018-12-24] MEDS: buPROPion HCL 100 MG TABLET PO SCH (10:51)
[2018-12-24] MEDS: SPIRONOLACTONE 25 MG TABLET (FP) PO SCH (10:51)
[2018-12-24] MEDS: ASPIRIN COATED 81 MG TABLET.EC PO SCH (10:51)
[2018-12-24] MEDS: PRENATAL VITAMINS W/ FOLIC ACID TABLET (FP) PO SCH (10:52)
[2018-12-24] MEDS: IBUPROFEN 400 MG TABLET (FP) PO PRN (10:54)
[2018-12-24] MEDS: LISINOPRIL 5 MG TABLET (FP) PO SCH (11:25)
--- NOTE | 2018-12-24 11:34 | PN ---
S CIWA - CIWA Score Nausea/Vomitin-No Nausea/No Vomiting Muscle Tremors: None Anxiety: 4-Mod. Anxious/Guarded Agitation: 4-Moderately Restless Paroxysmal Sweats: No Perspiration Orientation: 0-Oriented Tacttile Disturbances: 1-Very Mild Itch/Numbness Auditory Disturbances: 0-None Visual Disturbances: 0-None Headache: 3-Moderate CIWA-Ar Total Score: 12 BHS COWS - Scale Resting Pulse: 0= [place] 80 or Below Sweatin= No chills or Flushing Restless Observation: 1= Difficult to Sit Still Pupil Size: 2= Moderately Dilated Bone or Joint Aches: 0= None Runny Nose/ Eye Tearin= None GI Upset > 30mins: 0= None Tremor Observation of Outstretched Hands: 0= None Yawning Observation: 0= None Anxiety or Irritability: 2=Irritable/Anxious Goose Flesh Skin: 0=Smooth Skin COWS Score: 5 S Progress Note (SOAP) Subjective: Patient c/o anxiety, restlessness, mild tingling to fingers, headache and toothache. Objective: 12/24/18 11:31 Laboratory Tests 12/22/18 12/22/18 12/22/18 08:00 08:00 08:00 WBC 6.8 RBC 3.98 L Hgb 12.8 Hct 37.4 MCV 94.1 MCH 32.3 MCHC 34.3 RDW 13.4 Plt Count 189 MPV 8.0 Sodium 139 Potassium 4.1 Chloride 103 Carbon Dioxide 31 Anion Gap 5 L BUN 12.7 Creatinine 0.8 Est GFR (CKD-EPI)AfAm 133.20 Est GFR (CKD-EPI)NonAf 114.93 Random Glucose 141 H Calcium 8.7 Total Bilirubin 0.4 AST 22 ALT 31 Alkaline Phosphatase 72 Total Protein 6.1 L Albumin 3.5 RPR Titer Nonreactive Vital Signs (72 hours) 12/21/18 12/21/18 12/21/18 13:44 17:36 21:59 Temperature 98.2 F 99.5 F 97.5 F L Pulse Rate 105 H 112 H 97 H Respiratory 20 18 18 Rate Blood Pressure 114/77 136/80 128/69 12/22/18 12/22/18 12/22/18 00:30 03:30 07:03 Temperature 99.0 F Pulse Rate 96 H Respiratory 18 18 20 Rate Blood Pressure 114/70 12/22/18 12/22/18 12/22/18 09:44 14:11 18:35 Temperature 98.2 F 97.9 F 98.2 F Pulse Rate 81 87 83 Respiratory 18 18 18 Rate Blood Pressure 111/62 117/73 106/67 12/22/18 12/23/18 12/23/18 22:00 00:30 03:30 Temperature 98.2 F Pulse Rate 80 Respiratory 20 18 18 Rate Blood Pressure 112/71 12/23/18 12/23/18 12/23/18 07:40 09:29 13:42 Temperature 97 F L 97.7 F 97.7 F Pulse Rate 94 H 90 83 Respiratory 18 18 16 Rate Blood Pressure 109/67 112/69 117/64 12/23/18 12/23/18 12/23/18 17:49 20:57 21:02 Temperature 97.7 F 97.5 F L 98.4 F Pulse Rate 86 86 82 Respiratory 18 18 18 Rate Blood Pressure 111/74 123/72 139/89 12/24/18 12/24/18 12/24/18 00:30 03:30 08:12 Temperature 98.2 F Pulse Rate 80 Respiratory 18 18 18 Rate Blood Pressure 119/78 12/24/18 09:44 Temperature 98.4 F Pulse Rate 86 Respiratory 18 Rate Blood Pressure 125/59 L PE: alert and oriented x 3 skin warm and dry +perrla, pupils dilated at 4mm, eoms intact bl oral mucosa pink, b/l back lower gum line inflamed, +tooth decay car s1s2 resp cta bl ext full rom, amb ad anu anxious Assessment: 12/24/18 11:33 tooth infection BZO/Opiate withdrawal sx Plan: continue detox start amoxicillin 500mg tid x 7 days anbesol prn monitor clinically
--- NOTE | 2018-12-24 13:41 | PN ---
[facility] Progress Note Note: Reported by RN that Patient stated " I know I have money waiting for me and I want to spend it". Patient encouraged by staff to complete detox and explained risk factors of relapse and overdose with signing out AMA. Patient refused and continued with AMA process. Patient was ordered antibiotics today for tooth infection but did not want to complete treatment course. Patient encouraged by nursing staff to follow up with PCP for continued medical management and to attend group meetings and NA.
--- NOTE | 2018-12-24 13:41 | DS ---
[facility] Detox Discharge Summary Admission Date: 12/21/18 Discharge Date: 12/24/18 - History Present History: Opioid Dependence, Sedative Dependence - Physical Exam Results Vital Signs: Vital Signs Temperature 98.4 F 12/24/18 09:44 Pulse Rate 86 12/24/18 09:44 Respiratory Rate 18 12/24/18 09:44 Blood Pressure 125/59 L 12/24/18 09:44 O2 Sat by Pulse Oximetry (%) - Medication Discharge Medications: Ambulatory Orders traZODone HCL [Desyrel -] 150 mg PO HS #30 tablet 06/23/17 Aspirin [Aspirin EC] 81 mg PO DAILY 09/02/18 Atorvastatin Ca [Lipitor] 80 mg PO HS #30 tablet 09/04/18 Carvedilol [Coreg -] 3.125 mg PO BID #60 tablet 09/04/18 Clopidogrel Bisulfate [Clopidogrel] 75 mg PO DAILY #30 tablet 09/04/18 Isosorbide Mononitrate [Isosorbide Mononitrate ER] 30 mg PO DAILY #30 tab.er.24h 09/04/18 Lisinopril 5 mg PO DAILY #30 tablet 09/04/18 Nitroglycerin [Nitrostat] 0.4 mg SL PRN PRN #10 tab.subl 09/04/18 Spironolactone 25 mg PO DAILY #30 tablet 09/04/18 Bupropion HCl [Wellbutrin -] 75 mg PO DAILY 11/17/18 Gabapentin [Neurontin -] 300 mg PO TID 11/17/18 cloNIDine HCL [Catapres -] 0.1 mg PO TID 11/17/18 Docusate Sodium [Dok] 100 mg PO PRN PRN 12/21/18 - AMA Did Patient Leave Against Medical Advice: Yes
[2018-12-24] MEDS ORDERED: AMOXICILLIN 500 MG CAPSULE (FP) PO SCH (14:00)
[2018-12-25] MEDS ORDERED: chlordiazePOXIDE HCL 10 MG CAPSULE PO SCH (05:00)
[2018-12-25] MEDS ORDERED: METHADONE HCL 10 MG TABLET (FOR DETOX USE ONLY) PO ONE (10:00)
[2018-12-26] MEDS ORDERED: chlordiazePOXIDE HCL 10 MG CAPSULE PO ONE (05:00)
[2018-12-26] MEDS ORDERED: METHADONE HCL 5 MG TABLET (FOR DETOX USE ONLY) PO ONE (06:00)
== END 2018-12-24 12:20 | disposition home or self-care (01) | DRG 773 ==
LOC: YASAS 09:52 → Y6N 16:51
PROVIDERS: ADMIT Surgery; ATTEND Surgery
PROC: HZ2ZZZZ Detoxification Services for Substance Abuse Treatment (ICD-10-PCS; principal; 2018-12-21)
DX: F11.23 Opioid dependence with withdrawal (principal); F10.230 Alcohol dependence with withdrawal, uncomplicated; F13.230 Sedative, hypnotic or anxiolytic dependence with withdrawal, uncomplicated; F12.20 Cannabis dependence, uncomplicated; F17.213 Nicotine dependence, cigarettes, with withdrawal; F19.282 Other psychoactive substance dependence with psychoactive substance-induced sleep disorder; F19.24 Other psychoactive substance dependence with psychoactive substance-induced mood disorder; F33.9 Major depressive disorder, recurrent, unspecified; F90.9 Attention-deficit hyperactivity disorder, unspecified type; F41.9 Anxiety disorder, unspecified; F32.9 Major depressive disorder, single episode, unspecified; K04.7 Periapical abscess without sinus; I25.10 Atherosclerotic heart disease of native coronary artery without angina pectoris; I10 Essential (primary) hypertension; Z95.5 Presence of coronary angioplasty implant and graft; I25.2 Old myocardial infarction; Z79.01 Long term (current) use of anticoagulants; Z79.82 Long term (current) use of aspirin
CPT/HCPCS: 36415; 80053; 85027; 86593

== ENCOUNTER 2019-03-24 09:06 | Inpatient (IN) | payer OTHER ==
[2019-03-24 09:27] VITALS: BMI 34.7
--- NOTE | 2019-03-24 10:02 | HP ---
COWS - Scale Resting Pulse: 0= [place] 80 or Below Sweatin= No chills or Flushing Restless Observation: 3= Extraneous Movement Pupil Size: 0= Normal to Room Light Bone or Joint Aches: 1= Mild Discomfort Runny Nose/ Eye Tearin= Nasal Congestion GI Upset > 30mins: 1= Stomach Cramp Tremor Observation: 2= Slight Tremor Visible Yawning Observation: 1= 1-2x During Session Anxiety or Irritability: 1=Feels Anxious/Irritable Goose Flesh Skin: 0=Smooth Skin COWS Score: 10 CIWA Score Nausea/Vomitin Muscle Tremors: 4-Moderate,w/Arms Extend Anxiety: 4-Mod. Anxious/Guarded Agitation: 2 Paroxysmal Sweats: No Perspiration Orientation: 2-Disoriented Date<2 days Tacttile Disturbances: 1-Very Mild Itch/Numbness Auditory Disturbances: 0-None Visual Disturbances: 1-Very Mild Sensitivity Headache: 2-Mild CIWA-Ar Total Score: 18 - Admission Criteria OASAS Guidelines: Admission for Medically Managed Detox: Requires at least one of the followin. CIWA greater than 12 2. Seizures within the past 24 hours 3. Delirium tremens within the past 24 hours 4. Hallucinations within the past 24 hours 5. Acute intervention needed for co occurring medical disorder 6. Acute intervention needed for co occurring psychiatric disorder 7. Severe withdrawal that cannot be handled at a lower level of care (continued vomiting, continued diarrhea, abnormal vital signs) requiring intravenous medication and/or fluids 8. Patient presents the following: CIWA greater than 12 Admission Criteria Met: Admission criteria met Admitting History and Physical - Admission History Source: Patient, Medical Record Limitations to Obtaining History: No Limitations - Past Medical History [employer]: Yes: Other (restless legs) Cardiovascular: Yes: CAD, HTN, Hyperlipdemia Psych: Yes: Addictions, Anxiety - Past Surgical History Past Surgical History: Yes: Stent - Smoking History Smoking history: Current every day smoker Have you smoked in the past 12 months: Yes Aproximately how many cigarettes per day: 40 If you are a former smoker, when did you quit?: N/A - Alcohol/Substance Use Hx Alcohol Use: Yes History of Substance Use: reports: Cocaine, Heroin, Marijuana, Tranquilizers - Social History Usual Living Arrangement: Yes: With Parent ADL: Family Assistance Admission ROS BHS - HPI Chief Complaint: I need to do a 180 or 360 whatever I need to turn my life around, I have to be serious - my mom has had it and it's too scary to not know if you will wake up Allergies/Adverse Reactions: Allergies Allergy/AdvReac Type Severity Reaction Status Date / Time buspirone Allergy Severe Difficulty Verified 03/24/19 09:16 Breathing History of Present Illness: 38 yo gentleman here for detox from opiates, alcohol and alprazolam. He walks in here today as his mother kicked him out. He was inpatient at [facility] detox and rehab over the summer (see below) and again in February and was given a Rx for suboxone 8mg bid and clonopin 2mg bid on 02/14/19 for 30 days (see below ) - patient states he was referred to f/u at [facility] outpatient for ongoing suboxone but he never went. Using opiate intravenously - history of overdose - states he overdosed three times this week (most recently overdosed two days ago - treated at [facility] ED) and his mom kicked him out. Denies seizures but does have black outs. States he was on methadone program in [facility] (80mg) about six years ago for about one year but 'just stopped going'. This is one of multiple admissions for treatment. Patient states he is not on disability. He does not have a regular psychiatrist - is seeking one - but states he had refills from his psych for trazadone and was taking it. States he takes gabapentin for restless legs as well as mood stabilizer. [facility]: Patient Name: Alexy Bellamy Date: 1980 Address: [address] [place] [address] Sex: Male Rx Written Rx Dispensed Drug Quantity Days Supply Prescriber Name 02/14/2019 02/14/2019 buprenorphine-naloxone 8-2 mg sl tablet 30 30 Kin Orantes MD 02/13/2019 02/13/2019 clonazepam 1 mg odt 4 2 Shankar Cain MD 02/13/2019 02/13/2019 clonazepam 0.5 mg dis tablet 5 5 Shankar Cain MD 02/13/2019 02/13/2019 clonazepam 0.5 mg dis tablet 10 5 Shankar Cain MD 02/12/2019 02/12/2019 clonazepam 1 mg tablet 4 2 Kin Orantes MD 02/12/2019 02/12/2019 buprenorphine-naloxone 2-0.5 mg sl film 6 3 Kin Orantes MD 02/12/2019 02/12/2019 buprenorphine 8 mg tablet sl 1 1 Kin Orantes MD 11/27/2018 11/27/2018 clonazepam 1 mg odt 6 3 Shankar Cain MD 11/27/2018 11/27/2018 clonazepam 0.5 mg dis tablet 10 5 Shankar Cain MD 11/27/2018 11/27/2018 clonazepam 0.5 mg dis tablet 5 5 Shankar Cain MD 11/27/2018 11/27/2018 buprenorphine-naloxone 2-0.5 mg sl film 4 4 Shankar Cain MD 11/24/2018 11/24/2018 clonazepam 1 mg tablet 8 4 Kin Orantes MD 11/24/2018 11/24/2018 buprenorphine-naloxone 2-0.5 mg sl film 6 3 Kin Orantes MD 10/24/2018 10/24/2018 clonazepam 1 mg tablet 9 3 Kin Orantes MD 10/24/2018 10/24/2018 clonazepam 0.5 mg tablet 9 3 Kin Orantes MD 10/24/2018 10/24/2018 buprenorphine-naloxone 2-0.5 mg sl film 4 2 Kin Orantes MD 10/24/2018 10/24/2018 buprenorphine-naloxone 2-0.5 mg sl film 3 3 Kin Orantes MD Patient Name: Alexy Bellamy Date: 1980 Address: [address] [place] [address] Sex: Male Rx Written Rx Dispensed Drug Quantity Days Supply Prescriber Name 02/12/2019 02/14/2019 clonazepam 1 mg tablet 4 2 Kin Orantes MD 02/12/2019 02/14/2019 buprenorphine-naloxone 2-0.5 mg sl film 6 3 Kin Orantes MD 02/14/2019 02/14/2019 clonazepam 2 mg tablet 60 30 Olaf Conway 02/14/2019 02/14/2019 buprenorphine-naloxone 8-2 mg sl film 30 30 Kin Orantes MD 08/17/2018 08/17/2018 dextroamp-amphetamin 20 mg tab 60 30 Polanco, Min Kateryna 05/24/2018 05/31/2018 dextroamp-amphetamin 20 mg tab 60 30 Polanco, Min Kateryna 04/28/2018 04/28/2018 dextroamp-amphetamin 20 mg tab 60 30 Polanco, Min Kateryna Exam Limitations: No Limitations - Ebola screening Have you traveled outside of the country in the last 21 days: No (N) Have you had contact with anyone from an Ebola affected area: No Do you have a fever: No - Review of Systems Constitutional: Chills, Loss of Appetite, Changes in sleep, Weakness EENT: reports: Nose Congestion, Dental Problems (tooth pain for several months) Respiratory: reports: No Symptoms reported Cardiac: reports: No Symptoms Reported GI: reports: Nausea, Poor Fluid Intake, Indigestion, Abdominal cramping : reports: No Symptoms Reported Musculoskeletal: reports: Back Pain, Muscle Pain Integumentary: reports: No Symptoms Reported Neuro: reports: Headache, Tremors Endocrine: reports: No Symptoms Reported Hematology: reports: No Symptoms Reported Psychiatric: reports: Mood/Affect Appropiate, Anxious Other Systems: Reviewed and Negative Patient History - Patient Medical History Hx Anemia: No Hx Asthma: No Hx Chronic Obstructive Pulmonary Disease (COPD): No Hx Cancer: No Hx Cardiac Disorders: Yes (old mi 05/30/18 s/p angioplasty with stent one vessel ) Hx Congestive Heart Failure: No Hx Hypertension: Yes Hx Hypercholesterolemia: Yes Hx Pacemaker: No HX Cerebrovascular Accident: No Hx Seizures: No Hx Diabetes: No Hx Gastrointestinal Disorders: No Hx Liver Disease: No Hx Genitourinary Disorders: No Hx Sexually Transmitted Disorders: No Hx Renal Disease (ESRD): No Hx Thyroid Disease: No Hx Human Immunodeficiency Virus (HIV): No (negative 2016 last ) Hx Hepatitis C: No Hx Depression: Yes (anxiety; never hospitalized) Hx Suicide Attempt: No (denies) Hx Bipolar Disorder: No Hx Schizophrenia: No - Patient Surgical History Past Surgical History: No Hx Neurologic Surgery: No Hx Cataract Extraction: No Hx Cardiac Surgery: Yes (cardiac stent one vessel on 05/30/18) Hx Lung Surgery: No Hx Breast Surgery: No Hx Breast Biopsy: No Hx Abdominal Surgery: No Hx Appendectomy: No Hx Cholecystectomy: No Hx Genitourinary Surgery: No Hx Section: No Hx Orthopedic Surgery: No Anesthesia Reaction: No - PPD History Previous Implant?: Yes Documented Results: Negative w/proof Implanted On Prior [facility] Admission?: Yes Date: 07/24/18 (CXR done - normal) Results: 0 mm PPD to be Administered?: No - Reproductive History Patient is a Female of Child Bearing Age (11 -55 yrs old): No - Smoking Cessation Smoking history: Current every day smoker Have you smoked in the past 12 months: Yes Aproximately how many cigarettes per day: 40 If you are a former smoker, when did you quit?: N/A Cigars Per Day: 4 Hx Chewing Tobacco Use: No (N/A) Initiated information on smoking cessation: Yes 'Breaking Loose' booklet given: 03/24/19 (give on floor) - Substance & Tx. History Hx Alcohol Use: Yes Hx Substance Use: Yes Substance Use Type: Alcohol, Heroin, Marijuana, Opiates, Tranquilizers Hx Substance Use Treatment: Yes (detox,rehab,MMTP, suboxone) - Substances abused Heroin Substance route: Injection Frequency: Daily Amount used: 8-12 bags Age of first use: 29 Date of last use: 03/24/19 Alprazolam (Xanax) Substance route: Oral Frequency: Daily Amount used: 6-10mg Age of first use: 28 Date of last use: 03/24/19 Marijuana/Hashish Substance route: Smoking Frequency: Daily Amount used: $50 Age of first use: 24 Date of last use: 03/23/19 Alcohol Substance route: Oral Frequency: 3-6 times per week Amount used: 2 pint NEENA YOUNGER Age of first use: 16 Date of last use: 03/22/19 Admission Physical Exam BHS - Vital Signs Vital Signs: Vital Signs - 24 hr 03/24/19 09:23 Temperature 97.9 F Pulse Rate 83 Respiratory 16 Rate Blood Pressure 122/63 - Physical General Appearance: Yes: Nourished, Appropriately Dressed, Moderate Distress, Obese, Tremorous, Irritable, Anxious HEENTM: Yes: EOMI, Hearing grossly Normal, Normocephalic, Normal Voice, Pharynx Normal, Rhinorrhea Respiratory: Yes: No Respiratory Distress, Rhonchi Neck: Yes: Within Normal Limits Breast: Yes: Breast Exam Deferred Cardiology: Yes: Regular Rhythm, Regular Rate Abdominal: Yes: Soft Genitourinary: Yes: Within Normal Limits Back: Yes: Normal Inspection Musculoskeletal: Yes: full range of Motion, Gait Steady, Muscle Pain Extremities: Yes: Normal Inspection, Normal Range of Motion, Non-Tender, Tremors Neurological: Yes: Alert, Motor Strength 5/5, Normal Mood/Affect, Normal Response, Numbness Integumentary: Yes: Normal Color, Warm, Track Cotton (no abscess noted - track cotton left antecubital space) Lymphatic: Yes: Within Normal Limits - Diagnostic (1) Alcohol dependence with uncomplicated withdrawal Current Visit: Yes Status: Chronic (2) Opioid dependence with withdrawal Current Visit: Yes Status: Chronic (3) Sedative, hypnotic or anxiolytic dependence, uncomplicated Current Visit: Yes Status: Chronic (4) CAD (coronary artery disease) Current Visit: Yes Status: Chronic Qualifiers: Coronary Disease-Associated Artery/Lesion type: unspecified vessel or lesion type [place] vs. transplanted heart: unspecified whether lummi or transplanted heart Associated angina: angina presence unspecified Qualified Code(s): I25.10 - Atherosclerotic heart disease of lummi coronary artery without angina pectoris Comment: reports hx of stent placement (5) Cannabis dependence Current Visit: Yes Status: Chronic (6) History of percutaneous coronary intervention Current Visit: Yes Status: Chronic (7) Hypertension Current Visit: Yes Status: Chronic Qualifiers: Hypertension type: essential hypertension Qualified Code(s): I10 - Essential (primary) hypertension (8) Tooth ache Current Visit: Yes Status: Chronic Comment: several months (9) History of DC (myocardial infarction) Current Visit: Yes Status: Resolved Cleared for Admission S - Detox or Rehab [facility] Level of Care: Medically Managed Detox Regimen/Protocol: Methadone/Valium Breathalyzer - Breathalyzer Breathalyzer: 0 Urine Drug Screen - Test Device Lot number: [id number] Expiration date: 11/08/20 - Control Is test valid?: Yes - Results Drug screen NEGATIVE: No Urine drug screen results: THC-Marijuana, FEN-Fentanyl Inpatient Rehab Admission - Rehab Decision to Admit Inpatient rehab admission?: No
[2019-03-24] MEDS ORDERED: BISMUTH SUBSALICYLATE 524 MG/30 ML UD PO PRN (10:13)
[2019-03-24] MEDS ORDERED: NALOXONE HCL 0.4 MG/ML VIAL IM PRN (10:13)
[2019-03-24] MEDS ORDERED: METHADONE HCL 10 MG TABLET (FOR DETOX USE ONLY) PO ONE (10:13)
[2019-03-24] MEDS ORDERED: MENTHOL/PHENOL 1 EACH UD MM PRN (10:13)
[2019-03-24] MEDS ORDERED: clonazePAM 0.5 MG TABLET PO PRN (10:13)
[2019-03-24] MEDS ORDERED: MAGNESIUM HYDROX 2400MG/30ML ORAL SUSPENSION 30 ML CUP PO PRN (10:13)
[2019-03-24] MEDS ORDERED: NICOTINE POLACRILEX 4 MG GUM BUC PRN (10:13)
[2019-03-24] MEDS ORDERED: ACETAMINOPHEN 325 MG TABLET (FP) PO PRN ×2 (10:13)
[2019-03-24] MEDS ORDERED: diazePAM 5 MG TABLET PO ONE (10:13)
[2019-03-24] MEDS ORDERED: METHOCARBAMOL 500 MG TABLET PO PRN (10:13)
[2019-03-24] MEDS ORDERED: MAGNESIUM CITRATE 300 ML BOTTLE PO PRN (10:13)
[2019-03-24] MEDS ORDERED: MAG HYDROX/AL HYDROX/SIMETH 30 ML UNIT-DOSE CUP PO PRN (10:13)
[2019-03-24] MEDS ORDERED: DOCUSATE SODIUM 100 MG CAPSULE (FP) PO PRN (10:37)
[2019-03-24] MEDS ORDERED: NITROGLYCERIN SUBLINGUAL 1/150 0.4 MG TAB SL PRN (10:37)
[2019-03-24] MEDS ORDERED: BENZOCAINE 20 % GEL TUBE MM PRN (11:43)
[2019-03-24] MEDS: LISINOPRIL 5 MG TABLET (FP) PO SCH (12:08)
[2019-03-24] MEDS: ISOSORBIDE MONONITRATE 30 MG TAB.SR.24H (FP) PO SCH (12:08)
[2019-03-24] MEDS: ASPIRIN COATED 81 MG TABLET.EC PO SCH (12:08)
[2019-03-24] MEDS: CLOPIDOGREL BISULFATE 75 MG TABLET (FP) PO SCH (12:08)
[2019-03-24 13:20] LABS: HEMATOCRIT 40.3 % (35.4-49); HEMOGLOBIN 13.4 GM/dL (11.7-16.9); MCH 31.1 pg (25.7-33.7); MCHC 33.3 g/dl (32.0-35.9); MEAN CELL VOLUME 93.4 fl (80-96); PLATELET COUNT 223 K/MM3 (134-434); RBC 4.31 M/mm3 (4.00-5.60); RDW 13.1 % (11.9-15.9); WHITE BLOOD COUNT 7.7 K/mm3 (4.0-10.0)
[2019-03-24 13:31] LABS: BILIRUBIN,TOTAL 0.5 mg/dL (0.2-1); BLOOD UREA NITROGEN 19.7 mg/dL (7-18); CALCIUM 8.7 mg/dL (8.5-10.1); POTASSIUM 4.3 mmol/L (3.5-5.1); TOT PROT 7.4 g/dl (6.4-8.2)
[2019-03-24] MEDS: CARVEDILOL 3.125 MG TABLET (FP) PO SCH ×2 (14:38→22:09)
[2019-03-24] MEDS: diazePAM 5 MG TABLET PO SCH ×2 (15:03→22:08)
[2019-03-24] MEDS: diazePAM 5 MG TABLET PO PRN (16:55)
[2019-03-24] MEDS ORDERED: traZODone HCL 50 MG TABLET (FP) PO ONE (22:00)
[2019-03-24] MEDS: DOCUSATE SODIUM 100 MG CAPSULE (FP) PO SCH (22:09)
[2019-03-24] MEDS: ATORVASTATIN CA 80 MG TABLET (FP) PO SCH (22:09)
[2019-03-24] MEDS: THIAMINE HCL 100 MG TABLET (FP) PO SCH (22:09)
[2019-03-25] MEDS: diazePAM 5 MG TABLET PO SCH ×3 (05:32→22:14)
--- NOTE | 2019-03-25 07:58 | CONSULT ---
[facility] Psychiatric Consult - Data Date of interview: 03/25/19 Admission source: [facility] Identifying data: Patient is a 38 year old single german male, without children, unemployed, homeless, and is not supported by financial assistance. This is one of multiple admissions for patient. Patient admitted to for alcohol, marijuana, benodiazepine, and opiate dependence. Substance Abuse History: Smoking Cessation. Smoking history: Current every day smoker. Have you smoked in the past 12 months: Yes. Aproximately how many cigarettes per day: 40. If you are a former smoker, when did you quit?: N/A. Cigars Per Day: 4. Hx Chewing Tobacco Use: No (N/A). Initiated information on smoking cessation: Yes. 'Breaking Loose' booklet given: 03/24/19 (give on floor ). - Substance & Tx. History. Hx Alcohol Use: Yes. Hx Substance Use: Yes. Substance Use Type: Alcohol, Heroin, Marijuana, Opiates, Tranquilizers. Hx Substance Use Treatment: Yes (detox,rehab,MMTP, suboxone). - Substances abused. Heroin. Substance route: Injection. Frequency: Daily. Amount used : 8-12 bags. Age of first use: 29. Date of last use: 03/24/19. Alprazolam (Xanax). Substance route: Oral. Frequency: Daily. Amount used: 6-10mg. Age of first use: 28. Date of last use: 03/24/19. Marijuana/Hashish. Substance route: Smoking. Frequency: Daily. Amount used: $50. Age of first use: 24. Date of last use: 03/23/19. Alcohol. Substance route: Oral. Frequency: 3-6 times per week. Amount used: 2 pint FAROESE MOONSHINE. Age of first use: 16. Date of last use: 03/22/19 Medical History: Significant for hypertension, coronary artery disease, myocardial infarction with angioplasty (stent placement in 05/2018). Psychiatric History: Patient denies h/o psychiatric hospitalizations and suicide attempt. Patient's most recent outpatient psychiatric care was at [facility] approximately two years ago. He was prescribed Wellbutrin 150mg XL+ Trazodone 150mg+ Gabapentin 300mg TID + adderall 20mg BID + Clonodine 0.3mg BID. [facility] that [facility] and was prescribed klonopin for anxiety. Ms. Bellamy states that he continues to receive trazodone 150mg from his PCP. He reports noncompliance to wellbutrin due to his drug use and is only interested in accepting trazodone and medications for anxiety. At present patient reports feeling anxious and is having difficulty sleeping. Physical/Sexual Abuse/Trauma History: denies. Mental Status Exam - Mental Status Exam Alert and Oriented to: Time, Place, Person Cognitive Function: Good Patient Appearance: Well Groomed Mood: Euthymic Affect: Appropriate Patient Behavior: Appropriate, Cooperative Speech Pattern: Clear, Appropriate Voice Loudness: Normal Thought Process: Intact, Goal Oriented Thought Disorder: Not Present Hallucinations: Denies Suicidal Ideation: Denies Homicidal Ideation: Denies Insight/Judgement: Poor Sleep: Poorly Appetite: Fair Muscle strength/Tone: Normal Gait/Station: Normal Psychiatric Findings - Problem List ([place] 1, 2,3) (1) Substance-induced anxiety disorder Status: Acute (2) Alcohol dependence with uncomplicated withdrawal Status: Acute (3) Cannabis dependence Status: Chronic (4) Opioid dependence with withdrawal Status: Acute (5) Sedative, hypnotic or anxiolytic dependence, uncomplicated Status: Acute (6) Substance-induced sleep disorder Status: Acute (7) Substance induced mood disorder Status: Chronic - Initial Treatment Plan Initial Treatment Plan: Psychoeducation provided. Detoxification in progress. Will order Trazodone 150mg HS + Vistaril 50mg q6h for anxiety. Benefits and side effects discussed. Verbal consent given.
[2019-03-25] MEDS ORDERED: ONDANSETRON *ODT* 4 MG TABLET SL ONE (09:38)
[2019-03-25] MEDS ORDERED: hydrOXYzine PAMOATE 50 MG CAPSULE (FP) PO ONE (09:40)
--- NOTE | 2019-03-25 09:41 | PN ---
[facility] CIWA - CIWA Score Nausea/Vomitin-Mild Nausea/No Vomiting Muscle Tremors: 3 Anxiety: 3 Agitation: 4-Moderately Restless Paroxysmal Sweats: 2 Orientation: 1-Uncertain about Date (date of week) Tacttile Disturbances: 0-None Auditory Disturbances: 0-None Visual Disturbances: 0-None Headache: 1-Very Mild CIWA-Ar Total Score: 15 [facility] COWS - Scale Resting Pulse: 0= [place] 80 or Below Sweatin= Chills/Flushing Restless Observation: 0= Sits Still Pupil Size: 1= Pupils >than Normal Bone or Joint Aches: 1= Mild Discomfort Runny Nose/ Eye Tearin= None GI Upset > 30mins: 2= Nausea/Diarrhea Tremor Observation of Outstretched Hands: 2= Slight Tremor Visible Yawning Observation: 0= None Anxiety or Irritability: 1=Feels Anxious/Irritable Goose Flesh Skin: 3=Piloerection COWS Score: 11 S Progress Note (SOAP) Subjective: 38 years old male admitted on 03/24/19 for alcohol benzo opiate withdrawal sx management treating with valium and methadone detox regimen patient received 30 days suboxone 8-2mg sl daily on 02/14/19 negative urine toxicity on suboxone patient tolerated methadone well c/o nause zofran sl 8mg x 1 c/o anxious vistaril 50 mg po x 1 Objective: 03/25/19 09:42 Vital Signs Temperature 97.2 F L 03/25/19 09:13 Pulse Rate 70 03/25/19 09:13 Respiratory Rate 18 03/25/19 09:13 Blood Pressure 131/87 03/25/19 09:13 O2 Sat by Pulse Oximetry (%) Laboratory Last Values WBC 7.7 K/mm3 (4.0-10.0) 03/24/19 10:20 RBC 4.31 M/mm3 (4.00-5.60) 03/24/19 10:20 Hgb 13.4 GM/dL (11.7-16.9) 03/24/19 10:20 Hct 40.3 % (35.4-49) 03/24/19 10:20 MCV 93.4 fl (80-96) 03/24/19 10:20 MCH 31.1 pg (25.7-33.7) 03/24/19 10:20 MCHC 33.3 g/dl (32.0-35.9) 03/24/19 10:20 RDW 13.1 % (11.9-15.9) 03/24/19 10:20 Plt Count 223 K/MM3 (134-434) 03/24/19 10:20 MPV 9.0 fl (7.5-11.1) D 03/24/19 10:20 Sodium 140 mmol/L (136-145) 03/24/19 10:20 Potassium 4.3 mmol/L (3.5-5.1) 03/24/19 10:20 Chloride 103 mmol/L (98-107) 03/24/19 10:20 Carbon Dioxide 30 mmol/L (21-32) 03/24/19 10:20 Anion Gap 7 MMOL/L (8-16) L 03/24/19 10:20 BUN 19.7 mg/dL (7-18) H 03/24/19 10:20 Creatinine 1.0 mg/dL (0.55-1.3) 03/24/19 10:20 Est GFR (CKD-EPI)AfAm 111.73 03/24/19 10:20 Est GFR (CKD-EPI)NonAf 96.40 03/24/19 10:20 Random Glucose 106 mg/dL (74-106) 03/24/19 10:20 Calcium 8.7 mg/dL (8.5-10.1) 03/24/19 10:20 Total Bilirubin 0.5 mg/dL (0.2-1) 03/24/19 10:20 AST 23 U/L (15-37) 03/24/19 10:20 ALT 31 U/L (13-61) 03/24/19 10:20 Alkaline Phosphatase 74 U/L (45-117) 03/24/19 10:20 Total Protein 7.4 g/dl (6.4-8.2) 03/24/19 10:20 Albumin 4.0 g/dl (3.4-5.0) 03/24/19 10:20 RPR Titer Nonreactive (NONREACTIVE) 03/24/19 10:20 lab noted Assessment: 03/25/19 09:42 alcohol benzo opiate withdrawal Plan: valium and methadone regimen
[2019-03-25] MEDS ORDERED: METHADONE (DETOX) 20 MG, METHADONE (DETOX) 5 MG PO ONE (10:00)
[2019-03-25] MEDS: LISINOPRIL 5 MG TABLET (FP) PO SCH (10:06)
[2019-03-25] MEDS: ISOSORBIDE MONONITRATE 30 MG TAB.SR.24H (FP) PO SCH (10:06)
[2019-03-25] MEDS: DOCUSATE SODIUM 100 MG CAPSULE (FP) PO SCH ×2 (10:06→22:14)
[2019-03-25] MEDS: CLOPIDOGREL BISULFATE 75 MG TABLET (FP) PO SCH (10:06)
[2019-03-25] MEDS: diazePAM 5 MG TABLET PO PRN ×2 (10:08→17:27)
[2019-03-25] MEDS ORDERED: METHADONE HCL 5 MG TABLET (FOR DETOX USE ONLY) ONE (10:10)
[2019-03-25] MEDS: PRENATAL VITAMINS W/ FOLIC ACID TABLET (FP) PO SCH (10:10)
[2019-03-25] MEDS: ASPIRIN COATED 81 MG TABLET.EC PO SCH (10:10)
[2019-03-25] MEDS ORDERED: METHADONE HCL 10 MG TABLET (FOR DETOX USE ONLY) ONE (10:10)
[2019-03-25] MEDS: CARVEDILOL 3.125 MG TABLET (FP) PO SCH ×2 (10:11→22:14)
--- NOTE | 2019-03-25 10:16 | EKG ---
Test Reason : Blood Pressure : / mmHG Vent. Rate : 070 BPM Atrial Rate : 070 BPM P-R Int : 186 ms QRS Dur : 114 ms QT Int : 402 ms P-R-T Axes : 056 068 064 degrees QTc Int : 434 ms NORMAL SINUS RHYTHM ANTEROLATERAL INFARCT (CITED ON OR BEFORE 24-JUL-2018) ABNORMAL ECG WHEN COMPARED WITH ECG OF 29-SEP-2018 00:36, NO SIGNIFICANT CHANGE WAS FOUND Confirmed by LORI SOLOMON, SHAILA ([id number]) on 03/25/2019 10:15:40 AM Referred By: Parveen Cohen Confirmed By:SHAILA SANDOVAL MD
[2019-03-25] MEDS ORDERED: hydrOXYzine PAMOATE 50 MG CAPSULE (FP) PO PRN (13:01)
[2019-03-25] MEDS: ATORVASTATIN CA 80 MG TABLET (FP) PO SCH (22:14)
[2019-03-25] MEDS: traZODone HCL 50 MG TABLET (FP) PO SCH (22:14)
[2019-03-25] MEDS: THIAMINE HCL 100 MG TABLET (FP) PO SCH (22:15)
[2019-03-25] MEDS: cloNIDine HCL 0.1 MG TABLET PO PRN (22:16)
[2019-03-26] MEDS: diazePAM 5 MG TABLET PO SCH ×2 (05:31→17:42)
[2019-03-26] MEDS: cloNIDine HCL 0.1 MG TABLET PO PRN (05:35)
[2019-03-26] MEDS ORDERED: CITRIC ACID/SODIUM CITRATE 30 ML UNIT-DOSE CUP PO ONE (09:25)
[2019-03-26] MEDS ORDERED: ONDANSETRON *ODT* 4 MG TABLET SL ONE (09:26)
[2019-03-26] MEDS ORDERED: SODIUM PHOSPHATE/NA BIPHOS 133 ML ENEMA PR ONE (09:29)
--- NOTE | 2019-03-26 09:32 | PN ---
[facility] CIWA - CIWA Score Nausea/Vomitin Muscle Tremors: 3 Anxiety: 3 Agitation: 2 Paroxysmal Sweats: 2 Orientation: 0-Oriented Tacttile Disturbances: 0-None Auditory Disturbances: 0-None Visual Disturbances: 0-None Headache: 0-None Present CIWA-Ar Total Score: 12 S COWS - Scale Resting Pulse: 1= [place] 81-100 Sweatin= Chills/Flushing Restless Observation: 0= Sits Still Pupil Size: 1= Pupils >than Normal Bone or Joint Aches: 0= None Runny Nose/ Eye Tearin= None GI Upset > 30mins: 3= Vomiting/Diarrhea Tremor Observation of Outstretched Hands: 1= Tremor [place], Not Seen Yawning Observation: 0= None Anxiety or Irritability: 1=Feels Anxious/Irritable Goose Flesh Skin: 3=Piloerection COWS Score: 11 [facility] Progress Note (SOAP) Subjective: 38 years old male admitted on 03/24/19 for alcohol benzo opiate withdrawal sx management treating with valium and methadone detox regimen c/o difficulty to move bowel ate breakfast feeling nausea and vomiting x 1 abdomen soft + bs x 4 zofran 8 mg sl x 1 citric of magnesium 30ml x 1 enema x 1 patient had history of cardiac infarct discuss risks of fatality related to opiate misuse Objective: 03/26/19 09:38 Vital Signs Temperature 97.5 F L 03/26/19 09:15 Pulse Rate 87 03/26/19 09:15 Respiratory Rate 18 03/26/19 09:15 Blood Pressure 136/96 03/26/19 09:15 O2 Sat by Pulse Oximetry (%) Laboratory Last Values WBC 7.7 K/mm3 (4.0-10.0) 03/24/19 10:20 RBC 4.31 M/mm3 (4.00-5.60) 03/24/19 10:20 Hgb 13.4 GM/dL (11.7-16.9) 03/24/19 10:20 Hct 40.3 % (35.4-49) 03/24/19 10:20 MCV 93.4 fl (80-96) 03/24/19 10:20 MCH 31.1 pg (25.7-33.7) 03/24/19 10:20 MCHC 33.3 g/dl (32.0-35.9) 03/24/19 10:20 RDW 13.1 % (11.9-15.9) 03/24/19 10:20 Plt Count 223 K/MM3 (134-434) 03/24/19 10:20 MPV 9.0 fl (7.5-11.1) D 03/24/19 10:20 Sodium 140 mmol/L (136-145) 03/24/19 10:20 Potassium 4.3 mmol/L (3.5-5.1) 03/24/19 10:20 Chloride 103 mmol/L (98-107) 03/24/19 10:20 Carbon Dioxide 30 mmol/L (21-32) 03/24/19 10:20 Anion Gap 7 MMOL/L (8-16) L 03/24/19 10:20 BUN 19.7 mg/dL (7-18) H 03/24/19 10:20 Creatinine 1.0 mg/dL (0.55-1.3) 03/24/19 10:20 Est GFR (CKD-EPI)AfAm 111.73 03/24/19 10:20 Est GFR (CKD-EPI)NonAf 96.40 03/24/19 10:20 Random Glucose 106 mg/dL (74-106) 03/24/19 10:20 Calcium 8.7 mg/dL (8.5-10.1) 03/24/19 10:20 Total Bilirubin 0.5 mg/dL (0.2-1) 03/24/19 10:20 AST 23 U/L (15-37) 03/24/19 10:20 ALT 31 U/L (13-61) 03/24/19 10:20 Alkaline Phosphatase 74 U/L (45-117) 03/24/19 10:20 Total Protein 7.4 g/dl (6.4-8.2) 03/24/19 10:20 Albumin 4.0 g/dl (3.4-5.0) 03/24/19 10:20 RPR Titer Nonreactive (NONREACTIVE) 03/24/19 10:20 lab noted Assessment: 03/26/19 09:38 alcohol benzo opiate withdrawal Plan: valium and methadone regimen
[2019-03-26] MEDS ORDERED: METHADONE HCL 10 MG TABLET (FOR DETOX USE ONLY) PO ONE (10:00)
[2019-03-26] MEDS: ISOSORBIDE MONONITRATE 30 MG TAB.SR.24H (FP) PO SCH (10:03)
[2019-03-26] MEDS: ASPIRIN COATED 81 MG TABLET.EC PO SCH (10:03)
[2019-03-26] MEDS: CLOPIDOGREL BISULFATE 75 MG TABLET (FP) PO SCH (10:03)
[2019-03-26] MEDS: PRENATAL VITAMINS W/ FOLIC ACID TABLET (FP) PO SCH (10:04)
[2019-03-26] MEDS: DOCUSATE SODIUM 100 MG CAPSULE (FP) PO SCH ×2 (10:04→22:20)
[2019-03-26] MEDS: LISINOPRIL 5 MG TABLET (FP) PO SCH (10:04)
[2019-03-26] MEDS: CARVEDILOL 3.125 MG TABLET (FP) PO SCH ×2 (10:04→22:21)
--- NOTE | 2019-03-26 19:13 | PN ---
[facility] Progress Note Note: spironolactone verified w/ pharmacy of record , active rx 25 mg qd gabapentin verified 100 mg tid active rx
[2019-03-26] MEDS: SPIRONOLACTONE 25 MG TABLET (FP) PO SCH (20:13)
[2019-03-26] MEDS: ATORVASTATIN CA 80 MG TABLET (FP) PO SCH (22:20)
[2019-03-26] MEDS: traZODone HCL 50 MG TABLET (FP) PO SCH (22:20)
[2019-03-26] MEDS: GABAPENTIN 100 MG CAPSULE (FP) PO SCH (22:21)
[2019-03-26] MEDS: THIAMINE HCL 100 MG TABLET (FP) PO SCH (22:21)
[2019-03-26] MEDS: MELATONIN 5 MG TABLETS PO PRN (23:24)
[2019-03-26] MEDS: diazePAM 5 MG TABLET PO PRN (23:24)
[2019-03-27] MEDS ORDERED: diazePAM 5 MG TABLET PO ONE (06:00)
[2019-03-27] MEDS: GABAPENTIN 100 MG CAPSULE (FP) PO SCH ×3 (06:25→22:10)
--- NOTE | 2019-03-27 09:29 | PN ---
[facility] CIWA - CIWA Score Nausea/Vomitin-Mild Nausea/No Vomiting Muscle Tremors: 2 Anxiety: 2 Agitation: 2 Paroxysmal Sweats: 1-Minimal Palms Moist Orientation: 0-Oriented Tacttile Disturbances: 0-None Auditory Disturbances: 0-None Visual Disturbances: 0-None Headache: 0-None Present CIWA-Ar Total Score: 8 [facility] COWS - Scale Resting Pulse: 0= [place] 80 or Below Sweatin= Chills/Flushing Restless Observation: 0= Sits Still Pupil Size: 1= Pupils >than Normal Bone or Joint Aches: 1= Mild Discomfort Runny Nose/ Eye Tearin= Nasal Congestion GI Upset > 30mins: 2= Nausea/Diarrhea Tremor Observation of Outstretched Hands: 1= Tremor [place], Not Seen Yawning Observation: 0= None Anxiety or Irritability: 1=Feels Anxious/Irritable Goose Flesh Skin: 0=Smooth Skin COWS Score: 8 [facility] Progress Note (SOAP) Subjective: 38 years old male admitted on 03/24/19 for alcohol benzo opiate withdrawal sx management treating with valium and methadone detox regimen 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 [facility] on [phone] spironolactone 25 mg po daily last medication picked on 03/14/19 of 30days K+ 4.3 patient will follow up with his yard jacker for K+ monitoring gabapentin 300 mg po tid last medication 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 gabapentin 100 mg po tid last prescription 05/2018 "never bean picker patient is worry about his cardiac condition by history "I had stent in my heart " discuss healthy life style Objective: 03/27/19 09:33 Vital Signs Temperature 97.1 F L 03/27/19 09:18 Pulse Rate 70 03/27/19 09:18 Respiratory Rate 18 03/27/19 09:18 Blood Pressure 133/89 03/27/19 09:18 O2 Sat by Pulse Oximetry (%) Laboratory Last Values WBC 7.7 K/mm3 (4.0-10.0) 03/24/19 10:20 RBC 4.31 M/mm3 (4.00-5.60) 03/24/19 10:20 Hgb 13.4 GM/dL (11.7-16.9) 03/24/19 10:20 Hct 40.3 % (35.4-49) 03/24/19 10:20 MCV 93.4 fl (80-96) 03/24/19 10:20 MCH 31.1 pg (25.7-33.7) 03/24/19 10:20 MCHC 33.3 g/dl (32.0-35.9) 03/24/19 10:20 RDW 13.1 % (11.9-15.9) 03/24/19 10:20 Plt Count 223 K/MM3 (134-434) 03/24/19 10:20 MPV 9.0 fl (7.5-11.1) D 03/24/19 10:20 Sodium 140 mmol/L (136-145) 03/24/19 10:20 Potassium 4.3 mmol/L (3.5-5.1) 03/24/19 10:20 Chloride 103 mmol/L (98-107) 03/24/19 10:20 Carbon Dioxide 30 mmol/L (21-32) 03/24/19 10:20 Anion Gap 7 MMOL/L (8-16) L 03/24/19 10:20 BUN 19.7 mg/dL (7-18) H 03/24/19 10:20 Creatinine 1.0 mg/dL (0.55-1.3) 03/24/19 10:20 Est GFR (CKD-EPI)AfAm 111.73 03/24/19 10:20 Est GFR (CKD-EPI)NonAf 96.40 03/24/19 10:20 Random Glucose 106 mg/dL (74-106) 03/24/19 10:20 Calcium 8.7 mg/dL (8.5-10.1) 03/24/19 10:20 Total Bilirubin 0.5 mg/dL (0.2-1) 03/24/19 10:20 AST 23 U/L (15-37) 03/24/19 10:20 ALT 31 U/L (13-61) 03/24/19 10:20 Alkaline Phosphatase 74 U/L (45-117) 03/24/19 10:20 Total Protein 7.4 g/dl (6.4-8.2) 03/24/19 10:20 Albumin 4.0 g/dl (3.4-5.0) 03/24/19 10:20 RPR Titer Nonreactive (NONREACTIVE) 03/24/19 10:20 lab noted Assessment: 03/27/19 09:34 alcohol benzo opiate withdrawal Plan: valium and methadone regimen
[2019-03-27] MEDS ORDERED: METHADONE (DETOX) 10 MG, METHADONE (DETOX) 5 MG PO ONE (10:00)
[2019-03-27] MEDS ORDERED: METHADONE HCL 10 MG TABLET (FOR DETOX USE ONLY) ONE (10:01)
[2019-03-27] MEDS ORDERED: METHADONE HCL 5 MG TABLET (FOR DETOX USE ONLY) ONE (10:02)
[2019-03-27] MEDS: ASPIRIN COATED 81 MG TABLET.EC PO SCH (10:11)
[2019-03-27] MEDS: DOCUSATE SODIUM 100 MG CAPSULE (FP) PO SCH ×2 (10:11→22:11)
[2019-03-27] MEDS: ISOSORBIDE MONONITRATE 30 MG TAB.SR.24H (FP) PO SCH (10:11)
[2019-03-27] MEDS: LISINOPRIL 5 MG TABLET (FP) PO SCH (10:11)
[2019-03-27] MEDS: CLOPIDOGREL BISULFATE 75 MG TABLET (FP) PO SCH (10:11)
[2019-03-27] MEDS: CARVEDILOL 3.125 MG TABLET (FP) PO SCH ×2 (10:14→22:11)
[2019-03-27] MEDS: PRENATAL VITAMINS W/ FOLIC ACID TABLET (FP) PO SCH (10:14)
[2019-03-27] MEDS: SPIRONOLACTONE 25 MG TABLET (FP) PO SCH (10:15)
[2019-03-27] MEDS: traZODone HCL 50 MG TABLET (FP) PO SCH (22:10)
[2019-03-27] MEDS: ATORVASTATIN CA 80 MG TABLET (FP) PO SCH (22:10)
[2019-03-27] MEDS: MELATONIN 5 MG TABLETS PO PRN (22:10)
[2019-03-27] MEDS: THIAMINE HCL 100 MG TABLET (FP) PO SCH (22:12)
[2019-03-28] MEDS: GABAPENTIN 100 MG CAPSULE (FP) PO SCH (05:57)
[2019-03-28 09:20] VITALS: BP 127/80; PULSE 75; TEMP 98.6
[2019-03-28] MEDS ORDERED: METHADONE HCL 10 MG TABLET (FOR DETOX USE ONLY) PO ONE (10:00)
[2019-03-28] MEDS: PRENATAL VITAMINS W/ FOLIC ACID TABLET (FP) PO SCH (10:12)
[2019-03-28] MEDS: LISINOPRIL 5 MG TABLET (FP) PO SCH (10:12)
[2019-03-28] MEDS: SPIRONOLACTONE 25 MG TABLET (FP) PO SCH (10:12)
[2019-03-28] MEDS: CARVEDILOL 3.125 MG TABLET (FP) PO SCH (10:12)
[2019-03-28] MEDS: ASPIRIN COATED 81 MG TABLET.EC PO SCH (10:12)
[2019-03-28] MEDS: DOCUSATE SODIUM 100 MG CAPSULE (FP) PO SCH (10:13)
[2019-03-28] MEDS: ISOSORBIDE MONONITRATE 30 MG TAB.SR.24H (FP) PO SCH (10:13)
[2019-03-28] MEDS: CLOPIDOGREL BISULFATE 75 MG TABLET (FP) PO SCH (10:13)
--- NOTE | 2019-03-28 15:10 | DS ---
[facility] Detox Discharge Summary Admission Date: 03/24/19 Discharge Date: 03/28/19 - History Present History: Alcohol Dependence, Opioid Dependence, Sedative Dependence Additional Comments: 38 years old male admitted on 03/24/19 for alcohol benzo opiate withdrawal sx management treated with valium and methadone detox regimen patient insists to terminate his detox regimen abruptly "thing to do" estimated discharge date 03/29/19 patient states that he is going to see his estimator and drafter today "I have stent in my heart" patient expressing concerns and worries his cardiac problem discussed alcohol benzo opiate related cardiac insults patient requests suboxone discuss risks of suboxone mixed with methadone patient is alert oriented x 3 ambulating steady gait speech clearly coherently ate breakfast and lunch showered before leaving the detox unit Pertinent Past History: case discussed with the nurse against medical advice is appropriated - Physical Exam Results Vital Signs: Vital Signs Temperature 98.6 F 03/28/19 09:19 Pulse Rate 75 03/28/19 09:19 Respiratory Rate 18 03/28/19 09:19 Blood Pressure 127/80 03/28/19 09:19 O2 Sat by Pulse Oximetry (%) Pertinent Admission Physical Exam Findings: alcohol benzo opiate withdrawal Laboratory Last Values WBC 7.7 K/mm3 (4.0-10.0) 03/24/19 10:20 RBC 4.31 M/mm3 (4.00-5.60) 03/24/19 10:20 Hgb 13.4 GM/dL (11.7-16.9) 03/24/19 10:20 Hct 40.3 % (35.4-49) 03/24/19 10:20 MCV 93.4 fl (80-96) 03/24/19 10:20 MCH 31.1 pg (25.7-33.7) 03/24/19 10:20 MCHC 33.3 g/dl (32.0-35.9) 03/24/19 10:20 RDW 13.1 % (11.9-15.9) 03/24/19 10:20 Plt Count 223 K/MM3 (134-434) 03/24/19 10:20 MPV 9.0 fl (7.5-11.1) D 03/24/19 10:20 Sodium 140 mmol/L (136-145) 03/24/19 10:20 Potassium 4.3 mmol/L (3.5-5.1) 03/24/19 10:20 Chloride 103 mmol/L (98-107) 03/24/19 10:20 Carbon Dioxide 30 mmol/L (21-32) 03/24/19 10:20 Anion Gap 7 MMOL/L (8-16) L 03/24/19 10:20 BUN 19.7 mg/dL (7-18) H 03/24/19 10:20 Creatinine 1.0 mg/dL (0.55-1.3) 03/24/19 10:20 Est GFR (CKD-EPI)AfAm 111.73 03/24/19 10:20 Est GFR (CKD-EPI)NonAf 96.40 03/24/19 10:20 Random Glucose 106 mg/dL (74-106) 03/24/19 10:20 Calcium 8.7 mg/dL (8.5-10.1) 03/24/19 10:20 Total Bilirubin 0.5 mg/dL (0.2-1) 03/24/19 10:20 AST 23 U/L (15-37) 03/24/19 10:20 ALT 31 U/L (13-61) 03/24/19 10:20 Alkaline Phosphatase 74 U/L (45-117) 03/24/19 10:20 Total Protein 7.4 g/dl (6.4-8.2) 03/24/19 10:20 Albumin 4.0 g/dl (3.4-5.0) 03/24/19 10:20 RPR Titer Nonreactive (NONREACTIVE) 03/24/19 10:20 lab noted - Treatment Hospital Course: Detox Protocol Followed, Discharged Condition Good Patient has Accepted a Rehab Referral to: [facility] - Medication Discharge Medications: Ambulatory Orders traZODone HCL [Desyrel -] 150 mg PO HS #30 tablet 06/23/17 Aspirin [Aspirin EC] 81 mg PO DAILY 09/02/18 Atorvastatin Ca [Lipitor] 80 mg PO HS #30 tablet 09/04/18 Carvedilol [Coreg -] 3.125 mg PO BID #60 tablet 09/04/18 Clopidogrel Bisulfate [Clopidogrel] 75 mg PO DAILY #30 tablet 09/04/18 Isosorbide Mononitrate [Isosorbide Mononitrate ER] 30 mg PO DAILY #30 tab.er.24h 09/04/18 Lisinopril 5 mg PO DAILY #30 tablet 09/04/18 Nitroglycerin [Nitrostat] 0.4 mg SL PRN PRN #10 tab.subl 09/04/18 Spironolactone 25 mg PO DAILY #30 tablet 09/04/18 Bupropion HCl [Wellbutrin -] 75 mg PO DAILY 11/17/18 Gabapentin [Neurontin -] 300 mg PO TID 11/17/18 cloNIDine HCL [Catapres -] 0.1 mg PO TID 11/17/18 Docusate Sodium [Dok] 100 mg PO PRN PRN 12/21/18 Naloxone HCl [Narcan] 4 mg NS ASDIR PRN #1 spray 03/25/19 - Diagnosis (1) Alcohol dependence with uncomplicated withdrawal Status: Acute (2) Opioid dependence with withdrawal Status: Acute (3) Sedative, hypnotic or anxiolytic dependence with withdrawal, uncomplicated Status: Acute (4) Hypertension Status: Chronic Qualifiers: Hypertension type: essential hypertension Qualified Code(s): I10 - Essential (primary) hypertension (5) Nicotine dependence Status: Acute Qualifiers: Nicotine product type: cigarettes Substance use status: in withdrawal Qualified Code(s): F17.213 - Nicotine dependence, cigarettes, with withdrawal (6) Substance induced mood disorder Status: Suspected - AMA Did Patient Leave Against Medical Advice: Yes
[2019-03-29] MEDS ORDERED: METHADONE HCL 5 MG TABLET (FOR DETOX USE ONLY) PO ONE (06:00)
== END 2019-03-28 13:22 | disposition left against medical advice (07) | DRG 770 ==
LOC: YASAS 09:06 → Y3N 10:47
PROVIDERS: ADMIT Allergy & Immunology; ATTEND Allergy & Immunology
PROC: HZ2ZZZZ Detoxification Services for Substance Abuse Treatment (ICD-10-PCS; principal; 2019-03-24)
DX: F11.23 Opioid dependence with withdrawal (principal); F10.230 Alcohol dependence with withdrawal, uncomplicated; F13.230 Sedative, hypnotic or anxiolytic dependence with withdrawal, uncomplicated; F12.20 Cannabis dependence, uncomplicated; F17.213 Nicotine dependence, cigarettes, with withdrawal; F19.24 Other psychoactive substance dependence with psychoactive substance-induced mood disorder; F19.280 Other psychoactive substance dependence with psychoactive substance-induced anxiety disorder; F19.282 Other psychoactive substance dependence with psychoactive substance-induced sleep disorder; I10 Essential (primary) hypertension; I25.10 Atherosclerotic heart disease of native coronary artery without angina pectoris; I25.2 Old myocardial infarction; E78.00 Pure hypercholesterolemia, unspecified; K08.89 Other specified disorders of teeth and supporting structures; E66.9 Obesity, unspecified; Z68.34 Body mass index [BMI] 34.0-34.9, adult; Z95.5 Presence of coronary angioplasty implant and graft; Z88.8 Allergy status to other drugs, medicaments and biological substances
CPT/HCPCS: 36415; 80053; 85027; 86593; 93005; 93010; J0735; Q0162

== ENCOUNTER 2019-05-30 14:59 | Inpatient (IN) | payer OTHER ==
--- NOTE | 2019-05-30 15:18 | B[facility].RME ---
Substance Use & Tx History - Substance Use History Opiates (Heroin) Substance amount: 1 to 1.5 bundle per day Frequency of use: Daily Substance route: Injection (ex: intravenous or skin popping) Date of Last Use: 05/30/19 Benzodiazepines Substance amount: Xanax and Klonopin: 6 mg of Xanax daily or Klonopin daily up to 12 mg Frequency of use: Daily Substance route: Oral Date of Last Use: 05/30/19 Cannabis Substance amount: $45. per day Frequency of use: Daily Substance route: Smoking Date of Last Use: 05/30/19 Alcohol Substance amount: 1 pint Vodka Frequency of use: More than 3 times per week Substance route: Oral Date of Last Use: 05/29/19 Physical/Psych/Mental Status - Behavior General Behavior: Decreased activity - Cooperativeness Cooperativeness: Cooperative - Thinking Thought Processes: Tight - Physical Health Problems Is patient presently having any pain?: Yes (left lower molar pain) Does patient presently have any injuries (include location): No Does patient currently have a fever: No COWS - Scale Resting Pulse: 0= [place] 80 or Below Sweatin= Chills/Flushing Restless Observation: 1= Difficult to Sit Still Pupil Size: 0= Normal to Room Light Bone or Joint Aches: 0= None Runny Nose/ Eye Tearin= None GI Upset > 30mins: 2= Nausea/Diarrhea Tremor Observation: 2= Slight Tremor Visible Yawning Observation: 0= None Anxiety or Irritability: 2=Irritable/Anxious Goose Flesh Skin: 0=Smooth Skin COWS Score: 8 CIWA Nausea/Vomitin-Mild Nausea/No Vomiting Muscle Tremors: 4-Moderate,w/Arms Extend Anxiety: 3 Agitation: 2 Paroxysmal Sweats: 1-Minimal Palms Moist Orientation: 3-Disoriented Date>2 days Tacttile Disturbances: 0-None Auditory Disturbances: 0-None Visual Disturbances: 0-None Headache: 0-None Present CIWA-Ar Total Score: 14
[2019-05-30 15:45] VITALS: BMI 35.6
--- NOTE | 2019-05-30 16:42 | HP ---
<Wood Pulido - Last Filed: 05/30/19 16:30> COWS - Scale Resting Pulse: 2= [place] 101-120 Sweatin= Chills/Flushing Restless Observation: 1= Difficult to Sit Still Pupil Size: 0= Normal to Room Light Bone or Joint Aches: 0= None Runny Nose/ Eye Tearin= Runny Nose/Eyes GI Upset > 30mins: 0= None Tremor Observation: 2= Slight Tremor Visible Yawning Observation: 0= None Anxiety or Irritability: 2=Irritable/Anxious Goose Flesh Skin: 0=Smooth Skin COWS Score: 10 CIWA Score Nausea/Vomitin Muscle Tremors: 4-Moderate,w/Arms Extend Anxiety: 4-Mod. Anxious/Guarded Agitation: 2 Paroxysmal Sweats: 1-Minimal Palms Moist Orientation: 0-Oriented Tacttile Disturbances: 0-None Auditory Disturbances: 0-None Visual Disturbances: 0-None Headache: 0-None Present CIWA-Ar Total Score: 13 - Admission Criteria OASAS Guidelines: Admission for Medically Managed Detox: Requires at least one of the followin. CIWA greater than 12 2. Seizures within the past 24 hours 3. Delirium tremens within the past 24 hours 4. Hallucinations within the past 24 hours 5. Acute intervention needed for co occurring medical disorder 6. Acute intervention needed for co occurring psychiatric disorder 7. Severe withdrawal that cannot be handled at a lower level of care (continued vomiting, continued diarrhea, abnormal vital signs) requiring intravenous medication and/or fluids 8. Patient presents the following: CIWA greater than 12 Admission Criteria Met: Admission criteria met Admitting History and Physical - Admission History of Present Illness: Pt presents seeking detox from heroin and alcohol. Heroin: 1-1.5 bundles daily since age 28. Last use this am. Injects. Alcohol: 1 pint vodka daily since age 30. Last use yesterday. Has withdrawn. Has blacked out. No seizures. Benzos: Uses Xanax 6-8 mg daily since age 30 y/o. Last use this am. Sometimes uses klonopin, as well. Marijuana: $45/daily since age 25. Last use this AM. Crack Cocaine: sniffed from age 19 to age 30 y/o. PMH: HTN, NM (2/2 crack cocaine. LAD stent placed at [facility] 05/2018, Echo: apical akinesis) PSH: stent Meds: ASA, Lisinopril, Spironolactone, Lopressor, Clonidine, Lipitor, gabapentin , clopidogrel, docusate, trazodone Psych: insomnia All: buspirone Pt noted to have prior AMA from this facility. Signed contract with psychologist social. - Past Medical History [employer]: Yes: Other (restless legs) Cardiovascular: Yes: CAD, HTN, Hyperlipdemia Psych: Yes: Addictions, Anxiety - Past Surgical History Past Surgical History: Yes: Stent - Smoking History Smoking history: Current every day smoker Have you smoked in the past 12 months: Yes Aproximately how many cigarettes per day: 40 If you are a former smoker, when did you quit?: N/A - Alcohol/Substance Use Hx Alcohol Use: Yes History of Substance Use: reports: Cocaine, Heroin, Marijuana, Tranquilizers - Social History ADL: Family Assistance Admission ROS [facility] - HPI Allergies/Adverse Reactions: Allergies Allergy/AdvReac Type Severity Reaction Status Date / Time buspirone Allergy Severe Difficulty Verified 05/30/19 15:35 Breathing Patient History - Patient Medical History Hx Anemia: No Hx Asthma: No Hx Chronic Obstructive Pulmonary Disease (COPD): No Hx Cancer: No Hx Cardiac Disorders: Yes Hx Congestive Heart Failure: No Hx Hypertension: Yes Hx Hypercholesterolemia: Yes Hx Pacemaker: No HX Cerebrovascular Accident: No Hx Seizures: No Hx Diabetes: No Hx Gastrointestinal Disorders: No Hx Liver Disease: No Hx Genitourinary Disorders: No Hx Sexually Transmitted Disorders: No Hx Renal Disease (ESRD): No Hx Thyroid Disease: No Hx Human Immunodeficiency Virus (HIV): No (negative 2017 last ) Hx Hepatitis C: No Hx Depression: Yes Hx Suicide Attempt: No Hx Bipolar Disorder: No Hx Schizophrenia: No - Patient Surgical History Past Surgical History: No Hx Neurologic Surgery: No Hx Cataract Extraction: No Hx Cardiac Surgery: Yes (cardiac stent one vessel on 05/30/18) Hx Lung Surgery: No Hx Breast Surgery: No Hx Breast Biopsy: No Hx Abdominal Surgery: No Hx Appendectomy: No Hx Cholecystectomy: No Hx Genitourinary Surgery: No Hx Section: No Hx Orthopedic Surgery: No Anesthesia Reaction: No - PPD History Previous Implant?: Yes Documented Results: Negative w/proof Date: 07/24/18 Results: 0 mm - Smoking Cessation Smoking history: Current every day smoker Have you smoked in the past 12 months: Yes Aproximately how many cigarettes per day: 40 If you are a former smoker, when did you quit?: N/A Cigars Per Day: 0 Hx Chewing Tobacco Use: No (N/A) Initiated information on smoking cessation: Yes 'Breaking Loose' booklet given: 05/30/19 - Substances abused Heroin Substance route: Injection Frequency: Daily Amount used: 10-15 bags Age of first use: 29 Date of last use: 05/30/19 Alprazolam (Xanax) Substance route: Oral Frequency: Daily Amount used: 6-8mg Age of first use: 28 Date of last use: 05/30/19 Benzodiazepine (Klonopin) Other (specify): alternate with xanax Substance route: Oral Frequency: Daily Amount used: 10-12mg Age of first use: 28 Date of last use: 05/29/19 Alcohol Substance route: Oral Frequency: 3-6 times per week Amount used: 1 pint of vodka Age of first use: 32 Date of last use: 05/29/19 Admission Physical Exam S - Vital Signs Vital Signs: Vital Signs - 24 hr 05/30/19 15:34 Temperature 98.9 F Pulse Rate 108 H Respiratory 20 Rate Blood Pressure 110/74 - Physical General Appearance: Yes: Mild Distress, Anxious HEENTM: Yes: EOMI, Hearing grossly Normal, Normal ENT Inspection, ERNIE (mildly constricted, responsive, equal b/l), Other Respiratory: Yes: Within Normal Limits, Lungs Clear, Normal Breath Sounds, No Accessory Muscle Use Neck: Yes: Within Normal Limits, No masses,lesions,Nodules Cardiology: Yes: Within Normal Limits, Regular Rhythm, Regular Rate, S1, S2. No : Murmur Abdominal: Yes: Within Normal Limits, Normal Bowel Sounds, Non Tender, Flat, Soft Back: Yes: Within Normal Limits, Normal Inspection Extremities: Yes: Within Normal Limits, Normal Capillary Refill Neurological: Yes: Within Normal Limits, construction mgr II-XII NML intact, Fully Oriented, Alert, Motor Strength 5/5, Normal Mood/Affect, Normal Response Breathalyzer - Breathalyzer Breathalyzer: 0 Urine Drug Screen - Test Device Lot number: [id number] Expiration date: 03/10/21 - Control Is test valid?: Yes - Results Drug screen NEGATIVE: Yes Urine drug screen results: THC-Marijuana, FEN-Fentanyl, MOP-Opiates, MTD- Methadone, BZO-Benzodiazepines Inpatient Rehab Admission - Rehab Decision to Admit Inpatient rehab admission?: No <Parveen Cohen - Last Filed: 05/31/19 08:03> CIWA Score - Admission Criteria OASAS Guidelines: Admission for Medically Managed Detox: Requires at least one of the followin. CIWA greater than 12 2. Seizures within the past 24 hours 3. Delirium tremens within the past 24 hours 4. Hallucinations within the past 24 hours 5. Acute intervention needed for co occurring medical disorder 6. Acute intervention needed for co occurring psychiatric disorder 7. Severe withdrawal that cannot be handled at a lower level of care (continued vomiting, continued diarrhea, abnormal vital signs) requiring intravenous medication and/or fluids 8. Admission Physical Exam BHS - Vital Signs Vital Signs: Vital Signs - 24 hr 05/30/19 05/30/19 05/31/19 15:34 20:35 00:30 Temperature 98.9 F 98.2 F Pulse Rate 108 H 67 Respiratory 20 18 18 Rate Blood Pressure 110/74 107/53 L 05/31/19 05/31/19 03:19 06:15 Temperature 97.7 F Pulse Rate 81 Respiratory 18 18 Rate Blood Pressure 108/65 - Diagnostic (1) Alcohol dependence with uncomplicated withdrawal Current Visit: Yes Status: Acute (2) Anxiety and depression Current Visit: Yes Status: Acute (3) Cannabis dependence Current Visit: Yes Status: Acute (4) Drug-induced mood disorder Current Visit: Yes Status: Acute (5) Sedative, hypnotic or anxiolytic dependence with withdrawal, uncomplicated Current Visit: Yes Status: Acute (6) Substance-induced anxiety disorder Current Visit: Yes Status: Acute (7) ADHD (attention deficit hyperactivity disorder) Current Visit: Yes Status: Chronic Qualifiers: Attention deficit-hyperactivity disorder type: unspecified Qualified Code(s ): F90.9 - Attention-deficit hyperactivity disorder, unspecified type Comment: Self-report. (8) CAD (coronary artery disease) Current Visit: Yes Status: Chronic Qualifiers: Coronary Disease-Associated Artery/Lesion type: unspecified vessel or lesion type [place] vs. transplanted heart: unspecified whether [place] or transplanted heart Associated angina: angina presence unspecified Qualified Code(s): I25.10 - Atherosclerotic heart disease of [place] coronary artery without angina pectoris Comment: reports hx of stent placement (9) Cannabis dependence Current Visit: Yes Status: Chronic (10) Depressive disorder Current Visit: Yes Status: Chronic (11) History of NM (myocardial infarction) Current Visit: Yes Status: Resolved
[2019-05-30] MEDS ORDERED: hydrOXYzine PAMOATE 25 MG CAPSULE (FP) PO PRN (16:53)
[2019-05-30] MEDS ORDERED: MAGNESIUM HYDROX 2400MG/30ML ORAL SUSPENSION 30 ML CUP PO PRN (16:53)
[2019-05-30] MEDS ORDERED: MAG HYDROX/AL HYDROX/SIMETH 30 ML UNIT-DOSE CUP PO PRN (16:53)
[2019-05-30] MEDS ORDERED: METHOCARBAMOL 500 MG TABLET PO PRN (16:53)
[2019-05-30] MEDS ORDERED: cloNIDine HCL 0.1 MG TABLET PO PRN (16:53)
[2019-05-30] MEDS ORDERED: MAGNESIUM CITRATE 300 ML BOTTLE PO PRN (16:53)
[2019-05-30] MEDS ORDERED: chlordiazePOXIDE HCL 25 MG CAPSULE PO PRN (16:53)
[2019-05-30] MEDS ORDERED: MELATONIN 5 MG TABLETS PO PRN (16:53)
[2019-05-30] MEDS ORDERED: ACETAMINOPHEN 325 MG TABLET (FP) PO PRN (16:53)
[2019-05-30] MEDS ORDERED: MENTHOL/PHENOL 1 EACH UD MM PRN (16:53)
[2019-05-30] MEDS ORDERED: BISMUTH SUBSALICYLATE 524 MG/30 ML UD PO PRN (16:53)
[2019-05-30] MEDS ORDERED: NITROGLYCERIN SUBLINGUAL 1/150 0.4 MG TAB SL PRN (17:01)
[2019-05-30] MEDS ORDERED: BENZOCAINE 20 % GEL TUBE MM PRN (17:01)
[2019-05-30] MEDS ORDERED: DOCUSATE SODIUM 100 MG CAPSULE (FP) PO PRN (17:01)
[2019-05-30] MEDS: chlordiazePOXIDE HCL 25 MG CAPSULE PO SCH ×2 (17:43→22:24)
[2019-05-30] MEDS: ACETAMINOPHEN 325 MG TABLET (FP) PO PRN (17:44)
[2019-05-30] MEDS ORDERED: METHADONE HCL 10 MG TABLET (FOR DETOX USE ONLY) PO ONE (18:00)
[2019-05-30] MEDS: GABAPENTIN 300 MG CAPSULE PO SCH (22:24)
[2019-05-30] MEDS: AMOXICILLIN 500 MG CAPSULE (FP) PO SCH (22:24)
[2019-05-30] MEDS: ATORVASTATIN CA 10 MG TABLET (FP) PO SCH (22:51)
[2019-05-30] MEDS: THIAMINE HCL 100 MG TABLET (FP) PO SCH (22:51)
[2019-05-30] MEDS: cloNIDine HCL 0.1 MG TABLET PO SCH (22:51)
[2019-05-31] MEDS: cloNIDine HCL 0.1 MG TABLET PO SCH ×3 (00:57→23:03)
[2019-05-31] MEDS: chlordiazePOXIDE HCL 25 MG CAPSULE PO SCH ×4 (06:16→22:21)
[2019-05-31] MEDS: GABAPENTIN 300 MG CAPSULE PO SCH ×3 (06:17→22:22)
[2019-05-31] MEDS: ACETAMINOPHEN 325 MG TABLET (FP) PO PRN ×3 (06:18→22:25)
[2019-05-31] MEDS: CLOPIDOGREL BISULFATE 75 MG TABLET (FP) PO SCH (06:18)
--- NOTE | 2019-05-31 08:07 | PN ---
Teaching Attending Note Name of Resident: Wood Pulido ATTENDING PHYSICIAN STATEMENT I saw and evaluated the patient. I reviewed the resident's note and discussed the case with the resident. I agree with the resident's findings and plan as documented. SUBJECTIVE: Agree with resident subjective findings OBJECTIVE: Agree with resident objective findings ASSESSMENT AND PLAN: Agree with plan to admit. Problem List - Problems (1) Alcohol dependence with uncomplicated withdrawal Code(s): F10.230 - ALCOHOL DEPENDENCE WITH WITHDRAWAL, UNCOMPLICATED (2) Anxiety and depression Code(s): F41.9 - ANXIETY DISORDER, UNSPECIFIED; F32.9 - MAJOR DEPRESSIVE DISORDER, SINGLE EPISODE, UNSPECIFIED (3) Cannabis dependence Code(s): F12.20 - CANNABIS DEPENDENCE, UNCOMPLICATED (4) Drug-induced mood disorder Code(s): F19.94 - OTH PSYCHOACTIVE SUBSTANCE USE, UNSP W MOOD DISORDER (5) Sedative, hypnotic or anxiolytic dependence with withdrawal, uncomplicated Code(s): F13.230 - SEDATV/HYP/ANXIOLYTC DEPENDENCE W WITHDRAWAL, UNCOMPLICATED (6) Substance-induced anxiety disorder Code(s): F19.980 - OTH PSYCHOACTIVE SUBSTANCE USE, UNSP W ANXIETY DISORDER (7) ADHD (attention deficit hyperactivity disorder) Code(s): F90.9 - ATTENTION-DEFICIT HYPERACTIVITY DISORDER, UNSPECIFIED TYPE Qualifiers: Attention deficit-hyperactivity disorder type: unspecified Qualified Code(s ): F90.9 - Attention-deficit hyperactivity disorder, unspecified type (8) CAD (coronary artery disease) Code(s): I25.10 - ATHSCL HEART DISEASE OF [place] CORONARY ARTERY W/O ANG PCTRS Qualifiers: Coronary Disease-Associated Artery/Lesion type: unspecified vessel or lesion type [place] vs. transplanted heart: unspecified whether [place] or transplanted heart Associated angina: angina presence unspecified Qualified Code(s): I25.10 - Atherosclerotic heart disease of [place] coronary artery without angina pectoris (9) Cannabis dependence Code(s): F12.20 - CANNABIS DEPENDENCE, UNCOMPLICATED (10) Depressive disorder Code(s): F32.9 - MAJOR DEPRESSIVE DISORDER, SINGLE EPISODE, UNSPECIFIED (11) History of [place] (myocardial infarction) Code(s): I25.2 - OLD MYOCARDIAL INFARCTION
[2019-05-31] MEDS ORDERED: METHADONE HCL 5 MG TABLET (FOR DETOX USE ONLY) ONE (09:06)
[2019-05-31] MEDS ORDERED: METHADONE HCL 10 MG TABLET (FOR DETOX USE ONLY) ONE (09:06)
[2019-05-31 09:48] LABS: HEMATOCRIT 39.8 % (35.4-49); HEMOGLOBIN 13.5 GM/dL (11.7-16.9); MCH 31.7 pg (25.7-33.7); MCHC 33.8 g/dl (32.0-35.9); MEAN CELL VOLUME 93.7 fl (80-96); MEAN PLT VOLUME 8.5 fl (7.5-11.1); PLATELET COUNT 207 K/MM3 (134-434); RBC 4.25 M/mm3 (4.00-5.60); RDW 14.2 % (11.9-15.9); WHITE BLOOD COUNT 5.1 K/mm3 (4.0-10.0)
[2019-05-31] MEDS ORDERED: METHADONE (DETOX) 20 MG, METHADONE (DETOX) 5 MG PO ONE (10:00)
[2019-05-31 10:11] LABS: ALBUMIN 3.4 g/dl (3.4-5.0); BILIRUBIN,TOTAL 1.1 mg/dL (0.2-1); BLOOD UREA NITROGEN 18.8 mg/dL (7-18); CALCIUM 8.8 mg/dL (8.5-10.1); CREATININE 0.9 mg/dL (0.55-1.3); POTASSIUM 4.2 mmol/L (3.5-5.1); TOT PROT 6.4 g/dl (6.4-8.2)
[2019-05-31] MEDS: NICOTINE 21 MG/24 HOURS TOPICAL PATCH TD SCH (10:27)
[2019-05-31] MEDS: ASPIRIN COATED 81 MG TABLET.EC PO SCH (10:27)
[2019-05-31] MEDS: LISINOPRIL 5 MG TABLET (FP) PO SCH (10:27)
[2019-05-31] MEDS: AMOXICILLIN 500 MG CAPSULE (FP) PO SCH ×2 (10:27→22:23)
[2019-05-31] MEDS: SPIRONOLACTONE 25 MG TABLET (FP) PO SCH (10:27)
[2019-05-31] MEDS: PRENATAL VITAMINS W/ FOLIC ACID TABLET (FP) PO SCH (10:28)
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
--- NOTE | 2019-05-31 12:15 | PN ---
S CIWA - CIWA Score Nausea/Vomitin-Mild Nausea/No Vomiting Muscle Tremors: 3 Agitation: 3 Paroxysmal Sweats: No Perspiration Orientation: 0-Oriented Tacttile Disturbances: 0-None Auditory Disturbances: 0-None Visual Disturbances: 0-None Headache: 1-Very Mild BHS COWS - Scale Resting Pulse: 1= [place] 81-100 Sweatin= Chills/Flushing Restless Observation: 1= Difficult to Sit Still Pupil Size: 0= Normal to Room Light Bone or Joint Aches: 1= Mild Discomfort Runny Nose/ Eye Tearin= Nasal Congestion GI Upset > 30mins: 1= Stomach Cramp Tremor Observation of Outstretched Hands: 1= Tremor [place], Not Seen Yawning Observation: 1= 1-2x During Session Anxiety or Irritability: 1=Feels Anxious/Irritable Goose Flesh Skin: 0=Smooth Skin COWS Score: 9 S Progress Note (SOAP) Subjective: pt admitted yesterday for dual detox, h/o polysubstance use. Seen by MH today, put on prn traxodone for sleep O: Vital Signs - 24 hr 05/30/19 05/30/19 05/31/19 15:34 20:35 00:30 Temperature 98.9 F 98.2 F Pulse Rate 108 H 67 Respiratory 20 18 18 Rate Blood Pressure 110/74 107/53 L 05/31/19 05/31/19 05/31/19 03:19 06:15 09:30 Temperature 97.7 F 97.7 F Pulse Rate 81 68 Respiratory 18 18 16 Rate Blood Pressure 108/65 126/83 Laboratory Tests 05/31/19 05/31/19 05/31/19 07:30 07:30 07:30 WBC 5.1 RBC 4.25 Hgb 13.5 Hct 39.8 MCV 93.7 MCH 31.7 MCHC 33.8 RDW 14.2 Plt Count 207 MPV 8.5 Sodium 140 Potassium 4.2 Chloride 105 Carbon Dioxide 32 Anion Gap 2 L BUN 18.8 H Creatinine 0.9 Est GFR (CKD-EPI)AfAm 126.90 Est GFR (CKD-EPI)NonAf 109.49 Random Glucose 103 Calcium 8.8 Total Bilirubin 1.1 H AST 27 ALT 37 Alkaline Phosphatase 65 Total Protein 6.4 Albumin 3.4 RPR Titer HIV 1&2 Antibody Screen Cancelled HIV P24 Antigen Cancelled 05/31/19 07:30 WBC RBC Hgb Hct MCV MCH MCHC RDW Plt Count MPV Sodium Potassium Chloride Carbon Dioxide Anion Gap BUN Creatinine Est GFR (CKD-EPI)AfAm Est GFR (CKD-EPI)NonAf Random Glucose Calcium Total Bilirubin AST ALT Alkaline Phosphatase Total Protein Albumin RPR Titer Nonreactive HIV 1&2 Antibody Screen HIV P24 Antigen a/p: Dual detox- continue detox protocol, prn meds
--- NOTE | 2019-05-31 14:22 | EKG ---
Test Reason : Blood Pressure : / mmHG Vent. Rate : 074 BPM Atrial Rate : 074 BPM P-R Int : 190 ms QRS Dur : 108 ms QT Int : 374 ms P-R-T Axes : 063 077 078 degrees QTc Int : 415 ms SINUS RHYTHM WITH OCCASIONAL PREMATURE VENTRICULAR COMPLEXES ANTEROLATERAL INFARCT (CITED ON OR BEFORE 24-JUL-2018) ABNORMAL ECG WHEN COMPARED WITH ECG OF 24-MAR-2019 11:22, PREMATURE VENTRICULAR COMPLEXES ARE NOW PRESENT Confirmed by SHAILA SANDOVAL MD ([id number]) on 05/31/2019 2:21:50 PM Referred By: SONYA Confirmed By:SHAILA SANDOVAL MD
[2019-05-31] MEDS: THIAMINE HCL 100 MG TABLET (FP) PO SCH (22:22)
[2019-05-31] MEDS: traZODone HCL 50 MG TABLET (FP) PO SCH (22:22)
[2019-05-31] MEDS: ATORVASTATIN CA 10 MG TABLET (FP) PO SCH (23:02)
[2019-06-01] MEDS: CLOPIDOGREL BISULFATE 75 MG TABLET (FP) PO SCH (06:22)
[2019-06-01] MEDS: GABAPENTIN 300 MG CAPSULE PO SCH ×3 (06:22→22:10)
[2019-06-01] MEDS: chlordiazePOXIDE HCL 25 MG CAPSULE PO SCH ×4 (06:23→22:11)
[2019-06-01] MEDS: cloNIDine HCL 0.1 MG TABLET PO SCH (06:23)
[2019-06-01] MEDS ORDERED: METHADONE HCL 10 MG TABLET (FOR DETOX USE ONLY) PO ONE (10:00)
[2019-06-01] MEDS: AMOXICILLIN 500 MG CAPSULE (FP) PO SCH ×2 (10:18→22:08)
[2019-06-01] MEDS: ASPIRIN COATED 81 MG TABLET.EC PO SCH (10:19)
[2019-06-01] MEDS: PRENATAL VITAMINS W/ FOLIC ACID TABLET (FP) PO SCH (10:21)
[2019-06-01] MEDS: NICOTINE 21 MG/24 HOURS TOPICAL PATCH TD SCH (10:23)
[2019-06-01] MEDS: LISINOPRIL 5 MG TABLET (FP) PO SCH (10:23)
[2019-06-01] MEDS: SPIRONOLACTONE 25 MG TABLET (FP) PO SCH (10:23)
--- NOTE | 2019-06-01 13:11 | PN ---
[facility] CIWA - CIWA Score Nausea/Vomitin-Mild Nausea/No Vomiting Muscle Tremors: None Anxiety: 3 Agitation: 0-Normal Activity Paroxysmal Sweats: 2 Orientation: 0-Oriented Tacttile Disturbances: 1-Very Mild Itch/Numbness Auditory Disturbances: 0-None Visual Disturbances: 0-None Headache: 0-None Present CIWA-Ar Total Score: 7 S COWS - Scale Resting Pulse: 0= [place] 80 or Below Sweatin= Chills/Flushing Restless Observation: 1= Difficult to Sit Still Pupil Size: 1= Pupils >than Normal Bone or Joint Aches: 1= Mild Discomfort Runny Nose/ Eye Tearin= None GI Upset > 30mins: 0= None Tremor Observation of Outstretched Hands: 0= None Yawning Observation: 0= None Anxiety or Irritability: 2=Irritable/Anxious Goose Flesh Skin: 0=Smooth Skin COWS Score: 6 S Progress Note (SOAP) Subjective: interrupted sleep, sweats, anxious Objective: 06/01/19 13:12 Vital Signs Temperature 96.8 F L 06/01/19 08:30 Pulse Rate 71 06/01/19 08:30 Respiratory Rate 20 06/01/19 08:30 Blood Pressure 111/60 06/01/19 08:30 O2 Sat by Pulse Oximetry (%) Laboratory Tests 05/30/19 05/31/19 05/31/19 16:00 07:30 07:30 WBC 5.1 RBC 4.25 Hgb 13.5 Hct 39.8 MCV 93.7 MCH 31.7 MCHC 33.8 RDW 14.2 Plt Count 207 MPV 8.5 Sodium Potassium Chloride Carbon Dioxide Anion Gap BUN Creatinine Est GFR (CKD-EPI)AfAm Est GFR (CKD-EPI)NonAf Random Glucose Calcium Total Bilirubin AST ALT Alkaline Phosphatase Total Protein Albumin RPR Titer HIV 1&2 Ag/Ab, 4th Gen Non reactive HIV 1&2 Antibody Screen Cancelled HIV P24 Antigen Cancelled 05/31/19 05/31/19 07:30 07:30 WBC RBC Hgb Hct MCV MCH MCHC RDW Plt Count MPV Sodium 140 Potassium 4.2 Chloride 105 Carbon Dioxide 32 Anion Gap 2 L BUN 18.8 H Creatinine 0.9 Est GFR (CKD-EPI)AfAm 126.90 Est GFR (CKD-EPI)NonAf 109.49 Random Glucose 103 Calcium 8.8 Total Bilirubin 1.1 H AST 27 ALT 37 Alkaline Phosphatase 65 Total Protein 6.4 Albumin 3.4 RPR Titer Nonreactive HIV 1&2 Ag/Ab, 4th Gen HIV 1&2 Antibody Screen HIV P24 Antigen pt aox3 in nad ambulating , anxious Assessment: 06/01/19 13:13 withdrawal sx's Plan: cont. detox increase fluids reassurance
[2019-06-01] MEDS: ACETAMINOPHEN 325 MG TABLET (FP) PO PRN (14:13)
[2019-06-01] MEDS: traZODone HCL 50 MG TABLET (FP) PO SCH (22:08)
[2019-06-01] MEDS: ATORVASTATIN CA 10 MG TABLET (FP) PO SCH (22:09)
[2019-06-01] MEDS: THIAMINE HCL 100 MG TABLET (FP) PO SCH (22:10)
[2019-06-02] MEDS ORDERED: chlordiazePOXIDE HCL 10 MG CAPSULE PO PRN
[2019-06-02] MEDS: GABAPENTIN 300 MG CAPSULE PO SCH ×2 (05:30→13:23)
[2019-06-02] MEDS: chlordiazePOXIDE HCL 10 MG CAPSULE PO SCH ×2 (05:30→10:24)
[2019-06-02] MEDS: CLOPIDOGREL BISULFATE 75 MG TABLET (FP) PO SCH (06:33)
[2019-06-02] MEDS ORDERED: METHADONE HCL 5 MG TABLET (FOR DETOX USE ONLY) ONE (09:04)
[2019-06-02] MEDS ORDERED: METHADONE HCL 10 MG TABLET (FOR DETOX USE ONLY) ONE (09:04)
[2019-06-02] MEDS ORDERED: METHADONE (DETOX) 10 MG, METHADONE (DETOX) 5 MG PO ONE (10:00)
[2019-06-02] MEDS ORDERED: SENNOSIDES/DOCUSATE COMBO (SENNA PLUS) TABLET (UD) PO SCH (10:00)
[2019-06-02] MEDS: NICOTINE 21 MG/24 HOURS TOPICAL PATCH TD SCH (10:25)
[2019-06-02] MEDS: AMOXICILLIN 500 MG CAPSULE (FP) PO SCH (10:25)
[2019-06-02] MEDS: ASPIRIN COATED 81 MG TABLET.EC PO SCH (10:25)
[2019-06-02] MEDS: SPIRONOLACTONE 25 MG TABLET (FP) PO SCH (10:25)
[2019-06-02] MEDS: PRENATAL VITAMINS W/ FOLIC ACID TABLET (FP) PO SCH (10:26)
[2019-06-02] MEDS: LISINOPRIL 5 MG TABLET (FP) PO SCH (10:28)
[2019-06-02 13:37] VITALS: BP 109/72; PULSE 67; TEMP 97.9
--- NOTE | 2019-06-02 16:44 | PN ---
[facility] Progress Note Note: 38 y.o. male insists on leaving AMA states he has a phonecall he needs to make and has to get it from his property . Pt reports he is planning to go to outpt program @ [facility]. denies SI / HI . Risks of leaving prior to completing detox discussed , pt adamant he has to leave. remainder of Amoxicillin rx called to [address] per pt request for preferred pharmacy .
--- NOTE | 2019-06-02 17:41 | PN ---
[facility] CIWA - CIWA Score Nausea/Vomitin-No Nausea/No Vomiting Muscle Tremors: None Anxiety: 3 Agitation: 3 Paroxysmal Sweats: 2 Orientation: 0-Oriented Tacttile Disturbances: 0-None Auditory Disturbances: 0-None Visual Disturbances: 1-Very Mild Sensitivity Headache: 0-None Present CIWA-Ar Total Score: 9 S COWS - Scale Resting Pulse: 0= [place] 80 or Below Sweatin= Chills/Flushing Restless Observation: 1= Difficult to Sit Still Pupil Size: 0= Normal to Room Light Bone or Joint Aches: 1= Mild Discomfort Runny Nose/ Eye Tearin= None GI Upset > 30mins: 1= Stomach Cramp (Constipation.) Tremor Observation of Outstretched Hands: 0= None Yawning Observation: 1= 1-2x During Session Anxiety or Irritability: 2=Irritable/Anxious Goose Flesh Skin: 0=Smooth Skin COWS Score: 7 S Progress Note (SOAP) Subjective: Constipation, Anxious, Restless, Sweating. Objective: PATIENT A & O X 3, OBSERVED AMBULATING ON DETOX UNIT UNASSISTED. IN NO ACUTE DISTRESS. 06/02/19 17:40 Vital Signs Temperature 97.9 F 06/02/19 12:25 Pulse Rate 67 06/02/19 12:25 Respiratory Rate 18 06/02/19 12:25 Blood Pressure 109/72 06/02/19 12:25 O2 Sat by Pulse Oximetry (%) Laboratory Tests 05/30/19 05/31/19 05/31/19 16:00 07:30 07:30 WBC 5.1 RBC 4.25 Hgb 13.5 Hct 39.8 MCV 93.7 MCH 31.7 MCHC 33.8 RDW 14.2 Plt Count 207 MPV 8.5 Sodium Potassium Chloride Carbon Dioxide Anion Gap BUN Creatinine Est GFR (CKD-EPI)AfAm Est GFR (CKD-EPI)NonAf Random Glucose Calcium Total Bilirubin AST ALT Alkaline Phosphatase Total Protein Albumin RPR Titer HIV 1&2 Ag/Ab, 4th Gen Non reactive HIV 1&2 Antibody Screen Cancelled HIV P24 Antigen Cancelled 05/31/19 05/31/19 07:30 07:30 WBC RBC Hgb Hct MCV MCH MCHC RDW Plt Count MPV Sodium 140 Potassium 4.2 Chloride 105 Carbon Dioxide 32 Anion Gap 2 L BUN 18.8 H Creatinine 0.9 Est GFR (CKD-EPI)AfAm 126.90 Est GFR (CKD-EPI)NonAf 109.49 Random Glucose 103 Calcium 8.8 Total Bilirubin 1.1 H AST 27 ALT 37 Alkaline Phosphatase 65 Total Protein 6.4 Albumin 3.4 RPR Titer Nonreactive HIV 1&2 Ag/Ab, 4th Gen HIV 1&2 Antibody Screen HIV P24 Antigen LABS NOTED. Assessment: 06/02/19 17:40 WITHDRAWAL SYMPTOMS. Plan: CONTINUE DETOX. INCREASE DAILY ORAL WATER INTAKE. COLACE-SENNA ORAL BID FOR RELIEF OF CONSTIPATION.
[2019-06-03] MEDS ORDERED: chlordiazePOXIDE HCL 10 MG CAPSULE PO SCH (05:00)
[2019-06-03] MEDS ORDERED: METHADONE HCL 10 MG TABLET (FOR DETOX USE ONLY) PO ONE (10:00)
[2019-06-04] MEDS ORDERED: chlordiazePOXIDE HCL 10 MG CAPSULE PO ONE (05:00)
[2019-06-04] MEDS ORDERED: METHADONE HCL 5 MG TABLET (FOR DETOX USE ONLY) PO ONE (06:00)
== END 2019-06-02 17:45 | disposition left against medical advice (07) | DRG 770 ==
LOC: YASAS 14:59 → Y6N 16:34
PROVIDERS: ADMIT Allergy & Immunology; ATTEND Allergy & Immunology
PROC: HZ2ZZZZ Detoxification Services for Substance Abuse Treatment (ICD-10-PCS; principal; 2019-05-30)
DX: F10.230 Alcohol dependence with withdrawal, uncomplicated (principal); F11.23 Opioid dependence with withdrawal; F13.230 Sedative, hypnotic or anxiolytic dependence with withdrawal, uncomplicated; F12.20 Cannabis dependence, uncomplicated; F17.210 Nicotine dependence, cigarettes, uncomplicated; F19.280 Other psychoactive substance dependence with psychoactive substance-induced anxiety disorder; F19.24 Other psychoactive substance dependence with psychoactive substance-induced mood disorder; F32.9 Major depressive disorder, single episode, unspecified; F90.9 Attention-deficit hyperactivity disorder, unspecified type; I25.10 Atherosclerotic heart disease of native coronary artery without angina pectoris; I10 Essential (primary) hypertension; Z95.5 Presence of coronary angioplasty implant and graft; I25.2 Old myocardial infarction; E78.5 Hyperlipidemia, unspecified; K59.00 Constipation, unspecified; Z88.8 Allergy status to other drugs, medicaments and biological substances
CPT/HCPCS: 36415; 80053; 85027; 86593; 87389; 93005; 93010; J0735

== ENCOUNTER 2019-10-04 17:13 | Inpatient (IN) | payer OTHER ==
--- NOTE | 2019-10-04 17:29 | PDOC ---
Rapid Medical Evaluation Chief Complaint: Chest Pain Time Seen by Provider: 10/04/19 17:20 Medical Evaluation: Allergies Allergy/AdvReac Type Severity Reaction Status Date / Time buspirone Allergy Severe Difficulty Verified 05/30/19 15:35 Breathing 10/04/19 17:23 I performed a brief in-person evaluation of this patient. Pt is a 38 y/o male with history of HTN, PR one year ago, who presents to the ED for heroin abuse and for detox. The patient last used 15 bags of heroin, 4 Xanax tablets (unknown mg) and smoked 4 "blunts" of marijuana at 3 pm today. The patient states he had chest pain for just a minute but does not have any pain at this time. He denies any cocaine use. He denies any fevers or chills. Pt states that he is on methadone. Pertinent physical exam findings: Pt very somnolent but arousable to touch. Shallow respirations in triage. I have ordered the following: deferred to ED provider caring for the patient Patient to proceed to ED for further evaluation. Discharge Disposition - Diagnosis Heroin abuse - Referrals - Patient Instructions - Post Discharge Activity
[2019-10-04] MEDS ORDERED: NALOXONE HCL 0.4 MG/ML VIAL IVPUSH ONE (17:41)
--- NOTE | 2019-10-04 17:42 | PDOC ---
History of Present Illness - General Chief Complaint: Overdose Stated Complaint: CHEST PAIN Time Seen by Provider: 10/04/19 17:20 History Source: Patient Exam Limitations: Intoxication - History of Present Illness Initial Comments: 38 year old male with PMH ETOH abuse, Xanax abuse, Heroin abuse on Methadone (injects), marijuana abuse, HTN, HLD, CAD s/p stent BIBA to ED from [facility] for chest pain. Pt reported he took 15 bags of heroin IV today, smoked 4 marijuana blunts, then took four 1.0 mg Xanax sticks. He developed substernal chest pain, and realized he had no control of his life, prompting him to go to Detox. Pt reported his chest pain resolved by time he was at detox, but was sent for evaluation. Pt then began to cry and beg to be taken to detox, as he wants to change his life. ROS General: denied fever, chills, generalized weakness. HEENT: denied sore throat, rhinorrhea, ear pain. Cardiovascular: admitted to chest pain. denied palpitations, syncope, diaphoresis. Respiratory: denied shortness of breath, cough, sputum production, hemoptysis. Gastrointestinal: denied abdominal pain, nausea, vomiting, diarrhea, constipation, blood in stool. Genitourinary: denied dysuria, increased urinary frequency, hematuria, urinary incontinence, flank pain. Back: denied back pain. Musculoskeletal: denied joint pain, muscle pain, joint swelling. Neurological: denied headache, dizziness, numbness, tingling, weakness. Integumentary: denied rash, laceration, abrasion. Hematologic/Lymphatic: denied bruising or bleeding. PE Constitutional: Well-nourished, Well-developed, appearing stated age. HEENT: head is normocephalic, atraumatic. EOMI. PERRLA. no posterior pharyngeal erythema. no tonsillar swelling or exudates bilaterally. uvula midline. no peritonsillar swelling. no jaw tenderness or misalignment. Neck: supple. Full ROM. Cardiovascular: regular heart rhythm. Normal S1 and S2. no murmurs. no pericardial friction rub. Respiratory: clear to auscultation bilaterally. no crackles, rhonchi or wheezing. no stridor. Gastrointestinal: soft, flat, nontender. normal bowel sounds. no rebound, guarding, or masses. Extremities: peripheral pulses intact and equal. no lower extremity edema noted. Neurological: CN 2-12 grossly intact. moves all four extremities. Psych: somnolent, arousable by loud voice or using the word "narcan". oriented x3. follows commands. answers questions appropriately. Past History - Medical History Allergies/Adverse Reactions: Allergies Allergy/AdvReac Type Severity Reaction Status Date / Time buspirone Allergy Severe Difficulty Verified 05/30/19 15:35 Breathing Home Medications: Ambulatory Orders traZODone HCL [Desyrel -] 150 mg PO HS #30 tablet 06/23/17 Aspirin [Aspirin EC] 81 mg PO DAILY 09/02/18 Atorvastatin Ca [Lipitor] 80 mg PO HS #30 tablet 09/04/18 Clopidogrel Bisulfate [Clopidogrel] 75 mg PO DAILY #30 tablet 09/04/18 Lisinopril 5 mg PO DAILY #30 tablet 09/04/18 Nitroglycerin [Nitrostat] 0.4 mg SL PRN PRN #10 tab.subl 09/04/18 Spironolactone 25 mg PO DAILY #30 tablet 09/04/18 Gabapentin [Neurontin -] 300 mg PO TID 11/17/18 cloNIDine HCL [Catapres -] 0.1 mg PO TID 11/17/18 Docusate Sodium [Dok] 100 mg PO PRN PRN 12/21/18 Naloxone HCl [Narcan] 4 mg NS ASDIR PRN #1 spray 03/25/19 Metoprolol Tartrate [Lopressor -] 50 mg PO DAILY 05/30/19 Other medical history: methadone - Surgical History Cardiac Surgery: Yes (cardiac stent one vessel on 05/30/18) - Reproductive History Testicular Surgery: No - Immunization History Immunization Up to Date: Yes - Psycho-Social/Smoking History Smoking History: Current every day smoker Have you smoked in the past 12 months: Yes Number of Cigarettes Smoked Daily: 40 If you are a former smoker, when did you quit?: N/A Cigars Per Day: 0 Information on smoking cessation initiated: No 'Breaking Loose' booklet given: 05/30/19 - Substance Abuse Hx (Audit-C & DAST Scrn) How often the patient has a drink containing alcohol: Monthly or less Score: In Men: 4 or > Positive; In Women: 3 or > Positive: 1 Screen Result (Pos requires Nsg. Audit-10AR): Negative *Physical Exam - Vital Signs Last Vital Signs Temp Pulse Resp BP Pulse Ox 97 F L 72 8 L 92/49 L 10/04/19 17:21 10/04/19 17:21 10/04/19 17:21 10/04/19 17:21 ED Treatment Course - LABORATORY CBC & Chemistry Diagram: 10/04/19 18:02 10/04/19 18:02 - RADIOLOGY Radiology Studies Ordered: Category Date Time Status CHEST X-RAY PORTABLE* [RAD] Stat Radiology 10/04/19 17:41 Ordered Medical Decision Making - Medical Decision Making 38 year old male with above PMH BIBA to ED for chest pain after using multiple substances. Initial Vital Signs Temp Pulse Resp BP 97 F L 72 8 L 92/49 L 10/04/19 17:21 10/04/19 17:21 10/04/19 17:21 10/04/19 17:21 Afebrile. No tachycardia. Bradypnea. Hypotension. Medications ordered Naloxone HCl [Narcan -] 0.4 mg IVPUSH ONCE ONE Sodium Chloride 0.9% - 1000mL (1X BOLUS DOSE) Sodium Chloride [Normal Saline -] 1,000 ml IV ASDIR EKG: rate 80, regular rhythm, normal axis, normal intervals, QTc 394, ST elevation in V1-V4, with no reciprocal changes. -ST elevation seen on prior EKG 10/04/19 18:08 Pt is much more awake after receiving Narcan. Arousable to voice. Eyes not sagging as much. 10/04/19 18:53 Laboratory Last Values WBC 7.6 K/mm3 (4.0-10.0) 10/04/19 18:02 RBC 4.04 M/mm3 (4.00-5.60) 10/04/19 18:02 Hgb 12.4 GM/dL (11.7-16.9) 10/04/19 18:02 Hct 37.7 % (35.4-49) 10/04/19 18:02 MCV 93.4 fl (80-96) 10/04/19 18:02 MCH 30.8 pg (25.7-33.7) 10/04/19 18: MCHC 33.0 g/dl (32.0-35.9) 10/04/19 18:02 RDW 13.2 % (11.9-15.9) 10/04/19 18:02 Plt Count 213 K/MM3 (134-434) 10/04/19 18:02 MPV 8.1 fl (7.5-11.1) 10/04/19 18:02 Absolute Neuts (auto) 5.3 K/mm3 (1.5-8.0) 10/04/19 18:02 Neutrophils % 69.6 % (42.8-82.8) 10/04/19 18:02 Lymphocytes % 21.7 % (8-40) 10/04/19 18:02 Monocytes % 7.2 % (3.8-10.2) 10/04/19 18:02 Eosinophils % 0.9 % (0-4.5) 10/04/19 18:02 Basophils % 0.6 % (0-2.0) 10/04/19 18:02 Nucleated RBC % 0 % (0-0) 10/04/19 18:02 Sodium 138 mmol/L (136-145) 10/04/19 18:02 Potassium 4.6 mmol/L (3.5-5.1) 10/04/19 18:02 Chloride 103 mmol/L (98-107) 10/04/19 18:02 Carbon Dioxide 32 mmol/L (21-32) 10/04/19 18:02 Anion Gap 3 MMOL/L (8-16) L 10/04/19 18:02 BUN 15.7 mg/dL (7-18) 10/04/19 18:02 Creatinine 0.9 mg/dL (0.55-1.3) 10/04/19 18:02 Est GFR (CKD-EPI)AfAm 126.90 10/04/19 18:02 Est GFR (CKD-EPI)NonAf 109.49 10/04/19 18:02 Random Glucose 87 mg/dL (74-106) 10/04/19 18:02 Calcium 8.8 mg/dL (8.5-10.1) 10/04/19 18:02 Magnesium 2.2 mg/dL (1.8-2.4) 10/04/19 18:02 Total Bilirubin 0.5 mg/dL (0.2-1) 10/04/19 18:02 AST 20 U/L (15-37) 10/04/19 18:02 ALT 31 U/L (13-61) 10/04/19 18:02 Alkaline Phosphatase 63 U/L (45-117) 10/04/19 18:02 Creatine Kinase 126 U/L (26-308) 10/04/19 18:02 Troponin I < 0.02 ng/ml (0.00-0.05) 10/04/19 18:02 Total Protein 7.0 g/dl (6.4-8.2) 10/04/19 18: Albumin 3.9 g/dl (3.4-5.0) 10/04/19 18:02 Salicylates < 1.7 mg/dL (2.8-20) L 10/04/19 18:02 Acetaminophen <2.0 10/04/19 18:02 Alcohol, Quantitative < 3 mg/dL (0.0-5.0) 10/04/19 18:02 Will admit for chest pain, expected Xanax withdrawal, Heroin withdrawal. -ASA ordered Discharge - Discharge Information Problems reviewed: Yes Clinical Impression/Diagnosis: Heroin abuse, Benzodiazepine abuse, Chest pain - Follow up/Referral - Patient Discharge Instructions - Post Discharge Activity
[2019-10-04] MEDS ORDERED: NALOXONE HCL 0.4 MG/ML VIAL ONE (17:46)
[2019-10-04] MEDS ORDERED: SODIUM CHLORIDE 1,000 ML IV STA (18:05)
[2019-10-04 18:27] LABS: BASO % 0.6 % (0-2.0); EOS % 0.9 % (0-4.5); HEMATOCRIT 37.7 % (35.4-49); HEMOGLOBIN 12.4 GM/dL (11.7-16.9); LYMPH % 21.7 % (8-40); MCH 30.8 pg (25.7-33.7); MEAN CELL VOLUME 93.4 fl (80-96); MEAN PLT VOLUME 8.1 fl (7.5-11.1); MONO % 7.2 % (3.8-10.2); NEUT % 69.6 % (42.8-82.8); PLATELET COUNT 213 K/MM3 (134-434); RBC 4.04 M/mm3 (4.00-5.60); RDW 13.2 % (11.9-15.9); WHITE BLOOD COUNT 7.6 K/mm3 (4.0-10.0)
[2019-10-04 18:43] LABS: ALBUMIN 3.9 g/dl (3.4-5.0); ALK PHOS 63 U/L (45-117); ANION GAP 3 MMOL/L (8-16); BILIRUBIN,TOTAL 0.5 mg/dL (0.2-1); BLOOD UREA NITROGEN 15.7 mg/dL (7-18); CALCIUM 8.8 mg/dL (8.5-10.1); CHLORIDE 103 mmol/L (98-107); CO2 32 mmol/L (21-32); CREATININE 0.9 mg/dL (0.55-1.3); GLUCOSE,RANDOM 87 mg/dL (74-106); MAGNESIUM 2.2 mg/dL (1.8-2.4); POTASSIUM 4.6 mmol/L (3.5-5.1); SGOT/AST 20 U/L (15-37); SGPT/ALT 31 U/L (13-61); SODIUM 138 mmol/L (136-145)
[2019-10-04] MEDS ORDERED: ASPIRIN 81 MG CHEWABLE TABLETS PO ONE (18:56)
[2019-10-04] MEDS ORDERED: ASPIRIN 81 MG CHEWABLE TABLETS ONE (19:07)
--- NOTE | 2019-10-04 19:18 | PDOC ---
Documentation entered by Zeynep France SCRIBE, acting as scribe for Blanca Mancuso MD. Blanca Mancuso MD: This documentation has been prepared by the Edilma overton Adrianna, SCRIBE, under my direction and personally reviewed by me in its entirety. I confirm that the documentation accurately reflects all work, treatment, procedures, and medical decision making performed by me. Attending Attestation - Resident Resident Name: DiegoTara - ED Attending Attestation I have performed the following: I have examined & evaluated the patient, The case was reviewed & discussed with the resident, I agree w/resident's findings & plan, Exceptions are as noted - HPI HPI: 38 y.o male, h/o polysubstance abuse (EtOH, benzos, marijuana, heroin, and cocaine, on Methadone), CAD (s/p stent), HTN, HLD, and MDD, presents BIBEMS from [facility] for chest pain for one day and acute intoxication. Patient admits to injecting 15 bags of heroin, smoked 4 marijuana blunts, and took 4 x 1.0mg sticks of Xanax. states he was not trying to commit suicide , was just having fun and then finds he cant stop. does want to pursue detox. He subsequently developed substernal chest pain, and went to [facility] for detox. He notes the chest pain has since subsided, but was sent to ED for evaluation, no cough no recent fever. no other complaints. Allergies: buspirone Surgical History: cardiac stent Social History: Polysubstance abuse- EtOH, Xanax, marijuana, heroin- on Methadone, injects, current everyday smoker (2ppd) 10/04/19 18:54 - Physicial Exam PE: 10/04/19 19:14 drowsy, arousable. lungs clear bilat heart RRR no mrg abd soft nt nd ext wwp. no edema. no calf tenderness. skin warm and dry. pt drowsy but arousable. slow shallow respirations. - Medical Decision Making 10/04/19 19:14 38 yo male s/p intox with benzos, heroin and thc, with some respiratory compromise. will treat with small dose of narcan 0.4 mg given ivp. will observe for recur rence. ekg r/o qt prolongation or other dysrhthymia, r/o acs labs cbc trop cxr. pt will likley require admission for r/o acs due to risk factors or prior known cad stents, tobacco use, and long standing cocaine use. also will require treatment for xanax abuse. withdrawal, and heroin overdose Heart Score/ECG Review #1 General ECG Interpretation: Sinus Rhythm, Normal Rate (80), Normal Intervals, No acute ischemic changes Compared to previous ECG there are: No significant change (comparison 05/23/19 TWI AVL, j point elevation v2 - v4) Discharge - Discharge Information Problems reviewed: Yes Clinical Impression/Diagnosis: Heroin abuse, Benzodiazepine abuse, Chest pain, Overdose Condition: Improved - Follow up/Referral - Patient Discharge Instructions - Post Discharge Activity
--- NOTE | 2019-10-04 21:27 | PN ---
Teaching Attending Note Name of Resident: Edgar Ledbetter ATTENDING PHYSICIAN STATEMENT I saw and evaluated the patient. I reviewed the resident's note and discussed the case with the resident. I agree with the resident's findings and plan as documented. SUBJECTIVE: 38 y/o M with PMHx of CAD s/p PR and PCI in [facility] 1.5 yr ago (on DAPT since) , HTN, HLD, polysubstance abuse with EtOH, Benzo, Heroin (injection) came in with chest pain substernal radiating to the left shoulder and neck. Unable to say what precipitates chest pain as he was intoxicated, but state she has been having episodes of chest pain ongoing episodically for "a while" Exercise tolerance 3-4 blocks, last drug use today "15 bags heroine" and EtOH 2 days ago. States he is compliant with medications, ASA 81 mg/Plavix 75 mg, metoprolol 25 mg and Lisinopril 5 mg. Of note the chart from 2019 states pt was non compliant with DAPT and did not follow cardiology after stent and also states he has hx of cocaine use . Pt active smoker for ~5 yr 1.pack /day Otherwise denies diarrhea, constipation, fevers, nausea, vomiting, dysuria , frequency , urgency, pain at injection sites, no abscesses previously. OBJECTIVE: VSS Labs unremarkable EKG: compared w/previous no PVC otherwise NSR Physical Exam: General: well developed, occasionally drowsy HEENT: no carotid bruit, oral mucosa normal Heart: S1 S2 no murmur rub or gallop, Chest: good air entry b/l with insp wheezing Ext no edema, b/l pedal pulses 2+ Upper extremity some skin darkening right uppe r ext at injection site without erythema or fluctuance Abd: soft non distended normal BS ASSESSMENT AND PLAN: Chest pain syndrome w/history of CAD s/p PR and PCI in [facility] ASA 81 mg daily Plavix 75 mg daily Metoprolol succinate 25 mg daily (holding parameter for HR <60) Lisinopril 5 mg HbA1C Lipid panel TTE Trend troponin and EKG q 6 hourly Tele monitoring Cardio consult in am Get records for most recent stress test was few months ago and PCI NG 0.4 mg q 5 min PRN chest pain x 3 doses max Atorvastatin 40 mg qhs Substance abuse Currently CIWA 0 no withdrawls from EtOH or heroin Methadone 5 mg PRN Heroin withdrawls Ativan 2 mg Q 4 hr PRN EtOH withdrawls Utox DVT Px: HSQ 5 K BID Diet cardiac GI px not indicated Problem List - Problems (1) Chest pain Code(s): R07.9 - CHEST PAIN, UNSPECIFIED (2) Alcohol dependence with uncomplicated withdrawal Code(s): F10.230 - ALCOHOL DEPENDENCE WITH WITHDRAWAL, UNCOMPLICATED (3) Substance abuse Code(s): F19.10 - OTHER PSYCHOACTIVE SUBSTANCE ABUSE, UNCOMPLICATED
--- NOTE | 2019-10-04 21:28 | HP ---
CHIEF COMPLAINT: chest pain PCP: HISTORY OF PRESENT ILLNESS: 38M w/ pmh of HTN, HLD, [place](sp stent x1(Aj ~2018) in ?[facility]/?prox LAD), polysubstance use(IV heroin [id number], xanax ~5mg, methadone 20mg, MJ [id number], hard liquor, cigarettes; distant cocaine usage) referred by [facility] for complaint of chest pain. At [facility], endorsed mid-sternal pressure radiating to Left shoulder. Doesn't remember the events surrounding the onset of chest pain bc he was high on drugs(heorin [id number], xanax 5mg). Still has chest pressure. Said he has had similar chest pain episodes at the time of his AZ and a few episodes afterwards. Has had SOB when walking over 4blocks, which has been his baseline for months. States that he has been compliant with his ASA, plavix. Last stress test was a few months ago and thinks that it was normal. Drinks 1pint hard liquor every other day. Last EtOH was 2d prior. Sometimes starts drinking first thing in the morning. Sometimes has tremors if he doesn't drink. Never had seizure. Get his methadone from the streets. No intention to harm himself. Lives with family. Unemployed. ER course was notable for: (1) bradypnea (2) narcan 0.4mg (3) ASA 325mg, NS 1L (4) EKG: anterolateral infarct(unchanged from May 2019) (5) troponin <0.02 (6) salicylates <1.7, acetaminophen <2.0 (7) HEART 5 (8) [facility]: COWS 10, CIWA 14 Recent Travel: none PAST MEDICAL HISTORY: as above PAST SURGICAL HISTORY: cardiac stent Social History: Smokin.5ppd x5ys Alcohol: 1pint hard liquor, every other day Drugs: IV heroin [id number], xanax ~5mg, methadone 20mg, MJ [id number] Allergies buspirone Allergy (Severe, Verified 05/30/19 15:35) Difficulty Breathing HOME MEDICATIONS: Home Medications Medication Instructions Recorded traZODone HCL [Desyrel -] 150 mg PO HS #30 tablet 06/23/17 Aspirin [Aspirin EC] 81 mg PO DAILY 09/02/18 Atorvastatin Ca [Lipitor] 80 mg PO HS #30 tablet 09/04/18 Clopidogrel Bisulfate [Clopidogrel] 75 mg PO DAILY #30 tablet 09/04/18 Lisinopril 5 mg PO DAILY #30 tablet 09/04/18 Nitroglycerin [Nitrostat] 0.4 mg SL PRN PRN #10 tab.subl 09/04/18 Spironolactone 25 mg PO DAILY #30 tablet 09/04/18 Gabapentin [Neurontin -] 300 mg PO TID 11/17/18 cloNIDine HCL [Catapres -] 0.1 mg PO TID 11/17/18 Docusate Sodium [Dok] 100 mg PO PRN PRN 12/21/18 Naloxone HCl [Narcan] 4 mg NS ASDIR PRN #1 spray 03/25/19 Metoprolol Tartrate [Lopressor -] 50 mg PO DAILY 05/30/19 REVIEW OF SYSTEMS CONSTITUTIONAL: Absent: fever, chills, diaphoresis, generalized weakness, malaise, loss of appetite, weight change HEENT: Absent: rhinorrhea, nasal congestion, throat pain, throat swelling, difficulty swallowing, mouth swelling, ear pain, eye pain, visual changes CARDIOVASCULAR: chest pain, Absent: syncope, palpitations, irregular heart rate, lightheadedness, peripheral edema RESPIRATORY: Absent: cough, shortness of breath, dyspnea with exertion, orthopnea, wheezing, stridor, hemoptysis GASTROINTESTINAL: Absent: abdominal pain, abdominal distension, nausea, vomiting, diarrhea, constipation, melena, hematochezia GENITOURINARY: Absent: dysuria, frequency, urgency, hesitancy, hematuria, flank pain, genital pain MUSCULOSKELETAL: Absent: myalgia, arthralgia, joint swelling, back pain, neck pain SKIN: Absent: rash, itching, pallor HEMATOLOGIC/IMMUNOLOGIC: Absent: easy bleeding, easy bruising, lymphadenopathy, frequent infections ENDOCRINE: Absent: unexplained weight gain, unexplained weight loss, heat intolerance, cold intolerance NEUROLOGIC: Absent: headache, focal weakness or paresthesias, dizziness, unsteady gait, seizure, mental status changes, bladder or bowel incontinence PSYCHIATRIC: Absent: anxiety, depression, suicidal or homicidal ideation, hallucinations. PHYSICAL EXAMINATION Vital Signs - 24 hr 10/04/19 10/04/19 10/04/19 17:21 17:29 19:34 Temperature 97 F L Pulse Rate 72 Pulse Rate [ 78 Right Radial] Respiratory 8 L Rate Blood Pressure 92/49 L Blood Pressure 110/74 [Left Arm] O2 Sat by Pulse 98 95 Oximetry (%) GENERAL: somonlent but arousable. NAD HEAD: NC/AT EYES: Pupils equal(not pinpoint), sclera anicteric, conjunctiva clear EARS, NOSE, THROAT: Moist mucous membranes. NECK: Normal range of motion, supple without lymphadenopathy, JVD, or masses. LUNGS: Breath sounds equal, clear to auscultation bilaterally. No wheezes, and no crackles. No accessory muscle use. HEART: Regular rate and rhythm, normal S1 and S2 without murmur, rub or gallop. No TTP of anterior chest wall ABDOMEN: Soft, nontender, not distended,no guarding, no rebound, no masses. MUSCULOSKELETAL: Normal range of motion at all joints. No bony deformities or tenderness. UPPER EXTREMITIES: 2+ pulses, warm, well-perfused. No cyanosis. No clubbing. No peripheral edema. LOWER EXTREMITIES: 2+ pulses, warm, well-perfused. No calf tenderness. No peripheral edema. NEUROLOGICAL: Normal speech. CIWA 3 COWS 2 Laboratory Results - last 24 hr 10/04/19 10/04/19 10/04/19 18:02 18:02 18:02 WBC 7.6 RBC 4.04 Hgb 12.4 Hct 37.7 MCV 93.4 MCH 30.8 MCHC 33.0 RDW 13.2 Plt Count 213 MPV 8.1 Absolute Neuts (auto) 5.3 Neutrophils % 69.6 Lymphocytes % 21.7 Monocytes % 7.2 Eosinophils % 0.9 Basophils % 0.6 Nucleated RBC % 0 Sodium 138 Potassium 4.6 Chloride 103 Carbon Dioxide 32 Anion Gap 3 L BUN 15.7 Creatinine 0.9 Est GFR (CKD-EPI)AfAm 126.90 Est GFR (CKD-EPI)NonAf 109.49 Random Glucose 87 Calcium 8.8 Magnesium 2.2 Total Bilirubin 0.5 AST 20 ALT 31 Alkaline Phosphatase 63 Creatine Kinase Troponin I Total Protein 7.0 Albumin 3.9 Salicylates < 1.7 L Acetaminophen <2.0 Alcohol, Quantitative < 3 10/04/19 18:02 WBC RBC Hgb Hct MCV MCH MCHC RDW Plt Count MPV Absolute Neuts (auto) Neutrophils % Lymphocytes % Monocytes % Eosinophils % Basophils % Nucleated RBC % Sodium Potassium Chloride Carbon Dioxide Anion Gap BUN Creatinine Est GFR (CKD-EPI)AfAm Est GFR (CKD-EPI)NonAf Random Glucose Calcium Magnesium Total Bilirubin AST ALT Alkaline Phosphatase Creatine Kinase 126 Troponin I < 0.02 Total Protein Albumin Salicylates Acetaminophen Alcohol, Quantitative ASSESSMENT/PLAN: 38M w/ pmh of HTN, HLD, [place](sp stent x1(Aj ~2018) in ?[facility]/?prox LAD), polysubstance use(IV heroin [id number], xanax ~5mg, methadone 20mg, MJ [id number], hard liquor, cigarettes; distant cocaine usage) referred by [facility] for complaint of chest pain. At [facility], endorsed mid-sternal pressure radiating to Left shoulder. Admitted for ACS r/o, and detox from EtOH + heroin. #unstable angina --less likely ACS as no new EKG changes, troponin neg x1 > HEART 5 > EKG: anterolateral infarct(unchanged from May 2019) > troponin: neg x1 --fu rpt troponin - sp ASA 325mg - ASA 81, plavix 75 - metoprol succinate 25 - lisinopril 5 - atorvastatin 40 - Echo --pending - pending labs: HbA1c, lipid profile - Cardio Consult([facility]) --pending #heroin usage disorder --not currently in active withdrawal > [place] COWS 10, but current COWS 2 - ED: sp narcan 0.4mg - methadone 20mg PRN, in AM #EtOH usage disorder --not currently in active withdrawakl > [facility] CIWA 14, but current CIWA 3 - librium PRN #HTN #HLD - metoprolol, lisinopril --pt is unaware of his home dosage - atorvastatin --pt is unaware of his home doseage FEN - no mIVF - Fat controlled diet, then NPO at [place] in case of stress test DVT PPX - lovenox Family Medical History Family Hx Cardiac Disorders: Brother (diabetes) Visit type - Emergency Visit Emergency Visit: Yes ED Registration Date: 10/04/19 Care time: The patient presented to the Emergency Department on the above date and was hospitalized for further evaluation of their emergent condition. - New Patient This patient is new to me today: Yes Date on this admission: 10/05/19 - Critical Care Critical Care patient: No ATTENDING PHYSICIAN STATEMENT I saw and evaluated the patient. I reviewed the resident's note and discussed the case with the resident. I agree with the resident's findings and plan as documented. SUBJECTIVE: OBJECTIVE: ASSESSMENT AND PLAN:
[2019-10-04] MEDS ORDERED: METHADONE HCL 10 MG TABLET (FOR DETOX USE ONLY) PO PRN (21:36)
[2019-10-04] MEDS ORDERED: METHADONE HCL 10 MG TABLET PO PRN (22:14)
[2019-10-04] MEDS ORDERED: ATORVASTATIN CA 40 MG TABLET (FP) ONE (23:10)
[2019-10-04] MEDS: ATORVASTATIN CA 40 MG TABLET (FP) PO SCH (23:14)
[2019-10-05 01:11] LABS: URINE APPEARANCE CLEAR; URINE BILIRUBIN NEGATIVE (NEGATIVE); URINE COLOR YELLOW; URINE GLUCOSE (UA) NEGATIVE (NEGATIVE); URINE KETONE NEGATIVE (NEGATIVE); URINE LEUK ESTERASE NEGATIVE (NEGATIVE); URINE NITRITE NEGATIVE (NEGATIVE); URINE PROTEIN NEGATIVE (NEGATIVE); URINE UROBILINOGEN 0.2 mg/dL (0.2-1.0)
[2019-10-05 01:27] LABS: COCAINE, UR NEGATIVE ng/ml (CUTOFF=300); PHENCYCLIDINE,URINE NEGATIVE ng/ml (CUTOFF=25); URINE AMPHETAMINES NEGATIVE ng/ml (CUTOFF=500); URINE BARBITURATES NEGATIVE ng/ml (CUTOFF=200)
[2019-10-05 02:00] LABS: URINE BENZODIAZEPINES POSITIVE ng/ml (CUTOFF=200)
[2019-10-05 02:01] LABS: METHADONE, UR POSITIVE ng/ml (CUTOFF=300); OPIATES, URI POSITIVE ng/ml (CUTOFF=300)
--- NOTE | 2019-10-05 05:51 | CON.CARD ---
Consult Consult Specialty:: Cardiology Referred by:: [facility] Reason for Consultation:: CP - History of Present Illness Chief Complaint: CP History of Present Illness: 38 M Polysubstance abuse, CAD s/p PCI 2018 after NH. ECG shows old anterolateral NH pattern. Presents with chest pain described as "sharp" central after injecting IV heroin. Lasted few minutes. Denies palps, syncope, edema. 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: Other (restless legs) Cardio/Vascular: Yes: CAD, HTN, Hyperlipdemia Gastrointestinal: No: Ascites, Cancer, Constipation, Crohn's Disease, Diverticulitis, Diverticulosis, Esophageal Varices, Gastritis, GERD, GI Bleed, Hemorrhoids, Hiatal Hernia, Inflamatory Bowel Disease, Irritable Bowel Disease, Pancreatitis, Peptic Ulcer Disease, Ulcerative Colitis, Other Hepatobiliary: No: Cirrhosis, Cholelithiasis, Cholecystitis, Choledocholithiasis, Hepatitis A, Hepatitis B, Hepatitis C, Other Renal/: No: Renal Failure, Renal Inusuff, BPH, Cancer, Hematuria, Hemodialysis, Neurogenic Bladder, Renal Calculi, UTI, Other Infectious Disease: No: AIDS, C-Diff, Herpes Zoster, HIV, MRSA, STD's, Tuberculosis, VREF, Other Psych: Yes: Addictions, Anxiety Rheumatology: No: Fibromyalgia, Gout, Lupus, Rheumatoid Arthritis, Sarcoidosis, Vasculitis, Other ENT: No: Allergic Rhinitis, Sinusitis, Other Endocrine: No: Monroe's Disease, Pooja's Disease, Diabetes Insipidus, Diabetes Mellitus, Hyperparathyroidism, Hyperthyroidism, Hypothyroidism, Osteopenia, SIADH, Other Dermatology: No: Basal Cell, Cellulitis, Eczema, Melanoma, Psoriasis, Squamous Cell, Other - Past Surgical History Past Surgical History: Yes: Stent - Alcohol/Substance Use Hx Alcohol Use: Yes History of Substance Use: reports: Cocaine, Heroin, Marijuana, Tranquilizers - Smoking History Smoking history: Current every day smoker Have you smoked in the past 12 months: Yes Aproximately how many cigarettes per day: 40 If you are a former smoker, when did you quit?: N/A - Social History ADL: Family Assistance History of Recent Travel: No Home Medications - Allergies Allergies/Adverse Reactions: Allergies Allergy/AdvReac Type Severity Reaction Status Date / Time buspirone Allergy Severe Difficulty Verified 05/30/19 15:35 Breathing - Home Medications Home Medications: Ambulatory Orders traZODone HCL [Desyrel -] 150 mg PO HS #30 tablet 06/23/17 Aspirin [Aspirin EC] 81 mg PO DAILY 09/02/18 Atorvastatin Ca [Lipitor] 80 mg PO HS #30 tablet 09/04/18 Clopidogrel Bisulfate [Clopidogrel] 75 mg PO DAILY #30 tablet 09/04/18 Lisinopril 5 mg PO DAILY #30 tablet 09/04/18 Nitroglycerin [Nitrostat] 0.4 mg SL PRN PRN #10 tab.subl 09/04/18 Spironolactone 25 mg PO DAILY #30 tablet 09/04/18 Gabapentin [Neurontin -] 300 mg PO TID 11/17/18 cloNIDine HCL [Catapres -] 0.1 mg PO TID 11/17/18 Docusate Sodium [Dok] 100 mg PO PRN PRN 12/21/18 Naloxone HCl [Narcan] 4 mg NS ASDIR PRN #1 spray 03/25/19 Metoprolol Tartrate [Lopressor -] 50 mg PO DAILY 05/30/19 Family Medical History Family History: Unremarkable Review of Systems - Review of Systems Constitutional: reports: No Symptoms Eyes: reports: No Symptoms HENT: reports: No Symptoms Neck: reports: No Symptoms Cardiovascular: reports: Chest Pain Respiratory: reports: No Symptoms Gastrointestinal: reports: No Symptoms Genitourinary: reports: No Symptoms Breasts: reports: No Symptoms Reported Musculoskeletal: reports: No Symptoms Integumentary: reports: No Symptoms Neurological: reports: No Symptoms Endocrine: reports: No Symptoms Hematology/Lymphatic: reports: No Symptoms Psychiatric: reports: No Symptoms - Risk Factors Known Risk Factors: Yes: Prior NH /Emb Stroke Vital Signs: Vital Signs Temperature 97 F L 10/04/19 17:21 Pulse Rate 71 10/05/19 03:00 Respiratory Rate 13 10/05/19 03:00 Blood Pressure 100/53 L 10/05/19 03:00 O2 Sat by Pulse Oximetry (%) 97 10/05/19 03:00 Constitutional: Yes: No Distress, Calm Neck: Yes: Trachea Midline Respiratory: Yes: CTA Bilaterally Gastrointestinal: Yes: Soft JVD: No PMI: Non-Displaced Heart Sounds: Yes: S1, S2 (rrr, no murmurs) Edema: No Peripheral Pulses WNL: Yes Neurological: Yes: Alert, Oriented ...Motor Strength: WNL - Other Data Labs, Other Data: CBC, BMP 10/04/19 18:02 10/04/19 18:02 Troponin, BNP 10/04/19 10/05/19 18:02 02:00 Troponin I < 0.02 < 0.02 Troponin, BNP 10/04/19 10/05/19 18:02 02:00 Troponin I < 0.02 < 0.02 NSR 80 bpm, old anterolateral NH Echo: Pending Imaging - Results X-ray: Image Reviewed EKG: Image Reviewed Assessment/Plan IMP: Polysubstance abuse: Benzos/ MDMA, Opiates. On Methadone History of CAD w/ prior PCI Chest pain syndrome, with negative cardiac enzymes REC: 1. Complete 3rd set cardiac enzymes 2. Repeat ECG 3. Echo today 4. Patient is detoxing and declined stress test today. Advise stress MPI Tuesday when detox protocol completed. 5. Telemetry
[2019-10-05] MEDS ORDERED: chlordiazePOXIDE HCL 25 MG CAPSULE ONE ×5 (06:52→22:43)
[2019-10-05] MEDS ORDERED: cloNIDine HCL 0.1 MG TABLET ONE ×3 (06:53→17:19)
[2019-10-05] MEDS ORDERED: METHADONE HCL 10 MG TABLET ONE (06:53)
[2019-10-05] MEDS: chlordiazePOXIDE HCL 25 MG CAPSULE PO PRN ×3 (06:54→15:10)
[2019-10-05] MEDS: cloNIDine HCL 0.1 MG TABLET PO PRN ×3 (06:54→17:24)
[2019-10-05 08:27] LABS: BASO % 0.7 % (0-2.0); EOS % 1.8 % (0-4.5); HEMATOCRIT 39.2 % (35.4-49); HEMOGLOBIN 13.3 GM/dL (11.7-16.9); LYMPH % 33.6 % (8-40); MCH 31.5 pg (25.7-33.7); MCHC 33.9 g/dl (32.0-35.9); MEAN CELL VOLUME 93.1 fl (80-96); MEAN PLT VOLUME 8.5 fl (7.5-11.1); MONO % 9.9 % (3.8-10.2); PLATELET COUNT 220 K/MM3 (134-434); RBC 4.21 M/mm3 (4.00-5.60); RDW 12.9 % (11.9-15.9); WHITE BLOOD COUNT 8.7 K/mm3 (4.0-10.0)
[2019-10-05 09:02] LABS: BLOOD UREA NITROGEN 14.3 mg/dL (7-18); CALCIUM 8.3 mg/dL (8.5-10.1); CREATININE 0.8 mg/dL (0.55-1.3); MAGNESIUM 2.4 mg/dL (1.8-2.4); PHOSPHOROUS 3.2 mg/dL (2.5-4.9); POTASSIUM 4.1 mmol/L (3.5-5.1)
[2019-10-05] MEDS ORDERED: LISINOPRIL 5 MG TABLET (FP) ONE (09:03)
[2019-10-05] MEDS ORDERED: metoPROLOL SUCCINATE 25 MG TAB.SR.24H (FP) ONE (09:03)
[2019-10-05] MEDS ORDERED: ASPIRIN COATED 81 MG TABLET.EC ONE (09:03)
[2019-10-05] MEDS ORDERED: CLOPIDOGREL BISULFATE 75 MG TABLET (FP) ONE (09:04)
[2019-10-05] MEDS ORDERED: ENOXAPARIN NA (PORCINE) 40 MG/0.4 ML DISP.SYRIN SQ ONE (09:04)
[2019-10-05] MEDS: ASPIRIN COATED 81 MG TABLET.EC PO SCH (09:20)
[2019-10-05] MEDS: ENOXAPARIN NA (PORCINE) 40 MG/0.4 ML DISP.SYRIN SQ SCH (09:20)
[2019-10-05] MEDS: NICOTINE 7 MG/24 HOURS TOPICAL PATCH TD SCH (09:21)
[2019-10-05] MEDS: metoPROLOL SUCCINATE 25 MG TAB.SR.24H (FP) PO SCH (09:21)
[2019-10-05] MEDS: CLOPIDOGREL BISULFATE 75 MG TABLET (FP) PO SCH (09:21)
[2019-10-05] MEDS: LISINOPRIL 5 MG TABLET (FP) PO SCH (09:21)
--- NOTE | 2019-10-05 11:33 | ECHO ---
Version: 1 Name: LIVE NAVARRO Exam: Adult Echocardiogram Study Date: 10/05/2019, 8:32 AM Age: 38 Years MMode/2D Measurements & Calculations IVSd: 1.34 cm LVIDs: 3.9 cm LVIDd: 5.9 cm LVPWd: 1.35 cm LAV (MOD-bp): 102.0 ml LVOT diam: 2.32 cm Ao root diam: 3.4 cm LA dimension: 4.6 cm Doppler Measurements & Calculations MV E max ian: 95.2 cm/sec Med E/e': 11.4 MV A max ian: 42.1 cm/sec Med Peak E' Ian: 8.4 cm/sec MV E/A: 2.26 Lat E/e': 8.1 Lat Peak E' Ian: 11.7 cm/sec MR max P.1 mmHg Ao max P.0 mmHg Ao V2 max: 122.2 cm/sec TR max ian: 230.3 cm/sec TR max P.3 mmHg Left Ventricle Ejection Fraction = 35-40%. Moderate hypokinesis of the basal anteroseptum, apical anterior wall and apex proper. Mild hypokinesis of the lateral wall. Right Ventricle The right ventricle is normal in size and function. Atria The left atrium is moderately dilated. Mitral Valve The mitral valve is normal in structure and function. There is no mitral valve stenosis. There is mi ld mitral regurgitation. Tricuspid Valve The tricuspid valve is normal in structure and function. There is mild tricuspid regurgitation. Aortic Valve There is mild aortic sclerosis.;. No hemodynamically significant valvular aortic stenosis. No aortic regurgitation is present. Pulmonic Valve The pulmonic valve is not well seen, but is grossly normal. There is no pulmonic valvular stenosis. Great Vessels The aortic root is normal size. Pericardium/Pleura There is no pericardial effusion. Summary Statements Ejection Fraction = 35-40%. Moderate hypokinesis of the basal anteroseptum, apical anterior wall and apex proper. Mild hypokines is of the lateral wall. The left atrium is moderately dilated. There is mild mitral regurgitation. There is mild tricuspid regurgitation. MD Del Cid *Meenu 10/05/2019, 11:32 AM Ordering Physician: Edgar Ledbetter Performed By: Kathia Dacosta
[2019-10-05] MEDS: METHADONE HCL 10 MG TABLET PO PRN (12:28)
[2019-10-05] MEDS ORDERED: ACETAMINOPHEN 325 MG TABLET (FP) PO PRN (14:26)
[2019-10-05] MEDS ORDERED: ACETAMINOPHEN 325 MG TABLET (FP) ONE (14:54)
--- NOTE | 2019-10-05 14:55 | EKG ---
Test Reason : Blood Pressure : / mmHG Vent. Rate : 080 BPM Atrial Rate : 080 BPM P-R Int : 168 ms QRS Dur : 096 ms QT Int : 342 ms P-R-T Axes : 032 -11 056 degrees QTc Int : 394 ms NORMAL SINUS RHYTHM ANTEROLATERAL INFARCT (CITED ON OR BEFORE 24-JUL-2018) ABNORMAL ECG WHEN COMPARED WITH ECG OF 30-MAY-2019 16:36, PREMATURE VENTRICULAR COMPLEXES ARE NO LONGER PRESENT QUESTIONABLE CHANGE IN QRS AXIS T WAVE INVERSION LESS EVIDENT IN ANTERIOR LEADS Confirmed by KAMAR PRAJAPATI MD ([id number]) on 10/05/2019 2:55:02 PM Referred By: Confirmed By:KAMAR PRAJAPATI MD
[2019-10-05] MEDS ORDERED: chlordiazePOXIDE HCL 25 MG CAPSULE PO PRN (17:07)
--- NOTE | 2019-10-05 17:16 | PN ---
Physical Exam: SUBJECTIVE: Patient seen and examined in the ED awaiting bed assignment. feels as though he cannot get comfortable, very anxious. has been injecting heroin mostly on left arm, using xanax 15-20mg per day which he buys in the streets and drinks vodka 1-2 pints on most days of the week. He wants to stop using, but has been relapsing. Went to [facility] and transferred here when he c/o of chest pain. OBJECTIVE: Patient is a 38 year old male with a significant past medical history of HTN, HLD, SD (sp stent x1(Aj ~2018) in ?Left Main/?prox LAD), polysubstance use(IV heroin x15 bags, xanax 15mg daily, methadone 20mg, marijuana, drinks 2 pints of vodka on most day, some cocaine use). Patient presents to the ED from [facility] for complaint of chest pain. At [facility], endorsed mid-sternal pressure radiating to Left shoulder. Doesn't remember the events surrounding the onset of chest pain bc he was high on drugs (heroin [id number], xanax 5mg). Last EtOH was 2d prior. Get his methadone from the streets. \ echo 10/05/2019: EF 35-40%, moderate hypokinesis of thebaal anteroseptum, LA moderately dilated, mld mr, mild tr Period Temp Pulse Resp BP Sys/Cardenas Pulse Ox Last 24 Hr 97 F-98.5 F 58-86 8-18 92-117/49-79 95-99 GENERAL: The patient is awake, alert, very anxious HEAD: Normal with no signs of trauma. EYES: PERRL, extraocular movements intact, sclera anicteric, conjunctiva clear. No ptosis. ENT: Ears normal, nares patent, oropharynx clear without exudates NECK: Trachea midline, full range of motion, supple. LUNGS: Breath sounds equal, clear to auscultation bilaterally, no wheezes HEART: Regular rate and rhythm, ABDOMEN: Soft, nontender, nondistended, normoactive bowel sounds EXTREMITIES: no edema. NEUROLOGICAL: Normal speech, gait not observed. Laboratory Results - last 24 hr 10/04/19 10/04/19 10/04/19 18:02 18:02 18:02 WBC 7.6 RBC 4.04 Hgb 12.4 Hct 37.7 MCV 93.4 MCH 30.8 MCHC 33.0 RDW 13.2 Plt Count 213 MPV 8.1 Absolute Neuts (auto) 5.3 Neutrophils % 69.6 Lymphocytes % 21.7 Monocytes % 7.2 Eosinophils % 0.9 Basophils % 0.6 Nucleated RBC % 0 Sodium 138 Potassium 4.6 Chloride 103 Carbon Dioxide 32 Anion Gap 3 L BUN 15.7 Creatinine 0.9 Est GFR (CKD-EPI)AfAm 126.90 Est GFR (CKD-EPI)NonAf 109.49 Random Glucose 87 Hemoglobin A1c % Calcium 8.8 Phosphorus Magnesium 2.2 Total Bilirubin 0.5 AST 20 ALT 31 Alkaline Phosphatase 63 Creatine Kinase Troponin I Total Protein 7.0 Albumin 3.9 Triglycerides Cholesterol Total LDL Cholesterol HDL Cholesterol TSH Urine Color Urine Appearance Urine pH Ur Specific [place] Urine Protein Urine Glucose (UA) Urine Ketones Urine Blood Urine Nitrite Urine Bilirubin Urine Urobilinogen Ur Leukocyte Esterase Salicylates < 1.7 L Opiates Screen Methadone Screen Acetaminophen <2.0 Barbiturate Screen Phencyclidine Screen Ur Amphetamines Screen MDMA (Ecstasy) Screen Benzodiazepines Screen Cocaine Screen U Marijuana (THC) Screen Alcohol, Quantitative < 3 10/04/19 10/05/19 10/05/19 18:02 00:50 00:50 WBC RBC Hgb Hct MCV MCH MCHC RDW Plt Count MPV Absolute Neuts (auto) Neutrophils % Lymphocytes % Monocytes % Eosinophils % Basophils % Nucleated RBC % Sodium Potassium Chloride Carbon Dioxide Anion Gap BUN Creatinine Est GFR (CKD-EPI)AfAm Est GFR (CKD-EPI)NonAf Random Glucose Hemoglobin A1c % Calcium Phosphorus Magnesium Total Bilirubin AST ALT Alkaline Phosphatase Creatine Kinase 126 Troponin I < 0.02 Total Protein Albumin Triglycerides Cholesterol Total LDL Cholesterol HDL Cholesterol TSH Urine Color Yellow Urine Appearance Clear Urine pH 5.0 Ur Specific [place] 1.023 Urine Protein Negative Urine Glucose (UA) Negative Urine Ketones Negative Urine Blood Negative Urine Nitrite Negative Urine Bilirubin Negative Urine Urobilinogen 0.2 Ur Leukocyte Esterase Negative Salicylates Opiates Screen Positive A* Methadone Screen Positive A* Acetaminophen Barbiturate Screen Negative Phencyclidine Screen Negative Ur Amphetamines Screen Negative MDMA (Ecstasy) Screen Positive A* Benzodiazepines Screen Positive A* Cocaine Screen Negative U Marijuana (THC) Screen Positive A* Alcohol, Quantitative 06/26/20 06/26/20 06/26/20 02:00 07:25 07:25 WBC 8.7 RBC 4.21 Hgb 13.3 Hct 39.2 MCV 93.1 MCH 31.5 MCHC 33.9 RDW 12.9 Plt Count 220 MPV 8.5 Absolute Neuts (auto) 4.7 Neutrophils % 54.0 D Lymphocytes % 33.6 D Monocytes % 9.9 Eosinophils % 1.8 D Basophils % 0.7 Nucleated RBC % 0 Sodium 140 Potassium 4.1 Chloride 106 Carbon Dioxide 29 Anion Gap 5 L BUN 14.3 Creatinine 0.8 Est GFR (CKD-EPI)AfAm 133.20 Est GFR (CKD-EPI)NonAf 114.93 Random Glucose 102 Hemoglobin A1c % Calcium 8.3 L Phosphorus 3.2 Magnesium 2.4 Total Bilirubin AST ALT Alkaline Phosphatase Creatine Kinase Troponin I < 0.02 Total Protein Albumin Triglycerides 148 Cholesterol 139 Total LDL Cholesterol 76 HDL Cholesterol 33 L TSH 2.11 Urine Color Urine Appearance Urine pH Ur Specific [place] Urine Protein Urine Glucose (UA) Urine Ketones Urine Blood Urine Nitrite Urine Bilirubin Urine Urobilinogen Ur Leukocyte Esterase Salicylates Opiates Screen Methadone Screen Acetaminophen Barbiturate Screen Phencyclidine Screen Ur Amphetamines Screen MDMA (Ecstasy) Screen Benzodiazepines Screen Cocaine Screen U Marijuana (THC) Screen Alcohol, Quantitative 10/05/19 10/05/19 07:25 07:25 WBC RBC Hgb Hct MCV MCH MCHC RDW Plt Count MPV Absolute Neuts (auto) Neutrophils % Lymphocytes % Monocytes % Eosinophils % Basophils % Nucleated RBC % Sodium Potassium Chloride Carbon Dioxide Anion Gap BUN Creatinine Est GFR (CKD-EPI)AfAm Est GFR (CKD-EPI)NonAf Random Glucose Hemoglobin A1c % 5.7 Calcium Phosphorus Magnesium Total Bilirubin AST ALT Alkaline Phosphatase Creatine Kinase Troponin I < 0.02 Total Protein Albumin Triglycerides Cholesterol Total LDL Cholesterol HDL Cholesterol TSH Urine Color Urine Appearance Urine pH Ur Specific [place] Urine Protein Urine Glucose (UA) Urine Ketones Urine Blood Urine Nitrite Urine Bilirubin Urine Urobilinogen Ur Leukocyte Esterase Salicylates Opiates Screen Methadone Screen Acetaminophen Barbiturate Screen Phencyclidine Screen Ur Amphetamines Screen MDMA (Ecstasy) Screen Benzodiazepines Screen Cocaine Screen U Marijuana (THC) Screen Alcohol, Quantitative Active Medications Generic Name Dose Route Start Last Admin Trade Name Freq PRN Reason Stop Dose Admin Acetaminophen 650 mg 10/05/19 14:26 10/05/19 14:57 Tylenol - PO 650 mg Q6H PRN Administration PAIN LEVEL 7 - 10 Aspirin 81 mg 10/05/19 10:00 10/05/19 09:20 Ecotrin - PO 81 mg DAILY RIYA Administration Atorvastatin Calcium 40 mg 10/04/19 22:00 10/04/19 23:14 Lipitor - PO 40 mg HS RIYA Administration Chlordiazepoxide HCl 50 mg 10/05/19 17:00 Librium - PO 10/06/19 23:01 [id number] RIYA Chlordiazepoxide HCl 25 mg 10/07/19 05:00 Librium - PO 10/07/19 23:01 [id number] RIYA Chlordiazepoxide HCl 25 mg 10/05/19 17:07 Librium - PO 10/07/19 23:59 Q4H PRN WITHDRAWAL(CONT SUBST) Chlordiazepoxide HCl 10 mg 10/08/19 05:00 Librium - PO 10/08/19 23:01 [id number] RIYA Chlordiazepoxide HCl 10 mg 10/09/19 05:00 Librium - PO 10/09/19 17:01 Q12H RIYA Chlordiazepoxide HCl 10 mg 10/08/19 00:00 Librium - PO 10/09/19 00:00 Q4H PRN WITHDRAWAL(CONT SUBST) Chlordiazepoxide HCl 10 mg 10/10/19 05:00 Librium - PO 10/10/19 05:01 ONCE@0500 ONE Clonidine 0.1 mg 10/04/19 21:36 10/05/19 12:35 Catapres - PO 10/06/19 23:59 0.1 mg Q4H PRN Administration Withdrawal Symptoms Clopidogrel Bisulfate 75 mg 10/05/19 10:00 10/05/19 09:21 Plavix - PO 75 mg DAILY RIYA Administration Enoxaparin Sodium 40 mg 10/05/19 10:00 10/05/19 09:20 Lovenox - SQ 40 mg DAILY RIYA Administration Lisinopril 5 mg 10/05/19 10:00 10/05/19 09:21 Prinivil PO 5 mg DAILY RIYA Administration Methadone HCl 20 mg 10/05/19 10:00 10/05/19 12:28 Dolophine - PO 20 mg DAILY PRN Administration WITHDRAWAL(CONT SUBST) Metoprolol Succinate 25 mg 10/05/19 10:00 10/05/19 09:21 Toprol Xl - PO 25 mg DAILY RIYA Administration Nicotine 7 mg 10/05/19 10:00 10/05/19 09:21 Nicoderm Patch - TD 7 mg DAILY RIYA Administration ASSESSMENT/PLAN: Problem List - Problems (1) Polysubstance (including opioids) dependence with physiological dependence Assessment/Plan: patient with daily use of opioids which he buys on the streets. uses apx 5mg or more per day of ativan/xanax. unable to stop abruptly and will need to be tapered off benzos started on valium taper monitor for over sedation since he is also on librium Code(s): F19.20 - OTHER PSYCHOACTIVE SUBSTANCE DEPENDENCE, UNCOMPLICATED (2) Chest pain Assessment/Plan: chest pain now resolved. troponins negative echo 10/05/2019: EF 35-40%, moderate hypokinesis of thebaal anteroseptum, LA moderately dilated, mld mr, mild tr monitor on tele cardiology following Code(s): R07.9 - CHEST PAIN, UNSPECIFIED (3) Heroin abuse Assessment/Plan: methadone prn addiction medicine consulted Code(s): F11.10 - OPIOID ABUSE, UNCOMPLICATED (4) Alcohol dependence with uncomplicated withdrawal Assessment/Plan: patient is a high risk for withdrawal seizure started on librium protocol Code(s): F10.230 - ALCOHOL DEPENDENCE WITH WITHDRAWAL, UNCOMPLICATED (5) Myocardial infarction Assessment/Plan: NSR 80 bpm, old anterolateral SD on ekg Code(s): I21.9 - ACUTE MYOCARDIAL INFARCTION, UNSPECIFIED Visit type - Emergency Visit Emergency Visit: Yes ED Registration Date: 10/04/19 Care time: The patient presented to the Emergency Department on the above date and was hospitalized for further evaluation of their emergent condition. - New Patient This patient is new to me today: Yes Date on this admission: 10/05/19 - Critical Care Critical Care patient: No - Discharge Referral Referred to [facility] No CIWA Nausea/Vomitin-Mild Nausea/No Vomiting Muscle Tremors: 4-Moderate,w/Arms Extend Anxiety: 4-Mod. Anxious/Guarded Agitation: 1-Slight > Activity Paroxysmal Sweats: 1-Minimal Palms Moist Orientation: 0-Oriented Tacttile Disturbances: 0-None Auditory Disturbances: 0-None Visual Disturbances: 0-None Headache: 3-Moderate CIWA-Ar Total Score: 14
[2019-10-05] MEDS: chlordiazePOXIDE HCL 25 MG CAPSULE PO SCH ×2 (17:28→22:47)
[2019-10-05 17:49] VITALS: BMI 33.3
[2019-10-05] MEDS ORDERED: ATORVASTATIN CA 40 MG TABLET (FP) ONE (21:37)
[2019-10-05] MEDS ORDERED: diazePAM 5 MG TABLET ONE (21:38)
[2019-10-05] MEDS: diazePAM 5 MG TABLET PO SCH ×2 (22:04)
[2019-10-05] MEDS: ATORVASTATIN CA 40 MG TABLET (FP) PO SCH (22:04)
[2019-10-06] MEDS: chlordiazePOXIDE HCL 25 MG CAPSULE PO SCH ×4 (05:21→22:17)
--- NOTE | 2019-10-06 07:40 | PN ---
Progress Note, Physician Chief Complaint: cp History of Present Illness: known history of NH and PCI ([facility]) early 2018. anterolateral NH pattern on ECG. seen here by service cardiology 07/2018, notes reviewed--was 2 months out from NH and PCI ([facility]) not on DAPT, ? noncompliance vs possibly BMS, records requested. CP syndrome noted at that time in setting of heroin abuse, troponins neg x4. Echo then showed preserved LVEF with apical akinesis. pt discharged to [facility] detox the next day. currently with "sharp" central CP after injecting heroin, trop negative x 3 past h/o cocaine pt states he has been in 3 different hospitals in past couple of months for heroin detox, and had CP each of those times as well. thinks he had nuclear stress test during the most recent 2 weeks ago, [facility] in [place], told was fine. was at [facility] during this time period, thinks he had echo done but not certain--was not told of any new cardiac problems. current cp does NOT feel like prior NH sx--that was severe pain in chest and "my entire body...i can't describe it", with assctd diaph and sob then. currently no cp or sob + IVDU, etoh abuse - Current Medication List Current Medications: Active Medications Acetaminophen (Tylenol -) 650 mg PO Q6H PRN PRN Reason: PAIN LEVEL 7 - 10 Last Admin: 10/05/19 14:57 Dose: 650 mg Documented by: Aspirin (Ecotrin -) 81 mg PO DAILY [facility] Last Admin: 10/05/19 09:20 Dose: 81 mg Documented by: Atorvastatin Calcium (Lipitor -) 40 mg PO HS [facility] Last Admin: 10/05/19 22:04 Dose: 40 mg Documented by: Chlordiazepoxide HCl (Librium -) 50 mg PO [id number] [facility] Stop: 10/06/19 23:01 Last Admin: 10/06/19 05:21 Dose: 50 mg Documented by: Chlordiazepoxide HCl (Librium -) 25 mg PO [id number] [facility] Stop: 10/07/19 23:01 Chlordiazepoxide HCl (Librium -) 25 mg PO Q4H PRN PRN Reason: WITHDRAWAL(CONT SUBST) Stop: 10/07/19 23:59 Chlordiazepoxide HCl (Librium -) 10 mg PO [id number] [facility] Stop: 10/08/19 23:01 Chlordiazepoxide HCl (Librium -) 10 mg PO Q12H [facility] Stop: 10/09/19 17:01 Chlordiazepoxide HCl (Librium -) 10 mg PO Q4H PRN PRN Reason: WITHDRAWAL(CONT SUBST) Stop: 10/09/19 00:00 Chlordiazepoxide HCl (Librium -) 10 mg PO ONCE@0500 ONE Stop: 10/10/19 05:01 Clonidine (Catapres -) 0.1 mg PO Q4H PRN PRN Reason: Withdrawal Symptoms Stop: 10/06/19 23:59 Last Admin: 10/05/19 17:24 Dose: 0.1 mg Documented by: Clopidogrel Bisulfate (Plavix -) 75 mg PO DAILY [facility] Last Admin: 10/05/19 09:21 Dose: 75 mg Documented by: Diazepam (Valium -) 5 mg PO BID [facility] Stop: 10/06/19 10:01 Last Admin: 10/05/19 22:04 Dose: 5 mg Documented by: Diazepam (Valium -) 5 mg PO Q12H [facility] Stop: 10/07/19 18:01 Diazepam (Valium -) 5 mg PO ONCE ONE Stop: 10/08/19 06:01 Diazepam (Valium -) 5 mg PO BID [facility] Stop: 10/06/19 10:01 Last Admin: 10/05/19 22:04 Dose: Not Given Documented by: Diazepam (Valium -) 5 mg PO Q12H [facility] Stop: 10/07/19 18:01 Enoxaparin Sodium (Lovenox -) 40 mg SQ DAILY [facility] Last Admin: 10/05/19 09:20 Dose: 40 mg Documented by: Lisinopril (Prinivil) 5 mg PO DAILY [facility] Last Admin: 10/05/19 09:21 Dose: 5 mg Documented by: Methadone HCl (Dolophine -) 20 mg PO DAILY PRN PRN Reason: WITHDRAWAL(CONT SUBST) Last Admin: 10/05/19 12:28 Dose: 20 mg Documented by: Metoprolol Succinate (Toprol Xl -) 25 mg PO DAILY [facility] Last Admin: 10/05/19 09:21 Dose: 25 mg Documented by: Nicotine (Nicoderm Patch -) 7 mg TD DAILY [facility] Last Admin: 10/05/19 09:21 Dose: 7 mg Documented by: - Objective Vital Signs: Vital Signs Temperature 97.9 F 10/06/19 05:29 Pulse Rate 63 10/06/19 05:29 Respiratory Rate 18 10/06/19 05:29 Blood Pressure 116/68 10/06/19 05:29 O2 Sat by Pulse Oximetry (%) 97 10/06/19 00:35 Constitutional: Yes: No Distress, Calm Eyes: No: Sclera Icterus HENT: No: Nasal Congestion Cardiovascular: Yes: Regular Rate and Rhythm, S1, S2, Other (PMI non diplaced). No: Gallop, Murmur Respiratory: Yes: CTA Bilaterally. No: Accessory Muscle Use Gastrointestinal: Yes: Normal Bowel Sounds, Soft. No: Tenderness Musculoskeletal: Yes: Other (No kyphosis) Extremities: No: Cyanosis Edema: No Integumentary: No: Jaundice Neurological: Yes: Alert, Oriented (x3) Psychiatric: No: Agitated Labs: CBC, BMP 10/05/19 07:25 10/05/19 07:25 Assessment/Plan Echo: LVEF 35-40%. RWMA: moderate hypokinesis basal anteroseptum, apical- anterior, apex proper; mild hypo lateral wall. nl RV. nl valve fxn. tele: NSR, sinus arrhythmia/dax to 30s early AM hours; NSVT x 4b IMP: Polysubstance abuse: Benzos/ MDMA, Opiates. On Methadone History of CAD w/ prior PCI 2019 ([facility]) Chest pain syndrome, with negative cardiac enzymes Systolic dysfunction with RWMAs NSVT REC: 1. Anterolateral NH pattern on ECG, known NH and stent at [facility] early 2018. The 07/28 echo here reported apical akinesis and EF 55%. Curren echo with EF 35- 40%. Both studies' images reviewed by myself and Dr. Corrigan who read the 10/04 echo: the 07/28 study shows large area of apical akinesis and estimated EF is closer to the 45% range on that study (apical 2 chamber images poor quality, anterior wall not well seen). The current study EF is around 40%, with similar 4-chamber image appearance of large apical akinesis, and the 2 chamber image quality is clearer, showing mid-distal anterior wall hypokinesis. All in all, the 2 studies are similar, with evidence of old LAD territory infarction, possibly slightly lower EF now based on less vigorous contractility of the basal segments of each territory, ? incipient alcoholic CMP, however it is not a significant change. 2. Suspect current CP is non-cardiac, given similar presentation in the past under same circumstances of heroin abuse. Troponins neg x 3. Agree with ischemia evaluation--pt states he had inpatient stress test (nuclear?) at [facility]) approx 2 wks ago, will obtain that report prior to performing study here. (If shows LAD infarct with no ischemia or TID, then there is no role for invasive workup with cath at this time, unless symptoms change, as his current CP is identical to mult priors in setting of IVDU overdose.) 3. continue DAPT per home regimen (presumably planned for 3 years of therapy per DAPT trial, for ischemia risk > bleeding risk). 4. continue low dose lisinopril, metoprolol for syst CHF indication, soft BPs stable. 5. high intensity statin--incr to atorva 80 6. detox protocol per hospitalist 7. maintain K/Mg > 4/2 8. cont telemetry
[2019-10-06] MEDS ORDERED: PT OWN MED DRAWER 7, Y5N ONE (09:21)
[2019-10-06] MEDS: METHADONE HCL 10 MG TABLET PO PRN (09:34)
[2019-10-06] MEDS: diazePAM 5 MG TABLET PO SCH ×2 (09:38→09:56)
[2019-10-06] MEDS: CLOPIDOGREL BISULFATE 75 MG TABLET (FP) PO SCH (09:39)
[2019-10-06] MEDS: metoPROLOL SUCCINATE 25 MG TAB.SR.24H (FP) PO SCH (09:39)
[2019-10-06] MEDS: NICOTINE 7 MG/24 HOURS TOPICAL PATCH TD SCH (09:41)
[2019-10-06] MEDS: LISINOPRIL 5 MG TABLET (FP) PO SCH (09:41)
[2019-10-06] MEDS: ASPIRIN COATED 81 MG TABLET.EC PO SCH (09:41)
[2019-10-06] MEDS: ENOXAPARIN NA (PORCINE) 40 MG/0.4 ML DISP.SYRIN SQ SCH (09:41)
[2019-10-06] MEDS: cloNIDine HCL 0.1 MG TABLET PO PRN (09:44)
[2019-10-06 11:36] LABS: BASO % 0.3 % (0-2.0); EOS % 2.1 % (0-4.5); HEMATOCRIT 38.4 % (35.4-49); HEMOGLOBIN 12.9 GM/dL (11.7-16.9); LYMPH % 23.7 % (8-40); MCH 31.2 pg (25.7-33.7); MCHC 33.5 g/dl (32.0-35.9); MEAN CELL VOLUME 93.2 fl (80-96); MEAN PLT VOLUME 8.8 fl (7.5-11.1); MONO % 7.3 % (3.8-10.2); NEUT % 66.6 % (42.8-82.8); PLATELET COUNT 202 K/MM3 (134-434); RBC 4.12 M/mm3 (4.00-5.60); RDW 12.9 % (11.9-15.9); WHITE BLOOD COUNT 6.8 K/mm3 (4.0-10.0)
[2019-10-06 12:09] LABS: ALBUMIN 3.7 g/dl (3.4-5.0); BILIRUBIN,TOTAL 0.6 mg/dL (0.2-1); BLOOD UREA NITROGEN 13.3 mg/dL (7-18); CREATININE 0.8 mg/dL (0.55-1.3); MAGNESIUM 2.2 mg/dL (1.8-2.4); POTASSIUM 4.6 mmol/L (3.5-5.1); TOT PROT 6.7 g/dl (6.4-8.2)
--- NOTE | 2019-10-06 13:39 | PN ---
Physical Exam: SUBJECTIVE: Patient seen and examined OBJECTIVE: Patient is a 38 year old male with a significant past medical history of HTN, HLD, FL (sp stent x1), polysubstance use (IV heroin x15 bags, xanax 15mg daily, methadone 20mg, marijuana, drinks 2 pints of vodka on most days, some cocaine use). Patient presents to the ED from [facility] for complaint of chest pain. At [facility], endorsed mid-sternal pressure radiating to Left shoulder. Doesn't remember the events surrounding the onset of chest pain bc he was high on drugs. Get his methadone from the streets. echo 10/05/2019: EF 35-40%, moderate hypokinesis of the basal anteroseptum, LA moderately dilated, mld mr, mild tr Period Temp Pulse Resp BP Sys/Cardenas Pulse Ox Last 24 Hr 97.5 F-97.9 F 58-72 16-20 109-121/62-74 97-99 GENERAL: The patient is awake, alert, very anxious HEAD: Normal with no signs of trauma. EYES: PERRL, extraocular movements intact, sclera anicteric, conjunctiva clear. No ptosis. ENT: Ears normal, nares patent, oropharynx clear without exudates NECK: Trachea midline, full range of motion, supple. LUNGS: Breath sounds equal, clear to auscultation bilaterally, no wheezes HEART: Regular rate and rhythm, ABDOMEN: Soft, nontender, nondistended, normoactive bowel sounds EXTREMITIES: no edema. NEUROLOGICAL: Normal speech, gait not observed. Laboratory Results - last 24 hr 10/06/19 10/06/19 10:24 10:24 WBC 6.8 RBC 4.12 Hgb 12.9 Hct 38.4 MCV 93.2 MCH 31.2 MCHC 33.5 RDW 12.9 Plt Count 202 MPV 8.8 Absolute Neuts (auto) 4.5 Neutrophils % 66.6 D Lymphocytes % 23.7 D Monocytes % 7.3 Eosinophils % 2.1 Basophils % 0.3 Nucleated RBC % 0 Sodium 141 Potassium 4.6 Chloride 106 Carbon Dioxide 32 Anion Gap 3 L BUN 13.3 Creatinine 0.8 Est GFR (CKD-EPI)AfAm 133.20 Est GFR (CKD-EPI)NonAf 114.93 Random Glucose 92 Calcium 9.0 Magnesium 2.2 Total Bilirubin 0.6 AST 17 ALT 28 Alkaline Phosphatase 60 Total Protein 6.7 Albumin 3.7 Active Medications Generic Name Dose Route Start Last Admin Trade Name Freq PRN Reason Stop Dose Admin Acetaminophen 650 mg 10/05/19 14:26 10/05/19 14:57 Tylenol - PO 650 mg Q6H PRN Administration PAIN LEVEL 7 - 10 Aspirin 81 mg 10/05/19 10:00 10/06/19 09:41 Ecotrin - PO 81 mg DAILY RIYA Administration Atorvastatin Calcium 80 mg 10/06/19 22:00 Lipitor - PO HS [facility] Chlordiazepoxide HCl 50 mg 10/05/19 17:00 10/06/19 11:17 Librium - PO 10/06/19 23:01 Not Given [id number] RIYA Chlordiazepoxide HCl 25 mg 10/07/19 05:00 Librium - PO 10/07/19 23:01 [id number] RIYA Chlordiazepoxide HCl 25 mg 10/05/19 17:07 10/06/19 13:18 Librium - PO 10/07/19 23:59 25 mg Q4H PRN Administration WITHDRAWAL(CONT SUBST) Chlordiazepoxide HCl 10 mg 10/08/19 05:00 Librium - PO 10/08/19 23:01 [id number] [facility] Chlordiazepoxide HCl 10 mg 10/09/19 05:00 Librium - PO 10/09/19 17:01 Q12H RIYA Chlordiazepoxide HCl 10 mg 10/08/19 00:00 Librium - PO 10/09/19 00:00 Q4H PRN WITHDRAWAL(CONT SUBST) Chlordiazepoxide HCl 10 mg 10/10/19 05:00 Librium - PO 10/10/19 05:01 ONCE@0500 ONE Clonidine 0.1 mg 10/04/19 21:36 10/06/19 09:44 Catapres - PO 10/06/19 23:59 0.1 mg Q4H PRN Administration Withdrawal Symptoms Clopidogrel Bisulfate 75 mg 10/05/19 10:00 10/06/19 09:39 Plavix - PO 75 mg DAILY RIYA Administration Diazepam 5 mg 10/07/19 06:00 Valium - PO 10/07/19 18:01 Q12H RIYA Diazepam 5 mg 10/08/19 06:00 Valium - PO 10/08/19 06:01 ONCE ONE Diazepam 5 mg 10/07/19 06:00 Valium - PO 10/07/19 18:01 Q12H RIYA Enoxaparin Sodium 40 mg 10/05/19 10:00 10/06/19 09:41 Lovenox - SQ 40 mg DAILY RIYA Administration Lisinopril 5 mg 10/05/19 10:00 10/06/19 09:41 Prinivil PO 5 mg DAILY RIYA Administration Methadone HCl 20 mg 10/05/19 10:00 10/06/19 09:34 Dolophine - PO 20 mg DAILY PRN Administration WITHDRAWAL(CONT SUBST) Metoprolol Succinate 25 mg 10/05/19 10:00 10/06/19 09:39 Toprol Xl - PO 25 mg DAILY RIYA Administration Nicotine 7 mg 10/05/19 10:00 10/06/19 09:41 Nicoderm Patch - TD 7 mg DAILY RIYA Administration ASSESSMENT/PLAN: Problem List - Problems (1) Polysubstance (including opioids) dependence with physiological dependence Assessment/Plan: patient with daily use of opioids which he buys on the streets. uses apx 5mg or more per day of ativan/xanax. unable to stop abruptly and will need to be tapered off benzos started on valium taper monitor for over sedation since he is also on librium Code(s): F19.20 - OTHER PSYCHOACTIVE SUBSTANCE DEPENDENCE, UNCOMPLICATED (2) Chest pain Assessment/Plan: chest pain now resolved. troponins negative echo 10/05/2019: EF 35-40%, moderate hypokinesis of thebaal anteroseptum, LA moderately dilated, mld mr, mild tr monitor on tele cardiology following Code(s): R07.9 - CHEST PAIN, UNSPECIFIED (3) Heroin abuse Assessment/Plan: methadone prn addiction medicine consulted Code(s): F11.10 - OPIOID ABUSE, UNCOMPLICATED (4) Alcohol dependence with uncomplicated withdrawal Assessment/Plan: patient is a high risk for withdrawal seizure started on librium protocol Code(s): F10.230 - ALCOHOL DEPENDENCE WITH WITHDRAWAL, UNCOMPLICATED (5) Myocardial infarction Assessment/Plan: NSR 80 bpm, old anterolateral FL on ekg Code(s): I21.9 - ACUTE MYOCARDIAL INFARCTION, UNSPECIFIED (6) DVT prophylaxis Assessment/Plan: on lovenox 40mg Code(s): Z29.9 - ENCOUNTER FOR PROPHYLACTIC MEASURES, UNSPECIFIED Visit type - Emergency Visit Emergency Visit: Yes ED Registration Date: 10/04/19 Care time: The patient presented to the Emergency Department on the above date and was hospitalized for further evaluation of their emergent condition. - New Patient This patient is new to me today: No - Critical Care Critical Care patient: No - Discharge Referral Referred to [facility] Med P.C.: No
[2019-10-06] MEDS ORDERED: IBUPROFEN 400 MG TABLET (FP) PO ONE (20:54)
--- NOTE | 2019-10-06 20:54 | HOSP ---
Subjective - Review of Symptoms Subjective: Pt reports c/o pain to lower gums bilaterally and jaw. Concerned that he may have a dental infection. States he hasn't been to a dentist in over 10 years. Patient also stated that he "can't go to rehab like this." Nurse reports good appetite and tolerated turkey sandwich. Physical Examination Vital Signs: Vital Signs Temperature 98.4 F 10/06/19 14:00 Pulse Rate 48 L 10/06/19 14:00 Respiratory Rate 10/06/19 14:00 Blood Pressure 116/63 10/06/19 14:00 O2 Sat by Pulse Oximetry (%) 98 10/06/19 08:31 HENT: Yes: Other (bilateral lower gums with mild erythema, no palpable abscesses internally or externally. Jawline without palpable abscesses, + tender to palpation. + multiple cracked teeth, dental caries, right lower molars broken to gumline, left noted with dental cement in place.) Labs: CBC, BMP 10/06/19 10:24 10/06/19 10:24 Hospitalist Encounter Assessment: 38yM with PMH CAD, VT s/p stent, HTN, HLD, PSA (heroin, xanax, methadone, marijuana, vodka) presented from inpatient rehab with c/o chest pain now evaluated for jaw/gum pain. Dental caries, poor dentition - motrin x 1 now - rec f/u with dentist as outpatient, if pain worsening, consider OMF consult if available - start pen VK if febrile, increasing WBC or worsening gum appearance.
[2019-10-06] MEDS: ATORVASTATIN CA 80 MG TABLET (FP) PO SCH (22:17)
[2019-10-07] MEDS ORDERED: chlordiazePOXIDE 5 MG CAPSULE PO PRN
[2019-10-07] MEDS: chlordiazePOXIDE HCL 25 MG CAPSULE PO SCH ×4 (05:57→22:39)
[2019-10-07] MEDS: diazePAM 5 MG TABLET PO SCH ×2 (05:59→17:18)
[2019-10-07] MEDS ORDERED: diazePAM 5 MG TABLET PO SCH (06:00)
--- NOTE | 2019-10-07 07:17 | PN ---
Progress Note, Physician Chief Complaint: cp History of Present Illness: no cp anxious about cardiac test results no sob no palp no syncope - Current Medication List Current Medications: Active Medications Acetaminophen (Tylenol -) 650 mg PO Q6H PRN PRN Reason: PAIN LEVEL 7 - 10 Last Admin: 10/05/19 14:57 Dose: 650 mg Documented by: Aspirin (Ecotrin -) 81 mg PO DAILY [facility] Last Admin: 10/06/19 09:41 Dose: 81 mg Documented by: Atorvastatin Calcium (Lipitor -) 80 mg PO HS [facility] Last Admin: 10/06/19 22:17 Dose: 80 mg Documented by: Chlordiazepoxide HCl (Librium -) 25 mg PO [id number] [facility] Stop: 10/07/19 23:01 Last Admin: 10/07/19 05:57 Dose: 25 mg Documented by: Chlordiazepoxide HCl (Librium -) 25 mg PO Q4H PRN PRN Reason: WITHDRAWAL(CONT SUBST) Stop: 10/07/19 23:59 Last Admin: 10/06/19 13:18 Dose: 25 mg Documented by: Chlordiazepoxide HCl (Librium -) 10 mg PO [id number] [facility] Stop: 10/08/19 23:01 Chlordiazepoxide HCl (Librium -) 10 mg PO Q12H [facility] Stop: 10/09/19 17:01 Chlordiazepoxide HCl (Librium -) 10 mg PO Q4H PRN PRN Reason: WITHDRAWAL(CONT SUBST) Stop: 10/09/19 00:00 Chlordiazepoxide HCl (Librium -) 10 mg PO ONCE@0500 ONE Stop: 10/10/19 05:01 Clopidogrel Bisulfate (Plavix -) 75 mg PO DAILY [facility] Last Admin: 10/06/19 09:39 Dose: 75 mg Documented by: Diazepam (Valium -) 5 mg PO Q12H [facility] Stop: 10/07/19 18:01 Last Admin: 10/07/19 05:57 Dose: 5 mg Documented by: Diazepam (Valium -) 5 mg PO ONCE ONE Stop: 10/08/19 06:01 Diazepam (Valium -) 5 mg PO Q12H [facility] Stop: 10/07/19 18:01 Last Admin: 10/07/19 05:59 Dose: Not Given Documented by: Enoxaparin Sodium (Lovenox -) 40 mg SQ DAILY [facility] Last Admin: 10/06/19 09:41 Dose: 40 mg Documented by: Lisinopril (Prinivil) 5 mg PO DAILY [facility] Last Admin: 10/06/19 09:41 Dose: 5 mg Documented by: Methadone HCl (Dolophine -) 20 mg PO DAILY PRN PRN Reason: WITHDRAWAL(CONT SUBST) Last Admin: 10/06/19 09:34 Dose: 20 mg Documented by: Metoprolol Succinate (Toprol Xl -) 25 mg PO DAILY [facility] Last Admin: 10/06/19 09:39 Dose: 25 mg Documented by: Nicotine (Nicoderm Patch -) 7 mg TD DAILY [facility] Last Admin: 10/06/19 09:41 Dose: 7 mg Documented by: - Objective Vital Signs: Vital Signs Temperature 97.5 F L 10/07/19 06:00 Pulse Rate 54 L 10/07/19 06:00 Respiratory Rate 20 10/07/19 06:00 Blood Pressure 116/62 10/07/19 06:00 O2 Sat by Pulse Oximetry (%) 97 10/06/19 21:00 Constitutional: Yes: Well Nourished, No Distress, Calm Cardiovascular: Yes: Regular Rate and Rhythm Respiratory: Yes: Regular. No: Accessory Muscle Use Extremities: No: Cold Edema: No Integumentary: No: Venous Stasis Changes Neurological: Yes: Alert, Oriented Psychiatric: No: Agitated Labs: CBC, BMP 10/06/19 10:24 10/06/19 10:24 Assessment/Plan Echo: LVEF 35-40%. RWMA: moderate hypokinesis basal anteroseptum, apical- anterior, apex proper; mild hypo lateral wall. nl RV. nl valve fxn. tele: NSR, sinus arrhythmia/dax to 30s overnight hours IMP: Polysubstance abuse: Benzos/ MDMA, Opiates. On Methadone History of CAD w/ prior PCI 2019 ([facility]) Chest pain syndrome, with negative cardiac enzymes Systolic dysfunction with RWMAs NSVT REC: 1. Evidence of old AWMI on ECG, known VT and stent at [facility] early 2019. Echo here similar to 07/28 study upon careful review of images: large area of apical akinesis extending to distal portions of septum, lateral wall, anterior wall, as well as mid anterior wall hypokineis. EF around 40% currently, closer to 45% on prior study. 2. Suspect current CP is non-cardiac, as pt states it is identical to his chronic sx occurring in setting of heroin overdose many times previously. Troponins neg x 3. Pt states he had inpatient stress test (nuclear?) at [facility] approx 2 wks ago, will obtain that report prior to performing study here. If shows LAD infarct with no ischemia or TID, then there is no role for invasive workup with cath at this time, unless symptoms change. 3. continue DAPT per home regimen (presumably planned for 3 years of therapy per DAPT trial, for ischemia risk > bleeding risk). 4. continue low dose lisinopril, metoprolol for syst CHF indication, soft BPs stable. 5. high intensity statin--incr to atorva 80 6. detox protocol per hospitalist 7. maintain K/Mg > 4/2 8. cont telemetry 9. if can obtain recent stress test showing no ischemia, then no further inpatient cardiac w/u is indicated
[2019-10-07] MEDS: METHADONE HCL 10 MG TABLET PO PRN (10:06)
[2019-10-07] MEDS: metoPROLOL SUCCINATE 25 MG TAB.SR.24H (FP) PO SCH (10:08)
[2019-10-07] MEDS: CLOPIDOGREL BISULFATE 75 MG TABLET (FP) PO SCH (10:08)
[2019-10-07] MEDS: ENOXAPARIN NA (PORCINE) 40 MG/0.4 ML DISP.SYRIN SQ SCH (10:08)
[2019-10-07] MEDS: ASPIRIN COATED 81 MG TABLET.EC PO SCH (10:08)
[2019-10-07] MEDS: LISINOPRIL 5 MG TABLET (FP) PO SCH (10:08)
[2019-10-07] MEDS: NICOTINE 7 MG/24 HOURS TOPICAL PATCH TD SCH (10:08)
[2019-10-07 10:48] LABS: EOS % 1.3 % (0-4.5); HEMATOCRIT 40.9 % (35.4-49); HEMOGLOBIN 13.9 GM/dL (11.7-16.9); MCH 31.1 pg (25.7-33.7); MEAN CELL VOLUME 91.6 fl (80-96); MEAN PLT VOLUME 8.6 fl (7.5-11.1); MONO % 8.2 % (3.8-10.2); NEUT % 58.5 % (42.8-82.8); PLATELET COUNT 227 K/MM3 (134-434); RBC 4.46 M/mm3 (4.00-5.60); WHITE BLOOD COUNT 6.2 K/mm3 (4.0-10.0)
--- NOTE | 2019-10-07 10:56 | PN ---
Physical Exam: SUBJECTIVE: Patient seen and examined at the bedside. verbalizing feeling anxious about taking methadone but feels as though as he needs it. OBJECTIVE: gambling monitor: qtc 356. sinus dax 40s Patient is a 38 year old male with a significant past medical history of HTN, HLD, [place] (sp stent x1), polysubstance use (IV heroin x15 bags, xanax 15mg daily, methadone 20mg, marijuana, drinks 2 pints of vodka on most days, some cocaine use). Patient presents to the ED from [facility] for complaint of chest pain. At [facility], endorsed mid-sternal pressure radiating to Left shoulder. Doesn't remember the events surrounding the onset of chest pain bc he was high on drugs. Get his methadone from the streets. ------- echo 10/05/2019: EF 35-40%, moderate hypokinesis of the basal anteroseptum, LA moderately dilated, mld mr, mild tr Vital Signs Period Temp Pulse Resp BP Sys/Cardenas Pulse Ox Last 24 Hr 97.5 F-98.4 F 48-66 18-20 115-123/62-83 97-97 GENERAL: The patient is awake, alert, very anxious HEAD: Normal with no signs of trauma. EYES: PERRL, extraocular movements intact, sclera anicteric, conjunctiva clear. No ptosis. ENT: Ears normal, nares patent, oropharynx clear without exudates NECK: Trachea midline, full range of motion, supple. LUNGS: Breath sounds equal, clear to auscultation bilaterally, no wheezes HEART: Regular rate and rhythm, ABDOMEN: Soft, nontender, nondistended, normoactive bowel sounds EXTREMITIES: no edema. NEUROLOGICAL: Normal speech, gait not observed. Laboratory Results - last 24 hr 10/06/19 10/06/19 10:24 10:24 WBC 6.8 RBC 4.12 Hgb 12.9 Hct 38.4 MCV 93.2 MCH 31.2 MCHC 33.5 RDW 12.9 Plt Count 202 MPV 8.8 Absolute Neuts (auto) 4.5 Neutrophils % 66.6 D Lymphocytes % 23.7 D Monocytes % 7.3 Eosinophils % 2.1 Basophils % 0.3 Nucleated RBC % 0 Sodium 141 Potassium 4.6 Chloride 106 Carbon Dioxide 32 Anion Gap 3 L BUN 13.3 Creatinine 0.8 Est GFR (CKD-EPI)AfAm 133.20 Est GFR (CKD-EPI)NonAf 114.93 Random Glucose 92 Calcium 9.0 Magnesium 2.2 Total Bilirubin 0.6 AST 17 ALT 28 Alkaline Phosphatase 60 Total Protein 6.7 Albumin 3.7 Active Medications Generic Name Dose Route Start Last Admin Trade Name Freq PRN Reason Stop Dose Admin Acetaminophen 650 mg 10/05/19 14:26 10/05/19 14:57 Tylenol - PO 650 mg Q6H PRN Administration PAIN LEVEL 7 - 10 Aspirin 81 mg 10/05/19 10:00 10/07/19 10:08 Ecotrin - PO 81 mg DAILY RIYA Administration Atorvastatin Calcium 80 mg 10/06/19 22:00 10/06/19 22:17 Lipitor - PO 80 mg HS RIYA Administration Chlordiazepoxide HCl 25 mg 10/07/19 05:00 10/07/19 05:57 Librium - PO 10/07/19 23:01 25 mg [id number] RIYA Administration Chlordiazepoxide HCl 25 mg 10/05/19 17:07 10/06/19 13:18 Librium - PO 10/07/19 23:59 25 mg Q4H PRN Administration WITHDRAWAL(CONT SUBST) Chlordiazepoxide HCl 10 mg 10/08/19 05:00 Librium - PO 10/08/19 23:01 [id number] RIYA Chlordiazepoxide HCl 10 mg 10/09/19 05:00 Librium - PO 10/09/19 17:01 Q12H RIYA Chlordiazepoxide HCl 10 mg 10/08/19 00:00 Librium - PO 10/09/19 00:00 Q4H PRN WITHDRAWAL(CONT SUBST) Chlordiazepoxide HCl 10 mg 10/10/19 05:00 Librium - PO 10/10/19 05:01 ONCE@0500 ONE Clopidogrel Bisulfate 75 mg 10/05/19 10:00 10/07/19 10:08 Plavix - PO 75 mg DAILY RIYA Administration Diazepam 5 mg 10/07/19 06:00 10/07/19 05:57 Valium - PO 10/07/19 18:01 5 mg Q12H RIYA Administration Diazepam 5 mg 10/08/19 06:00 Valium - PO 10/08/19 06:01 ONCE ONE Diazepam 5 mg 10/07/19 06:00 10/07/19 05:59 Valium - PO 10/07/19 18:01 Not Given Q12H RIYA Enoxaparin Sodium 40 mg 10/05/19 10:00 10/07/19 10:08 Lovenox - SQ 40 mg DAILY RIYA Administration Lisinopril 5 mg 10/05/19 10:00 10/07/19 10:08 Prinivil PO 5 mg DAILY RIYA Administration Methadone HCl 20 mg 10/05/19 10:00 10/07/19 10:06 Dolophine - PO 20 mg DAILY PRN Administration WITHDRAWAL(CONT SUBST) Metoprolol Succinate 25 mg 10/05/19 10:00 10/07/19 10:08 Toprol Xl - PO 25 mg DAILY RIYA Administration Nicotine 7 mg 10/05/19 10:00 10/07/19 10:08 Nicoderm Patch - TD 7 mg DAILY RIYA Administration ASSESSMENT/PLAN: Problem List - Problems (1) Polysubstance (including opioids) dependence with physiological dependence Assessment/Plan: patient with daily use of opioids which he buys on the streets. uses apx 5mg or more per day of ativan/xanax. unable to stop abruptly and will need to be tapered off benzos on valium taper monitor for over sedation since he is also on librium Code(s): F19.20 - OTHER PSYCHOACTIVE SUBSTANCE DEPENDENCE, UNCOMPLICATED (2) Chest pain Assessment/Plan: chest pain now resolved. troponins negative echo 10/05/2019: EF 35-40%, moderate hypokinesis of thebaal anteroseptum, LA moderately dilated, mld mr, mild tr monitor on tele cardiology following Code(s): R07.9 - CHEST PAIN, UNSPECIFIED (3) Heroin abuse Assessment/Plan: methadone prn addiction medicine consulted Code(s): F11.10 - OPIOID ABUSE, UNCOMPLICATED (4) Alcohol dependence with uncomplicated withdrawal Assessment/Plan: patient is a high risk for withdrawal seizure started on librium protocol Code(s): F10.230 - ALCOHOL DEPENDENCE WITH WITHDRAWAL, UNCOMPLICATED (5) Myocardial infarction Assessment/Plan: NSR 80 bpm, old anterolateral [place] on ekg Code(s): I21.9 - ACUTE MYOCARDIAL INFARCTION, UNSPECIFIED (6) DVT prophylaxis Assessment/Plan: on lovenox 40mg Code(s): Z29.9 - ENCOUNTER FOR PROPHYLACTIC MEASURES, UNSPECIFIED Visit type - Emergency Visit Emergency Visit: Yes ED Registration Date: 10/04/19 Care time: The patient presented to the Emergency Department on the above date and was hospitalized for further evaluation of their emergent condition. - New Patient This patient is new to me today: No - Critical Care Critical Care patient: No - Discharge Referral Referred to [facility] Med P.C.: No
[2019-10-07 11:12] LABS: ALBUMIN 3.9 g/dl (3.4-5.0); BILIRUBIN,TOTAL 0.5 mg/dL (0.2-1); BLOOD UREA NITROGEN 18.4 mg/dL (7-18); CALCIUM 9.2 mg/dL (8.5-10.1); CREATININE 0.9 mg/dL (0.55-1.3); MAGNESIUM 2.1 mg/dL (1.8-2.4); POTASSIUM 4.5 mmol/L (3.5-5.1); TOT PROT 7.1 g/dl (6.4-8.2)
[2019-10-07] MEDS: ATORVASTATIN CA 80 MG TABLET (FP) PO SCH (21:54)
[2019-10-08] MEDS ORDERED: chlordiazePOXIDE HCL 10 MG CAPSULE PO PRN
[2019-10-08] MEDS: chlordiazePOXIDE HCL 10 MG CAPSULE PO SCH ×4 (05:05→22:46)
[2019-10-08] MEDS ORDERED: diazePAM 5 MG TABLET PO ONE (06:00)
--- NOTE | 2019-10-08 10:03 | CONSULT ---
Consult Detox [facility] Reason for Current Admission/Consult: Detox protocol opioid use disorder Referred by:: ELSA Lagos - History History of Present Illness: Mr. Bellamy is a 38 yo gentleman seen at [facility] on 10/04, then, transferred to [facility] with complaints of chest pain. Pt currently complaining of withdrawal sx. Case discussed with provider: Ronda Lagos. Pt had a stress test several weeks ago and team is attempting to get those results. Pt may have a repeat stress test during this admission. notes from 10/06: chest pain now resolved. troponins negative echo 10/05/2019: EF 35-40%, moderate hypokinesis of thebaal anteroseptum, LA moderately dilated, mld mr, mild tr monitor on tele cardiology following Pt has received 2 doses of Methadone 20 mg and was placed on Librium and Valium detox protocol. Vital Signs Temperature 98 F 10/08/19 08:39 Pulse Rate 78 10/08/19 08:39 Respiratory Rate 18 10/08/19 08:39 Blood Pressure 118/72 10/08/19 08:39 O2 Sat by Pulse Oximetry (%) 99 10/07/19 21:00 Home Medication List Medication Instructions Recorded Confirmed Type Aspirin [Aspirin EC] 81 mg PO DAILY 09/02/18 05/30/19 History Gabapentin [Neurontin -] 300 mg PO TID 11/17/18 05/30/19 History cloNIDine HCL [Catapres -] 0.1 mg PO TID 11/17/18 05/30/19 History Docusate Sodium [Dok] 100 mg PO PRN PRN 12/21/18 05/30/19 History Metoprolol Tartrate [Lopressor -] 50 mg PO DAILY 05/30/19 05/30/19 History Active Medications Generic Name Dose Route Start Last Admin Trade Name Freq PRN Reason Stop Dose Admin Acetaminophen 650 mg 10/05/19 14:26 10/05/19 14:57 Tylenol - PO 650 mg Q6H PRN Administration PAIN LEVEL 7 - 10 Aspirin 81 mg 10/05/19 10:00 10/07/19 10:08 Ecotrin - PO 81 mg DAILY RIYA Administration Atorvastatin Calcium 80 mg 10/06/19 22:00 10/07/19 21:54 Lipitor - PO 80 mg HS RIYA Administration Chlordiazepoxide HCl 10 mg 10/08/19 05:00 10/08/19 05:05 Librium - PO 10/08/19 23:01 10 mg [id number] RIYA Administration Chlordiazepoxide HCl 10 mg 10/09/19 05:00 Librium - PO 10/09/19 17:01 Q12H RIYA Chlordiazepoxide HCl 10 mg 10/08/19 00:00 Librium - PO 10/09/19 00:00 Q4H PRN WITHDRAWAL(CONT SUBST) Chlordiazepoxide HCl 10 mg 10/10/19 05:00 Librium - PO 10/10/19 05:01 ONCE@0500 ONE Clopidogrel Bisulfate 75 mg 10/05/19 10:00 10/07/19 10:08 Plavix - PO 75 mg DAILY RIYA Administration Enoxaparin Sodium 40 mg 10/05/19 10:00 10/07/19 10:08 Lovenox - SQ 40 mg DAILY RIYA Administration Lisinopril 5 mg 10/05/19 10:00 10/07/19 10:08 Prinivil PO 5 mg DAILY RIYA Administration Methadone HCl 20 mg 10/05/19 10:00 10/07/19 10:06 Dolophine - PO 20 mg DAILY PRN Administration WITHDRAWAL(CONT SUBST) Metoprolol Succinate 25 mg 10/05/19 10:00 10/07/19 10:08 Toprol Xl - PO 25 mg DAILY RIYA Administration Nicotine 7 mg 10/05/19 10:00 10/07/19 10:08 Nicoderm Patch - TD 7 mg DAILY RIYA Administration Substance Use History Alcohol Substance amount: one pint Em[place] Frequency of use: Daily Substance route: Oral Date of Last Use: 10/03/19 (First use age 32) Heroin Substance amount: 7-15 bags Frequency of use: Daily Substance route: Injection (ex: intravenous or skin popping) Date of Last Use: 10/04/19 Xanax Substance amount: 6-8 mg Frequency of use: Daily Substance route: Oral Date of Last Use: 10/03/19 Cannabis Substance amount: 1/8 Frequency of use: Daily Substance route: Smoking Date of Last Use: 10/04/19 Nicotine Substance amount: 1 ppd Frequency of use: Daily Substance route: Smoking Date of Last Use: 10/04/19 - Last Treatment Date of last treatment: 05/30 to 06/02/19, left AMA Treatment type: Substance Use Disorder (LUISA) Where was last treatment: Detox - History Source History Provided By: Medical Record - Alcohol/Substance Use Hx Alcohol Use: Yes - Past Medical History 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: Other (restless legs) Cardio/Vascular: Yes: CAD, HTN, Hyperlipdemia Gastrointestinal: No: Ascites, Cancer, Constipation, Crohn's Disease, Diverticulitis, Diverticulosis, Esophageal Varices, Gastritis, GERD, GI Bleed, Hemorrhoids, Hiatal Hernia, Inflamatory Bowel Disease, Irritable Bowel Disease, Pancreatitis, Peptic Ulcer Disease, Ulcerative Colitis, Other Hepatobiliary: No: Cirrhosis, Cholelithiasis, Cholecystitis, Choledocholithiasis, Hepatitis A, Hepatitis B, Hepatitis C, Other Renal/: No: Renal Failure, Renal Inusuff, BPH, Cancer, Hematuria, Hemodialysis, Neurogenic Bladder, Renal Calculi, UTI, Other Infectious Disease: No: AIDS, C-Diff, Herpes Zoster, HIV, MRSA, STD's, Tuberculosis, VREF, Other Psych: Yes: Addictions, Anxiety Rheumatology: No: Fibromyalgia, Gout, Lupus, Rheumatoid Arthritis, Sarcoidosis, Vasculitis, Other ENT: No: Allergic Rhinitis, Sinusitis, Other Endocrine: No: Codington's Disease, Newport's Disease, Diabetes Insipidus, Diabetes Mellitus, Hyperparathyroidism, Hyperthyroidism, Hypothyroidism, Osteopenia, SIADH, Other Dermatology: No: Basal Cell, Cellulitis, Eczema, Melanoma, Psoriasis, Squamous Cell, Other - Past Surgical History Past Surgical History: Yes: Stent CIWA Score - CIWA Score Nausea/Vomitin-Mild Nausea/No Vomiting Muscle Tremors: 4-Moderate,w/Arms Extend Anxiety: 4-Mod. Anxious/Guarded Agitation: 1-Slight > Activity Paroxysmal Sweats: 1-Minimal Palms Moist Orientation: 0-Oriented Tacttile Disturbances: 0-None Auditory Disturbances: 0-None Visual Disturbances: 0-None Headache: 3-Moderate CIWA-Ar Total Score: 14 Assessment Plan - Diagnosis (1) Opioid dependence with withdrawal Status: Acute - Plan Plan: Pt on Librium and Valium detox protocol. would recommend only one benzo protocol. Will complete Librium protocol on 10/09, would continue Valium protocol completed. - Medication Detox Regimen/Protocol: Methadone
[2019-10-08] MEDS ORDERED: cloNIDine HCL 0.1 MG TABLET PO PRN (10:13)
[2019-10-08] MEDS ORDERED: MAG HYDROX/AL HYDROX/SIMETH 30 ML UNIT-DOSE CUP PO PRN (10:16)
[2019-10-08] MEDS ORDERED: MAGNESIUM CITRATE 300 ML BOTTLE PO PRN (10:16)
[2019-10-08] MEDS ORDERED: ONDANSETRON *ODT* 4 MG TABLET SL PRN (10:16)
[2019-10-08] MEDS ORDERED: METHOCARBAMOL 500 MG TABLET PO PRN (10:16)
[2019-10-08] MEDS ORDERED: MAGNESIUM HYDROX 2400MG/30ML ORAL SUSPENSION 30 ML CUP PO PRN (10:16)
[2019-10-08] MEDS ORDERED: MENTHOL/PHENOL 1 EACH UD MM PRN (10:16)
[2019-10-08] MEDS ORDERED: hydrOXYzine PAMOATE 25 MG CAPSULE (FP) PO PRN (10:16)
[2019-10-08] MEDS ORDERED: BISMUTH SUBSALICYLATE 524 MG/30 ML UD PO PRN (10:16)
[2019-10-08] MEDS ORDERED: NICOTINE 7 MG/24 HOURS TOPICAL PATCH TD SCH (10:21)
[2019-10-08] MEDS ORDERED: METHADONE HCL 10 MG TABLET (FOR DETOX USE ONLY) PO ONE (11:00)
[2019-10-08] MEDS ORDERED: METHADONE HCL 10 MG TABLET PO ONE (11:00)
--- NOTE | 2019-10-08 11:05 | PN ---
Progress Note (short form) - Note Progress Note: Chief Complaint: cp History of Present Illness: no cp no sob no palp no syncope Current Medications Generic Name Dose Route Start Last Admin Trade Name Freq PRN Reason Stop Dose Admin Acetaminophen 650 mg 10/05/19 14:26 10/05/19 14:57 Tylenol - PO 650 mg Q6H PRN Administration PAIN LEVEL 7 - 10 Al Hydroxide/Mg Hydroxide 30 ml 10/08/19 10:16 Mylanta Oral Suspension - PO Q6H PRN DYSPEPSIA Aspirin 81 mg 10/05/19 10:00 10/07/19 10:08 Ecotrin - PO 81 mg DAILY RIYA Administration Atorvastatin Calcium 80 mg 10/06/19 22:00 10/07/19 21:54 Lipitor - PO 80 mg HS RIYA Administration Bismuth Subsalicylate 524 mg 10/08/19 10:16 Pepto-Bismol - PO Q1H PRN DIARRHEA Chlordiazepoxide HCl 10 mg 10/08/19 05:00 10/08/19 05:05 Librium - PO 10/08/19 23:01 10 mg [id number] RIYA Administration Chlordiazepoxide HCl 10 mg 10/09/19 05:00 Librium - PO 10/09/19 17:01 Q12H RIYA Chlordiazepoxide HCl 10 mg 10/08/19 00:00 Librium - PO 10/09/19 00:00 Q4H PRN WITHDRAWAL(CONT SUBST) Chlordiazepoxide HCl 10 mg 10/10/19 05:00 Librium - PO 10/10/19 05:01 ONCE@0500 ONE Clonidine 0.1 mg 10/08/19 10:13 Catapres - PO 10/10/19 23:59 Q4H PRN Withdrawal Symptoms Clopidogrel Bisulfate 75 mg 10/05/19 10:00 10/07/19 10:08 Plavix - PO 75 mg DAILY RIYA Administration Enoxaparin Sodium 40 mg 10/05/19 10:00 10/07/19 10:08 Lovenox - SQ 40 mg DAILY RIYA Administration Eucalyptus/Menthol/Phenol/Sorbitol 1 each 10/08/19 10:16 Cepastat Lozenge - MM 10/14/19 10:17 Q4H PRN SORE THROAT Hydroxyzine Pamoate 25 mg 10/08/19 10:16 Vistaril - PO 10/14/19 10:16 Q4HWA PRN ANXIETY Lisinopril 5 mg 10/05/19 10:00 10/07/19 10:08 Prinivil PO 5 mg DAILY ON LICENSE OF [facility] Administration Magnesium Citrate 300 ml 10/08/19 10:16 Citroma - PO Q48H PRN CONSTIPATION Magnesium Hydroxide 30 ml 10/08/19 10:16 Milk Of Magnesia - PO PRN PRN CONSTIPATION Melatonin 5 mg 10/08/19 22:00 Melatonin PO HS ON LICENSE OF [facility] Methadone HCl 5 mg 10/13/19 06:00 Dolophine - PO 10/13/19 06:01 ONCE@0600 ONE Methadone HCl 10 mg 10/12/19 10:00 Dolophine - PO 10/12/19 10:01 ONCE ONE Methadone HCl 20 mg 10/10/19 10:00 Dolophine - PO 10/10/19 10:01 ONCE ONE Methadone HCl 20 mg/ Methadone 25 mg 10/09/19 06:00 HCl 5 mg PO 10/09/19 06:01 ONCE@0600 ONE Methadone HCl 10 mg/ Methadone 15 mg 10/11/19 10:00 HCl 5 mg PO 10/11/19 10:01 ONCE ONE Methocarbamol 500 mg 10/08/19 10:16 Robaxin - PO 10/14/19 10:17 Q6H PRN MUSCLE SPASMS Metoprolol Succinate 25 mg 10/05/19 10:00 10/07/19 10:08 Toprol Xl - PO 25 mg DAILY ON LICENSE [facility] Administration Nicotine 21 mg 10/08/19 10:21 Nicoderm Patch - TD DAILY ON LICENSE OF [facility] Ondansetron HCl 4 mg 10/08/19 10:16 Zofran Odt - SL 10/14/19 10:18 TID PRN Nausea/Vomiting Thiamine HCl 100 mg 10/08/19 22:00 Vitamin B1 - PO [facility] Vital Signs Period Temp Pulse Resp BP Sys/Cardenas Pulse Ox Last 24 Hr 97.3 F-98.7 F 58-78 18-20 112-128/61-86 99 Constitutional: Yes: Well Nourished, No Distress, Calm Cardiovascular: Yes: Regular Rate and Rhythm Respiratory: Yes: Regular. No: Accessory Muscle Use Extremities: No: Cold Edema: No Integumentary: No: Venous Stasis Changes Neurological: Yes: Alert, Oriented Psychiatric: No: Agitated Labs: CBC, BMP 10/07/19 09:50 10/07/19 09:50 Assessment/Plan Echo: LVEF 35-40%. RWMA: moderate hypokinesis basal anteroseptum, apical- anterior, apex proper; mild hypo lateral wall. nl RV. nl valve fxn. tele: SR IMP: Polysubstance abuse: Benzos/ MDMA, Opiates. On Methadone History of CAD w/ prior PCI 2019 ([facility]) Chest pain syndrome, with negative cardiac enzymes Systolic dysfunction with RWMAs NSVT REC: 1. Evidence of old AWMI on ECG, known [place] and stent at [facility] early 2018. Echo here similar to 07/28 study upon careful review of images: large area of apical akinesis extending to distal portions of septum, lateral wall, anterior wall, as well as mid anterior wall hypokineis. EF around 40% currently, closer to 45% on prior study. 2. Suspect current CP is non-cardiac, as pt states it is identical to his chronic sx occurring in setting of heroin overdose many times previously. Troponins neg x 3. Plan for mibi today, if shows LAD infarct with no ischemia or TID, then there is no role for invasive workup with cath at this time. 3. continue DAPT per home regimen (presumably planned for 3 years of therapy per DAPT trial, for ischemia risk > bleeding risk). 4. continue low dose lisinopril, metoprolol for syst CHF indication, soft BPs stable. 5. high intensity statin--incr to atorva 80 6. detox protocol per hospitalist 7. maintain K/Mg > 4/2 8. cont telemetry
--- NOTE | 2019-10-08 11:29 | PN ---
Physical Exam: SUBJECTIVE: Patient seen and examined. patient tells me he was planning to leave AMA last night, but wants to stay now and get help. risks of leaving AMA discussed with patient and he verbalized understanding of risks. OBJECTIVE: covid status: negative spoke to Dr. Khan (addition medicine) about patient w/drawal symptoms, patient started on methatdone taper. he completed valium taper and remains on the librium taper. patient accepted to [facility] as of 10/08/2019 once cleared by cardiology. ----- Patient is a 38 year old male with a significant past medical history of HTN, HLD, [place] (sp stent x1), polysubstance use (IV heroin x15 bags, xanax 15mg daily, methadone 20mg, marijuana, drinks 2 pints of vodka on most days, some cocaine use). Patient presents to the ED from [facility] for complaint of chest pain. At [facility], endorsed mid-sternal pressure radiating to Left shoulder. Doesn't remember the events surrounding the onset of chest pain bc he was high on drugs. Get his methadone from the streets. ------- echo 10/05/2019: EF 35-40%, moderate hypokinesis of the basal anteroseptum, LA moderately dilated, mld mr, mild tr patient for a stress test today. Vital Signs Period Temp Pulse Resp BP Sys/Cardenas Pulse Ox Last 24 Hr 97.3 F-98.7 F 58-78 18-20 112-128/61-86 99 GENERAL: The patient is awake, alert, very anxious HEAD: Normal with no signs of trauma. EYES: PERRL, extraocular movements intact, sclera anicteric, conjunctiva clear. No ptosis. ENT: Ears normal, nares patent, oropharynx clear without exudates NECK: Trachea midline, full range of motion, supple. LUNGS: Breath sounds equal, clear to auscultation bilaterally, no wheezes HEART: Regular rate and rhythm, ABDOMEN: Soft, nontender, nondistended, normoactive bowel sounds EXTREMITIES: no edema. NEUROLOGICAL: Normal speech, gait steady. Active Medications Generic Name Dose Route Start Last Admin Trade Name Freq PRN Reason Stop Dose Admin Acetaminophen 650 mg 10/05/19 14:26 10/05/19 14:57 Tylenol - PO 650 mg Q6H PRN Administration PAIN LEVEL 7 - 10 Al Hydroxide/Mg Hydroxide 30 ml 10/08/19 10:16 Mylanta Oral Suspension - PO Q6H PRN DYSPEPSIA Aspirin 81 mg 10/05/19 10:00 10/07/19 10:08 Ecotrin - PO 81 mg DAILY RIYA Administration Atorvastatin Calcium 80 mg 10/06/19 22:00 10/07/19 21:54 Lipitor - PO 80 mg HS RIYA Administration Bismuth Subsalicylate 524 mg 10/08/19 10:16 Pepto-Bismol - PO Q1H PRN DIARRHEA Chlordiazepoxide HCl 10 mg 10/08/19 05:00 10/08/19 05:05 Librium - PO 10/08/19 23:01 10 mg [id number] RIYA Administration Chlordiazepoxide HCl 10 mg 10/09/19 05:00 Librium - PO 10/09/19 17:01 Q12H RIYA Chlordiazepoxide HCl 10 mg 10/08/19 00:00 Librium - PO 10/09/19 00:00 Q4H PRN WITHDRAWAL(CONT SUBST) Chlordiazepoxide HCl 10 mg 10/10/19 05:00 Librium - PO 10/10/19 05:01 ONCE@0500 ONE Clonidine 0.1 mg 10/08/19 10:13 Catapres - PO 10/10/19 23:59 Q4H PRN Withdrawal Symptoms Clopidogrel Bisulfate 75 mg 10/05/19 10:00 10/07/19 10:08 Plavix - PO 75 mg DAILY RIYA Administration Enoxaparin Sodium 40 mg 10/05/19 10:00 10/07/19 10:08 Lovenox - SQ 40 mg DAILY [facility] Administration Eucalyptus/Menthol/Phenol/Sorbitol 1 each 10/08/19 10:16 Cepastat Lozenge - MM 10/14/19 10:17 Q4H PRN SORE THROAT Hydroxyzine Pamoate 25 mg 10/08/19 10:16 Vistaril - PO 10/14/19 10:16 Q4HWA PRN ANXIETY Lisinopril 5 mg 10/05/19 10:00 10/07/19 10:08 Prinivil PO 5 mg DAILY RIYA Administration Magnesium Citrate 300 ml 10/08/19 10:16 Citroma - PO Q48H PRN CONSTIPATION Magnesium Hydroxide 30 ml 10/08/19 10:16 Milk Of Magnesia - PO PRN PRN CONSTIPATION Melatonin 5 mg 10/08/19 22:00 Melatonin PO [facility] Methadone HCl 5 mg 10/13/19 06:00 Dolophine - PO 10/13/19 06:01 ONCE@0600 ONE Methadone HCl 10 mg 10/12/19 06:00 Dolophine - PO 10/12/19 06:01 ONCE@0600 ONE Methadone HCl 20 mg 10/10/19 06:00 Dolophine - PO 10/10/19 06:01 ONCE@0600 ONE Methadone HCl 20 mg/ Methadone 25 mg 10/09/19 06:00 HCl 5 mg PO 10/09/19 06:01 ONCE@0600 ONE Methadone HCl 10 mg/ Methadone 15 mg 10/11/19 06:00 HCl 5 mg PO 10/11/19 06:01 ONCE@0600 ONE Methocarbamol 500 mg 10/08/19 10:16 Robaxin - PO 10/14/19 10:17 Q6H PRN MUSCLE SPASMS Metoprolol Succinate 25 mg 10/05/19 10:00 10/07/19 10:08 Toprol Xl - PO 25 mg DAILY [facility] Administration Nicotine 21 mg 10/08/19 10:21 Nicoderm Patch - TD DAILY [facility] Ondansetron HCl 4 mg 10/08/19 10:16 Zofran Odt - SL 10/14/19 10:18 TID PRN Nausea/Vomiting Thiamine HCl 100 mg 10/08/19 22:00 Vitamin B1 - PO [facility] ASSESSMENT/PLAN: Problem List - Problems (1) Polysubstance (including opioids) dependence with physiological dependence Assessment/Plan: patient with daily use of opioids which he buys on the streets. uses apx 5mg or more per day of ativan/xanax. unable to stop abruptly and will need to be tapered off benzos, he completed valium taper. on methadone and librium taper Code(s): F19.20 - OTHER PSYCHOACTIVE SUBSTANCE DEPENDENCE, UNCOMPLICATED (2) Chest pain Assessment/Plan: chest pain now resolved. troponins negative echo 10/05/2019: EF 35-40%, moderate hypokinesis of thebaal anteroseptum, LA moderately dilated, mld mr, mild tr monitor on tele cardiology following stress test done today, results pending Code(s): R07.9 - CHEST PAIN, UNSPECIFIED (3) Heroin abuse Assessment/Plan: methadone taper addiction medicine consulted Code(s): F11.10 - OPIOID ABUSE, UNCOMPLICATED (4) Alcohol dependence with uncomplicated withdrawal Assessment/Plan: patient is a high risk for withdrawal seizure started on librium protocol Code(s): F10.230 - ALCOHOL DEPENDENCE WITH WITHDRAWAL, UNCOMPLICATED (5) Myocardial infarction Assessment/Plan: NSR 80 bpm, old anterolateral [place] on ekg Code(s): I21.9 - ACUTE MYOCARDIAL INFARCTION, UNSPECIFIED (6) DVT prophylaxis Assessment/Plan: on lovenox 40mg Code(s): Z29.9 - ENCOUNTER FOR PROPHYLACTIC MEASURES, UNSPECIFIED Visit type - Emergency Visit Emergency Visit: Yes ED Registration Date: 10/04/19 Care time: The patient presented to the Emergency Department on the above date and was hospitalized for further evaluation of their emergent condition. - New Patient This patient is new to me today: No - Critical Care Critical Care patient: No - Discharge Referral Referred to [facility] Med P.C.: No CIWA Nausea/Vomitin-No Nausea/No Vomiting Muscle Tremors: 4-Moderate,w/Arms Extend Anxiety: 4-Mod. Anxious/Guarded Agitation: 1-Slight > Activity Paroxysmal Sweats: 1-Minimal Palms Moist Orientation: 0-Oriented Tacttile Disturbances: 0-None Auditory Disturbances: 0-None Visual Disturbances: 0-None Headache: 0-None Present CIWA-Ar Total Score: 10
[2019-10-08 11:51] LABS: BASO % 0.5 % (0-2.0); EOS % 1.2 % (0-4.5); HEMATOCRIT 42.4 % (35.4-49); LYMPH % 25.6 % (8-40); MCH 30.2 pg (25.7-33.7); MEAN CELL VOLUME 91.6 fl (80-96); MEAN PLT VOLUME 8.9 fl (7.5-11.1); MONO % 6.9 % (3.8-10.2); NEUT % 65.8 % (42.8-82.8); PLATELET COUNT 239 K/MM3 (134-434); RBC 4.63 M/mm3 (4.00-5.60); RDW 12.9 % (11.9-15.9); WHITE BLOOD COUNT 6.8 K/mm3 (4.0-10.0)
[2019-10-08 12:30] LABS: ALBUMIN 4.1 g/dl (3.4-5.0); BILIRUBIN,TOTAL 1.1 mg/dL (0.2-1); BLOOD UREA NITROGEN 16.7 mg/dL (7-18); CALCIUM 9.2 mg/dL (8.5-10.1); CREATININE 0.8 mg/dL (0.55-1.3); MAGNESIUM 2.3 mg/dL (1.8-2.4); POTASSIUM 4.6 mmol/L (3.5-5.1); TOT PROT 7.4 g/dl (6.4-8.2)
[2019-10-08] MEDS: ENOXAPARIN NA (PORCINE) 40 MG/0.4 ML DISP.SYRIN SQ SCH (14:39)
[2019-10-08] MEDS: ASPIRIN COATED 81 MG TABLET.EC PO SCH (14:40)
[2019-10-08] MEDS: LISINOPRIL 5 MG TABLET (FP) PO SCH (14:40)
[2019-10-08] MEDS: CLOPIDOGREL BISULFATE 75 MG TABLET (FP) PO SCH (14:40)
[2019-10-08] MEDS: metoPROLOL SUCCINATE 25 MG TAB.SR.24H (FP) PO SCH (14:40)
[2019-10-08] MEDS ORDERED: PT OWN MED DRAWER 7, Y5N ONE (16:47)
[2019-10-08] MEDS: ATORVASTATIN CA 80 MG TABLET (FP) PO SCH (21:27)
[2019-10-08] MEDS ORDERED: MELATONIN 5 MG TABLETS PO SCH (22:00)
[2019-10-08] MEDS ORDERED: THIAMINE HCL 100 MG TABLET (FP) PO SCH (22:00)
[2019-10-09] MEDS ORDERED: chlordiazePOXIDE HCL 10 MG CAPSULE PO SCH (05:00)
[2019-10-09] MEDS ORDERED: METHADONE HCL 5 MG TABLET ONE (05:28)
[2019-10-09] MEDS ORDERED: METHADONE HCL 10 MG TABLET ONE (05:29)
[2019-10-09] MEDS ORDERED: METHADONE 20 MG, METHADONE 5 MG PO ONE (06:00)
[2019-10-09 08:02] LABS: BASO % 0.8 % (0-2.0); HEMATOCRIT 41.9 % (35.4-49); LYMPH % 28.2 % (8-40); MCH 30.5 pg (25.7-33.7); MCHC 33.3 g/dl (32.0-35.9); MEAN CELL VOLUME 91.6 fl (80-96); MEAN PLT VOLUME 8.5 fl (7.5-11.1); MONO % 7.2 % (3.8-10.2); NEUT % 61.8 % (42.8-82.8); PLATELET COUNT 225 K/MM3 (134-434); RBC 4.58 M/mm3 (4.00-5.60); RDW 13.3 % (11.9-15.9)
--- NOTE | 2019-10-09 08:26 | PN ---
Progress Note, Physician History of Present Illness: ----- Patient is a 38 year old male with a significant past medical history of HTN, HLD, MA (sp stent x1), polysubstance use (IV heroin x15 bags, xanax 15mg daily, methadone 20mg, marijuana, drinks 2 pints of vodka on most days, some cocaine use). Patient presents to the ED from [facility] for complaint of chest pain. At [facility], endorsed mid-sternal pressure radiating to Left shoulder. Doesn't remember the events surrounding the onset of chest pain bc he was high on drugs. Get his methadone from the streets. ------- echo 10/05/2019: EF 35-40%, moderate hypokinesis of the basal anteroseptum, LA moderately dilated, mld mr, mild tr patient for a stress test today. Patient accepted to [facility] as of 10/08/2019 once cleared by cardiology. covid status: negative - Current Medication List Current Medications: Active Medications Acetaminophen (Tylenol -) 650 mg PO Q6H PRN PRN Reason: PAIN LEVEL 7 - 10 Last Admin: 10/05/19 14:57 Dose: 650 mg Documented by: Al Hydroxide/Mg Hydroxide (Mylanta Oral Suspension -) 30 ml PO Q6H PRN PRN Reason: DYSPEPSIA Aspirin (Ecotrin -) 81 mg PO DAILY [facility] Last Admin: 10/08/19 14:40 Dose: 81 mg Documented by: Atorvastatin Calcium (Lipitor -) 80 mg PO HS [facility] Last Admin: 10/08/19 21:27 Dose: 80 mg Documented by: Bismuth Subsalicylate (Pepto-Bismol -) 524 mg PO Q1H PRN PRN Reason: DIARRHEA Chlordiazepoxide HCl (Librium -) 10 mg PO Q12H [facility] Stop: 10/09/19 17:01 Last Admin: 10/09/19 05:34 Dose: 10 mg Documented by: Chlordiazepoxide HCl (Librium -) 10 mg PO ONCE@0500 ONE Stop: 10/10/19 05:01 Clonidine (Catapres -) 0.1 mg PO Q4H PRN PRN Reason: Withdrawal Symptoms Stop: 10/10/19 23:59 Clopidogrel Bisulfate (Plavix -) 75 mg PO DAILY [facility] Last Admin: 10/08/19 14:40 Dose: 75 mg Documented by: Enoxaparin Sodium (Lovenox -) 40 mg SQ DAILY [facility] Last Admin: 10/08/19 14:39 Dose: 40 mg Documented by: Eucalyptus/Menthol/Phenol/Sorbitol (Cepastat Lozenge -) 1 each MM Q4H PRN PRN Reason: SORE THROAT Stop: 10/14/19 10:17 Hydroxyzine Pamoate (Vistaril -) 25 mg PO Q4HWA PRN PRN Reason: ANXIETY Stop: 10/14/19 10:16 Lisinopril (Prinivil) 5 mg PO DAILY [facility] Last Admin: 10/08/19 14:40 Dose: 5 mg Documented by: Magnesium Citrate (Citroma -) 300 ml PO Q48H PRN PRN Reason: CONSTIPATION Magnesium Hydroxide (Milk Of Magnesia -) 30 ml PO PRN PRN PRN Reason: CONSTIPATION Melatonin (Melatonin) 5 mg PO [facility] Last Admin: 10/08/19 21:28 Dose: 5 mg Documented by: Methadone HCl (Dolophine -) 5 mg PO ONCE@0600 ONE Stop: 10/13/19 06:01 Methadone HCl (Dolophine -) 10 mg PO ONCE@0600 ONE Stop: 10/12/19 06:01 Methadone HCl (Dolophine -) 20 mg PO ONCE@0600 ONE Stop: 10/10/19 06:01 Methadone HCl 10 mg/ Methadone (HCl 5 mg) 15 mg PO ONCE@0600 ONE Stop: 10/11/19 06:01 Methocarbamol (Robaxin -) 500 mg PO Q6H PRN PRN Reason: MUSCLE SPASMS Stop: 10/14/19 10:17 Metoprolol Succinate (Toprol Xl -) 25 mg PO DAILY [facility] Last Admin: 10/08/19 14:40 Dose: 25 mg Documented by: Nicotine (Nicoderm Patch -) 21 mg TD DAILY [facility] Ondansetron HCl (Zofran Odt -) 4 mg SL TID PRN PRN Reason: Nausea/Vomiting Stop: 10/14/19 10:18 Thiamine HCl (Vitamin B1 -) 100 mg PO [facility] Last Admin: 10/08/19 21:28 Dose: 100 mg Documented by: - Objective Vital Signs: Vital Signs Temperature 97.5 F L 10/09/19 05:30 Pulse Rate 64 10/09/19 05:30 Respiratory Rate 18 10/09/19 05:30 Blood Pressure 106/67 10/09/19 05:30 O2 Sat by Pulse Oximetry (%) 98 10/08/19 21:00 Labs: CBC, BMP 10/09/19 06:40 Problem List - Problems (1) HLD (hyperlipidemia) Code(s): E78.5 - HYPERLIPIDEMIA, UNSPECIFIED (2) Chest pain Code(s): R07.9 - CHEST PAIN, UNSPECIFIED (3) Polysubstance (including opioids) dependence with physiological dependence Code(s): F19.20 - OTHER PSYCHOACTIVE SUBSTANCE DEPENDENCE, UNCOMPLICATED (4) Hypertension Code(s): I10 - ESSENTIAL (PRIMARY) HYPERTENSION Qualifiers: Hypertension type: essential hypertension Qualified Code(s): I10 - Essential (primary) hypertension (5) Myocardial infarction Code(s): I21.9 - ACUTE MYOCARDIAL INFARCTION, UNSPECIFIED
[2019-10-09 08:29] LABS: BILIRUBIN,TOTAL 0.6 mg/dL (0.2-1); BLOOD UREA NITROGEN 22.9 mg/dL (7-18); CREATININE 0.9 mg/dL (0.55-1.3); MAGNESIUM 2.2 mg/dL (1.8-2.4); POTASSIUM 4.6 mmol/L (3.5-5.1); TOT PROT 7.3 g/dl (6.4-8.2)
[2019-10-09 08:32] LABS: CALCIUM 9.6 mg/dL (8.5-10.1)
[2019-10-09 09:21] VITALS: BP 118/72; PULSE 57; TEMP 98.3
[2019-10-09] MEDS ORDERED: PT OWN MED DRAWER 7, Y5N ONE ×2 (09:22→11:49)
[2019-10-09] MEDS: ASPIRIN COATED 81 MG TABLET.EC PO SCH (09:39)
[2019-10-09] MEDS: ENOXAPARIN NA (PORCINE) 40 MG/0.4 ML DISP.SYRIN SQ SCH (09:39)
[2019-10-09] MEDS: metoPROLOL SUCCINATE 25 MG TAB.SR.24H (FP) PO SCH (09:40)
[2019-10-09] MEDS: LISINOPRIL 5 MG TABLET (FP) PO SCH (09:40)
[2019-10-09] MEDS: CLOPIDOGREL BISULFATE 75 MG TABLET (FP) PO SCH (09:42)
[2019-10-09] MEDS ORDERED: NICOTINE 21 MG/24 HOURS TOPICAL PATCH TD SCH (11:10)
--- NOTE | 2019-10-09 12:43 | DS ---
Physical Exam: SUBJECTIVE: Patient seen and examined Patient accepted to [facility] OBJECTIVE: Vital Signs Period Temp Pulse Resp BP Sys/Cardenas Pulse Ox Last 24 Hr 97.5 F-98.3 F 57-82 18-20 106-125/67-79 98-98 PHYSICAL EXAM GENERAL: The patient is awake, alert, and fully oriented, in no acute distress. HEAD: Normal with no signs of trauma. EYES: PERRL, extraocular movements intact, sclera anicteric, conjunctiva clear. ENT: Ears normal, nares patent, oropharynx clear without exudates, moist mucous membranes. NECK: Trachea midline, full range of motion, supple. LUNGS: Breath sounds equal, clear to auscultation bilaterally, no wheezes, no crackles, no accessory muscle use. HEART: Regular rate and rhythm, S1, S2 without murmur, rub or gallop. ABDOMEN: Soft, nontender, nondistended, normoactive bowel sounds, no guarding, no rebound, no hepatosplenomegaly, no masses. EXTREMITIES: 2+ pulses, warm, well-perfused, no edema. NEUROLOGICAL: Cranial nerves II through XII grossly intact. Normal speech, gait not observed. PSYCH: Normal mood, normal affect. SKIN: Warm, dry, normal turgor, no rashes or lesions noted LABS Laboratory Results - last 24 hr 10/09/19 10/09/19 06:40 06:40 WBC 6.0 RBC 4.58 Hgb 14.0 Hct 41.9 MCV 91.6 MCH 30.5 MCHC 33.3 RDW 13.3 Plt Count 225 MPV 8.5 Absolute Neuts (auto) 3.7 Neutrophils % 61.8 Lymphocytes % 28.2 Monocytes % 7.2 Eosinophils % 2.0 Basophils % 0.8 Nucleated RBC % 0 Sodium 143 Potassium 4.6 Chloride 105 Carbon Dioxide 33 H Anion Gap 5 L BUN 22.9 H Creatinine 0.9 Est GFR (CKD-EPI)AfAm 126.90 Est GFR (CKD-EPI)NonAf 109.49 Random Glucose 83 Calcium 9.6 Magnesium 2.2 Total Bilirubin 0.6 AST 24 ALT 38 Alkaline Phosphatase 75 Total Protein 7.3 Albumin 4.0 HOSPITAL COURSE: Date of Admission:10/04/19 Date of Discharge: 10/09/19 - Problems (1) Polysubstance (including opioids) dependence with physiological dependence Assessment/Plan: patient with daily use of opioids which he buys on the streets. uses apx 5mg or more per day of ativan/xanax. unable to stop abruptly and will need to be tapered off benzos, he completed valium taper. on methadone and librium taper accepted to [facility] detox completetion and rehab Code(s): F19.20 - OTHER PSYCHOACTIVE SUBSTANCE DEPENDENCE, UNCOMPLICATED (2) Chest pain Assessment/Plan: chest pain now resolved. troponins negative for further in patient cardiac /u can follow as outpat Code(s): R07.9 - CHEST PAIN, UNSPECIFIED (3) Heroin abuse Assessment/Plan: methadone taper admit [facility] for rehab Code(s): F11.10 - OPIOID ABUSE, UNCOMPLICATED (4) Alcohol dependence with uncomplicated withdrawal Assessment/Plan: no s/s of withdrawal Code(s): F10.230 - ALCOHOL DEPENDENCE WITH WITHDRAWAL, UNCOMPLICATED (5) Myocardial infarction Assessment/Plan: NSR 80 bpm, old anterolateral KS on ekg Code(s): I21.9 - ACUTE MYOCARDIAL INFARCTION, UNSPECIFIED (6) DVT prophylaxis Assessment/Plan: on lovenox 40mg Code(s): Z29.9 - ENCOUNTER FOR PROPHYLACTIC MEASURES, UNSPECIFIED Accepetd to [facility] Minutes to complete discharge: 40 Discharge Summary Problems reviewed: Yes Reason For Visit: OPIOID USE DISORDER,ACUTE CORONARY SYNDROME Current Active Problems Chest pain (Acute) Chest pain (Acute) DVT prophylaxis (Acute) HLD (hyperlipidemia) (Acute) Heroin abuse (Acute) Overdose (Acute) Polysubstance (including opioids) dependence with physiological dependence (Acute) Condition: Improved - Instructions Diet, Activity, Other Instructions: DISCHARGE YOUR VISIT You came to the hospital because you were having withdrawal from drugs/alcohol MEDICATIONS Please continue to take your home medications as prescribed. New medications were started. Please continue to take the medications prescribed when you leave [facility]. DIET Continue your home diet ADDITIONAL CARE Please make an appointment to see your primary care provider, 2 week when your are discharged from [facility]. 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 ADDITIONAL INFORMATION Please call 911 or come directly to the emergency department if you experience unusual headache, vision change, shortness of breath, chest pain, numbness, tingling, loss of alertness/awareness, loss of function, unusual bleeding or any alarming symptoms. Thank you for allowing me to care for you. Seven Molina, [facility], [facility] [phone] Referrals: Nehemias Corrigan MD [Staff Physician] - 1 Month (call for appoinemnt for follow up) Disposition: TRANSFER ACUTE CARE/OTHER HOSP - Home Medications Comprehensive Discharge Medication List: Ambulatory Orders traZODone HCL [Desyrel -] 150 mg PO HS #30 tablet 06/23/17 Aspirin [Aspirin EC] 81 mg PO DAILY 09/02/18 Atorvastatin Ca [Lipitor] 80 mg PO HS #30 tablet 09/04/18 Clopidogrel Bisulfate [Clopidogrel] 75 mg PO DAILY #30 tablet 09/04/18 Lisinopril 5 mg PO DAILY #30 tablet 09/04/18 Nitroglycerin [Nitrostat] 0.4 mg SL PRN PRN #10 tab.subl 09/04/18 Spironolactone 25 mg PO DAILY #30 tablet 09/04/18 Gabapentin [Neurontin -] 300 mg PO TID 11/17/18 cloNIDine HCL [Catapres -] 0.1 mg PO TID 11/17/18 Docusate Sodium [Dok] 100 mg PO PRN PRN 12/21/18 Naloxone HCl [Narcan] 4 mg NS ASDIR PRN #1 spray 03/25/19 Metoprolol Tartrate [Lopressor -] 50 mg PO DAILY 05/30/19 Prescription Drug Monitoring Program (I-STOP) results: I-STOP not reviewed Problem List - Problems (1) HLD (hyperlipidemia) Code(s): E78.5 - HYPERLIPIDEMIA, UNSPECIFIED (2) Chest pain Code(s): R07.9 - CHEST PAIN, UNSPECIFIED (3) Polysubstance (including opioids) dependence with physiological dependence Code(s): F19.20 - OTHER PSYCHOACTIVE SUBSTANCE DEPENDENCE, UNCOMPLICATED (4) Hypertension Code(s): I10 - ESSENTIAL (PRIMARY) HYPERTENSION Qualifiers: Hypertension type: essential hypertension Qualified Code(s): I10 - Essential (primary) hypertension (5) Myocardial infarction Code(s): I21.9 - ACUTE MYOCARDIAL INFARCTION, UNSPECIFIED This patient is new to me today: Yes Date on this admission: 10/09/19 Emergency Visit: Yes ED Registration Date: 06/25/20 Care time: The patient presented to the Emergency Department on the above date and was hospitalized for further evaluation of their emergent condition. Critical Care patient: No - Discharge Referral Referred to [facility] No
--- NOTE | 2019-10-09 14:10 | PN ---
Progress Note (short form) - Note Progress Note: Chief Complaint: cp History of Present Illness: no chest pain, palps, dizziness, dyspnea. only had chest pain prior to this admission when using drugs, no exertional symptoms history of heroin, etoh, smoking, methadone Current Medications Generic Name Dose Route Start Last Admin Trade Name Freq PRN Reason Stop Dose Admin Acetaminophen 650 mg 10/05/19 14:26 10/05/19 14:57 Tylenol - PO 650 mg Q6H PRN Administration PAIN LEVEL 7 - 10 Al Hydroxide/Mg Hydroxide 30 ml 10/08/19 10:16 Mylanta Oral Suspension - PO Q6H PRN DYSPEPSIA Aspirin 81 mg 10/05/19 10:00 10/09/19 09:39 Ecotrin - PO 81 mg DAILY RIYA Administration Atorvastatin Calcium 80 mg 10/06/19 22:00 10/08/19 21:27 Lipitor - PO 80 mg HS RIYA Administration Bismuth Subsalicylate 524 mg 10/08/19 10:16 Pepto-Bismol - PO Q1H PRN DIARRHEA Chlordiazepoxide HCl 10 mg 10/09/19 05:00 10/09/19 05:34 Librium - PO 10/09/19 17:01 10 mg Q12H RIYA Administration Chlordiazepoxide HCl 10 mg 10/10/19 05:00 Librium - PO 10/10/19 05:01 ONCE@0500 ONE Clonidine 0.1 mg 10/08/19 10:13 Catapres - PO 10/10/19 23:59 Q4H PRN Withdrawal Symptoms Clopidogrel Bisulfate 75 mg 10/05/19 10:00 10/09/19 09:42 Plavix - PO 75 mg DAILY RIYA Administration Enoxaparin Sodium 40 mg 10/05/19 10:00 10/09/19 09:39 Lovenox - SQ 40 mg DAILY RIYA Administration Eucalyptus/Menthol/Phenol/Sorbitol 1 each 10/08/19 10:16 Cepastat Lozenge - MM 10/14/19 10:17 Q4H PRN SORE THROAT Hydroxyzine Pamoate 25 mg 10/08/19 10:16 Vistaril - PO 10/14/19 10:16 Q4HWA PRN ANXIETY Lisinopril 5 mg 10/05/19 10:00 10/09/19 09:40 Prinivil PO 5 mg DAILY RIYA Administration Magnesium Citrate 300 ml 10/08/19 10:16 10/09/19 11:24 Citroma - PO 300 ml Q48H PRN Administration CONSTIPATION Magnesium Hydroxide 30 ml 10/08/19 10:16 Milk Of Magnesia - PO PRN PRN CONSTIPATION Melatonin 5 mg 10/08/19 22:00 10/08/19 21:28 Melatonin PO 5 mg HS RIYA Administration Methadone HCl 5 mg 10/13/19 06:00 Dolophine - PO 10/13/19 06:01 ONCE@0600 ONE Methadone HCl 10 mg 10/12/19 06:00 Dolophine - PO 10/12/19 06:01 ONCE@0600 ONE Methadone HCl 20 mg 10/10/19 06:00 Dolophine - PO 10/10/19 06:01 ONCE@0600 ONE Methadone HCl 10 mg/ Methadone 15 mg 10/11/19 06:00 HCl 5 mg PO 10/11/19 06:01 ONCE@0600 ONE Methocarbamol 500 mg 10/08/19 10:16 Robaxin - PO 10/14/19 10:17 Q6H PRN MUSCLE SPASMS Metoprolol Succinate 25 mg 10/05/19 10:00 10/09/19 09:40 Toprol Xl - PO 25 mg DAILY RIYA Administration Nicotine 21 mg 10/09/19 11:10 10/09/19 11:19 Nicoderm Patch - TD 21 mg DAILY RIYA Administration Ondansetron HCl 4 mg 10/08/19 10:16 Zofran Odt - SL 10/14/19 10:18 TID PRN Nausea/Vomiting Thiamine HCl 100 mg 10/08/19 22:00 10/08/19 21:28 Vitamin B1 - PO 100 mg HS RIYA Administration Vital Signs Period Temp Pulse Resp BP Sys/Cardenas Pulse Ox Last 24 Hr 97.5 F-98.3 F 57-81 18-20 106-121/67-78 98-98 Constitutional: Yes: Well Nourished, No Distress, Calm Cardiovascular: Yes: Regular Rate and Rhythm Respiratory: Yes: Regular. No: Accessory Muscle Use Extremities: No: Cold Edema: No Integumentary: No: Venous Stasis Changes Neurological: Yes: Alert, Oriented Psychiatric: No: Agitated Assessment/Plan Echo: LVEF 35-40%. RWMA: moderate hypokinesis basal anteroseptum, apical- anterior, apex proper; mild hypo lateral wall. nl RV. nl valve fxn. mibi 09/2019 large size apical fixed defect c/w large infarct, mild to mod seize inf and inferoseptal reversible defect base to apex c/w mild ischemia, large area of apical akinesia and mod to severe inferior and inferoseptal hypokinesia with EF 38% tele: SR IMP: Polysubstance abuse: Benzos/ MDMA, Opiates. On Methadone History of CAD w/ prior PCI 2019 ([facility]) Chest pain syndrome, with negative cardiac enzymes Systolic dysfunction with RWMAs NSVT REC: 1. Evidence of old AWMI on ECG, known FL and stent at [facility] early 2018. Echo here similar to 07/28 study upon careful review of images: large area of apical akinesis extending to distal portions of septum, lateral wall, anterior wall, as well as mid anterior wall hypokineis. EF around 40% currently, closer to 45% on prior study. 2. Suspect current CP is non-cardiac, as pt states it is identical to his chronic sx occurring in setting of heroin overdose many times previously. Troponins neg x 3. 3. continue DAPT per home regimen (presumably planned for 3 years of therapy per DAPT trial, for ischemia risk > bleeding risk). 4. continue low dose lisinopril, metoprolol for syst CHF indication, soft BPs stable. 5. high intensity statin--cont atorva 80 6. detox protocol per hospitalist 7. maintain K/Mg > 4/2 8. cont telemetry 9. reviewed stress test results: large area of apical infarct with mild inferior ischemia. patient notes chest pain only occurs when using heroin, no exertional symptoms and does not feel like chest pain prior to his stent. he also notes that this is his third nuclear stress test this year at different facilities and notes prior testing was negative. given willingness to participate with detox and drug rehab and symptoms with drug use, as well as likely similar EF to prior echo study on further review would favor continued medical management and discharge to detox with plan for drug rehab, advised to follow up closely with outpatient resource conservation manager after rehab
[2019-10-10] MEDS ORDERED: chlordiazePOXIDE HCL 10 MG CAPSULE PO ONE (05:00)
[2019-10-10] MEDS ORDERED: METHADONE HCL 10 MG TABLET PO ONE (06:00)
[2019-10-11] MEDS ORDERED: METHADONE 10 MG, METHADONE 5 MG PO ONE (06:00)
[2019-10-12] MEDS ORDERED: METHADONE HCL 10 MG TABLET PO ONE (06:00)
[2019-10-13] MEDS ORDERED: METHADONE HCL 5 MG TABLET PO ONE (06:00)
[2019-10-22 14:18] LABS: OXYCODONE BLOOD NEGATIVE
[2019-10-22 14:20] LABS: PCP BLOOD NEGATIVE
== END 2019-10-09 14:44 | disposition other institution (70) | DRG 816 ==
LOC: JER 17:13 → JERBED 20:43 → J4W 10-06 00:09
PROVIDERS: ADMIT Internal Medicine; ATTEND Nurse Practitioner Acute Care
DX: T40.1X1A Poisoning by heroin, accidental (unintentional), initial encounter (principal); I25.110 Atherosclerotic heart disease of native coronary artery with unstable angina pectoris; F13.20 Sedative, hypnotic or anxiolytic dependence, uncomplicated; I95.9 Hypotension, unspecified; I47.1 Supraventricular tachycardia; R07.89 Other chest pain; F10.230 Alcohol dependence with withdrawal, uncomplicated; F19.20 Other psychoactive substance dependence, uncomplicated; F11.229 Opioid dependence with intoxication, unspecified; F12.129 Cannabis abuse with intoxication, unspecified; F17.210 Nicotine dependence, cigarettes, uncomplicated; K02.9 Dental caries, unspecified; E78.5 Hyperlipidemia, unspecified; R06.89 Other abnormalities of breathing; Z95.5 Presence of coronary angioplasty implant and graft
CPT/HCPCS: 36415; 71045-TC-FY; 78452-TC; 80048; 80053; 80061; 80307; 81003; 82550; 83036; 83721; 83735; 84100; 84443; 84484; 85025; 93005; 93010; 93017; 93306-TC; 99285-25; A9502; J0735; J2785; U0003

== ENCOUNTER 2019-10-09 14:59 | Inpatient (IN) | payer OTHER ==
--- NOTE | 2019-10-09 15:23 | BHS.RME ---
Substance Use & Tx History - Substance Use History Alcohol Substance amount: one pint Vodka Frequency of use: More than 3 times per week Substance route: Oral Date of Last Use: 10/02/19 (First drink age 29 y) Heroin Substance amount: 7-15 bags Frequency of use: Daily Substance route: Injection (ex: intravenous or skin popping) Date of Last Use: 10/04/19 (First use age 28y) Xanax Substance amount: 2-6 mg Frequency of use: Daily Substance route: Oral Date of Last Use: 10/04/19 (First use age 29 y) Cannabis Substance amount: $40 Frequency of use: Daily Substance route: Smoking Date of Last Use: 10/04/19 (First use age 24 y) - Last Treatment Date of last treatment: 10/03 here and sent to [facility] for chest pain/OD Where was last treatment: ER Physical/Psych/Mental Status - Behavior General Behavior: Increased activity (restlessness, agitation) Eye Contact: Normal - Cooperativeness Cooperativeness: Cooperative - Thinking Thought Processes: Tight Thought content: Future oriented - Physical Health Problems Is patient presently having any pain?: Yes (aches) Does patient presently have any injuries (include location): No Does patient currently have a fever: No COWS - Scale Resting Pulse: 0= HI 80 or Below Sweatin= Chills/Flushing Restless Observation: 1= Difficult to Sit Still Pupil Size: 1= Pupils >than Normal Bone or Joint Aches: 1= Mild Discomfort Runny Nose/ Eye Tearin= None GI Upset > 30mins: 1= Stomach Cramp Tremor Observation: 0= None Yawning Observation: 0= None Anxiety or Irritability: 1=Feels Anxious/Irritable Goose Flesh Skin: 0=Smooth Skin COWS Score: 6 CIWA Nausea/Vomitin-Mild Nausea/No Vomiting Muscle Tremors: None Anxiety: 2 Agitation: 1-Slight > Activity Paroxysmal Sweats: 1-Minimal Palms Moist Orientation: 0-Oriented Tacttile Disturbances: 1-Very Mild Itch/Numbness Auditory Disturbances: 1-Very Mild Visual Disturbances: 0-None Headache: 0-None Present CIWA-Ar Total Score: 7
[2019-10-09 16:02] VITALS: BMI 27.7
--- NOTE | 2019-10-09 16:35 | HP ---
COWS - Scale Resting Pulse: 0= [place] 80 or Below Sweatin= Chills/Flushing Restless Observation: 1= Difficult to Sit Still Pupil Size: 1= Pupils >than Normal Bone or Joint Aches: 2= Severe Diffuse Aches Runny Nose/ Eye Tearin= None GI Upset > 30mins: 1= Stomach Cramp Tremor Observation: 0= None Yawning Observation: 0= None Anxiety or Irritability: 2=Irritable/Anxious Goose Flesh Skin: 0=Smooth Skin COWS Score: 8 CIWA Score Nausea/Vomitin-Mild Nausea/No Vomiting Muscle Tremors: None Anxiety: 2 Agitation: 1-Slight > Activity Paroxysmal Sweats: 1-Minimal Palms Moist Orientation: 0-Oriented Tacttile Disturbances: 1-Very Mild Itch/Numbness Auditory Disturbances: 1-Very Mild Visual Disturbances: 0-None Headache: 0-None Present CIWA-Ar Total Score: 7 - Admission Criteria OASAS Guidelines: Admission for Medically Managed Detox: Requires at least one of the followin. CIWA greater than 12 2. Seizures within the past 24 hours 3. Delirium tremens within the past 24 hours 4. Hallucinations within the past 24 hours 5. Acute intervention needed for co occurring medical disorder 6. Acute intervention needed for co occurring psychiatric disorder 7. Severe withdrawal that cannot be handled at a lower level of care (continued vomiting, continued diarrhea, abnormal vital signs) requiring intravenous medication and/or fluids 8. 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: Other (restless legs) Cardiovascular: Yes: CAD, HTN, Hyperlipdemia Psych: Yes: Addictions, Anxiety - Past Surgical History Past Surgical History: Yes: Stent - Smoking History Smoking history: Current every day smoker Have you smoked in the past 12 months: Yes Aproximately how many cigarettes per day: 20 If you are a former smoker, when did you quit?: N/A - Alcohol/Substance Use Hx Alcohol Use: Yes History of Substance Use: reports: Cocaine, Heroin, Marijuana, Tranquilizers - Social History ADL: Family Assistance History of Recent Travel: No Admission ROS [facility] Chief Complaint: Seeking admission to detox Allergies/Adverse Reactions: Allergies Allergy/AdvReac Type Severity Reaction Status Date / Time buspirone Allergy Severe Difficulty Verified 10/09/19 15:53 Breathing History of Present Illness: 38 years old male is transferred to complete his detoxification from [facility] where he was admitted for chest pain. Patient was evaluated on 10/04/2019 and transferred to emergency room for chest pain and was subsequently admitted for cardiac evaluation. He uses about 15 bags of heroin intravenously since age 27, Benzos (ativan, xanax and klonopin) and marijuana 5-6 blounts daily and nicotine 1 pack per day. he denies + eye button broacher, seizures and reports blackouts and multiple drug overdose. Last blackout/ overdose was 10/04/2019. He has medical history of CHF, anemia, hypertension, hyperlipidemia, and psych. history of anxiety, depression, ADHD and insomnia. He reports surgical history of stent placement in 2019. At the hospital, echo indicates large area of apical akinesis extending to distal portions of septum, lateral wall, anterior wall, as well as mid anterior wall hypokineis. EF around 40% currently, closer to 45% on prior study. Stress test result indicates large area of apical infarct with mild inferior ischemia and cardiac enzymes were negative. Patient is unemployed, lives with his family and denies legal issues. Exam Limitations: No Limitations - Ebola screening Have you traveled outside of the country in the last 21 days: No Have you had contact with anyone from an Ebola affected area: No Have you been sick,other than usual withdrawal symptoms: No Do you have a fever: No - Review of Systems Constitutional: Chills, Malaise, Changes in sleep EENT: reports: No Symptoms Reported Respiratory: reports: No Symptoms reported Cardiac: reports: No Symptoms Reported GI: reports: Constipated, Poor Fluid Intake, Abdominal cramping : reports: No Symptoms Reported Musculoskeletal: reports: Muscle Pain, Other (generalized body aches) Integumentary: reports: Dryness, Flushing Neuro: reports: Tremors Endocrine: reports: No Symptoms Reported Hematology: reports: No Symptoms Reported Psychiatric: reports: Mood/Affect Appropiate, Orientated x3, Anxious Other Systems: Reviewed and Negative Patient History - Patient Medical History Hx Anemia: Yes (Not on mjedication) Hx Asthma: No Hx Chronic Obstructive Pulmonary Disease (COPD): No Hx Cancer: No Hx Cardiac Disorders: Yes (Hx of CAD stent x1 in 05/30) Hx Congestive Heart Failure: Yes (Aspirin, Plavix, Metropolol) Hx Hypertension: Yes (Lisinopril, Metoprolol) Hx Hypercholesterolemia: Yes (Atorvastatin) Hx Pacemaker: No HX Cerebrovascular Accident: No Hx Seizures: No Hx Dementia: No Hx Diabetes: No Hx Gastrointestinal Disorders: No Hx Liver Disease: No Hx Genitourinary Disorders: No Hx Sexually Transmitted Disorders: No Hx Renal Disease (ESRD): No Hx Thyroid Disease: No Hx Human Immunodeficiency Virus (HIV): No (Negative 2019) Hx Hepatitis C: No Hx Depression: Yes (Not on medication) Hx Suicide Attempt: No (Denies suicidal ideation at this time) Hx Bipolar Disorder: No Hx Schizophrenia: No Other Medical History: PSYCH- ADHD, Insomnia, Anxiety - Patient Surgical History Past Surgical History: Yes Hx Neurologic Surgery: No Hx Cataract Extraction: No Hx Cardiac Surgery: Yes (cardiac stent one vessel on 05/30/18) Hx Lung Surgery: No Hx Breast Surgery: No Hx Breast Biopsy: No Hx Abdominal Surgery: No Hx Appendectomy: No Hx Cholecystectomy: No Hx Genitourinary Surgery: No Hx Section: No Hx Orthopedic Surgery: No Anesthesia Reaction: (never received) - PPD History Previous Implant?: Yes Documented Results: Negative w/o proof Implanted On Prior R Admission?: Yes Date: 07/24/18 Results: 0 mm - Smoking Cessation Smoking history: Current every day smoker Have you smoked in the past 12 months: Yes Aproximately how many cigarettes per day: 20 If you are a former smoker, when did you quit?: N/A Cigars Per Day: 0 Hx Chewing Tobacco Use: No Initiated information on smoking cessation: Yes 'Breaking Loose' booklet given: 11/08/19 - Substances abused Alcohol Substance route: Oral Frequency: 3-6 times per week Amount used: 1 PINT Age of first use: 29 Date of last use: 10/01/19 Heroin Substance route: Injection Frequency: Daily Amount used: 7-10 BAGS Age of first use: 28 Date of last use: 10/04/19 Marijuana/Hashish Substance route: Smoking Frequency: Daily Amount used: $40 Age of first use: 23 Date of last use: 10/04/19 Admission Physical Exam BHS - Vital Signs Vital Signs: Vital Signs - 24 hr 10/09/19 15:56 Temperature 98.0 F Pulse Rate 71 Respiratory 18 Rate Blood Pressure 117/75 - Physical General Appearance: Yes: Moderate Distress, Anxious HEENTM: Yes: Within Normal Limits Respiratory: Yes: Lungs Clear, Normal Breath Sounds, No Respiratory Distress Neck: Yes: Within Normal Limits Breast: Yes: Breast Exam Deferred Cardiology: Yes: Within Normal Limits Abdominal: Yes: Normal Bowel Sounds Genitourinary: Yes: Within Normal Limits Back: Yes: Normal Inspection Musculoskeletal: Yes: Muscle Pain, Other (generalized body aches) Extremities: Yes: Tremors (mild) Neurological: Yes: Within Normal Limits, Alert, Normal Mood/Affect Integumentary: Yes: Warm - Diagnostic (1) CHF (congestive heart failure) Current Visit: Yes Status: Chronic Qualifiers: Heart failure type: unspecified Heart failure chronicity: unspecified Qualified Code(s): I50.9 - Heart failure, unspecified (2) Anxiety and depression Current Visit: Yes Status: Chronic (3) Opioid dependence with withdrawal Current Visit: Yes Status: Chronic (4) Sedative, hypnotic or anxiolytic dependence, uncomplicated Current Visit: Yes Status: Chronic (5) Anxiety Current Visit: No Status: Chronic (6) CAD (coronary artery disease) Current Visit: Yes Status: Chronic Qualifiers: Coronary Disease-Associated Artery/Lesion type: unspecified vessel or lesion type [place] vs. transplanted heart: unspecified whether [place] or transplanted heart Associated angina: angina presence unspecified Qualified Code(s): I25.10 - Atherosclerotic heart disease of [place] coronary artery without angina pectoris Comment: reports hx of stent placement (7) Hypertension Current Visit: Yes Status: Chronic Qualifiers: Hypertension type: essential hypertension Qualified Code(s): I10 - Essential (primary) hypertension (8) Insomnia Current Visit: Yes Status: Chronic Qualifiers: Insomnia type: unspecified Qualified Code(s): G47.00 - Insomnia, unspecified (9) Marijuana dependence Current Visit: Yes Status: Chronic (10) Nicotine dependence Current Visit: No Status: Chronic Qualifiers: Nicotine product type: cigarettes Substance use status: uncomplicated Qualified Code(s): F17.210 - Nicotine dependence, cigarettes, uncomplicated (11) Alcohol dependence Current Visit: Yes Status: Chronic Qualifiers: Complication of substance-induced condition: uncomplicated Cleared for Admission S - Detox or Rehab [facility] Level of Care: Medically Managed Detox Regimen/Protocol: Methadone Claeared for Rehab Admission: No Breathalyzer - Breathalyzer Breathalyzer: 0 Urine Drug Screen - Test Device Lot number: [id number] Expiration date: 12/09/20 - Control Is test valid?: Yes - Results Drug screen NEGATIVE: No Urine drug screen results: THC-Marijuana, FEN-Fentanyl, MTD-Methadone, BZO- Benzodiazepines Inpatient Rehab Admission - Rehab Decision to Admit Inpatient rehab admission?: No
[2019-10-09] MEDS ORDERED: MENTHOL/PHENOL 1 EACH UD MM PRN (17:13)
[2019-10-09] MEDS ORDERED: hydrOXYzine PAMOATE 25 MG CAPSULE (FP) PO PRN (17:13)
[2019-10-09] MEDS ORDERED: IBUPROFEN 400 MG TABLET (FP) PO PRN (17:13)
[2019-10-09] MEDS ORDERED: ONDANSETRON *ODT* 4 MG TABLET SL ONE (17:13)
[2019-10-09] MEDS ORDERED: MAGNESIUM CITRATE 300 ML BOTTLE PO PRN (17:13)
[2019-10-09] MEDS ORDERED: NICOTINE POLACRILEX 2 MG GUM BUC PRN (17:13)
[2019-10-09] MEDS ORDERED: ACETAMINOPHEN 325 MG TABLET (FP) PO PRN ×2 (17:13)
[2019-10-09] MEDS ORDERED: METHOCARBAMOL 500 MG TABLET PO PRN (17:13)
[2019-10-09] MEDS ORDERED: MAG HYDROX/AL HYDROX/SIMETH 30 ML UNIT-DOSE CUP PO PRN (17:13)
[2019-10-09] MEDS ORDERED: BISMUTH SUBSALICYLATE 524 MG/30 ML UD PO PRN (17:13)
[2019-10-09] MEDS ORDERED: MAGNESIUM HYDROX 2400MG/30ML ORAL SUSPENSION 30 ML CUP PO PRN (17:13)
[2019-10-09] MEDS ORDERED: cloNIDine HCL 0.1 MG TABLET PO PRN (17:18)
[2019-10-09] MEDS ORDERED: NITROGLYCERIN SUBLINGUAL 1/150 0.4 MG TAB SL PRN (17:18)
[2019-10-09] MEDS ORDERED: MELATONIN 5 MG TABLETS PO SCH (22:00)
[2019-10-09] MEDS ORDERED: THIAMINE HCL 100 MG TABLET (FP) PO SCH (22:00)
[2019-10-09] MEDS ORDERED: ATORVASTATIN CA 80 MG TABLET (FP) PO SCH (22:00)
[2019-10-10 09:12] VITALS: BP 103/67; PULSE 67; TEMP 97.7
[2019-10-10] MEDS ORDERED: CLOPIDOGREL BISULFATE 75 MG TABLET (FP) PO SCH (10:00)
[2019-10-10] MEDS ORDERED: PRENATAL VITAMINS W/ FOLIC ACID TABLET (FP) PO SCH (10:00)
[2019-10-10] MEDS ORDERED: METHADONE HCL 10 MG TABLET (FOR DETOX USE ONLY) PO ONE (10:00)
[2019-10-10] MEDS ORDERED: metoPROLOL SUCCINATE 25 MG TAB.SR.24H (FP) PO SCH (10:00)
[2019-10-10] MEDS ORDERED: LISINOPRIL 5 MG TABLET (FP) PO SCH (10:00)
[2019-10-10] MEDS ORDERED: ASPIRIN COATED 81 MG TABLET.EC PO SCH (10:00)
[2019-10-10] MEDS ORDERED: NICOTINE 21 MG/24 HOURS TOPICAL PATCH TD SCH (10:00)
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
--- NOTE | 2019-10-10 10:19 | PN ---
[facility] CIWA - CIWA Score Nausea/Vomitin-No Nausea/No Vomiting Muscle Tremors: 2 Anxiety: 1-Mildly Anxious Agitation: 2 Paroxysmal Sweats: 2 Orientation: 0-Oriented Tacttile Disturbances: 0-None Auditory Disturbances: 0-None Visual Disturbances: 0-None Headache: 0-None Present CIWA-Ar Total Score: 7 BHS COWS - Scale Resting Pulse: 0= [place] 80 or Below Sweatin= Chills/Flushing Restless Observation: 1= Difficult to Sit Still Pupil Size: 0= Normal to Room Light Bone or Joint Aches: 2= Severe Diffuse Aches Runny Nose/ Eye Tearin= Runny Nose/Eyes GI Upset > 30mins: 0= None Tremor Observation of Outstretched Hands: 2= Slight Tremor Visible Yawning Observation: 0= None Anxiety or Irritability: 2=Irritable/Anxious Goose Flesh Skin: 3=Piloerection COWS Score: 13 S Progress Note (SOAP) Subjective: chills sweats restless interrupted sleep agitation Objective: 10/10/19 10:18 Vital Signs Temperature 97.7 F 10/10/19 08:47 Pulse Rate 67 10/10/19 08:47 Respiratory Rate 20 10/10/19 08:47 Blood Pressure 103/67 10/10/19 08:47 O2 Sat by Pulse Oximetry (%) 96 10/10/19 05:46 labs pending [id number] ambulating no acute distress Assessment: 10/10/19 10:18 withdrawals Plan: continue detox pending labs
[2019-10-10 10:51] LABS: HEMATOCRIT 41.2 % (35.4-49); HEMOGLOBIN 13.9 GM/dL (11.7-16.9); MCH 31.3 pg (25.7-33.7); MCHC 33.6 g/dl (32.0-35.9); MEAN CELL VOLUME 93.2 fl (80-96); MEAN PLT VOLUME 8.7 fl (7.5-11.1); PLATELET COUNT 231 K/MM3 (134-434); RBC 4.43 M/mm3 (4.00-5.60); RDW 13.1 % (11.9-15.9)
[2019-10-10 10:56] LABS: BILIRUBIN,TOTAL 0.5 mg/dL (0.2-1); BLOOD UREA NITROGEN 17.2 mg/dL (7-18); CALCIUM 9.1 mg/dL (8.5-10.1); CREATININE 0.9 mg/dL (0.55-1.3); POTASSIUM 4.7 mmol/L (3.5-5.1); TOT PROT 7.1 g/dl (6.4-8.2)
--- NOTE | 2019-10-10 17:14 | DS ---
[facility] Detox Discharge Summary Admission Date: 10/09/19 Discharge Date: 10/10/19 - History Additional Comments: Patient is leaving against medical advice. He reports that he is unable to complete detox due to an emergent issue. He was admitted for chest pain at [facility] and sent back to complete his detox. He is not medically stable at this time but he insist that he wants to leave. Risks and consequences of his action reinforced. Patient verbalized understanding of instructions, signed the AMA form and left Pertinent Past History: Alcohol dependence Heroin dependence CAD CHF hypertension Cannabis dependence Nicotine depende\nce Insomnia DVT Restless leg syndrome - Physical Exam Results Vital Signs: Vital Signs Temperature 97.7 F 10/10/19 08:47 Pulse Rate 67 10/10/19 08:47 Respiratory Rate 20 10/10/19 08:47 Blood Pressure 103/67 10/10/19 08:47 O2 Sat by Pulse Oximetry (%) 96 10/10/19 05:46 Laboratory Last Values WBC 6.0 K/mm3 (4.0-10.0) 10/10/19 07:50 RBC 4.43 M/mm3 (4.00-5.60) 10/10/19 07:50 Hgb 13.9 GM/dL (11.7-16.9) 10/10/19 07:50 Hct 41.2 % (35.4-49) 10/10/19 07:50 MCV 93.2 fl (80-96) 10/10/19 07:50 MCH 31.3 pg (25.7-33.7) 10/10/19 07:50 MCHC 33.6 g/dl (32.0-35.9) 10/10/19 07:50 RDW 13.1 % (11.9-15.9) 10/10/19 07:50 Plt Count 231 K/MM3 (134-434) 10/10/19 07:50 MPV 8.7 fl (7.5-11.1) 10/10/19 07:50 Sodium 142 mmol/L (136-145) 10/10/19 07:50 Potassium 4.7 mmol/L (3.5-5.1) 10/10/19 07:50 Chloride 106 mmol/L (98-107) 10/10/19 07:50 Carbon Dioxide 34 mmol/L (21-32) H 10/10/19 07:50 Anion Gap 2 MMOL/L (8-16) L 10/10/19 07:50 BUN 17.2 mg/dL (7-18) 10/10/19 07:50 Creatinine 0.9 mg/dL (0.55-1.3) 10/10/19 07:50 Est GFR (CKD-EPI)AfAm 126.90 10/10/19 07:50 Est GFR (CKD-EPI)NonAf 109.49 10/10/19 07:50 Random Glucose 86 mg/dL (74-106) 10/10/19 07:50 Calcium 9.1 mg/dL (8.5-10.1) 10/10/19 07:50 Total Bilirubin 0.5 mg/dL (0.2-1) 10/10/19 07:50 AST 22 U/L (15-37) 10/10/19 07:50 ALT 39 U/L (13-61) 10/10/19 07:50 Alkaline Phosphatase 74 U/L (45-117) 10/10/19 07:50 Total Protein 7.1 g/dl (6.4-8.2) 10/10/19 07:50 Albumin 4.0 g/dl (3.4-5.0) 10/10/19 07:50 Syphilis Serology Non-reactive (NONREACTIVE) 10/10/19 07:50 Labs reviewed Pertinent Admission Physical Exam Findings: Alcohol withdrawal symptoms Heroin withdrawal symptoms - Medication Discharge Medications: Ambulatory Orders traZODone HCL [Desyrel -] 150 mg PO HS #30 tablet 06/23/17 Aspirin [Aspirin EC] 81 mg PO DAILY 09/02/18 Nitroglycerin [Nitrostat] 0.4 mg SL PRN PRN #10 tab.subl 09/04/18 Atorvastatin Ca [Lipitor] 80 mg PO HS #30 tablet 10/09/19 Clopidogrel Bisulfate [Plavix -] 75 mg PO DAILY #30 tablet 10/09/19 Gabapentin [Neurontin -] 300 mg PO TID #90 cap 10/09/19 Lisinopril [Prinivil] 5 mg PO DAILY #30 tablet 10/09/19 Metoprolol Succinate [Toprol XL -] 25 mg PO DAILY #30 tab.sr.24h 10/09/19 cloNIDine HCL [Catapres -] 0.1 mg PO Q4H PRN #0 tablet 10/09/19 - Diagnosis (1) CHF (congestive heart failure) Status: Chronic Qualifiers: Heart failure type: unspecified Heart failure chronicity: unspecified Qualified Code(s): I50.9 - Heart failure, unspecified (2) Anxiety and depression Status: Chronic (3) Opioid dependence with withdrawal Status: Acute (4) Sedative, hypnotic or anxiolytic dependence, uncomplicated Status: Chronic (5) Anxiety Status: Chronic (6) CAD (coronary artery disease) Status: Chronic Qualifiers: Coronary Disease-Associated Artery/Lesion type: unspecified vessel or lesion type [place] vs. transplanted heart: unspecified whether [place] or transplanted heart Associated angina: angina presence unspecified Qualified Code(s): I25.10 - Atherosclerotic heart disease of [place] coronary artery without angina pectoris (7) Hypertension Status: Chronic Qualifiers: Hypertension type: essential hypertension Qualified Code(s): I10 - Essential (primary) hypertension (8) Insomnia Status: Chronic Qualifiers: Insomnia type: unspecified Qualified Code(s): G47.00 - Insomnia, unspecified (9) Marijuana dependence Status: Chronic (10) Nicotine dependence Status: Chronic Qualifiers: Nicotine product type: cigarettes Substance use status: uncomplicated Qualified Code(s): F17.210 - Nicotine dependence, cigarettes, uncomplicated - AMA Did Patient Leave Against Medical Advice: Yes
[2019-10-10] MEDS ORDERED: traZODone HCL 50 MG TABLET (FP) PO SCH (22:00)
[2019-10-11] MEDS ORDERED: METHADONE (DETOX) 10 MG, METHADONE (DETOX) 5 MG PO ONE (10:00)
[2019-10-12] MEDS ORDERED: METHADONE HCL 10 MG TABLET (FOR DETOX USE ONLY) PO ONE (10:00)
[2019-10-13] MEDS ORDERED: METHADONE HCL 5 MG TABLET (FOR DETOX USE ONLY) PO ONE (06:00)
== END 2019-10-10 17:05 | disposition left against medical advice (07) | DRG 770 ==
LOC: YASAS 14:59 → Y6N 16:12
PROVIDERS: ADMIT Allergy & Immunology; ATTEND Allergy & Immunology
PROC: HZ2ZZZZ Detoxification Services for Substance Abuse Treatment (ICD-10-PCS; principal; 2019-10-09)
DX: F10.230 Alcohol dependence with withdrawal, uncomplicated (principal); F11.23 Opioid dependence with withdrawal; F13.20 Sedative, hypnotic or anxiolytic dependence, uncomplicated; F12.20 Cannabis dependence, uncomplicated; F17.210 Nicotine dependence, cigarettes, uncomplicated; F19.282 Other psychoactive substance dependence with psychoactive substance-induced sleep disorder; F19.24 Other psychoactive substance dependence with psychoactive substance-induced mood disorder; F41.8 Other specified anxiety disorders; F32.9 Major depressive disorder, single episode, unspecified; F90.9 Attention-deficit hyperactivity disorder, unspecified type; I25.10 Atherosclerotic heart disease of native coronary artery without angina pectoris; I11.0 Hypertensive heart disease with heart failure; Z95.5 Presence of coronary angioplasty implant and graft; I25.2 Old myocardial infarction; G47.00 Insomnia, unspecified; G25.81 Restless legs syndrome; D64.9 Anemia, unspecified; Z79.02 Long term (current) use of antithrombotics/antiplatelets; Z79.82 Long term (current) use of aspirin; Z29.9 Encounter for prophylactic measures, unspecified; Z56.0 Unemployment, unspecified; Z88.8 Allergy status to other drugs, medicaments and biological substances
CPT/HCPCS: 36415; 80053; 85027; 86780; J0735

== ENCOUNTER 2020-07-08 23:22 | Emergency (ER) | payer OTHER ==
[2020-07-08 23:54] VITALS: BP 125/82; PULSE 104; TEMP 98.1; BMI 34.7
== END 2020-07-09 04:53 | disposition home or self-care (01) ==
LOC: JER 23:22
DX: F11.20 Opioid dependence, uncomplicated (principal); F10.20 Alcohol dependence, uncomplicated
CPT/HCPCS: 99283-25

== ENCOUNTER 2020-07-09 03:55 | Inpatient (IN) | payer OTHER ==
[2020-07-09] MEDS ORDERED: guaiFENesin 200 MG/10 ML 10 ML UNIT-DOSE CUPS PO PRN (04:39)
[2020-07-09] MEDS ORDERED: MENTHOL/PHENOL 1 EACH UD MM PRN (04:39)
[2020-07-09] MEDS ORDERED: ONDANSETRON *ODT* 4 MG TABLET SL PRN (04:39)
[2020-07-09] MEDS ORDERED: MAGNESIUM CITRATE 300 ML BOTTLE PO PRN (04:39)
[2020-07-09] MEDS ORDERED: NALOXONE HCL 0.4 MG/ML VIAL IM PRN (04:39)
[2020-07-09] MEDS ORDERED: P-EPHED 60MG/TRIPROLIDI 2.5MG TABLET PO PRN (04:39)
[2020-07-09] MEDS ORDERED: MAGNESIUM HYDROX 2400MG/30ML ORAL SUSPENSION 30 ML CUP PO PRN (04:39)
[2020-07-09] MEDS ORDERED: DICYCLOMINE HCL 10 MG CAPSULE PO PRN (04:39)
[2020-07-09] MEDS ORDERED: BISMUTH SUBSALICYLATE 524 MG/30 ML UD PO PRN (04:39)
[2020-07-09] MEDS ORDERED: NALOXONE (NARCAN) HCL 4 MG/0.1 ML SPRAY NS PRN (04:39)
[2020-07-09] MEDS ORDERED: MAG HYDROX/AL HYDROX/SIMETH 30 ML UNIT-DOSE CUP PO PRN (04:39)
[2020-07-09] MEDS ORDERED: NICOTINE POLACRILEX 4 MG GUM BUC PRN (04:39)
[2020-07-09] MEDS ORDERED: ACETAMINOPHEN 325 MG TABLET (FP) PO PRN ×2 (04:39)
[2020-07-09] MEDS ORDERED: MASKS NR ONE (05:56)
[2020-07-09] MEDS ORDERED: METHADONE HCL 10 MG TABLET (FOR DETOX USE ONLY) PO ONE (10:00)
[2020-07-09] MEDS: CLOPIDOGREL BISULFATE 75 MG TABLET (FP) PO SCH (10:18)
[2020-07-09] MEDS: PRENATAL VITAMINS W/ FOLIC ACID TABLET (FP) PO SCH (10:18)
[2020-07-09] MEDS: amLODIPine BESYLATE 10 MG TABLET (FP) PO SCH (10:18)
[2020-07-09] MEDS: ASPIRIN COATED 81 MG TABLET.EC PO SCH (10:18)
[2020-07-09] MEDS: NICOTINE 21 MG/24 HOURS TOPICAL PATCH TD SCH (10:21)
[2020-07-09] MEDS: diazePAM 5 MG TABLET PO SCH ×3 (10:25→22:15)
[2020-07-09] MEDS: cloNIDine HCL 0.1 MG TABLET PO PRN ×2 (10:27→22:15)
[2020-07-09 10:53] LABS: PH,URINE 5.5 (5.0-8.0); URINE APPEARANCE CLEAR; URINE BILIRUBIN NEGATIVE (NEGATIVE); URINE COLOR YELLOW; URINE GLUCOSE (UA) NEGATIVE (NEGATIVE); URINE KETONE TRACE (NEGATIVE); URINE LEUK ESTERASE NEGATIVE (NEGATIVE); URINE NITRITE NEGATIVE (NEGATIVE); URINE PROTEIN NEGATIVE (NEGATIVE)
[2020-07-09] MEDS: diazePAM 5 MG TABLET PO PRN (15:07)
[2020-07-09] MEDS: MELATONIN 5 MG TABLETS PO SCH (22:15)
[2020-07-09] MEDS: traZODone HCL 100 MG TABLET (FP) PO SCH (22:15)
[2020-07-09] MEDS: ATORVASTATIN CA 80 MG TABLET (FP) PO SCH (22:15)
[2020-07-09] MEDS: THIAMINE HCL 100 MG TABLET (FP) PO SCH (22:15)
[2020-07-10] MEDS: diazePAM 5 MG TABLET PO PRN (04:15)
[2020-07-10] MEDS: METHOCARBAMOL 500 MG TABLET PO PRN (04:15)
[2020-07-10] MEDS: diazePAM 5 MG TABLET PO SCH ×4 (06:13→22:21)
[2020-07-10] MEDS ORDERED: METHADONE HCL 10 MG TABLET (FOR DETOX USE ONLY) ONE (08:23)
[2020-07-10] MEDS ORDERED: METHADONE HCL 5 MG TABLET (FOR DETOX USE ONLY) ONE (08:23)
[2020-07-10] MEDS ORDERED: METHADONE (DETOX) 20 MG, METHADONE (DETOX) 5 MG PO ONE (10:00)
[2020-07-10] MEDS: amLODIPine BESYLATE 10 MG TABLET (FP) PO SCH (10:12)
[2020-07-10] MEDS: ASPIRIN COATED 81 MG TABLET.EC PO SCH (10:12)
[2020-07-10] MEDS: CLOPIDOGREL BISULFATE 75 MG TABLET (FP) PO SCH (10:12)
[2020-07-10] MEDS: NICOTINE 21 MG/24 HOURS TOPICAL PATCH TD SCH (10:13)
[2020-07-10] MEDS: PRENATAL VITAMINS W/ FOLIC ACID TABLET (FP) PO SCH (10:13)
[2020-07-10] MEDS: cloNIDine HCL 0.1 MG TABLET PO PRN (10:14)
[2020-07-10 10:33] LABS: HEMATOCRIT 37.8 % (35.4-49); HEMOGLOBIN 12.8 GM/dL (11.7-16.9); MCH 31.5 pg (25.7-33.7); MCHC 33.9 g/dl (32.0-35.9); MEAN PLT VOLUME 8.2 fl (7.5-11.1); PLATELET COUNT 211 K/MM3 (134-434); POTASSIUM 4.5 mmol/L (3.5-5.1); RBC 4.06 M/mm3 (4.00-5.60); RDW 13.4 % (11.9-15.9); WHITE BLOOD COUNT 5.9 K/mm3 (4.0-10.0)
[2020-07-10 10:41] LABS: CALCIUM 8.6 mg/dL (8.5-10.1)
[2020-07-10 10:42] LABS: ALBUMIN 3.1 g/dl (3.4-5.0)
[2020-07-10 10:45] LABS: CREATININE 0.8 mg/dL (0.55-1.3)
[2020-07-10 10:46] LABS: BILIRUBIN,TOTAL 0.5 mg/dL (0.2-1)
[2020-07-10] MEDS: traZODone HCL 100 MG TABLET (FP) PO SCH (22:21)
[2020-07-10] MEDS: ATORVASTATIN CA 80 MG TABLET (FP) PO SCH (22:21)
[2020-07-10] MEDS: THIAMINE HCL 100 MG TABLET (FP) PO SCH (22:21)
[2020-07-10] MEDS: MELATONIN 5 MG TABLETS PO SCH (22:22)
[2020-07-11] MEDS: METHOCARBAMOL 500 MG TABLET PO PRN (01:12)
[2020-07-11] MEDS: diazePAM 5 MG TABLET PO SCH ×3 (05:22→22:28)
[2020-07-11] MEDS: IBUPROFEN 400 MG TABLET (FP) PO PRN ×2 (05:23→22:30)
[2020-07-11] MEDS: ASPIRIN COATED 81 MG TABLET.EC PO SCH (09:12)
[2020-07-11] MEDS: PRENATAL VITAMINS W/ FOLIC ACID TABLET (FP) PO SCH (09:12)
[2020-07-11] MEDS: amLODIPine BESYLATE 10 MG TABLET (FP) PO SCH (09:13)
[2020-07-11] MEDS: CLOPIDOGREL BISULFATE 75 MG TABLET (FP) PO SCH (09:13)
[2020-07-11] MEDS: NICOTINE 21 MG/24 HOURS TOPICAL PATCH TD SCH (09:13)
[2020-07-11] MEDS ORDERED: METHADONE HCL 10 MG TABLET (FOR DETOX USE ONLY) PO ONE (10:00)
[2020-07-11] MEDS: traZODone HCL 100 MG TABLET (FP) PO SCH (22:28)
[2020-07-11] MEDS: MELATONIN 5 MG TABLETS PO SCH (22:28)
[2020-07-11] MEDS: THIAMINE HCL 100 MG TABLET (FP) PO SCH (22:28)
[2020-07-11] MEDS: ATORVASTATIN CA 80 MG TABLET (FP) PO SCH (22:28)
[2020-07-12] MEDS: diazePAM 5 MG TABLET PO SCH ×2 (05:55→18:02)
[2020-07-12] MEDS: IBUPROFEN 400 MG TABLET (FP) PO PRN (07:47)
[2020-07-12] MEDS: METHOCARBAMOL 500 MG TABLET PO PRN (07:47)
[2020-07-12] MEDS ORDERED: METHADONE HCL 5 MG TABLET (FOR DETOX USE ONLY) ONE (09:17)
[2020-07-12] MEDS ORDERED: METHADONE HCL 10 MG TABLET (FOR DETOX USE ONLY) ONE (09:17)
[2020-07-12] MEDS ORDERED: METHADONE (DETOX) 10 MG, METHADONE (DETOX) 5 MG PO ONE (10:00)
[2020-07-12] MEDS: PRENATAL VITAMINS W/ FOLIC ACID TABLET (FP) PO SCH (10:16)
[2020-07-12] MEDS: amLODIPine BESYLATE 10 MG TABLET (FP) PO SCH (10:16)
[2020-07-12] MEDS: ASPIRIN COATED 81 MG TABLET.EC PO SCH (10:16)
[2020-07-12] MEDS: CLOPIDOGREL BISULFATE 75 MG TABLET (FP) PO SCH (10:16)
[2020-07-12] MEDS: NICOTINE 21 MG/24 HOURS TOPICAL PATCH TD SCH (10:18)
[2020-07-12] MEDS: MELATONIN 5 MG TABLETS PO SCH (22:16)
[2020-07-12] MEDS: traZODone HCL 100 MG TABLET (FP) PO SCH (22:16)
[2020-07-12] MEDS: THIAMINE HCL 100 MG TABLET (FP) PO SCH (22:16)
[2020-07-12] MEDS: ATORVASTATIN CA 80 MG TABLET (FP) PO SCH (22:16)
[2020-07-13] MEDS: IBUPROFEN 400 MG TABLET (FP) PO PRN (05:44)
[2020-07-13] MEDS ORDERED: diazePAM 5 MG TABLET PO ONE (06:00)
[2020-07-13 09:23] VITALS: BP 133/89; PULSE 93; TEMP 97.8
[2020-07-13] MEDS: CLOPIDOGREL BISULFATE 75 MG TABLET (FP) PO SCH (09:54)
[2020-07-13] MEDS: ASPIRIN COATED 81 MG TABLET.EC PO SCH (09:54)
[2020-07-13] MEDS: PRENATAL VITAMINS W/ FOLIC ACID TABLET (FP) PO SCH (09:54)
[2020-07-13] MEDS: amLODIPine BESYLATE 10 MG TABLET (FP) PO SCH (09:55)
[2020-07-13] MEDS ORDERED: METHADONE HCL 10 MG TABLET (FOR DETOX USE ONLY) PO ONE (10:00)
[2020-07-13 10:09] LABS: SARS-CoV-2 NAA Not Detected (Not Detected)
[2020-07-13] MEDS: NICOTINE 21 MG/24 HOURS TOPICAL PATCH TD SCH (10:13)
[2020-07-14] MEDS ORDERED: METHADONE HCL 5 MG TABLET (FOR DETOX USE ONLY) PO ONE (06:00)
== END 2020-07-13 11:50 | disposition home or self-care (01) | DRG 773 ==
LOC: YASAS 03:55 → Y3N 04:24
PROVIDERS: ADMIT Allergy & Immunology; ATTEND Allergy & Immunology
PROC: HZ2ZZZZ Detoxification Services for Substance Abuse Treatment (ICD-10-PCS; principal; 2020-07-09)
DX: F11.23 Opioid dependence with withdrawal (principal); F10.230 Alcohol dependence with withdrawal, uncomplicated; F13.230 Sedative, hypnotic or anxiolytic dependence with withdrawal, uncomplicated; F12.20 Cannabis dependence, uncomplicated; F17.210 Nicotine dependence, cigarettes, uncomplicated; F19.282 Other psychoactive substance dependence with psychoactive substance-induced sleep disorder; F19.280 Other psychoactive substance dependence with psychoactive substance-induced anxiety disorder; F19.24 Other psychoactive substance dependence with psychoactive substance-induced mood disorder; E78.5 Hyperlipidemia, unspecified; I25.10 Atherosclerotic heart disease of native coronary artery without angina pectoris; I10 Essential (primary) hypertension; Z95.5 Presence of coronary angioplasty implant and graft; Z88.8 Allergy status to other drugs, medicaments and biological substances
CPT/HCPCS: 36415; 80053; 81003; 82947; 85027; 86780; C9803; J0735; U0003; U0005

== ENCOUNTER 2020-11-14 13:03 | Inpatient (IN) | payer OTHER ==
[2020-11-14 15:12] VITALS: BMI 37.7
[2020-11-14] MEDS ORDERED: MAG HYDROX/AL HYDROX/SIMETH 30 ML UNIT-DOSE CUP PO PRN (16:54)
[2020-11-14] MEDS ORDERED: clonazePAM 0.5 MG ODT TABLETS SL PRN (16:54)
[2020-11-14] MEDS ORDERED: MENTHOL/PHENOL 1 EACH UD MM PRN (16:54)
[2020-11-14] MEDS ORDERED: NICOTINE 10 MG CARTRIDGE (INHALER) IH PRN (16:54)
[2020-11-14] MEDS ORDERED: methaDONE HCL 10 MG TABLET (FOR DETOX USE ONLY) PO ONE ×2 (16:54→21:15)
[2020-11-14] MEDS ORDERED: ONDANSETRON *ODT* 4 MG TABLET SL PRN (16:54)
[2020-11-14] MEDS ORDERED: ACETAMINOPHEN 325 MG TABLET (FP) PO PRN ×2 (16:54)
[2020-11-14] MEDS ORDERED: BISMUTH SUBSALICYLATE 524 MG/30 ML PO PRN (16:54)
[2020-11-14] MEDS ORDERED: LORazepam 1 MG TABLET PO PRN (16:54)
[2020-11-14] MEDS ORDERED: MAGNESIUM HYDROX 2400MG/30ML ORAL SUSPENSION 30 ML CUP PO PRN (16:54)
[2020-11-14] MEDS ORDERED: MAGNESIUM CITRATE 300 ML BOTTLE PO PRN (16:54)
[2020-11-14] MEDS: PRENATAL VITAMINS W/ FOLIC ACID TABLET (FP) PO SCH (21:17)
[2020-11-14] MEDS: IBUPROFEN 400 MG TABLET (FP) PO PRN (21:17)
[2020-11-14] MEDS: hydrOXYzine PAMOATE 25 MG CAPSULE (FP) PO SCH ×2 (21:17→22:42)
[2020-11-14] MEDS: THIAMINE HCL 100 MG TABLET (FP) PO SCH (21:20)
[2020-11-14] MEDS: ATORVASTATIN CA 80 MG TABLET (FP) PO SCH (21:20)
[2020-11-14] MEDS: LORazepam 2 MG TABLET PO SCH ×2 (21:36→22:28)
[2020-11-14] MEDS: MELATONIN 5 MG TABLETS PO SCH (22:28)
[2020-11-15] MEDS: LORazepam 2 MG TABLET PO SCH ×4 (06:14→22:03)
[2020-11-15] MEDS: hydrOXYzine PAMOATE 25 MG CAPSULE (FP) PO SCH ×5 (06:14→22:03)
[2020-11-15 09:07] LABS: HEMATOCRIT 38.7 % (35.4-49); HEMOGLOBIN 13.4 GM/dL (11.7-16.9); MCH 31.7 pg (25.7-33.7); MCHC 34.6 g/dl (32.0-35.9); MEAN CELL VOLUME 91.6 fl (80-96); MEAN PLT VOLUME 8.6 fl (7.5-11.1); PLATELET COUNT 203 10^3/uL (134-434); RBC 4.23 M/mm3 (4.00-5.60); RDW 13.5 % (11.9-15.9); WHITE BLOOD COUNT 4.6 K/mm3 (4.0-10.0)
[2020-11-15] MEDS ORDERED: methaDONE HCL 10 MG TABLET (FOR DETOX USE ONLY) ONE (09:22)
[2020-11-15 09:24] LABS: ALBUMIN 3.3 g/dl (3.4-5.0); BLOOD UREA NITROGEN 15.7 mg/dL (7-18)
[2020-11-15 09:27] LABS: BILIRUBIN,TOTAL 0.5 mg/dL (0.2-1); CREATININE 0.8 mg/dL (0.55-1.3)
[2020-11-15 09:29] LABS: TOT PROT 6.2 g/dl (6.4-8.2)
[2020-11-15] MEDS: CLOPIDOGREL BISULFATE 75 MG TABLET (FP) PO SCH (10:14)
[2020-11-15] MEDS: PRENATAL VITAMINS W/ FOLIC ACID TABLET (FP) PO SCH (10:14)
[2020-11-15] MEDS: ASPIRIN COATED 81 MG TABLET.EC PO SCH (10:14)
[2020-11-15] MEDS: cloNIDine HCL 0.1 MG TABLET PO PRN (10:19)
[2020-11-15] MEDS: IBUPROFEN 400 MG TABLET (FP) PO PRN (20:27)
[2020-11-15] MEDS: MELATONIN 5 MG TABLETS PO SCH (22:03)
[2020-11-15] MEDS: traZODone HCL 50 MG TABLET (FP) PO SCH (22:03)
[2020-11-15] MEDS: THIAMINE HCL 100 MG TABLET (FP) PO SCH (22:03)
[2020-11-15] MEDS: ATORVASTATIN CA 80 MG TABLET (FP) PO SCH (22:03)
[2020-11-16] MEDS: hydrOXYzine PAMOATE 25 MG CAPSULE (FP) PO SCH ×5 (05:29→22:24)
[2020-11-16] MEDS: LORazepam 1 MG TABLET PO SCH ×4 (05:29→22:24)
[2020-11-16] MEDS ORDERED: methaDONE HCL 10 MG TABLET (FOR DETOX USE ONLY) PO ONE (10:00)
[2020-11-16] MEDS: PRENATAL VITAMINS W/ FOLIC ACID TABLET (FP) PO SCH (10:49)
[2020-11-16] MEDS: CLOPIDOGREL BISULFATE 75 MG TABLET (FP) PO SCH (10:49)
[2020-11-16] MEDS: ASPIRIN COATED 81 MG TABLET.EC PO SCH (10:49)
[2020-11-16] MEDS ORDERED: MASKS NR ONE (12:30)
[2020-11-16] MEDS: cloNIDine HCL 0.1 MG TABLET PO PRN (17:37)
[2020-11-16] MEDS: traZODone HCL 50 MG TABLET (FP) PO SCH (22:24)
[2020-11-16] MEDS: THIAMINE HCL 100 MG TABLET (FP) PO SCH (22:24)
[2020-11-16] MEDS: ATORVASTATIN CA 80 MG TABLET (FP) PO SCH (22:24)
[2020-11-16] MEDS: MELATONIN 5 MG TABLETS PO SCH (22:24)
[2020-11-17] MEDS ORDERED: LORazepam 0.5 MG TABLET PO PRN
[2020-11-17] MEDS: LORazepam 0.5 MG TABLET PO SCH ×4 (05:33→22:01)
[2020-11-17] MEDS: hydrOXYzine PAMOATE 25 MG CAPSULE (FP) PO SCH ×2 (05:33→10:44)
[2020-11-17] MEDS ORDERED: methaDONE HCL 10 MG TABLET (FOR DETOX USE ONLY) ONE (09:57)
[2020-11-17] MEDS: CLOPIDOGREL BISULFATE 75 MG TABLET (FP) PO SCH (10:43)
[2020-11-17] MEDS: ASPIRIN COATED 81 MG TABLET.EC PO SCH (10:43)
[2020-11-17] MEDS: METHOCARBAMOL 500 MG TABLET PO PRN ×2 (10:43→17:27)
[2020-11-17] MEDS: PRENATAL VITAMINS W/ FOLIC ACID TABLET (FP) PO SCH (10:44)
[2020-11-17] MEDS ORDERED: hydrOXYzine PAMOATE 25 MG CAPSULE (FP) PO PRN (10:45)
[2020-11-17] MEDS ORDERED: cloNIDine HCL 0.1 MG TABLET PO PRN (13:22)
[2020-11-17] MEDS ORDERED: MASKS NR ONE (16:59)
[2020-11-17] MEDS ORDERED: traZODone HCL 100 MG TABLET (FP) PO SCH (22:00)
[2020-11-17] MEDS: ATORVASTATIN CA 80 MG TABLET (FP) PO SCH (22:02)
[2020-11-17] MEDS: THIAMINE HCL 100 MG TABLET (FP) PO SCH (22:02)
[2020-11-17] MEDS: MELATONIN 5 MG TABLETS PO SCH (22:03)
[2020-11-18] MEDS ORDERED: LORazepam 0.5 MG TABLET PO ONE (05:00)
[2020-11-18 09:09] VITALS: BP 116/75; PULSE 88; TEMP 98.1
[2020-11-18] MEDS ORDERED: methaDONE HCL 10 MG TABLET (FOR DETOX USE ONLY) PO ONE (10:00)
[2020-11-18] MEDS: PRENATAL VITAMINS W/ FOLIC ACID TABLET (FP) PO SCH (10:07)
[2020-11-18] MEDS: CLOPIDOGREL BISULFATE 75 MG TABLET (FP) PO SCH (10:07)
[2020-11-18] MEDS: METHOCARBAMOL 500 MG TABLET PO PRN (10:07)
[2020-11-18] MEDS: ASPIRIN COATED 81 MG TABLET.EC PO SCH (10:08)
== END 2020-11-18 10:20 | disposition home or self-care (01) | DRG 773 ==
LOC: YASAS 13:03 → Y3N 18:16
PROVIDERS: ADMIT Allergy & Immunology; ATTEND Allergy & Immunology
PROC: HZ2ZZZZ Detoxification Services for Substance Abuse Treatment (ICD-10-PCS; principal; 2020-11-14)
DX: F11.23 Opioid dependence with withdrawal (principal); F10.230 Alcohol dependence with withdrawal, uncomplicated; F13.20 Sedative, hypnotic or anxiolytic dependence, uncomplicated; F12.20 Cannabis dependence, uncomplicated; F17.210 Nicotine dependence, cigarettes, uncomplicated; F90.9 Attention-deficit hyperactivity disorder, unspecified type; F32.9 Major depressive disorder, single episode, unspecified; F19.24 Other psychoactive substance dependence with psychoactive substance-induced mood disorder; I50.9 Heart failure, unspecified; I11.0 Hypertensive heart disease with heart failure; I25.2 Old myocardial infarction; G47.00 Insomnia, unspecified; E78.5 Hyperlipidemia, unspecified; I25.10 Atherosclerotic heart disease of native coronary artery without angina pectoris; H53.002 Unspecified amblyopia, left eye; Z88.8 Allergy status to other drugs, medicaments and biological substances; Z95.5 Presence of coronary angioplasty implant and graft; Z86.718 Personal history of other venous thrombosis and embolism; Z56.0 Unemployment, unspecified
CPT/HCPCS: 36415; 80053; 85027; 86780; C9803; J0735; U0003; U0005

== ENCOUNTER 2020-12-23 16:39 | Inpatient (IN) | payer OTHER ==
[2020-12-23] MEDS ORDERED: NICOTINE 10 MG CARTRIDGE (INHALER) IH PRN (21:19)
[2020-12-23] MEDS ORDERED: ONDANSETRON *ODT* 4 MG TABLET SL PRN (21:19)
[2020-12-23] MEDS ORDERED: ACETAMINOPHEN 325 MG TABLET (FP) PO PRN ×2 (21:19)
[2020-12-23] MEDS ORDERED: MAG HYDROX/AL HYDROX/SIMETH 30 ML UNIT-DOSE CUP PO PRN (21:19)
[2020-12-23] MEDS ORDERED: MAGNESIUM HYDROX 2400MG/30ML ORAL SUSPENSION 30 ML CUP PO PRN (21:19)
[2020-12-23] MEDS ORDERED: MENTHOL/PHENOL 1 EACH UD MM PRN (21:19)
[2020-12-23] MEDS ORDERED: MAGNESIUM CITRATE 300 ML BOTTLE PO PRN (21:19)
[2020-12-23] MEDS ORDERED: methaDONE HCL 10 MG TABLET (FOR DETOX USE ONLY) PO ONE (21:24)
[2020-12-23 22:38] VITALS: BMI 35.5
[2020-12-24] MEDS ORDERED: methaDONE HCL 10 MG TABLET (FOR DETOX USE ONLY) ONE ×2 (02:07→11:31)
[2020-12-24] MEDS ORDERED: diazePAM 5 MG TABLET ONE ×3 (02:08→06:09)
[2020-12-24] MEDS: diazePAM 5 MG TABLET PO SCH ×5 (02:15→22:42)
[2020-12-24] MEDS: MELATONIN 5 MG TABLETS PO SCH ×2 (02:15→22:43)
[2020-12-24] MEDS: THIAMINE HCL 100 MG TABLET (FP) PO SCH ×2 (02:16→22:43)
[2020-12-24] MEDS: BACITRACIN 15 GM TUBE TOPICAL OINTMENT TP SCH ×3 (02:16→22:42)
[2020-12-24] MEDS ORDERED: ASPIRIN 81 MG CHEWABLE TABLETS ONE (11:31)
[2020-12-24] MEDS: ASPIRIN COATED 81 MG TABLET.EC PO SCH (11:44)
[2020-12-24] MEDS: CLOPIDOGREL BISULFATE 75 MG TABLET (FP) PO SCH (11:44)
[2020-12-24] MEDS: PRENATAL VITAMINS W/ FOLIC ACID TABLET (FP) PO SCH (11:45)
[2020-12-24 12:37] LABS: ALBUMIN 3.6 g/dl (3.4-5.0); BLOOD UREA NITROGEN 16.8 mg/dL (7-18); HEMATOCRIT 38.1 % (35.4-49); HEMOGLOBIN 13.1 GM/dL (11.7-16.9); MCHC 34.5 g/dl (32.0-35.9); MEAN CELL VOLUME 89.9 fl (80-96); MEAN PLT VOLUME 8.6 fl (7.5-11.1); PLATELET COUNT 170 10^3/uL (134-434); RBC 4.23 M/mm3 (4.00-5.60); RDW 13.5 % (11.9-15.9); WHITE BLOOD COUNT 4.5 K/mm3 (4.0-10.0)
[2020-12-24 12:41] LABS: CREATININE 0.8 mg/dL (0.55-1.3)
[2020-12-24 12:42] LABS: CALCIUM 8.3 mg/dL (8.5-10.1); TOT PROT 6.8 g/dl (6.4-8.2)
[2020-12-24] MEDS: ATORVASTATIN CA 80 MG TABLET (FP) PO SCH ×2 (13:03→22:43)
[2020-12-24] MEDS: METHOCARBAMOL 500 MG TABLET PO PRN (17:38)
[2020-12-24] MEDS: traZODone HCL 100 MG TABLET (FP) PO SCH (22:43)
[2020-12-24] MEDS: cloNIDine HCL 0.1 MG TABLET PO PRN (22:43)
[2020-12-25] MEDS: diazePAM 5 MG TABLET PO SCH ×3 (06:08→21:33)
[2020-12-25] MEDS ORDERED: methaDONE HCL 10 MG TABLET (FOR DETOX USE ONLY) PO ONE (10:00)
[2020-12-25] MEDS: cloNIDine HCL 0.1 MG TABLET PO PRN (10:24)
[2020-12-25] MEDS: CLOPIDOGREL BISULFATE 75 MG TABLET (FP) PO SCH (10:24)
[2020-12-25] MEDS: diazePAM 5 MG TABLET PO PRN ×2 (10:24→16:58)
[2020-12-25] MEDS: PRENATAL VITAMINS W/ FOLIC ACID TABLET (FP) PO SCH (10:24)
[2020-12-25] MEDS: ASPIRIN COATED 81 MG TABLET.EC PO SCH (10:24)
[2020-12-25] MEDS: BACITRACIN 15 GM TUBE TOPICAL OINTMENT TP SCH ×2 (10:25→21:36)
[2020-12-25] MEDS: METHOCARBAMOL 500 MG TABLET PO PRN (10:27)
[2020-12-25] MEDS: MELATONIN 5 MG TABLETS PO SCH (21:33)
[2020-12-25] MEDS: ATORVASTATIN CA 80 MG TABLET (FP) PO SCH (21:33)
[2020-12-25] MEDS: THIAMINE HCL 100 MG TABLET (FP) PO SCH (21:33)
[2020-12-25] MEDS: traZODone HCL 100 MG TABLET (FP) PO SCH (21:33)
[2020-12-26] MEDS: diazePAM 5 MG TABLET PO SCH ×3 (07:03→18:10)
[2020-12-26] MEDS ORDERED: methaDONE HCL 10 MG TABLET (FOR DETOX USE ONLY) ONE (09:56)
[2020-12-26] MEDS: BACITRACIN 15 GM TUBE TOPICAL OINTMENT TP SCH ×2 (10:22→23:19)
[2020-12-26] MEDS: METHOCARBAMOL 500 MG TABLET PO PRN ×2 (10:23→18:10)
[2020-12-26] MEDS: CLOPIDOGREL BISULFATE 75 MG TABLET (FP) PO SCH (10:23)
[2020-12-26] MEDS: PRENATAL VITAMINS W/ FOLIC ACID TABLET (FP) PO SCH (10:23)
[2020-12-26] MEDS: ASPIRIN COATED 81 MG TABLET.EC PO SCH (10:23)
[2020-12-26] MEDS: MELATONIN 5 MG TABLETS PO SCH (22:51)
[2020-12-26] MEDS: THIAMINE HCL 100 MG TABLET (FP) PO SCH (22:53)
[2020-12-26] MEDS: traZODone HCL 100 MG TABLET (FP) PO SCH (22:53)
[2020-12-26] MEDS: ATORVASTATIN CA 80 MG TABLET (FP) PO SCH (22:53)
[2020-12-27] MEDS ORDERED: diazePAM 5 MG TABLET PO ONE (06:00)
[2020-12-27 09:47] VITALS: BP 130/83; PULSE 91; TEMP 96.9
[2020-12-27] MEDS ORDERED: methaDONE HCL 10 MG TABLET (FOR DETOX USE ONLY) PO ONE (10:00)
[2020-12-27] MEDS: CLOPIDOGREL BISULFATE 75 MG TABLET (FP) PO SCH (10:17)
[2020-12-27] MEDS: ASPIRIN COATED 81 MG TABLET.EC PO SCH (10:18)
[2020-12-27] MEDS: BACITRACIN 15 GM TUBE TOPICAL OINTMENT TP SCH (10:18)
[2020-12-27] MEDS: PRENATAL VITAMINS W/ FOLIC ACID TABLET (FP) PO SCH (10:18)
== END 2020-12-27 12:25 | disposition home or self-care (01) | DRG 773 ==
LOC: YASAS 16:39 → Y3N 12-24 11:22
PROVIDERS: ADMIT Allergy & Immunology; ATTEND Allergy & Immunology
PROC: HZ2ZZZZ Detoxification Services for Substance Abuse Treatment (ICD-10-PCS; principal; 2020-12-24)
DX: F11.23 Opioid dependence with withdrawal (principal); F13.230 Sedative, hypnotic or anxiolytic dependence with withdrawal, uncomplicated; F12.20 Cannabis dependence, uncomplicated; F17.210 Nicotine dependence, cigarettes, uncomplicated; F41.9 Anxiety disorder, unspecified; F32.9 Major depressive disorder, single episode, unspecified; F43.10 Post-traumatic stress disorder, unspecified; G47.00 Insomnia, unspecified; I25.10 Atherosclerotic heart disease of native coronary artery without angina pectoris; I10 Essential (primary) hypertension; Z95.5 Presence of coronary angioplasty implant and graft; I25.2 Old myocardial infarction; Z86.59 Personal history of other mental and behavioral disorders; Z86.718 Personal history of other venous thrombosis and embolism; Z79.02 Long term (current) use of antithrombotics/antiplatelets; Z91.14 Patient's other noncompliance with medication regimen; Z88.8 Allergy status to other drugs, medicaments and biological substances; Z91.018 Allergy to other foods
CPT/HCPCS: 36415; 80053; 85027; 86780; C9803; J0735; U0003; U0005

== ENCOUNTER 2021-02-03 21:32 | Emergency (ER) | payer OTHER ==
[2021-02-03 21:57] VITALS: TEMP 98; BMI 26.9
[2021-02-03] MEDS ORDERED: chlordiazePOXIDE HCL 25 MG CAPSULE PO ONE (22:16)
[2021-02-03] MEDS ORDERED: diazePAM CARPU-JECT 10 MG/2 ML DISP.SYRIN IVPUSH ONE (22:16)
[2021-02-03] MEDS ORDERED: diazePAM CARPU-JECT 10 MG/2 ML DISP.SYRIN ONE (22:22)
[2021-02-03] MEDS ORDERED: chlordiazePOXIDE 5 MG CAPSULE ONE (22:22)
[2021-02-03 23:21] VITALS: BP 127/82; PULSE 97
== END 2021-02-03 23:23 | disposition home or self-care (01) ==
LOC: JER 21:32
DX: F19.10 Other psychoactive substance abuse, uncomplicated (principal)
CPT/HCPCS: 99283-25

== ENCOUNTER 2021-02-04 00:02 | Inpatient (IN) | payer OTHER ==
[2021-02-04 00:45] VITALS: BMI 34.7
[2021-02-04] MEDS ORDERED: BISMUTH SUBSALICYLATE 524 MG/30 ML PO PRN (01:07)
[2021-02-04] MEDS ORDERED: MAG HYDROX/AL HYDROX/SIMETH 30 ML UNIT-DOSE CUP PO PRN (01:07)
[2021-02-04] MEDS ORDERED: ACETAMINOPHEN 325 MG TABLET (FP) PO PRN (01:07)
[2021-02-04] MEDS ORDERED: ONDANSETRON *ODT* 4 MG TABLET SL PRN (01:07)
[2021-02-04] MEDS ORDERED: MAGNESIUM HYDROX 2400MG/30ML ORAL SUSPENSION 30 ML CUP PO PRN (01:07)
[2021-02-04] MEDS ORDERED: NICOTINE POLACRILEX 2 MG GUM BUC PRN (01:07)
[2021-02-04] MEDS ORDERED: NALOXONE (NARCAN) HCL 4 MG/0.1 ML SPRAY NS PRN (01:07)
[2021-02-04] MEDS ORDERED: MENTHOL/PHENOL 1 EACH UD MM PRN (01:07)
[2021-02-04] MEDS ORDERED: hydrOXYzine PAMOATE 25 MG CAPSULE (FP) PO PRN (01:07)
[2021-02-04] MEDS ORDERED: MAGNESIUM CITRATE 300 ML BOTTLE PO PRN (01:07)
[2021-02-04] MEDS: ACETAMINOPHEN 325 MG TABLET (FP) PO PRN ×2 (07:42→22:10)
[2021-02-04] MEDS ORDERED: cloNIDine HCL 0.1 MG TABLET PO PRN (10:04)
[2021-02-04] MEDS ORDERED: diazePAM 5 MG TABLET PO PRN (10:04)
[2021-02-04] MEDS: cloNIDine HCL 0.1 MG TABLET PO SCH ×2 (10:29→22:09)
[2021-02-04] MEDS ORDERED: GABAPENTIN 300 MG CAPSULE PO ONE (10:29)
[2021-02-04] MEDS: CLOPIDOGREL BISULFATE 75 MG TABLET (FP) PO SCH (10:29)
[2021-02-04] MEDS: ASPIRIN COATED 81 MG TABLET.EC PO SCH (10:29)
[2021-02-04] MEDS: PRENATAL VITAMINS W/ FOLIC ACID TABLET (FP) PO SCH (10:29)
[2021-02-04] MEDS ORDERED: methaDONE HCL 10 MG TABLET (FOR DETOX USE ONLY) ONE (11:27)
[2021-02-04] MEDS: diazePAM 5 MG TABLET PO SCH ×3 (11:28→22:11)
[2021-02-04 13:04] LABS: HEMATOCRIT 35.7 % (35.4-49); HEMOGLOBIN 12.3 GM/dL (11.7-16.9); MCH 31.9 pg (25.7-33.7); MCHC 34.5 g/dl (32.0-35.9); MEAN CELL VOLUME 92.4 fl (80-96); MEAN PLT VOLUME 8.1 fl (7.5-11.1); PLATELET COUNT 161 10^3/uL (134-434); RBC 3.86 M/mm3 (4.00-5.60); RDW 13.9 % (11.9-15.9); WHITE BLOOD COUNT 5.8 K/mm3 (4.0-10.0)
[2021-02-04 13:11] LABS: ALBUMIN 3.1 g/dl (3.4-5.0); BLOOD UREA NITROGEN 14.6 mg/dL (7-18); CALCIUM 8.2 mg/dL (8.5-10.1)
[2021-02-04 13:16] LABS: BILIRUBIN,TOTAL 0.3 mg/dL (0.2-1)
[2021-02-04] MEDS: GABAPENTIN 300 MG CAPSULE PO SCH ×2 (14:05→22:09)
[2021-02-04] MEDS: METHOCARBAMOL 500 MG TABLET PO PRN (16:56)
[2021-02-04] MEDS: buPROPion HCL 100 MG TABLET PO SCH (17:56)
[2021-02-04] MEDS ORDERED: MELATONIN 5 MG TABLETS PO SCH (22:00)
[2021-02-04] MEDS: traZODone HCL 100 MG TABLET (FP) PO SCH (22:09)
[2021-02-04] MEDS: THIAMINE HCL 100 MG TABLET (FP) PO SCH (22:09)
[2021-02-05] MEDS: diazePAM 5 MG TABLET PO SCH ×3 (06:12→21:58)
[2021-02-05] MEDS: buPROPion HCL 100 MG TABLET PO SCH ×2 (07:16→17:37)
[2021-02-05] MEDS ORDERED: methaDONE HCL 10 MG TABLET (FOR DETOX USE ONLY) PO ONE (10:00)
[2021-02-05] MEDS: PRENATAL VITAMINS W/ FOLIC ACID TABLET (FP) PO SCH (11:09)
[2021-02-05] MEDS: METHOCARBAMOL 500 MG TABLET PO PRN ×2 (11:10→17:37)
[2021-02-05] MEDS: cloNIDine HCL 0.1 MG TABLET PO SCH ×2 (11:10→21:58)
[2021-02-05] MEDS: CLOPIDOGREL BISULFATE 75 MG TABLET (FP) PO SCH (11:10)
[2021-02-05] MEDS: ASPIRIN COATED 81 MG TABLET.EC PO SCH (11:13)
[2021-02-05] MEDS: THIAMINE HCL 100 MG TABLET (FP) PO SCH (21:58)
[2021-02-05] MEDS: traZODone HCL 100 MG TABLET (FP) PO SCH (21:58)
[2021-02-06] MEDS ORDERED: diazePAM 5 MG TABLET PO SCH (06:00)
[2021-02-06] MEDS: buPROPion HCL 100 MG TABLET PO SCH (07:29)
[2021-02-06] MEDS ORDERED: methaDONE HCL 10 MG TABLET (FOR DETOX USE ONLY) ONE (09:29)
[2021-02-06] MEDS ORDERED: methaDONE HCL 10 MG TABLET PO ONE (10:00)
[2021-02-06] MEDS: ASPIRIN COATED 81 MG TABLET.EC PO SCH (10:40)
[2021-02-06] MEDS: METHOCARBAMOL 500 MG TABLET PO PRN (10:40)
[2021-02-06] MEDS: cloNIDine HCL 0.1 MG TABLET PO SCH (10:40)
[2021-02-06] MEDS: PRENATAL VITAMINS W/ FOLIC ACID TABLET (FP) PO SCH (10:41)
[2021-02-06] MEDS: CLOPIDOGREL BISULFATE 75 MG TABLET (FP) PO SCH (10:41)
[2021-02-06 13:42] VITALS: BP 139/75; PULSE 92; TEMP 97.3
[2021-02-06] MEDS ORDERED: methaDONE HCL 10 MG TABLET (FOR DETOX USE ONLY) PO ONE (23:00)
[2021-02-07] MEDS ORDERED: diazePAM 5 MG TABLET PO ONE (06:00)
[2021-02-07] MEDS ORDERED: methaDONE HCL 10 MG TABLET (FOR DETOX USE ONLY) PO ONE (10:00)
== END 2021-02-06 16:04 | disposition left against medical advice (07) | DRG 770 ==
LOC: YASAS 00:02 → UNDOADMIN 01:30 → Y6N 01:30
PROVIDERS: ADMIT Allergy & Immunology; ATTEND Allergy & Immunology
PROC: HZ2ZZZZ Detoxification Services for Substance Abuse Treatment (ICD-10-PCS; principal; 2021-02-04)
DX: F11.23 Opioid dependence with withdrawal (principal); F13.230 Sedative, hypnotic or anxiolytic dependence with withdrawal, uncomplicated; F14.20 Cocaine dependence, uncomplicated; F12.20 Cannabis dependence, uncomplicated; F17.210 Nicotine dependence, cigarettes, uncomplicated; F19.24 Other psychoactive substance dependence with psychoactive substance-induced mood disorder; F32.9 Major depressive disorder, single episode, unspecified; E78.5 Hyperlipidemia, unspecified; I25.10 Atherosclerotic heart disease of native coronary artery without angina pectoris; I10 Essential (primary) hypertension; Z98.61 Coronary angioplasty status; Z56.0 Unemployment, unspecified; Z88.8 Allergy status to other drugs, medicaments and biological substances; Z91.018 Allergy to other foods
CPT/HCPCS: 36415; 80053; 85027; 86780; 93005; 93010; C9803; J0735; U0003; U0005

== ENCOUNTER 2021-03-10 13:49 | Inpatient (IN) | payer OTHER ==
[2021-03-10 15:00] VITALS: BMI 35.3
[2021-03-10] MEDS ORDERED: ONDANSETRON *ODT* 4 MG TABLET SL PRN (16:52)
[2021-03-10] MEDS ORDERED: MENTHOL/PHENOL 1 EACH UD MM PRN (16:52)
[2021-03-10] MEDS ORDERED: IBUPROFEN 400 MG TABLET (FP) PO PRN (16:52)
[2021-03-10] MEDS ORDERED: BISMUTH SUBSALICYLATE 524 MG/30 ML PO PRN (16:52)
[2021-03-10] MEDS ORDERED: MAG HYDROX/AL HYDROX/SIMETH 30 ML UNIT-DOSE CUP PO PRN (16:52)
[2021-03-10] MEDS ORDERED: ACETAMINOPHEN 325 MG TABLET (FP) PO PRN (16:52)
[2021-03-10] MEDS ORDERED: NICOTINE 10 MG CARTRIDGE (INHALER) IH PRN (16:52)
[2021-03-10] MEDS ORDERED: MAGNESIUM CITRATE 300 ML BOTTLE PO PRN (16:52)
[2021-03-10] MEDS: ASPIRIN COATED 81 MG TABLET.EC PO SCH (17:55)
[2021-03-10] MEDS: CLOPIDOGREL BISULFATE 75 MG TABLET (FP) PO SCH (17:55)
[2021-03-10] MEDS: METHOCARBAMOL 500 MG TABLET PO PRN (17:55)
[2021-03-10] MEDS: hydrOXYzine PAMOATE 25 MG CAPSULE (FP) PO SCH ×2 (17:55→22:16)
[2021-03-10] MEDS: metoPROLOL SUCCINATE 25 MG TAB.SR.24H (FP) PO SCH (18:23)
[2021-03-10] MEDS ORDERED: LISINOPRIL 5 MG TABLET PO ONE (20:31)
[2021-03-10] MEDS ORDERED: amLODIPine BESYLATE 5 MG TABLET (FP) PO ONE (20:31)
[2021-03-10] MEDS: ATORVASTATIN CA 80 MG TABLET (FP) PO SCH (22:16)
[2021-03-10] MEDS: THIAMINE HCL 100 MG TABLET (FP) PO SCH (22:16)
[2021-03-10] MEDS: MELATONIN 5 MG TABLETS PO SCH (22:16)
[2021-03-11] MEDS: hydrOXYzine PAMOATE 25 MG CAPSULE (FP) PO SCH (05:34)
[2021-03-11] MEDS: METHOCARBAMOL 500 MG TABLET PO PRN ×3 (08:43→19:31)
[2021-03-11] MEDS ORDERED: cloNIDine HCL 0.1 MG TABLET PO PRN (09:01)
[2021-03-11] MEDS ORDERED: diazePAM 5 MG TABLET PO ONE (09:30)
[2021-03-11] MEDS ORDERED: methaDONE HCL 10 MG TABLET (FOR DETOX USE ONLY) PO ONE (09:30)
[2021-03-11] MEDS: PRENATAL VITAMINS W/ FOLIC ACID TABLET (FP) PO SCH (10:15)
[2021-03-11] MEDS: LISINOPRIL 5 MG TABLET PO SCH (10:15)
[2021-03-11] MEDS: amLODIPine BESYLATE 5 MG TABLET (FP) PO SCH (10:15)
[2021-03-11] MEDS: ASPIRIN COATED 81 MG TABLET.EC PO SCH (10:15)
[2021-03-11] MEDS: CLOPIDOGREL BISULFATE 75 MG TABLET (FP) PO SCH (10:15)
[2021-03-11] MEDS: NICOTINE 14 MG/24 HOURS TOPICAL PATCH TD SCH (10:15)
[2021-03-11] MEDS: metoPROLOL SUCCINATE 25 MG TAB.SR.24H (FP) PO SCH (10:15)
[2021-03-11 12:20] LABS: HEMATOCRIT 40.5 % (35.4-49); HEMOGLOBIN 13.9 GM/dL (11.7-16.9); MCH 31.5 pg (25.7-33.7); MCHC 34.4 g/dl (32.0-35.9); MEAN CELL VOLUME 91.8 fl (80-96); MEAN PLT VOLUME 8.1 fl (7.5-11.1); PLATELET COUNT 193 10^3/uL (134-434); RBC 4.42 M/mm3 (4.00-5.60); RDW 13.2 % (11.9-15.9); WHITE BLOOD COUNT 6.6 K/mm3 (4.0-10.0)
[2021-03-11 12:34] LABS: CALCIUM 8.4 mg/dL (8.5-10.1)
[2021-03-11 12:35] LABS: ALBUMIN 3.5 g/dl (3.4-5.0); BLOOD UREA NITROGEN 14.1 mg/dL (7-18)
[2021-03-11 12:40] LABS: TOT PROT 6.5 g/dl (6.4-8.2)
[2021-03-11 12:45] LABS: CREATININE 0.8 mg/dL (0.55-1.3)
[2021-03-11 12:47] LABS: BILIRUBIN,TOTAL 0.4 mg/dL (0.2-1)
[2021-03-11] MEDS: ACETAMINOPHEN 325 MG TABLET (FP) PO PRN (13:43)
[2021-03-11] MEDS: diazePAM 5 MG TABLET PO SCH ×2 (17:46→22:21)
[2021-03-11] MEDS ORDERED: IBUPROFEN 600 MG TABLET (FP) PO ONE (22:07)
[2021-03-11] MEDS: THIAMINE HCL 100 MG TABLET (FP) PO SCH (22:19)
[2021-03-11] MEDS: MELATONIN 5 MG TABLETS PO SCH (22:19)
[2021-03-11] MEDS: ATORVASTATIN CA 80 MG TABLET (FP) PO SCH (22:20)
[2021-03-12] MEDS: METHOCARBAMOL 500 MG TABLET PO PRN ×2 (02:41→11:45)
[2021-03-12] MEDS: ACETAMINOPHEN 325 MG TABLET (FP) PO PRN (02:41)
[2021-03-12] MEDS: diazePAM 5 MG TABLET PO PRN (02:49)
[2021-03-12] MEDS: diazePAM 5 MG TABLET PO SCH ×4 (05:33→22:19)
[2021-03-12] MEDS ORDERED: methaDONE HCL 10 MG TABLET (FOR DETOX USE ONLY) ONE (11:41)
[2021-03-12] MEDS: LISINOPRIL 5 MG TABLET PO SCH (11:45)
[2021-03-12] MEDS: ASPIRIN COATED 81 MG TABLET.EC PO SCH (11:45)
[2021-03-12] MEDS: amLODIPine BESYLATE 5 MG TABLET (FP) PO SCH (11:45)
[2021-03-12] MEDS: CLOPIDOGREL BISULFATE 75 MG TABLET (FP) PO SCH (11:45)
[2021-03-12] MEDS: metoPROLOL SUCCINATE 25 MG TAB.SR.24H (FP) PO SCH (11:48)
[2021-03-12] MEDS: PRENATAL VITAMINS W/ FOLIC ACID TABLET (FP) PO SCH (11:48)
[2021-03-12] MEDS: NICOTINE 14 MG/24 HOURS TOPICAL PATCH TD SCH (11:49)
[2021-03-12] MEDS: cloNIDine HCL 0.1 MG TABLET PO SCH ×2 (12:48→22:19)
[2021-03-12] MEDS ORDERED: GABAPENTIN 300 MG CAPSULE PO SCH (14:15)
[2021-03-12] MEDS: THIAMINE HCL 100 MG TABLET (FP) PO SCH (22:19)
[2021-03-12] MEDS: GABAPENTIN 300 MG CAPSULE PO SCH (22:19)
[2021-03-12] MEDS: traZODone HCL 100 MG TABLET (FP) PO SCH (22:20)
[2021-03-12] MEDS: MAGNESIUM HYDROX 2400MG/30ML ORAL SUSPENSION 30 ML CUP PO PRN (22:20)
[2021-03-12] MEDS: MELATONIN 5 MG TABLETS PO SCH (22:22)
[2021-03-13] MEDS: diazePAM 5 MG TABLET PO SCH ×3 (05:28→22:33)
[2021-03-13] MEDS: GABAPENTIN 300 MG CAPSULE PO SCH ×3 (05:28→22:32)
[2021-03-13] MEDS ORDERED: methaDONE HCL 10 MG TABLET (FOR DETOX USE ONLY) PO ONE (10:00)
[2021-03-13] MEDS: ASPIRIN COATED 81 MG TABLET.EC PO SCH (10:09)
[2021-03-13] MEDS: CLOPIDOGREL BISULFATE 75 MG TABLET (FP) PO SCH (10:09)
[2021-03-13] MEDS: LISINOPRIL 5 MG TABLET PO SCH (10:09)
[2021-03-13] MEDS: cloNIDine HCL 0.1 MG TABLET PO SCH ×2 (10:10→22:33)
[2021-03-13] MEDS: NICOTINE 14 MG/24 HOURS TOPICAL PATCH TD SCH (10:11)
[2021-03-13] MEDS: PRENATAL VITAMINS W/ FOLIC ACID TABLET (FP) PO SCH (10:11)
[2021-03-13] MEDS: diazePAM 5 MG TABLET PO PRN (10:12)
[2021-03-13] MEDS: MAGNESIUM HYDROX 2400MG/30ML ORAL SUSPENSION 30 ML CUP PO PRN (10:22)
[2021-03-13] MEDS: METHOCARBAMOL 500 MG TABLET PO PRN (17:34)
[2021-03-13] MEDS: ATORVASTATIN CA 80 MG TABLET (FP) PO SCH (22:32)
[2021-03-13] MEDS: DOCUSATE SODIUM 100 MG CAPSULE (FP) PO SCH (22:33)
[2021-03-13] MEDS: THIAMINE HCL 100 MG TABLET (FP) PO SCH (22:33)
[2021-03-13] MEDS: traZODone HCL 100 MG TABLET (FP) PO SCH (22:33)
[2021-03-13] MEDS: MELATONIN 5 MG TABLETS PO SCH (22:39)
[2021-03-14] MEDS: diazePAM 5 MG TABLET PO SCH ×2 (05:43→17:05)
[2021-03-14] MEDS: GABAPENTIN 300 MG CAPSULE PO SCH ×3 (05:43→22:22)
[2021-03-14] MEDS: METHOCARBAMOL 500 MG TABLET PO PRN ×2 (05:47→21:03)
[2021-03-14] MEDS ORDERED: methaDONE HCL 10 MG TABLET (FOR DETOX USE ONLY) ONE (09:21)
[2021-03-14] MEDS: PRENATAL VITAMINS W/ FOLIC ACID TABLET (FP) PO SCH (10:13)
[2021-03-14] MEDS: DOCUSATE SODIUM 100 MG CAPSULE (FP) PO SCH ×2 (10:14→22:22)
[2021-03-14] MEDS: LISINOPRIL 5 MG TABLET PO SCH (10:14)
[2021-03-14] MEDS: cloNIDine HCL 0.1 MG TABLET PO SCH ×2 (10:14→22:22)
[2021-03-14] MEDS: CLOPIDOGREL BISULFATE 75 MG TABLET (FP) PO SCH (10:14)
[2021-03-14] MEDS: ASPIRIN COATED 81 MG TABLET.EC PO SCH (10:14)
[2021-03-14] MEDS: NICOTINE 14 MG/24 HOURS TOPICAL PATCH TD SCH (10:15)
[2021-03-14] MEDS: MAGNESIUM HYDROX 2400MG/30ML ORAL SUSPENSION 30 ML CUP PO PRN (10:15)
[2021-03-14] MEDS: THIAMINE HCL 100 MG TABLET (FP) PO SCH (22:22)
[2021-03-14] MEDS: MELATONIN 5 MG TABLETS PO SCH (22:22)
[2021-03-14] MEDS: traZODone HCL 100 MG TABLET (FP) PO SCH (22:22)
[2021-03-14] MEDS: ATORVASTATIN CA 80 MG TABLET (FP) PO SCH (22:22)
[2021-03-15] MEDS ORDERED: diazePAM 5 MG TABLET PO ONE (06:00)
[2021-03-15] MEDS: GABAPENTIN 300 MG CAPSULE PO SCH (06:18)
[2021-03-15 06:57] VITALS: PULSE 95
[2021-03-15 09:37] VITALS: BP 120/72; TEMP 97.8
[2021-03-15] MEDS ORDERED: methaDONE HCL 10 MG TABLET (FOR DETOX USE ONLY) PO ONE (10:00)
[2021-03-15] MEDS: cloNIDine HCL 0.1 MG TABLET PO SCH (10:21)
[2021-03-15] MEDS: DOCUSATE SODIUM 100 MG CAPSULE (FP) PO SCH (10:21)
[2021-03-15] MEDS: LISINOPRIL 5 MG TABLET PO SCH (10:21)
[2021-03-15] MEDS: CLOPIDOGREL BISULFATE 75 MG TABLET (FP) PO SCH (10:21)
[2021-03-15] MEDS: PRENATAL VITAMINS W/ FOLIC ACID TABLET (FP) PO SCH (10:21)
[2021-03-15] MEDS: NICOTINE 14 MG/24 HOURS TOPICAL PATCH TD SCH (10:23)
[2021-03-15] MEDS: ASPIRIN COATED 81 MG TABLET.EC PO SCH (10:23)
== END 2021-03-15 12:03 | disposition home or self-care (01) | DRG 773 ==
LOC: YASAS 13:49 → Y6N 17:20
PROVIDERS: ADMIT Allergy & Immunology; ATTEND Allergy & Immunology
PROC: HZ2ZZZZ Detoxification Services for Substance Abuse Treatment (ICD-10-PCS; principal; 2021-03-10)
DX: F11.23 Opioid dependence with withdrawal (principal); F13.230 Sedative, hypnotic or anxiolytic dependence with withdrawal, uncomplicated; F13.220 Sedative, hypnotic or anxiolytic dependence with intoxication, uncomplicated; F12.20 Cannabis dependence, uncomplicated; F41.9 Anxiety disorder, unspecified; F32.9 Major depressive disorder, single episode, unspecified; I10 Essential (primary) hypertension; I25.10 Atherosclerotic heart disease of native coronary artery without angina pectoris; I25.2 Old myocardial infarction; E78.5 Hyperlipidemia, unspecified; G25.81 Restless legs syndrome; R74.01 Elevation of levels of liver transaminase levels; R07.9 Chest pain, unspecified; M54.9 Dorsalgia, unspecified; E66.9 Obesity, unspecified; Z68.35 Body mass index [BMI] 35.0-35.9, adult; Z88.8 Allergy status to other drugs, medicaments and biological substances; Z91.018 Allergy to other foods; Z91.81 History of falling; Z95.5 Presence of coronary angioplasty implant and graft; Z91.14 Patient's other noncompliance with medication regimen
CPT/HCPCS: 36415; 80053; 82550; 82553; 83036; 84450; 84484; 85027; 86780; 93005; 93010; C9803; J0735; Q0162; U0003; U0005

== ENCOUNTER 2021-03-12 07:21 | Emergency (ER) | payer OTHER ==
[2021-03-12 07:36] VITALS: TEMP 97.8; BMI 35.3
[2021-03-12] MEDS ORDERED: ACETAMINOPHEN 1000 MG/100 ML VIAL IVPB ONE (08:04)
[2021-03-12] MEDS ORDERED: LORazepam 2 MG TABLET PO ONE (08:04)
[2021-03-12] MEDS ORDERED: LORazepam 1 MG TABLET ONE (08:07)
[2021-03-12 08:33] LABS: BASO % 0.6 % (0-2.0); EOS % 3.9 % (0-4.5); HEMATOCRIT 42.3 % (35.4-49); HEMOGLOBIN 14.4 GM/dL (11.7-16.9); LYMPH % 41.4 % (8-40); MCH 31.2 pg (25.7-33.7); MEAN CELL VOLUME 91.9 fl (80-96); MEAN PLT VOLUME 7.7 fl (7.5-11.1); MONO % 10.9 % (3.8-10.2); NEUT % 43.2 % (42.8-82.8); PLATELET COUNT 193 10^3/uL (134-434); RBC 4.61 M/mm3 (4.00-5.60); RDW 13.5 % (11.9-15.9); WHITE BLOOD COUNT 5.5 K/mm3 (4.0-10.0)
[2021-03-12] MEDS ORDERED: ACETAMINOPHEN INJECTION 100 ML IVPB ONE (08:33)
[2021-03-12 08:55] LABS: CHLORIDE 106 mmol/L (98-107); SODIUM 143 mmol/L (136-145)
[2021-03-12 08:56] LABS: ALBUMIN 3.4 g/dl (3.4-5.0); ANION GAP 7 MMOL/L (8-16); BLOOD UREA NITROGEN 11.3 mg/dL (7-18); CALCIUM 8.6 mg/dL (8.5-10.1); CO2 30 mmol/L (21-32); GLUCOSE,RANDOM 100 mg/dL (74-106); MAGNESIUM 2.2 mg/dL (1.8-2.4)
[2021-03-12 08:59] LABS: CREATININE 0.8 mg/dL (0.55-1.3); SGOT/AST 130 U/L (15-37); SGPT/ALT 67 U/L (13-61)
[2021-03-12 09:01] LABS: BILIRUBIN,TOTAL 0.4 mg/dL (0.2-1); TOT PROT 6.9 g/dl (6.4-8.2)
[2021-03-12 09:02] LABS: ALK PHOS 68 U/L (45-117)
[2021-03-12 11:23] VITALS: BP 145/87; PULSE 83
== END 2021-03-12 11:15 ==
LOC: JER 07:21
DX: F11.23 Opioid dependence with withdrawal (principal)
CPT/HCPCS: 36415; 71046-TC-FY; 80053; 82550; 82553; 83735; 84484; 85025; 93005; 93010; 99284-25; J0131

== ENCOUNTER 2021-04-23 15:44 | Emergency (ER) | payer OTHER ==
[2021-04-23 15:58] VITALS: TEMP 98.9; BMI 35.9
[2021-04-23] MEDS ORDERED: LORazepam 2 MG/ML SDV VIAL IVPUSH ONE (17:01)
[2021-04-23 17:36] LABS: BASO % 0.5 % (0-2.0); EOS % 1.4 % (0-4.5); HEMATOCRIT 42.5 % (35.4-49); LYMPH % 27.8 % (8-40); MCH 30.5 pg (25.7-33.7); MCHC 33.1 g/dl (32.0-35.9); MEAN CELL VOLUME 92.4 fl (80-96); MEAN PLT VOLUME 7.8 fl (7.5-11.1); MONO % 8.3 % (3.8-10.2); PLATELET COUNT 217 10^3/uL (134-434); RDW 13.6 % (11.9-15.9); WHITE BLOOD COUNT 7.8 K/mm3 (4.0-10.0)
[2021-04-23 17:45] LABS: INR 1.03 (0.83-1.09); PROTHROMBIN TIME (PATIENT) 11.9 SEC (9.7-13.0)
[2021-04-23 17:48] LABS: ACTIVATED PTT 27.6 SECONDS (25.2-36.5)
[2021-04-23] MEDS ORDERED: ALBUTEROL SO4 2.5/IPRATROPIUM 0.5 INH SOL 3 ML VIAL.NEB. NEB ONE ×2 (17:48→18:24)
[2021-04-23 18:01] LABS: CALCIUM 8.8 mg/dL (8.5-10.1)
[2021-04-23 18:02] LABS: ALBUMIN 3.9 g/dl (3.4-5.0)
[2021-04-23 18:05] LABS: CREATININE 0.7 mg/dL (0.55-1.3)
[2021-04-23 18:07] LABS: BILIRUBIN,TOTAL 0.6 mg/dL (0.2-1)
[2021-04-23] MEDS ORDERED: cloNIDine HCL 0.1 MG TABLET PO ONE (19:33)
[2021-04-23 19:36] VITALS: BP 142/83; PULSE 102
== END 2021-04-23 20:10 | disposition left against medical advice (07) ==
LOC: JER 15:44
PROC: 3E0F7GC Introduction of Other Therapeutic Substance into Respiratory Tract, Via Natural or Artificial Opening (ICD-10-PCS; principal; 2021-04-23)
DX: F10.10 Alcohol abuse, uncomplicated (principal); R07.9 Chest pain, unspecified
CPT/HCPCS: 36415; 71045-TC-FY; 80053; 82550; 82553; 84484; 85025; 85610; 85730; 86850; 86900; 86901; 87804; 93005; 93010; 99285-25; C9803; U0003; U0005

== ENCOUNTER 2021-06-10 13:26 | Inpatient (IN) | payer OTHER ==
[2021-06-10] MEDS ORDERED: diazePAM 5 MG TABLET PO PRN (14:48)
[2021-06-10] MEDS ORDERED: BISMUTH SUBSALICYLATE 524 MG/30 ML PO PRN (14:48)
[2021-06-10] MEDS ORDERED: MENTHOL/PHENOL 1 EACH UD MM PRN (14:48)
[2021-06-10] MEDS ORDERED: ACETAMINOPHEN 325 MG TABLET (FP) PO PRN ×2 (14:48)
[2021-06-10] MEDS ORDERED: LOPERAMIDE HCL 2 MG CAPSULE PO PRN (14:48)
[2021-06-10] MEDS ORDERED: MAG HYDROX/AL HYDROX/SIMETH 30 ML UNIT-DOSE CUP PO PRN (14:48)
[2021-06-10] MEDS ORDERED: MAGNESIUM CITRATE 300 ML BOTTLE PO PRN (14:48)
[2021-06-10] MEDS ORDERED: methaDONE HCL 10 MG TABLET (FOR DETOX USE ONLY) PO ONE ×2 (14:48→19:15)
[2021-06-10] MEDS ORDERED: cloNIDine HCL 0.1 MG TABLET PO PRN (14:48)
[2021-06-10] MEDS ORDERED: MAGNESIUM HYDROX 2400MG/30ML ORAL SUSPENSION 30 ML CUP PO PRN (14:48)
[2021-06-10] MEDS ORDERED: IBUPROFEN 400 MG TABLET (FP) PO PRN (14:48)
[2021-06-10] MEDS ORDERED: ONDANSETRON *ODT* 4 MG TABLET SL PRN (14:48)
[2021-06-10] MEDS ORDERED: NALOXONE (NARCAN) HCL 4 MG/0.1 ML SPRAY NS PRN (15:02)
[2021-06-10 15:36] VITALS: BMI 35.4
[2021-06-10] MEDS: diazePAM 5 MG TABLET PO SCH ×2 (19:35→22:26)
[2021-06-10] MEDS: hydrOXYzine PAMOATE 25 MG CAPSULE (FP) PO SCH ×2 (19:38→22:26)
[2021-06-10] MEDS: GABAPENTIN 300 MG CAPSULE PO SCH ×2 (19:40→22:25)
[2021-06-10] MEDS ORDERED: MELATONIN 5 MG TABLETS PO SCH (22:00)
[2021-06-10] MEDS: cloNIDine HCL 0.1 MG TABLET PO SCH (22:26)
[2021-06-10] MEDS: ATORVASTATIN CA 80 MG TABLET (FP) PO SCH (22:26)
[2021-06-10] MEDS: THIAMINE HCL 100 MG TABLET (FP) PO SCH (22:28)
[2021-06-11] MEDS: hydrOXYzine PAMOATE 25 MG CAPSULE (FP) PO SCH ×5 (06:02→22:36)
[2021-06-11] MEDS: GABAPENTIN 300 MG CAPSULE PO SCH ×3 (06:02→22:35)
[2021-06-11] MEDS: diazePAM 5 MG TABLET PO SCH ×4 (06:03→22:36)
[2021-06-11] MEDS ORDERED: methaDONE HCL 10 MG TABLET (FOR DETOX USE ONLY) ONE (09:24)
[2021-06-11] MEDS: METHOCARBAMOL 500 MG TABLET PO PRN (10:48)
[2021-06-11] MEDS: PRENATAL VITAMINS W/ FOLIC ACID TABLET (FP) PO SCH (10:48)
[2021-06-11] MEDS: cloNIDine HCL 0.1 MG TABLET PO SCH ×2 (10:48→22:35)
[2021-06-11] MEDS: CLOPIDOGREL BISULFATE 75 MG TABLET (FP) PO SCH (10:48)
[2021-06-11 11:17] LABS: HEMOGLOBIN 13.5 GM/dL (11.7-16.9); MCH 30.7 pg (25.7-33.7); MCHC 33.7 g/dl (32.0-35.9); MEAN CELL VOLUME 91.3 fl (80-96); MEAN PLT VOLUME 8.6 fl (7.5-11.1); PLATELET COUNT 213 10^3/uL (134-434); RBC 4.39 M/mm3 (4.00-5.60); RDW 13.5 % (11.9-15.9); WHITE BLOOD COUNT 4.7 K/mm3 (4.0-10.0)
[2021-06-11 11:40] LABS: ALBUMIN 3.4 g/dl (3.4-5.0); BLOOD UREA NITROGEN 14.8 mg/dL (7-18); CALCIUM 8.5 mg/dL (8.5-10.1)
[2021-06-11 11:44] LABS: CREATININE 0.9 mg/dL (0.55-1.3)
[2021-06-11 11:45] LABS: BILIRUBIN,TOTAL 0.6 mg/dL (0.2-1); TOT PROT 6.5 g/dl (6.4-8.2)
[2021-06-11] MEDS: THIAMINE HCL 100 MG TABLET (FP) PO SCH (22:35)
[2021-06-11] MEDS: ATORVASTATIN CA 80 MG TABLET (FP) PO SCH (22:35)
[2021-06-11] MEDS: traZODone HCL 100 MG TABLET (FP) PO SCH (22:35)
[2021-06-12] MEDS: hydrOXYzine PAMOATE 25 MG CAPSULE (FP) PO SCH ×5 (06:15→22:14)
[2021-06-12] MEDS: GABAPENTIN 300 MG CAPSULE PO SCH ×3 (06:15→22:14)
[2021-06-12] MEDS: diazePAM 5 MG TABLET PO SCH ×3 (06:16→22:15)
[2021-06-12] MEDS ORDERED: methaDONE HCL 10 MG TABLET (FOR DETOX USE ONLY) PO ONE (10:00)
[2021-06-12] MEDS: cloNIDine HCL 0.1 MG TABLET PO SCH ×2 (10:56→22:15)
[2021-06-12] MEDS: CLOPIDOGREL BISULFATE 75 MG TABLET (FP) PO SCH (10:57)
[2021-06-12] MEDS: PRENATAL VITAMINS W/ FOLIC ACID TABLET (FP) PO SCH (10:57)
[2021-06-12 14:08] LABS: SARS-CoV-2 NAA Not Detected (Not Detected)
[2021-06-12] MEDS: traZODone HCL 100 MG TABLET (FP) PO SCH (22:14)
[2021-06-12] MEDS: THIAMINE HCL 100 MG TABLET (FP) PO SCH (22:14)
[2021-06-12] MEDS: ATORVASTATIN CA 80 MG TABLET (FP) PO SCH (22:14)
[2021-06-13] MEDS: diazePAM 5 MG TABLET PO SCH ×2 (06:07→17:24)
[2021-06-13] MEDS: GABAPENTIN 300 MG CAPSULE PO SCH ×3 (06:07→22:16)
[2021-06-13] MEDS: hydrOXYzine PAMOATE 25 MG CAPSULE (FP) PO SCH ×5 (06:07→22:16)
[2021-06-13] MEDS ORDERED: methaDONE HCL 10 MG TABLET (FOR DETOX USE ONLY) ONE (09:29)
[2021-06-13] MEDS: PRENATAL VITAMINS W/ FOLIC ACID TABLET (FP) PO SCH (10:18)
[2021-06-13] MEDS: METHOCARBAMOL 500 MG TABLET PO PRN (10:19)
[2021-06-13] MEDS: CLOPIDOGREL BISULFATE 75 MG TABLET (FP) PO SCH (10:19)
[2021-06-13] MEDS: cloNIDine HCL 0.1 MG TABLET PO SCH ×2 (10:20→22:16)
[2021-06-13] MEDS: NICOTINE 10 MG CARTRIDGE (INHALER) IH PRN (13:22)
[2021-06-13] MEDS: traZODone HCL 100 MG TABLET (FP) PO SCH (22:16)
[2021-06-13] MEDS: THIAMINE HCL 100 MG TABLET (FP) PO SCH (22:16)
[2021-06-13] MEDS: ATORVASTATIN CA 80 MG TABLET (FP) PO SCH (22:16)
[2021-06-14] MEDS ORDERED: diazePAM 5 MG TABLET PO ONE (06:00)
[2021-06-14] MEDS: GABAPENTIN 300 MG CAPSULE PO SCH (06:38)
[2021-06-14] MEDS: hydrOXYzine PAMOATE 25 MG CAPSULE (FP) PO SCH ×2 (06:38→10:10)
[2021-06-14] MEDS: NICOTINE 10 MG CARTRIDGE (INHALER) IH PRN (06:41)
[2021-06-14] MEDS ORDERED: methaDONE HCL 10 MG TABLET (FOR DETOX USE ONLY) PO ONE (10:00)
[2021-06-14] MEDS: cloNIDine HCL 0.1 MG TABLET PO SCH (10:07)
[2021-06-14] MEDS: PRENATAL VITAMINS W/ FOLIC ACID TABLET (FP) PO SCH (10:07)
[2021-06-14] MEDS: METHOCARBAMOL 500 MG TABLET PO PRN (10:08)
[2021-06-14] MEDS: CLOPIDOGREL BISULFATE 75 MG TABLET (FP) PO SCH (10:08)
[2021-06-14 11:38] VITALS: BP 123/68; PULSE 91; TEMP 97.8
== END 2021-06-14 10:48 | disposition home or self-care (01) | DRG 773 ==
LOC: YASAS 13:26 → Y6N 17:37
PROVIDERS: ADMIT Allergy & Immunology; ATTEND Allergy & Immunology
PROC: HZ2ZZZZ Detoxification Services for Substance Abuse Treatment (ICD-10-PCS; principal; 2021-06-10)
DX: F11.23 Opioid dependence with withdrawal (principal); F10.230 Alcohol dependence with withdrawal, uncomplicated; F13.230 Sedative, hypnotic or anxiolytic dependence with withdrawal, uncomplicated; F12.20 Cannabis dependence, uncomplicated; F17.210 Nicotine dependence, cigarettes, uncomplicated; F32.9 Major depressive disorder, single episode, unspecified; F90.9 Attention-deficit hyperactivity disorder, unspecified type; E78.5 Hyperlipidemia, unspecified; I25.10 Atherosclerotic heart disease of native coronary artery without angina pectoris; I11.0 Hypertensive heart disease with heart failure; I50.9 Heart failure, unspecified; I25.2 Old myocardial infarction; Z95.5 Presence of coronary angioplasty implant and graft; Z86.718 Personal history of other venous thrombosis and embolism; Z79.02 Long term (current) use of antithrombotics/antiplatelets; Z91.018 Allergy to other foods; Z88.8 Allergy status to other drugs, medicaments and biological substances
CPT/HCPCS: 36415; 80053; 85027; 86780; C9803; J0735; Q0162; U0003; U0005

== ENCOUNTER 2021-08-18 16:13 | Inpatient (IN) | payer OTHER ==
[2021-08-18 16:48] VITALS: BMI 33.9
[2021-08-18] MEDS ORDERED: BENZOCAINE/MENTHOL (CHLORASEPTIC ) LOZENGE MM PRN (18:25)
[2021-08-18] MEDS ORDERED: NICOTINE 10 MG CARTRIDGE (INHALER) IH PRN (18:25)
[2021-08-18] MEDS ORDERED: LOPERAMIDE HCL 2 MG CAPSULE PO PRN (18:25)
[2021-08-18] MEDS ORDERED: MAG HYDROX/AL HYDROX/SIMETH 30 ML UNIT-DOSE CUP PO PRN (18:25)
[2021-08-18] MEDS ORDERED: MAGNESIUM HYDROX 2400MG/30ML ORAL SUSPENSION 30 ML CUP PO PRN (18:25)
[2021-08-18] MEDS ORDERED: ACETAMINOPHEN 325 MG TABLET (FP) PO PRN ×2 (18:25)
[2021-08-18] MEDS ORDERED: P-EPHED 60MG/TRIPROLIDI 2.5MG TABLET PO PRN (18:25)
[2021-08-18] MEDS ORDERED: DICYCLOMINE HCL 10 MG CAPSULE PO PRN (18:25)
[2021-08-18] MEDS ORDERED: MAGNESIUM CITRATE 300 ML BOTTLE PO PRN (18:25)
[2021-08-18] MEDS: diazePAM 5 MG TABLET PO PRN (23:18)
[2021-08-18] MEDS: METHOCARBAMOL 500 MG TABLET PO PRN (23:18)
[2021-08-18] MEDS: MELATONIN 5 MG TABLETS PO PRN (23:18)
[2021-08-18] MEDS: hydrOXYzine PAMOATE 25 MG CAPSULE (FP) PO PRN (23:18)
[2021-08-18] MEDS: ASPIRIN 81 MG CHEWABLE TABLETS PO SCH (23:23)
[2021-08-18] MEDS: CLOPIDOGREL BISULFATE 75 MG TABLET (FP) PO SCH (23:24)
[2021-08-18] MEDS: THIAMINE HCL 100 MG TABLET (FP) PO SCH (23:25)
[2021-08-19] MEDS ORDERED: cloNIDine HCL 0.1 MG TABLET PO PRN (04:11)
[2021-08-19] MEDS ORDERED: methaDONE HCL 10 MG TABLET (FOR DETOX USE ONLY) PO ONE (04:11)
[2021-08-19] MEDS: METHOCARBAMOL 500 MG TABLET PO PRN ×2 (05:55→22:15)
[2021-08-19] MEDS: ONDANSETRON *ODT* 4 MG TABLET SL PRN (05:55)
[2021-08-19] MEDS: PRENATAL VITAMINS W/ FOLIC ACID TABLET (FP) PO SCH (10:44)
[2021-08-19] MEDS: CLOPIDOGREL BISULFATE 75 MG TABLET (FP) PO SCH (10:44)
[2021-08-19] MEDS: ASPIRIN 81 MG CHEWABLE TABLETS PO SCH (10:44)
[2021-08-19] MEDS: hydrOXYzine PAMOATE 25 MG CAPSULE (FP) PO PRN ×2 (10:48→18:22)
[2021-08-19 10:53] LABS: HEMATOCRIT 38.5 % (35.4-49); HEMOGLOBIN 13.3 GM/dL (11.7-16.9); MCH 30.6 pg (25.7-33.7); MCHC 34.5 g/dl (32.0-35.9); MEAN CELL VOLUME 88.7 fl (80-96); MEAN PLT VOLUME 7.5 fl (7.5-11.1); PLATELET COUNT 191 10^3/uL (134-434); RBC 4.34 M/mm3 (4.00-5.60); RDW 13.1 % (11.9-15.9); WHITE BLOOD COUNT 4.6 K/mm3 (4.0-10.0)
[2021-08-19 11:24] LABS: BLOOD UREA NITROGEN 13.4 mg/dL (7-18)
[2021-08-19 11:27] LABS: CREATININE 0.7 mg/dL (0.55-1.3)
[2021-08-19 11:28] LABS: BILIRUBIN,TOTAL 0.4 mg/dL (0.2-1); CALCIUM 8.8 mg/dL (8.5-10.1); TOT PROT 6.5 g/dl (6.4-8.2)
[2021-08-19 11:29] LABS: ALBUMIN 3.6 g/dl (3.4-5.0)
[2021-08-19] MEDS: diazePAM 5 MG TABLET PO PRN ×2 (12:48→18:21)
[2021-08-19] MEDS: traZODone HCL 100 MG TABLET (FP) PO SCH (22:10)
[2021-08-19] MEDS: THIAMINE HCL 100 MG TABLET (FP) PO SCH (22:11)
[2021-08-19] MEDS: cloNIDine HCL 0.1 MG TABLET PO SCH (22:12)
[2021-08-20] MEDS: diazePAM 5 MG TABLET PO PRN ×3 (03:38→22:25)
[2021-08-20] MEDS: ONDANSETRON *ODT* 4 MG TABLET SL PRN (08:45)
[2021-08-20] MEDS ORDERED: methaDONE HCL 10 MG TABLET (FOR DETOX USE ONLY) ONE (09:41)
[2021-08-20] MEDS: TRIMETHOBENZAMIDE HCL 200MG/2ML INJ IM PRN (09:54)
[2021-08-20] MEDS: PRENATAL VITAMINS W/ FOLIC ACID TABLET (FP) PO SCH (10:33)
[2021-08-20] MEDS: ASPIRIN 81 MG CHEWABLE TABLETS PO SCH (10:33)
[2021-08-20] MEDS: CLOPIDOGREL BISULFATE 75 MG TABLET (FP) PO SCH (10:34)
[2021-08-20] MEDS: cloNIDine HCL 0.1 MG TABLET PO SCH ×2 (10:34→22:22)
[2021-08-20] MEDS: METHOCARBAMOL 500 MG TABLET PO PRN (11:18)
[2021-08-20] MEDS: traZODone HCL 100 MG TABLET (FP) PO SCH (22:22)
[2021-08-20] MEDS: THIAMINE HCL 100 MG TABLET (FP) PO SCH (22:22)
[2021-08-20] MEDS: hydrOXYzine PAMOATE 25 MG CAPSULE (FP) PO PRN (22:25)
[2021-08-21] MEDS ORDERED: methaDONE HCL 10 MG TABLET (FOR DETOX USE ONLY) PO ONE (10:00)
[2021-08-21] MEDS: ASPIRIN 81 MG CHEWABLE TABLETS PO SCH (10:23)
[2021-08-21] MEDS: CLOPIDOGREL BISULFATE 75 MG TABLET (FP) PO SCH (10:23)
[2021-08-21] MEDS: cloNIDine HCL 0.1 MG TABLET PO SCH ×2 (10:23→22:41)
[2021-08-21] MEDS: PRENATAL VITAMINS W/ FOLIC ACID TABLET (FP) PO SCH (10:23)
[2021-08-21] MEDS: diazePAM 5 MG TABLET PO PRN (15:21)
[2021-08-21] MEDS: hydrOXYzine PAMOATE 25 MG CAPSULE (FP) PO PRN (16:57)
[2021-08-21 17:09] LABS: SARS-CoV-2 NAA Not Detected (Not Detected)
[2021-08-21] MEDS: THIAMINE HCL 100 MG TABLET (FP) PO SCH (22:41)
[2021-08-21] MEDS: traZODone HCL 100 MG TABLET (FP) PO SCH (22:41)
[2021-08-22] MEDS: TRIMETHOBENZAMIDE HCL 200MG/2ML INJ IM PRN (06:34)
[2021-08-22] MEDS ORDERED: methaDONE HCL 10 MG TABLET (FOR DETOX USE ONLY) ONE (09:34)
[2021-08-22] MEDS: PRENATAL VITAMINS W/ FOLIC ACID TABLET (FP) PO SCH (10:46)
[2021-08-22] MEDS: cloNIDine HCL 0.1 MG TABLET PO SCH ×2 (10:49→22:45)
[2021-08-22] MEDS: ASPIRIN 81 MG CHEWABLE TABLETS PO SCH (10:49)
[2021-08-22] MEDS: CLOPIDOGREL BISULFATE 75 MG TABLET (FP) PO SCH (10:49)
[2021-08-22] MEDS: hydrOXYzine PAMOATE 25 MG CAPSULE (FP) PO PRN ×2 (17:36→22:44)
[2021-08-22] MEDS: THIAMINE HCL 100 MG TABLET (FP) PO SCH (22:45)
[2021-08-22] MEDS: traZODone HCL 100 MG TABLET (FP) PO SCH (22:45)
[2021-08-22] MEDS: METHOCARBAMOL 500 MG TABLET PO PRN (23:06)
[2021-08-22] MEDS: MELATONIN 5 MG TABLETS PO PRN (23:06)
[2021-08-23 09:32] VITALS: BP 113/72; PULSE 67; TEMP 96.8
[2021-08-23] MEDS ORDERED: methaDONE HCL 10 MG TABLET (FOR DETOX USE ONLY) PO ONE (10:00)
[2021-08-23] MEDS: CLOPIDOGREL BISULFATE 75 MG TABLET (FP) PO SCH (10:10)
[2021-08-23] MEDS: cloNIDine HCL 0.1 MG TABLET PO SCH (10:10)
[2021-08-23] MEDS: PRENATAL VITAMINS W/ FOLIC ACID TABLET (FP) PO SCH (10:10)
[2021-08-23] MEDS: ASPIRIN 81 MG CHEWABLE TABLETS PO SCH (10:10)
== END 2021-08-23 13:53 | disposition home or self-care (01) | DRG 773 ==
LOC: YASAS 16:13 → Y3N 20:08 → Y6N 08-19 14:45
PROVIDERS: ADMIT Allergy & Immunology; ATTEND Surgery
PROC: HZ2ZZZZ Detoxification Services for Substance Abuse Treatment (ICD-10-PCS; principal; 2021-08-18)
DX: F11.23 Opioid dependence with withdrawal (principal); F13.20 Sedative, hypnotic or anxiolytic dependence, uncomplicated; F12.20 Cannabis dependence, uncomplicated; F17.213 Nicotine dependence, cigarettes, with withdrawal; F19.282 Other psychoactive substance dependence with psychoactive substance-induced sleep disorder; F41.8 Other specified anxiety disorders; F32.A Depression, unspecified; I25.10 Atherosclerotic heart disease of native coronary artery without angina pectoris; I11.0 Hypertensive heart disease with heart failure; I50.9 Heart failure, unspecified; I25.2 Old myocardial infarction; Z95.5 Presence of coronary angioplasty implant and graft; Z28.310 Unvaccinated for COVID-19; Z88.8 Allergy status to other drugs, medicaments and biological substances; Z91.018 Allergy to other foods; Z86.718 Personal history of other venous thrombosis and embolism; Z79.02 Long term (current) use of antithrombotics/antiplatelets
CPT/HCPCS: 36415; 80053; 85027; 86780; C9803-CS; J0735; Q0162; U0003; U0005

== ENCOUNTER 2021-10-20 13:17 | Inpatient (IN) | payer OTHER ==
[2021-10-20] MEDS ORDERED: diazePAM 5 MG TABLET PO ONE ×2 (13:53→17:23)
[2021-10-20 14:51] VITALS: BMI 32.1
[2021-10-20] MEDS ORDERED: MAG HYDROX/AL HYDROX/SIMETH 30 ML UNIT-DOSE CUP PO PRN (15:19)
[2021-10-20] MEDS ORDERED: LOPERAMIDE HCL 2 MG CAPSULE PO PRN (15:19)
[2021-10-20] MEDS ORDERED: BISMUTH SUBSALICYLATE 524 MG/30 ML PO PRN (15:19)
[2021-10-20] MEDS ORDERED: BENZOCAINE/MENTHOL (CHLORASEPTIC ) LOZENGE MM PRN (15:19)
[2021-10-20] MEDS ORDERED: IBUPROFEN 600 MG TABLET (FP) PO PRN (15:19)
[2021-10-20] MEDS ORDERED: MAGNESIUM CITRATE 300 ML BOTTLE PO PRN (15:19)
[2021-10-20] MEDS ORDERED: DICYCLOMINE HCL 10 MG CAPSULE PO PRN (15:19)
[2021-10-20] MEDS ORDERED: ACETAMINOPHEN 325 MG TABLET (FP) PO PRN ×2 (15:19)
[2021-10-20] MEDS ORDERED: IBUPROFEN 400 MG TABLET (FP) PO PRN (15:19)
[2021-10-20] MEDS ORDERED: METHOCARBAMOL 500 MG TABLET PO PRN (15:19)
[2021-10-20] MEDS ORDERED: ONDANSETRON *ODT* 4 MG TABLET SL PRN (15:19)
[2021-10-20] MEDS ORDERED: chlordiazePOXIDE HCL 25 MG CAPSULE PO PRN (15:30)
[2021-10-20] MEDS ORDERED: methaDONE HCL 10 MG TABLET (FOR DETOX USE ONLY) PO ONE (15:36)
[2021-10-20] MEDS ORDERED: chlordiazePOXIDE HCL 25 MG CAPSULE ONE (17:32)
[2021-10-20] MEDS: chlordiazePOXIDE HCL 25 MG CAPSULE PO SCH ×2 (17:39→22:12)
[2021-10-20] MEDS: NICOTINE 21 MG/24 HOURS TOPICAL PATCH TD SCH (18:36)
[2021-10-20] MEDS: hydrOXYzine PAMOATE 25 MG CAPSULE (FP) PO SCH ×2 (18:39→22:11)
[2021-10-20] MEDS: ATORVASTATIN CA 80 MG TABLET (FP) PO SCH (22:11)
[2021-10-20] MEDS: THIAMINE HCL 100 MG TABLET (FP) PO SCH (22:12)
[2021-10-20] MEDS: GABAPENTIN 300 MG CAPSULE PO SCH (22:12)
[2021-10-20] MEDS: MELATONIN 5 MG TABLETS PO SCH (22:12)
[2021-10-21] MEDS: chlordiazePOXIDE HCL 25 MG CAPSULE PO SCH ×4 (05:43→22:29)
[2021-10-21] MEDS: hydrOXYzine PAMOATE 25 MG CAPSULE (FP) PO SCH ×5 (05:43→22:55)
[2021-10-21] MEDS: cloNIDine HCL 0.1 MG TABLET PO PRN ×3 (05:45→22:31)
[2021-10-21] MEDS ORDERED: methaDONE HCL 10 MG TABLET (FOR DETOX USE ONLY) ONE (09:06)
[2021-10-21] MEDS: CLOPIDOGREL BISULFATE 75 MG TABLET (FP) PO SCH (10:16)
[2021-10-21] MEDS: ASPIRIN 81 MG CHEWABLE TABLETS PO SCH (10:16)
[2021-10-21] MEDS: GABAPENTIN 300 MG CAPSULE PO SCH ×2 (10:16→22:29)
[2021-10-21] MEDS: PRENATAL VITAMINS W/ FOLIC ACID TABLET (FP) PO SCH (10:17)
[2021-10-21] MEDS: LISINOPRIL 5 MG TABLET PO SCH (10:17)
[2021-10-21] MEDS: NICOTINE 21 MG/24 HOURS TOPICAL PATCH TD SCH (10:17)
[2021-10-21 11:13] LABS: HEMATOCRIT 40.1 % (35.4-49); HEMOGLOBIN 13.6 GM/dL (11.7-16.9); MCH 31.3 pg (25.7-33.7); MEAN CELL VOLUME 91.9 fl (80-96); PLATELET COUNT 207 10^3/uL (134-434); RBC 4.36 M/mm3 (4.00-5.60); RDW 14.2 % (11.9-15.9); WHITE BLOOD COUNT 5.9 K/mm3 (4.0-10.0)
[2021-10-21 11:55] LABS: CALCIUM 8.5 mg/dL (8.5-10.1)
[2021-10-21 11:57] LABS: ALBUMIN 3.6 g/dl (3.4-5.0); BLOOD UREA NITROGEN 17.4 mg/dL (7-18)
[2021-10-21 11:59] LABS: CREATININE 0.8 mg/dL (0.55-1.3)
[2021-10-21 12:01] LABS: BILIRUBIN,TOTAL 0.8 mg/dL (0.2-1); TOT PROT 6.5 g/dl (6.4-8.2)
[2021-10-21 12:32] LABS: HIV INTERPRETATION NEGATIVE (NEGATIVE)
[2021-10-21] MEDS: MAGNESIUM HYDROX 2400MG/30ML ORAL SUSPENSION 30 ML CUP PO PRN (17:56)
[2021-10-21] MEDS ORDERED: traZODone HCL 100 MG TABLET (FP) PO SCH (22:00)
[2021-10-21] MEDS ORDERED: ARIPiprazole 2 MG TABLET PO SCH (22:00)
[2021-10-21] MEDS: MELATONIN 5 MG TABLETS PO SCH (22:28)
[2021-10-21] MEDS: ATORVASTATIN CA 80 MG TABLET (FP) PO SCH (22:29)
[2021-10-21] MEDS: THIAMINE HCL 100 MG TABLET (FP) PO SCH (22:29)
[2021-10-22] MEDS: chlordiazePOXIDE HCL 25 MG CAPSULE PO SCH ×2 (06:28→10:35)
[2021-10-22] MEDS: hydrOXYzine PAMOATE 25 MG CAPSULE (FP) PO SCH ×3 (06:29→13:56)
[2021-10-22] MEDS ORDERED: methaDONE HCL 10 MG TABLET (FOR DETOX USE ONLY) PO ONE (10:00)
[2021-10-22] MEDS: ASPIRIN 81 MG CHEWABLE TABLETS PO SCH (10:31)
[2021-10-22] MEDS: LISINOPRIL 5 MG TABLET PO SCH (10:31)
[2021-10-22] MEDS: CLOPIDOGREL BISULFATE 75 MG TABLET (FP) PO SCH (10:31)
[2021-10-22] MEDS: GABAPENTIN 300 MG CAPSULE PO SCH (10:31)
[2021-10-22] MEDS: NICOTINE 21 MG/24 HOURS TOPICAL PATCH TD SCH (10:32)
[2021-10-22] MEDS: PRENATAL VITAMINS W/ FOLIC ACID TABLET (FP) PO SCH (10:32)
[2021-10-22] MEDS: cloNIDine HCL 0.1 MG TABLET PO PRN (10:35)
[2021-10-22] MEDS: MAGNESIUM HYDROX 2400MG/30ML ORAL SUSPENSION 30 ML CUP PO PRN (11:06)
[2021-10-22 18:38] VITALS: BP 113/72; PULSE 87; TEMP 97.5
[2021-10-23] MEDS ORDERED: chlordiazePOXIDE HCL 10 MG CAPSULE PO PRN
[2021-10-23] MEDS ORDERED: chlordiazePOXIDE HCL 10 MG CAPSULE PO SCH (05:00)
[2021-10-23] MEDS ORDERED: methaDONE HCL 10 MG TABLET (FOR DETOX USE ONLY) PO ONE (10:00)
[2021-10-24] MEDS ORDERED: chlordiazePOXIDE HCL 10 MG CAPSULE PO SCH (05:00)
[2021-10-24] MEDS ORDERED: methaDONE HCL 10 MG TABLET (FOR DETOX USE ONLY) PO ONE (10:00)
[2021-10-25] MEDS ORDERED: chlordiazePOXIDE HCL 10 MG CAPSULE PO ONE (05:00)
== END 2021-10-22 18:45 | disposition left against medical advice (07) | DRG 770 ==
LOC: YASAS 13:17 → Y3N 15:53
PROVIDERS: ADMIT Allergy & Immunology; ATTEND Surgery
PROC: HZ2ZZZZ Detoxification Services for Substance Abuse Treatment (ICD-10-PCS; principal; 2021-10-20)
DX: F11.23 Opioid dependence with withdrawal (principal); F10.230 Alcohol dependence with withdrawal, uncomplicated; F13.20 Sedative, hypnotic or anxiolytic dependence, uncomplicated; F12.20 Cannabis dependence, uncomplicated; F17.210 Nicotine dependence, cigarettes, uncomplicated; F19.282 Other psychoactive substance dependence with psychoactive substance-induced sleep disorder; F19.24 Other psychoactive substance dependence with psychoactive substance-induced mood disorder; F41.9 Anxiety disorder, unspecified; F32.A Depression, unspecified; F90.9 Attention-deficit hyperactivity disorder, unspecified type; I25.10 Atherosclerotic heart disease of native coronary artery without angina pectoris; I11.0 Hypertensive heart disease with heart failure; I50.20 Unspecified systolic (congestive) heart failure; Z95.5 Presence of coronary angioplasty implant and graft; E78.5 Hyperlipidemia, unspecified; Z88.8 Allergy status to other drugs, medicaments and biological substances; Z28.310 Unvaccinated for COVID-19; Z91.018 Allergy to other foods
CPT/HCPCS: 36415; 80053; 85027; 86780; 87389; C9803-CS; J0735; U0003; U0005

== ENCOUNTER 2021-11-22 14:26 | Inpatient (IN) | payer OTHER ==
[2021-11-22 18:40] VITALS: BMI 32.7
[2021-11-22] MEDS ORDERED: MAG HYDROX/AL HYDROX/SIMETH 30 ML UNIT-DOSE CUP PO PRN (21:28)
[2021-11-22] MEDS ORDERED: NICOTINE POLACRILEX 2 MG GUM BUC PRN (21:28)
[2021-11-22] MEDS ORDERED: ONDANSETRON *ODT* 4 MG TABLET SL PRN (21:28)
[2021-11-22] MEDS ORDERED: IBUPROFEN 400 MG TABLET (FP) PO PRN (21:28)
[2021-11-22] MEDS ORDERED: MAGNESIUM CITRATE 300 ML BOTTLE PO PRN (21:28)
[2021-11-22] MEDS ORDERED: IBUPROFEN 600 MG TABLET (FP) PO PRN (21:28)
[2021-11-22] MEDS ORDERED: BENZOCAINE/MENTHOL (CHLORASEPTIC ) LOZENGE MM PRN (21:28)
[2021-11-22] MEDS ORDERED: DICYCLOMINE HCL 10 MG CAPSULE PO PRN (21:28)
[2021-11-22] MEDS ORDERED: LOPERAMIDE HCL 2 MG CAPSULE PO PRN (21:28)
[2021-11-22] MEDS ORDERED: BISMUTH SUBSALICYLATE 524 MG/30 ML PO PRN (21:28)
[2021-11-22] MEDS ORDERED: ACETAMINOPHEN 325 MG TABLET (FP) PO PRN ×2 (21:28)
[2021-11-22] MEDS ORDERED: methaDONE HCL 10 MG TABLET (FOR DETOX USE ONLY) PO ONE (21:40)
[2021-11-22] MEDS ORDERED: diazePAM 5 MG TABLET PO PRN (21:40)
[2021-11-22] MEDS: MELATONIN 5 MG TABLETS PO SCH (22:45)
[2021-11-22] MEDS: THIAMINE HCL 100 MG TABLET (FP) PO SCH (22:45)
[2021-11-22] MEDS: diazePAM 5 MG TABLET PO SCH (22:46)
[2021-11-23] MEDS: diazePAM 5 MG TABLET PO SCH ×4 (05:13→22:11)
[2021-11-23] MEDS: METHOCARBAMOL 500 MG TABLET PO PRN ×2 (05:14→22:13)
[2021-11-23 10:27] LABS: HEMATOCRIT 38.4 % (35.4-49); HEMOGLOBIN 13.1 GM/dL (11.7-16.9); MCH 30.7 pg (25.7-33.7); MEAN CELL VOLUME 90.4 fl (80-96); MEAN PLT VOLUME 8.7 fl (7.5-11.1); PLATELET COUNT 212 10^3/uL (134-434); RBC 4.25 M/mm3 (4.00-5.60); RDW 13.3 % (11.9-15.9); WHITE BLOOD COUNT 5.9 K/mm3 (4.0-10.0)
[2021-11-23] MEDS: PRENATAL VITAMINS W/ FOLIC ACID TABLET (FP) PO SCH (10:37)
[2021-11-23] MEDS: GABAPENTIN 300 MG CAPSULE PO SCH ×2 (10:38→22:11)
[2021-11-23] MEDS: NICOTINE 21 MG/24 HOURS TOPICAL PATCH TD SCH (10:40)
[2021-11-23] MEDS: cloNIDine HCL 0.1 MG TABLET PO PRN ×2 (10:42→17:16)
[2021-11-23 10:53] LABS: CALCIUM 8.2 mg/dL (8.5-10.1)
[2021-11-23 10:54] LABS: ALBUMIN 3.4 g/dl (3.4-5.0); BLOOD UREA NITROGEN 19.8 mg/dL (7-18)
[2021-11-23 10:56] LABS: CREATININE 0.8 mg/dL (0.55-1.3)
[2021-11-23 10:58] LABS: BILIRUBIN,TOTAL 0.4 mg/dL (0.2-1); TOT PROT 6.4 g/dl (6.4-8.2)
[2021-11-23] MEDS: ASPIRIN 81 MG CHEWABLE TABLETS PO SCH (12:39)
[2021-11-23] MEDS: CLOPIDOGREL BISULFATE 75 MG TABLET (FP) PO SCH (12:39)
[2021-11-23] MEDS: LISINOPRIL 5 MG TABLET PO SCH (12:40)
[2021-11-23] MEDS: ARIPiprazole 2 MG TABLET PO SCH (12:40)
[2021-11-23] MEDS: MELATONIN 5 MG TABLETS PO SCH (22:11)
[2021-11-23] MEDS: ATORVASTATIN CA 80 MG TABLET (FP) PO SCH (22:11)
[2021-11-23] MEDS: traZODone HCL 100 MG TABLET (FP) PO SCH (22:11)
[2021-11-23] MEDS: THIAMINE HCL 100 MG TABLET (FP) PO SCH (22:11)
[2021-11-24] MEDS: diazePAM 5 MG TABLET PO SCH ×3 (05:11→22:53)
[2021-11-24] MEDS: METHOCARBAMOL 500 MG TABLET PO PRN (05:12)
[2021-11-24] MEDS ORDERED: methaDONE HCL 10 MG TABLET (FOR DETOX USE ONLY) PO ONE (10:00)
[2021-11-24] MEDS ORDERED: cloNIDine HCL 0.1 MG TABLET PO ONE (10:37)
[2021-11-24] MEDS: ASPIRIN 81 MG CHEWABLE TABLETS PO SCH (10:44)
[2021-11-24] MEDS: GABAPENTIN 300 MG CAPSULE PO SCH ×2 (10:44→22:53)
[2021-11-24] MEDS: NICOTINE 21 MG/24 HOURS TOPICAL PATCH TD SCH (10:44)
[2021-11-24] MEDS: CLOPIDOGREL BISULFATE 75 MG TABLET (FP) PO SCH (10:44)
[2021-11-24] MEDS: LISINOPRIL 5 MG TABLET PO SCH (11:06)
[2021-11-24] MEDS: PRENATAL VITAMINS W/ FOLIC ACID TABLET (FP) PO SCH (11:06)
[2021-11-24] MEDS: MAGNESIUM HYDROX 2400MG/30ML ORAL SUSPENSION 30 ML CUP PO PRN (12:00)
[2021-11-24] MEDS: ARIPiprazole 2 MG TABLET PO SCH (13:36)
[2021-11-24] MEDS: cloNIDine HCL 0.1 MG TABLET PO SCH (18:31)
[2021-11-24] MEDS: ATORVASTATIN CA 80 MG TABLET (FP) PO SCH (22:52)
[2021-11-24] MEDS: MELATONIN 5 MG TABLETS PO SCH (22:53)
[2021-11-24] MEDS: traZODone HCL 100 MG TABLET (FP) PO SCH (22:53)
[2021-11-24] MEDS: THIAMINE HCL 100 MG TABLET (FP) PO SCH (22:53)
[2021-11-25] MEDS ORDERED: diazePAM 5 MG TABLET PO SCH (06:00)
[2021-11-25] MEDS: CLOPIDOGREL BISULFATE 75 MG TABLET (FP) PO SCH (10:05)
[2021-11-25] MEDS: cloNIDine HCL 0.1 MG TABLET PO SCH (10:05)
[2021-11-25] MEDS: ASPIRIN 81 MG CHEWABLE TABLETS PO SCH (10:05)
[2021-11-25] MEDS: GABAPENTIN 300 MG CAPSULE PO SCH (10:05)
[2021-11-25] MEDS: LISINOPRIL 5 MG TABLET PO SCH (10:05)
[2021-11-25] MEDS: PRENATAL VITAMINS W/ FOLIC ACID TABLET (FP) PO SCH (10:06)
[2021-11-25] MEDS: NICOTINE 21 MG/24 HOURS TOPICAL PATCH TD SCH (10:07)
[2021-11-25] MEDS: ARIPiprazole 2 MG TABLET PO SCH (12:03)
[2021-11-25 12:49] VITALS: BP 110/68; PULSE 77; RESP 17; TEMP 97.5
[2021-11-25] MEDS: MAGNESIUM HYDROX 2400MG/30ML ORAL SUSPENSION 30 ML CUP PO PRN (13:21)
[2021-11-26] MEDS ORDERED: diazePAM 5 MG TABLET PO ONE (06:00)
[2021-11-26] MEDS ORDERED: methaDONE HCL 10 MG TABLET (FOR DETOX USE ONLY) PO ONE (10:00)
== END 2021-11-25 17:57 | disposition home or self-care (01) | DRG 773 ==
LOC: YASAS 14:26 → Y6N 20:22
PROVIDERS: ADMIT Allergy & Immunology; ATTEND Surgery
PROC: HZ2ZZZZ Detoxification Services for Substance Abuse Treatment (ICD-10-PCS; principal; 2021-11-22)
DX: F11.23 Opioid dependence with withdrawal (principal); F10.10 Alcohol abuse, uncomplicated; F13.20 Sedative, hypnotic or anxiolytic dependence, uncomplicated; F14.20 Cocaine dependence, uncomplicated; F12.20 Cannabis dependence, uncomplicated; F17.210 Nicotine dependence, cigarettes, uncomplicated; F19.282 Other psychoactive substance dependence with psychoactive substance-induced sleep disorder; F19.24 Other psychoactive substance dependence with psychoactive substance-induced mood disorder; F33.1 Major depressive disorder, recurrent, moderate; F41.9 Anxiety disorder, unspecified; F90.9 Attention-deficit hyperactivity disorder, unspecified type; I25.10 Atherosclerotic heart disease of native coronary artery without angina pectoris; I11.0 Hypertensive heart disease with heart failure; I50.9 Heart failure, unspecified; Z95.5 Presence of coronary angioplasty implant and graft; Z86.718 Personal history of other venous thrombosis and embolism; Z79.02 Long term (current) use of antithrombotics/antiplatelets; Z28.310 Unvaccinated for COVID-19; Z88.8 Allergy status to other drugs, medicaments and biological substances; Z91.018 Allergy to other foods
CPT/HCPCS: 36415; 80053; 85027; 86780; 93005; 93010; C9803-CS; J0735; Q0162; U0003; U0005